=== PATIENT | female | born 1975 | race Caucasian/White ===

== ENCOUNTER 2020-03-30 12:30 | Emergency (ER) | payer OTHER, SELFPAY ==
[2020-03-30 13:47] VITALS: BP 145/109; PULSE 93; RESP 18; TEMP 36.8; O2SAT 96; BMI 34.1
--- NOTE | 2020-03-30 13:47 | ED_ITS ---
HPI - General Adult General Chief complaint: Back Pain/Injury <Katlin Kaminski NP - Last Filed: 03/30/20 14:43> Stated complaint: BACK PAIN <Katlin Kaminski NP - Last Filed: 03/30/20 14:43> Time Seen by Provider: 03/30/20 13:22 <Katlin Kaminski NP - Last Filed: 03/30/20 14:43> Source: patient <Katlin Kaminski NP - Last Filed: 03/30/20 14:43> Mode of arrival: ambulatory <Katlin Kaminski NP - Last Filed: 03/30/20 14:43> Limitations: no limitations <Katlin Kaminski NP - Last Filed: 03/30/20 14:43> History of Present Illness HPI narrative: 44 yo female with past medical history of acute on chronic low back pain worsened since last night after lifting a heavy box last night. No radiation of pain. No bowel or bladder incontinence. No numbness/tingling. No urinary symptoms. Patient is ambulatory. Takes flexeril, gabapentin and ibuprofen for chronic pain. <Katlin Kaminski NP - Last Filed: 03/30/20 14:43> Related Data Home medications: Previous Rx's Medication Instructions Recorded lidocaine [Lidoderm] 1 patch TOPICAL DAILY #15 ea 03/30/20 oxycodone 5 mg PO Q6H PRN #10 tab 03/30/20 <Katlin Kaminski NP - Last Filed: 03/30/20 14:43> Allergies/adverse reactions: Allergies Allergy/AdvReac Type Severity Reaction Status Date / Time vancomycin [VANCOMYCIN] Allergy Intermediate RASH, Verified 04/01/20 15:06 ITCHING, BREATHING PROBLEMS <Katlin Kaminski NP - Last Filed: 03/30/20 14:43> Review of Systems Review of Systems: Yes all other systems are reviewed and are negative <Katlin Kaminski NP - Last Filed: 03/30/20 14:43> Constitutional: Constitutional: Reports no additional constitutional complaints, Denies body ache(s), Denies chills, Denies fever(s), Denies headache(s) and Denies weakness <Katlin Kaminski NP - Last Filed: 03/30/20 14:43> Eyes: Eyes: Reports no additional eye complaints and Denies change in vision <Katlin Kaminski NP - Last Filed: 03/30/20 14:43> ENT: Reports system reviewed and no additional complaints, except as documented, Denies dizziness, Denies headache(s), Denies nasal congestion, Denies nasal discharge and Denies neck pain <Katlin Kaminski BEH[employer]IOR[employer] SCI[employer]ES DEPARTMENT CHAIR - Last Filed: 03/30/20 14:43> Cardiovascular: Cardiovascular: Reports no additional cardiovascular complaints, Denies chest pain, Denies leg edema and Denies dyspnea <Katlin Kaminski NP - Last Filed: 03/30/20 14:43> Respiratory: Respiratory: Reports no additional respiratory complaints, Denies cough and Denies dyspnea <Katlin Kaminski NP - Last Filed: 03/30/20 14:43> Gastrointestinal: Gastrointestinal: Reports no additional gastrointestinal complaints, Denies abdominal pain, Denies diarrhea, Denies nausea and Denies vomiting <Katlin Kaminski NP - Last Filed: 03/30/20 14:43> Genitourinary: Genitourinary: Reports no additional female genitourinary complaints and Denies urinary incontinence <Katlin Kaminski NP - Last Filed: 03/30/20 14:43> Musculoskeletal: Musculoskeletal: Reports no additional musculoskeletal complaints, Reports back pain, Denies arthralgias, Denies joint swelling, Denies neck pain, Denies numbness and Denies tingling <Katlin Kaminski NP - Last Filed: 03/30/20 14:43> Integumentary/Breasts: Skin/Breast: Reports system reviewed and no additional complaints, except as docu and Denies rash <Katlin Kaminski NP - Last Filed: 03/30/20 14:43> Neurologic: Reports system reviewed and no additional complaints, except as documented, Denies Abnormal speech present, Denies dizziness, Denies headache(s), Denies numbness, Denies tingling and Denies weakness <Katlin Kaminski NP - Last Filed: 03/30/20 14:43> PMFSH Past Medical History Medical History: Medical History (Updated 04/01/20 @ 15:36 by Zuhair Spencer MD) Back pain Carpal tunnel syndrome, bilateral Fibula fracture Kidney laceration Low back pain Lumbar radiculopathy Pars defect of lumbar spine Tibia fracture <Katlin Kaminski NP - Last Filed: 03/30/20 14:43> Physical Exam Vital Signs: Vital Signs: Last Vital Signs Temp 98.2 F 03/30/20 13:50 Pulse 93 03/30/20 13:50 Resp 18 03/30/20 13:50 BP 145/102 H 03/30/20 13:50 Pulse Ox 96 03/30/20 13:50 Body Mass Index 34.1 <Katlin Kaminski NP - Last Filed: 03/30/20 14:43> Vital Signs: Last Vital Signs Temp 98.2 F 03/30/20 13:50 Pulse 93 03/30/20 13:50 Resp 18 03/30/20 13:50 BP 145/102 H 03/30/20 13:50 Pulse Ox 96 03/30/20 13:50 Body Mass Index 34.1 <Linden Todd MD - Last Filed: 04/07/20 07:19> Const: General: cooperative, healthy appearing, comfortable and no acute distress <Katlin Kaminski NP - Last Filed: 03/30/20 14:43> Orientation/consciousness: patient oriented x3 <Katlin Kaminski NP - Last Filed: 03/30/20 14:43> Limitations: no limitations <Katlin Kaminski NP - Last Filed: 03/30/20 14:43> HENMT: Head: Yes normal to inspection <Katlin Kaminski NP - Last Filed: 03/30/20 14:43> Ears: hearing grossly normal bilaterally <Katlin Kaminski NP - Last Filed: 03/30/20 14:43> General nose exam: Normal external nose present <Katlin Kaminski NP - Last Filed: 03/30/20 14:43> Face and sinus: Yes normal facial exam <Katlin Kaminski NP - Last Filed: 03/30/20 14:43> Mouth: Normal oral and palatal mucosa present <Katlin Kaminski NP - Last Filed: 03/30/20 14:43> Throat: Yes posterior oropharynx normal <Katlin Kaminski NP - Last Filed: 0 03/30/20 14:43> Eyes: General: appearance normal, both eyes and all related structures <Katlin Kaminski NP - Last Filed: 03/30/20 14:43> Pupils: Equal, round and reactive pupils present <Katlin Kaminski NP - Last Filed: 03/30/20 14:43> Neck: Neck: Yes normal visual inspection <Katlin Kaminski BEH[employer]IORAL SCI[employer]ES DEPARTMENT CHAIR - Last Filed: 03/30/20 14:43> Chest: Chest palpation & inspection: normal inspection of the chest <Katlin Kaminski NP - Last Filed: 03/30/20 14:43> Resp: Effort & Inspection: normal respiratory effort <Katlin Kaminski NP - Last Filed: 03/30/20 14:43> Auscultation: clear to auscultation bilaterally <Katlin Kaminski NP - Last Filed: 03/30/20 14:43> Cardio: Rate: regular rate <Katlin Kaminski NP - Last Filed: 03/30/20 14:43> Rhythm: regular rhythm <Katlin Kaminski NP - Last Filed: 03/30/20 14:43> Peripheral pulses: Peripheral pulses 2+ throughout <Katlin Kaminski NP - Last Filed: 03/30/20 14:43> GI: Inspection: Yes normal to inspection <Katlin Kaminski NP - Last Filed: 03/30/20 14:43> Palpation (GI): Soft to palpation and nontender <Katlin Kaminski NP - Last Filed: 03/30/20 14:43> Auscultation: normal bowel sounds <Katlin Kaminski NP - Last Filed: 03/30/20 14:43> Back/Spine/Pelvis: Other: Mildine lower lumbar tenderness with no step offs or deformities. FROM. <Katlin Kaminski NP - Last Filed: 03/30/20 14:43> Thoracic/Lumbar Spine: thoracic and lumbar spine normal to inspection and stra ight leg raise positive (bilateral ) <Katlin Kaminski NP - Last Filed: 03/30/20 14:43> Skin: General skin exam: no rashes or lesions noted <Katlin Kaminski NP - Last Filed: 03/30/20 14:43> Neuro: General: patient oriented x3, no focal motor deficits and normal sensation to monofilament <Katlin Kaminski NP - Last Filed: 03/30/20 14:43> Cranial nerves: Yes Equal, round and reactive pupils present <Katlin Kaminski NP - Last Filed: 03/30/20 14:43> Cognition (Neuro): normal cognition <Katlin Kaminski NP - Last Filed: 03/30/20 14:43> Speech: No Abnormal speech present <Katlin Kaminski NP - Last Filed: 03/30 14:43> Gait exam (Neuro): Normal gait present <Katlin Kaminski NP - Last Filed: 03/30/20 14:43> Motor exam (neuro): 5/5 motor strength present throughout <Katlin Kaminski NP - Last Filed: 03/30/20 14:43> Extrem: General: Yes normal to inspection <Katlin Kaminski NP - Last Filed: 03/30/20 14:43> Course Course Course Narrative: 44 yo female here with acute on chronic back pain. No red flag symptoms or neuro deficits. X-rays Mild anterior subluxation of L4 with respect L5, L4-L5 degenerative disc disease and lower lumbar spine facet arthritis. New spinal stimulator in the lead entering at the L1-L2 level extending to at least the T 9-10 disc space level. Unchanged appearance of IVC filter. Patient on flexeril, naproxen, gabapentin. Reviewed masspat with no additional rx noted. Will give small supply of oxycodone. Reviewed worrisome signs.symptoms with the patient and when to return to the ED. Comfortable with discharge home <Katlin Kaminski NP - Last Filed: 03/30/20 14:43> I have reviewed the chart <Linden Todd MD - Last Filed: 04/07/20 07:19> Medical Decision Making Medical Records Medical records reviewed: Yes I reviewed the patient's medical records. <Katlin Kaminski NP - Last Filed: 03/30/20 14:43> Lab Data Lab results reviewed: Yes I reviewed the patient's lab results. <Katlin Kaminski NP - Last Filed: 03/30/20 14:43> Imaging Data lumbar spine xray: Attestation: I personally reviewed and interpreted this imaging study as follows: <Katlin Kaminski NP - Last Filed: 03/30/20 14:43> Radiologist's impression: EXAMINATION: XR LUMBOSACRAL SPINE CLINICAL INFORMATION: Low back pain COMPARISON: Previous lumbar spine x-ray most recent August 2017 TECHNIQUE: Three views of the lumbosacral spine. FINDINGS: There is mild 4 mm anterior subluxation of L4 with respect L5. Bone alignment is otherwise normal. There is degenerative disc disease L4-L5. There is lower lumbar spine facet arthritis. No fracture or dislocation is seen. There is a stimulator lead entering the spinal canal at the L1-L2 level. The lead extends to the T T9-T10 disc space level. The most superior portion of the lead in the spinal canal may not be imaged. There is an IVC filter with the top of the filter at the L2 vertebral body level. There is a broken displaced prong appears unchanged. XR/XR lumbar spine 2-3V IMPRESSION: Mild anterior subluxation of L4 with respect L5, L4-L5 degenerative disc disease and lower lumbar spine facet arthritis. New spinal stimulator in the lead entering at the L1-L2 level extending to at least the T 9-10 disc space level. Unchanged appearance of IVC filter. <Katlin Kaminski NP - Last Filed: 03/30/20 14:43> Discharge Plan Discharge Clinical Impression: Strain of lumbar region <Katlin Kaminski NP - Last Filed: 03/30/20 14:43> Patient Disposition: Home, Self-Care <Katlin Kaminski NP - Last Filed: 03/30/20 14:43> Instructions: Acute Low Back Pain (ED) <Katlin Kaminski NP - Last Filed: 03/30/20 14:43> Prescriptions: New lidocaine [Lidoderm] 5 % adhesive patch,medicated 1 patch topical DAILY Qty: 15 RF: 0 oxycodone 5 mg tablet 5 mg PO Q6H PRN (Reason: pain) Qty: 10 RF: 0 <Katlin Kaminski NP - Last Filed: 03/30/20 14:43> Referrals: Physician,Unknown [Primary Care Provider] - 2 days <Katlin Kaminski NP - Last Filed: 03/30/20 14:43> Interventions: ED Discharge Assessment Last Done: 03/30/20 14:22 <Katlin Kaminski NP - Last Filed: 03/30/20 14:43> Discharge Date/Time: 03/30/20 14:24 <Katlin Kaminski NP - Last Filed: 03/30/20 14:43>
[2020-03-30 13:50] VITALS: BP 145/102; PULSE 93; RESP 18; TEMP 36.8; O2SAT 96; BMI 34.1
== END 2020-03-30 14:24 | disposition home or self-care (01) ==
PROVIDERS: Emergency Provider Emergency Medicine
DX: S39.012A Strain of muscle, fascia and tendon of lower back, initial encounter (principal); X50.0XXA Overexertion from strenuous movement or load, initial encounter; Y93.E9 Activity, other interior property and clothing maintenance; Y92.019 Unspecified place in single-family (private) house as the place of occurrence of the external cause; Y99.9 Unspecified external cause status
CPT/HCPCS: 72100; 99283

== ENCOUNTER → 2020-04-01 14:22 | Outpatient (BNVA) | payer OTHER, SELFPAY | PROVIDERS: Visit Provider Anesthesiology | DX: G56.03 Carpal tunnel syndrome, bilateral upper limbs (principal); M54.5 Low back pain; M43.06 Spondylolysis, lumbar region; M54.16 Radiculopathy, lumbar region | CPT/HCPCS: 99212 ==

== ENCOUNTER → 2020-05-10 14:20 | Outpatient (BNVA) | payer OTHER, SELFPAY | PROVIDERS: Visit Provider Orthopaedic Surgery | DX: R20.0 Anesthesia of skin (principal); R20.2 Paresthesia of skin | CPT/HCPCS: 99202 ==

== ENCOUNTER 2020-09-05 11:51 | Emergency (ER) | payer OTHER, SELFPAY ==
--- NOTE | ~2020-09-05 | XR_ITS ---
EXAMINATION: XR HIP, RIGHT CLINICAL INFORMATION: Atraumatic right hip pain COMPARISON: None TECHNIQUE: AP pelvis and 2 views of the right hip. FINDINGS: There is normal symmetry of both hip joints and SI joints. There is old healed fracture left pubis with hypertrophic bony changes. AP and frog-leg views right hip reveal old healed right mid femoral fracture. There is no acute fracture or dislocation right hip joint. Small ossified bone fragments are seen along the soft tissues of right hip joint and a small enthesophyte along the lesser trochanter. Otherwise the soft tissues unremarkable. XR/XR hip RT w PEL1V IMPRESSION: No acute fracture or dislocation AP pelvis and right hip. There is old healed fracture right mid femur and left pubis with hypertrophic callus formation. Minimal soft tissue ossification adjacent to the right hip joint and a small enthesophyte along lesser trochanter.
[2020-09-05 11:58] VITALS: BP 137/97; PULSE 96; RESP 18; TEMP 36.7; O2SAT 97; BMI 32.8
[2020-09-05] MEDS: Ibuprofen 600 MG TABLET PO (12:44)
[2020-09-05] MEDS: oxyCODONE HCl Immed Release 5 MG TABLET PO (12:45)
--- NOTE | 2020-09-05 13:09 | ED_ITS ---
HPI - Extremity Problem General Chief complaint: Extremity Injury, Lower Stated complaint: R hip/leg pain No injury Time Seen by Provider: 09/05/20 12:11 Source: patient Mode of arrival: ambulatory Limitations: no limitations History of Present Illness HPI Narrative: 44-year-old female with a past medical history of prior mid right femur fracture presenting to the ED with complaints of acute on chronic right hip/ right upper leg pain for the past few days worse today. No trauma. Denies having any fevers any paresthesias or any surrounding erythema. MD Complaint: extremity pain and joint paint Onset (ago): day(s) ( Worse today) Pain Consistency: constant Location: right and lower extremity ( right hip) Severity scale (1-10): >10 Quality: aching, sharp and constant Radiation: distal Relieving factors: immobilization and rest Exacerbating factors: range of motion, weight bearing, walking and palpation Associated symptoms: denies other symptoms Related Data Previous Rx's Medication Instructions Recorded lidocaine [Lidoderm] 1 patch TOPICAL DAILY #15 ea 03/30/20 acetaminophen [Tylenol Extra 1,000 mg PO QID PRN #14 tab 09/05/20 Strength] ibuprofen 800 mg PO Q8H PRN #14 tab 09/05/20 lidocaine HCl [Aspercreme 1 appl TOPICAL BID PRN #120 g 09/05/20 (lidocaine HCl)] oxycodone 5 mg PO BID PRN #10 tab 09/05/20 Allergies Allergy/AdvReac Type Severity Reaction Status Date / Time vancomycin [VANCOMYCIN] Allergy Intermediate RASH, Verified 05/10/20 14:38 ITCHING, BREATHING PROBLEMS Review of Systems Review of Systems: Constitutional : No changes in activity, No lethargy, No recent prior head injury, No agitation, No increased fussiness ENT/Mouth : No Ear Pain, No Nasal discharge/drainage Eyes: No Eye Pain, No Swelling, No Redness, No Foreign Body, No Vision Changes Cardiovascular : No Chest Pain, No SOB Respiratory : No Cough Gastrointestinal : No Nausea, No Vomiting, No abdominal Pain Genitourinary : No Dysuria, No Urinary Frequency, No Urinary Incontinence, No Urgency, No Flank Pain Musculoskeletal : + joint pain, No neck stiffness, No back pain/injury Skin : No lacerations Neuro : No unsteady gait, No Paresthesias, No Loss of Consciousness, No altered mental status, No Headache Yes all other systems are reviewed and are negative [facility] Past Medical History Attestation statement: The following information was validated with the patient. Medical History Back pain Carpal tunnel syndrome, bilateral DVT (deep vein thrombosis) in Fibula fracture Kidney laceration Low back pain Lumbar radiculopathy Pancreatitis Pars defect of lumbar spine Tibia fracture Surgical History History of cholecystectomy Social History Social History Advance Directives: No Advance Directives Information Provided: No Patient : No Current occupational status: unemployed Current occupation: disability Physical Exam Vital Signs: Vital Signs: Last Vital Signs Temp 98.1 F 09/05/20 11:58 Pulse 96 09/05/20 11:58 Resp 18 09/05/20 11:58 BP 137/97 H 09/05/20 11:58 Pulse Ox 97 09/05/20 11:58 Body Mass Index 32.8 vital signs have been reviewed as normal and appeared to be correct. Blood pressure normal. Heart rate normal. Respiration rate normal. Temperature normal. Oxygen saturation normal. Appearance: Alert. Oriented X3. No acute distress. Head: Normal external exam. Normocephalic. Atraumatic. Eyes: PERRLA. EOMI. Conjunctiva and sclera normal. Eyelids normal. ENT: EAC normal. TM's Normal. Pharynx normal. Uvula midline. Moist mucous membranes. Neck: Normal inspection. Neck supple. FROM. No adenopathy. No meningeal signs. CVS: Normal heart rate and rhythm. Heart sound normal. Pulses normal throughout. No murmurs/rales/gallops. Respiratory: No respiratory distress. Painless inspiration. Abdomen: Soft and nontender. Bowel sounds normal in all 4 quadrants. No distention noted. No organomegaly noted. No visible injury noted. Back: No CVA tenderness. Full range of motion noted. No rashes/lesion/induration/fluctuance or signs of infection noted. Skin: Skin warm and dry. Normal skin color. Normal skin turgor. No rashes/lesions/lacerations noted. Extremities: Patient with tenderness to palpation of right hip/right upper leg. Patient has full range of motion of right hip/ right upper leg no laxity or signs of infection or rashes are noted. No lower extremity edema. no calf tenderness noted. Extremities exhibit normal range of motion. Extremities nontender. Neuro: Oriented X 3. No motor deficit. No sensory deficit. Reflexes normal. Normal steady gait. No focal neuro deficits noted. Vascular: + radial pulses/+ 2 distal pedal pulses/+2 dorsalis pedis b/l. Normal cap refill. No cyanosis noted to upper extremity nails and lower extremity toes nails. Course Course Course Narrative: Patient with acute on chronic right hip / right upper leg pain for the past few days worse today. X-ray obtained revealed chronic changes no acute processes were noted. Will DC home with instructions return if any new or worsening symptoms and symptomatic treatment and to follow up with primary care provider. Patient understands agrees with this plan. MDM - Extremity (Nontraumatic) Imaging Data Right hip/pelvis x-ray: Attestation: I personally reviewed and interpreted this imaging study as follows: Radiologist's impression: FINDINGS: There is normal symmetry of both hip joints and SI joints. There is old healed fracture left pubis with hypertrophic bony changes. AP and frog-leg views right hip reveal old healed right mid femoral fracture. There is no acute fracture or dislocation right hip joint. Small ossified bone fragments are seen along the soft tissues of right hip joint and a small enthesophyte along the lesser trochanter. Otherwise the soft tissues unremarkable. XR/XR hip RT w PEL1V IMPRESSION: No acute fracture or dislocation AP pelvis and right hip. There is old healed fracture right mid femur and left pubis with hypertrophic callus formation. Minimal soft tissue ossification adjacent to the right hip joint and a small enthesophyte along lesser trochanter. Discharge Plan Discharge Clinical Impression: Strain of right hip Patient Disposition: Home, Self-Care Instructions: Hip Pain (ED) Additional Instructions: Your x-ray revealed chronic changes no acute processes You do not have any new broken bones are noted. Return if any new or worsening symptoms. Follow up with your primary care provider. Prescriptions: New ibuprofen 800 mg tablet 800 mg PO Q8H PRN (Reason: pain) Qty: 14 RF: 0 acetaminophen [Tylenol Extra Strength] 500 mg tablet 1,000 mg PO QID PRN (Reason: fever or pain) Qty: 14 RF: 0 oxycodone 5 mg tablet 5 mg PO BID PRN (Reason: pain) Qty: 10 RF: 0 lidocaine HCl [Aspercreme (lidocaine HCl)] 4 % cream 1 appl topical BID PRN (Reason: pain) Qty: 120 RF: 0 No Action lidocaine [Lidoderm] 5 % adhesive patch,medicated 1 patch topical DAILY Qty: 15 RF: 0 Referrals: Physician,Unknown [Primary Care Provider] - 2 days (your pcp) Print Language: Swedish
[2020-09-05 13:47] VITALS: RESP 17
== END 2020-09-05 13:58 | disposition home or self-care (01) ==
PROVIDERS: Emergency Provider Emergency Medicine
DX: S76.011A Strain of muscle, fascia and tendon of right hip, initial encounter (principal); X58.XXXA Exposure to other specified factors, initial encounter; Y93.9 Activity, unspecified; Y92.9 Unspecified place or not applicable; Y99.9 Unspecified external cause status; Z86.718 Personal history of other venous thrombosis and embolism
CPT/HCPCS: 73502; 99283

== ENCOUNTER 2020-09-09 17:16 | Emergency (ER) | payer OTHER, SELFPAY ==
[2020-09-09 17:55] VITALS: BP 138/85; PULSE 95; RESP 18; TEMP 37.3; O2SAT 96; BMI 35.5
--- NOTE | 2020-09-09 19:04 | ED.BACK ---
HPI - Back Pain/Injury General Chief Complaint: Back Pain/Injury Stated Complaint: Lower back pain Time Seen by Provider: 09/09/20 18:55 History of Present Illness HPI Narrative: patient complains of right low back pain radiating to the right knee area, there is no loss of sensation there is no weakness no change to bowel or bladder no incontinence There is no trauma, patient was seen here 3 days ago for the same thing is taking 1 Percocet every 6 hours as needed along with lidocaine patch Motrin and Tylenol without good relief Related Data Previous Rx's Medication Instructions Recorded lidocaine [Lidoderm] 1 patch TOPICAL DAILY #15 ea 03/30/20 acetaminophen [Tylenol Extra 1,000 mg PO QID PRN #14 tab 09/05/20 Strength] ibuprofen 800 mg PO Q8H PRN #14 tab 09/05/20 lidocaine HCl [Aspercreme 1 appl TOPICAL BID PRN #120 g 09/05/20 (lidocaine HCl)] oxycodone 5 mg PO BID PRN #10 tab 09/05/20 oxycodone 5 mg PO Q6H PRN #7 tab 09/09/20 prednisone 60 mg PO DAILY 4 Days #12 tab 09/09/20 Allergies Allergy/AdvReac Type Severity Reaction Status Date / Time vancomycin [VANCOMYCIN] Allergy Intermediate RASH, Verified 05/10/20 14:38 ITCHING, BREATHING PROBLEMS Review of Systems Review of Systems: positive for right-sided back pain radiating to right leg Negative no fever no chills no dizziness no weakness no fainting no feeling faint no headache no neck pain no chest pain no abdominal pain no dysuria no frequency no changes to bowel or bladder no incontinence no rash no numbness weakness Yes all other systems are reviewed and are negative PMFSH Past Medical History Source: nursing notes reviewed Medical History Back pain Carpal tunnel syndrome, bilateral DVT (deep vein thrombosis) in Fibula fracture Kidney laceration Low back pain Lumbar radiculopathy Pancreatitis Pars defect of lumbar spine Tibia fracture Surgical History History of cholecystectomy Social History Social History Advance Directives: No Advance Directives Information Provided: Yes Patient : No Current occupational status: unemployed Current occupation: disability Physical Exam Vital Signs: Vital Signs: Last Vital Signs Temp 99.1 F 09/09/20 17:55 Pulse 95 09/09/20 17:55 Resp 18 09/09/20 17:55 BP 138/85 09/09/20 17:55 Pulse Ox 96 09/09/20 17:55 Body Mass Index 35.5 general appearance no acute distress Head is normocephalic atraumatic Neck is supple and nontender Respiratory no distress Abdomen soft nontender The back there is right gluteal and lower lumbar tenderness, the skin is normal no redness no rash no wound no sign of skin infection, there is no CVA tenderness and there is no focal bony tenderness Pain is easily reproduced with movement Extremities is full range of motion x4 neuro no gross motor or sensory deficit Skin no rash Course Course Course Narrative: patient with right-sided sciatica not getting pain relief with 1 oxycodone is advised that I will write a few more tablets double the dose to 10 mg see if that is helpful and we started prednisone and I advised her that in some cases it helps pinched nerve radiating pain but not guarantee She is discharged with no neurologic deficit no bowel or bladder change Discharge Plan Discharge Clinical Impression: Sciatica Qualifiers: Laterality: right Qualified Code(s): M54.31 - Sciatica, right side Patient Disposition: Home, Self-Care Additional Instructions: we are adding prednisone which might help with inflammation around the nerve shooting pain down her right leg I am writing you for additional oxycodone as the 1 5 mg tablet is not helping and it is very safe to double it to 2 tablets 10 mg and usually that will make the pain more tolerable Follow with primary doctor Return any concerns Prescriptions: New prednisone 20 mg tablet 60 mg PO DAILY 4 Days Qty: 12 RF: 0 oxycodone 5 mg tablet 5 mg PO Q6H PRN (Reason: pain) Qty: 7 RF: 0 No Action ibuprofen 800 mg tablet 800 mg PO Q8H PRN (Reason: pain) Qty: 14 RF: 0 acetaminophen [Tylenol Extra Strength] 500 mg tablet 1,000 mg PO QID PRN (Reason: fever or pain) Qty: 14 RF: 0 oxycodone 5 mg tablet 5 mg PO BID PRN (Reason: pain) Qty: 10 RF: 0 lidocaine HCl [Aspercreme (lidocaine HCl)] 4 % cream 1 appl topical BID PRN (Reason: pain) Qty: 120 RF: 0 lidocaine [Lidoderm] 5 % adhesive patch,medicated 1 patch topical DAILY Qty: 15 RF: 0
[2020-09-09] MEDS: predniSONE 20 MG TABLET 60 MG PO (19:15)
== END 2020-09-09 19:18 | disposition home or self-care (01) ==
PROVIDERS: Emergency Provider Internal Medicine
DX: M54.31 Sciatica, right side (principal)
CPT/HCPCS: 99283

== ENCOUNTER → 2020-10-11 10:22 | Outpatient (BNVA) | payer OTHER, SELFPAY | PROVIDERS: Visit Provider Internal Medicine | DX: M43.16 Spondylolisthesis, lumbar region (principal); M54.16 Radiculopathy, lumbar region; M54.41 Lumbago with sciatica, right side; G89.29 Other chronic pain; M43.06 Spondylolysis, lumbar region; Z96.89 Presence of other specified functional implants; Z98.890 Other specified postprocedural states | CPT/HCPCS: 99212 ==

== ENCOUNTER 2020-11-25 08:41 | Outpatient (REF) | payer OTHER, SELFPAY ==
--- NOTE | 2020-11-25 08:44 | EMG_ITS ---
Bilateral median and ulnar motor and sensory studies were performed. Bilateral radial sensory studies were performed and paraspinal muscles were tested with a needle. 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 MD CHALO Mak/LONI / [id number]
== END 2020-11-25 08:42 | disposition home or self-care (01) ==
LOC: HO.NEURO 08:41
PROVIDERS: PCP Internal Medicine; Visit Provider Orthopaedic Surgery
DX: R20.0 Anesthesia of skin (principal); R20.2 Paresthesia of skin
CPT/HCPCS: 95886; 95911

== ENCOUNTER 2020-12-01 11:24 | Outpatient (REF) | payer OTHER, SELFPAY ==
--- NOTE | ~2020-12-01 | XR_ITS ---
EXAMINATION: XR HAND, LEFT CLINICAL INFORMATION: Left hand pain COMPARISON: None TECHNIQUE: PA, lateral, and oblique views of the left hand. FINDINGS: There is mild loss of the DIP joint space second through fifth especially third digit. The MCP joint space is maintained. The intercarpal and radiocarpal joint space is normal. No visible acute fracture or dislocation seen. The soft tissues are normal. XR/XR hand LT min 3V IMPRESSION: Mild early degenerative arthritic changes PIP and DIP joints. No visible acute fracture or dislocation seen.
== END 2020-12-01 11:25 | disposition home or self-care (01) ==
LOC: HO.HOSX 11:24
PROVIDERS: PCP Internal Medicine; Visit Provider Orthopaedic Surgery
DX: Z01.818 Encounter for other preprocedural examination (principal); S62.633A Displaced fracture of distal phalanx of left middle finger, initial encounter for closed fracture; G56.03 Carpal tunnel syndrome, bilateral upper limbs
CPT/HCPCS: 73130; 99212

== ENCOUNTER 2021-09-05 08:30 | Day surgery (SDC) | payer OTHER, SELFPAY ==
--- NOTE | 2021-09-05 07:48 | W.PM.OPN ---
Operative Note Operative Note Date of Service: 09/05/21 Narrative: Preop diagnosis: 1. right Carpal tunnel syndrome Postop diagnosis: same Procedure: 1. right Carpal tunnel release Surgeon: Shira Victoria MD Anesthesia: local block using 1% lidocaine with epinephrine Findings: Thickened transverse carpal ligament. EBL: Less than 5 mL Specimens: None Complications: None Disposition: Brought to recovery room in stable condition Plan: Follow-up for 10-14 days for wound check and suture removal Indications: The patient is 45 years old, with right carpal tunnel syndrome that has been unresponsive to nonoperative management. The risks and benefits of operative treatment including but not limited to risk of damage to blood vessels, nerves, tendons, infection, persistent pain, persistent symptoms, or possible need for additional surgery were discussed with the patient and the patient wishes to proceed with surgery. Procedure: Once consent was obtained a local block was performed using a combination of 1% lidocaine with epinephrine. The patient was then brought back to the operating suite and placed on the operative table in supine position. A tourniquet was applied to the proximal aspect of the right upper extremity and the limb was prepped and draped in a standard surgical fashion. Once assured that we had a good block, a 1.5 cm longitudinal incision was made centered over the carpal tunnel. The incision was made through the skin to the subcutaneous tissues using a #15 blade. Dissection was made down to the level of the transverse carpal ligament with care being taken to protect the palmar cutaneous nerve. Once the transverse carpal ligament was clearly visualized, a longitudinal incision was made in the transverse carpal ligament 1st using a #15 blade, then using tenotomy scissors under direct visualization. Care was taken to look for and protect the motor branch of the median nerve when seen in this area. Once satisfied with our carpal tunnel release the wound was copiously irrigated with normal saline and hemostasis was obtained with a brief period of local pressure. The skin edges were reapproximated with some 5.0 nylon suture material and a sterile dressing was applied. The patient appears to have tolerated the procedure well and with no complications. All digits were well vascularized at the conclusion of the case.
[2021-09-05 08:52] VITALS: BP 140/78; PULSE 80; RESP 16; TEMP 36.8; O2SAT 96; BMI 34.7
--- NOTE | 2021-09-05 10:44 | MHC.SHP ---
Pre-Procedural Eval Section A Date of Service: 09/05/21 The patient is an INPATIENT: No Changes since office visit: No Cold of Flu in the past 2 weeks, No New Medical Problems, No Changes in Medication and No Patient answered all questions The History & Physical has been completed within 30 days and I have reviewed it.: Yes Section B Chief Complaint: Carpal tunnel syndrome, right upper limb Allergies: Allergies Allergy/AdvReac Type Severity Reaction Status Date / Time vancomycin [VANCOMYCIN] Allergy Intermediate RASH, Verified 12/01/20 12:23 ITCHING, BREATHING PROBLEMS Plan I have reviewed the history and physical and performed a pertinent physical examination on my patient. No changes have occurred unless specified.
[2021-09-05 10:52] VITALS: BP 130/63; PULSE 73; RESP 18; O2SAT 94
== END 2021-09-05 10:54 | disposition home or self-care (01) ==
PROVIDERS: Visit Provider Orthopaedic Surgery
PROC: (CPT 64721; principal; 2021-09-05 09:50)
DX: G56.01 Carpal tunnel syndrome, right upper limb (principal); R20.0 Anesthesia of skin; Z88.1 Allergy status to other antibiotic agents
CPT/HCPCS: 64721; J0171

== ENCOUNTER 2021-09-14 11:25 | Emergency (ER) | payer OTHER, SELFPAY ==
--- NOTE | ~2021-09-14 | XR_ITS ---
EXAMINATION: XR CHEST CLINICAL INFORMATION: Difficulty breathing COMPARISON: Prior chest radiograph 01/16/2019 TECHNIQUE: 2 views of the chest were obtained. FINDINGS: Lungs clear. Heart and pulmonary vessels are normal. Slight elevation of the right hemidiaphragm with pleural blunting stable. Spinal stimulator wiring again noted and stable. XR/XR chest 2V IMPRESSION: No active disease.
[2021-09-14 11:44] VITALS: PULSE 77; RESP 18; TEMP 36.8; O2SAT 95; BMI 33.7
--- NOTE | 2021-09-14 12:05 | ED_ITS ---
HPI - URI/Sore Throat General Chief Complaint: Upper Respiratory Symptoms Stated Complaint: Difficulty breathing Time Seen by Provider: 09/14/21 11:57 Source: patient Mode of arrival: ambulatory Limitations: no limitations History of Present Illness HPI Narrative: [id number] female with history of asthma, chronic bronchitis, pneumonia here with reports of 2 weeks of cough, wheezing unrelieved with home albuterol. Patient reports cough is productive with yellow sputum. No associated shortness of breath, chest pain, leg swelling leg pain, fever. No recent sick contacts or travel Related Data Home Medications Medication Instructions Recorded Confirmed albuterol sulfate mg inhalation Q6H PRN wheezing 08/30/21 albuterol sulfate 90 mcg/actuation 2 puff inhalation Q6H PRN wheezing 08/30/21 aerosol inhaler (ProAir HFA) buspirone 7.5 mg tablet 7.5 mg PO BEDTIME 08/30/21 cholecalciferol (vitamin D3) 25 25 mcg PO BEDTIME 08/30/21 mcg (1,000 unit) capsule (Vitamin D3) clonidine HCl 0.1 mg tablet 0.1 mg PO BID PRN 08/30/21 diphenhydramine HCl 25 mg capsule 100 mg PO BEDTIME insomnia 08/30/21 (Banophen) fluoxetine 20 mg capsule 60 mg PO BEDTIME 08/30/21 gabapentin 600 mg tablet 600 mg PO BEDTIME 08/30/21 oxcarbazepine 300 mg tablet 0 mg PO 08/30/21 oxcarbazepine 600 mg tablet 1,800 mg PO BEDTIME 08/30/21 quetiapine 50 mg tablet,extended 50 - 100 mg PO BEDTIME PRN 08/30/21 release 24 hr sumatriptan succinate 50 mg tablet 0 mg PO 08/30/21 trazodone 50 mg tablet 125 - 150 mg PO BEDTIME 08/30/21 Previous Rx's Medication Instructions Recorded acetaminophen 500 mg tablet 1,000 mg PO QID PRN fever or pain 10/12/20 (Tylenol Extra Strength) #60 tabs ibuprofen 800 mg tablet 800 mg PO Q8H PRN pain #20 tabs 10/12/20 hydrocodone 5 mg-acetaminophen 325 1 tab PO Q4-6H PRN pain #5 tabs 09/05/21 mg tablet albuterol sulfate 2.5 mg (3 mL) inhalation Q4H PRN 09/14/21 shortness of breath or wheezing #90 mL azithromycin 250 mg tablet See Rx Instructions PO .COMPLEX #6 09/14/21 tabs benzonatate 200 mg capsule 200 mg PO TID PRN cough #30 caps 09/14/21 nebulizer and compressor #1 ea 09/14/21 prednisone 20 mg tablet 40 mg PO DAILY #10 tabs 09/14/21 Allergies Allergy/AdvReac Type Severity Reaction Status Date / Time vancomycin [VANCOMYCIN] Allergy Intermediate RASH, Verified 09/14/21 11:44 ITCHING, BREATHING PROBLEMS Review of Systems Review of Systems: Yes all other systems are reviewed and are negative Constitutional: Constitutional: Reports no additional constitutional complaints, Denies body ache(s), Denies chills, Denies fever(s), Denies headache(s) and Denies weakness Eyes: Eyes: Reports no additional eye complaints and Denies change in vision ENT: Reports system reviewed and no additional complaints, except as documented, Denies dizziness, Denies headache(s), Denies nasal congestion, Denies nasal discharge and Denies neck pain Cardiovascular: Cardiovascular: Reports no additional cardiovascular complaints, Denies chest pain, Denies leg edema and Denies dyspnea Respiratory: Respiratory: Reports no additional respiratory complaints, Reports cough, Denies dyspnea and Reports wheezing Gastrointestinal: Gastrointestinal: Reports no additional gastrointestinal complaints, Denies abdominal pain, Denies diarrhea, Denies nausea and Denies vomiting Genitourinary: Genitourinary: Reports no additional female genitourinary complaints and Denies urinary incontinence Musculoskeletal: Musculoskeletal: Reports no additional musculoskeletal complaints, Denies back pain, Denies arthralgias, Denies joint swelling, Denies neck pain, Denies numbness and Denies tingling Integumentary/Breasts: Skin/Breast: Reports system reviewed and no additional complaints, except as docu and Denies rash Neurologic: Reports system reviewed and no additional complaints, except as documented, Denies Abnormal speech present, Denies dizziness, Denies headache(s), Denies numbness, Denies tingling and Denies weakness Allergic/Immunologic: Allergic/Immunologic: Reports wheezing PMFSH Past Medical History Attestation statement: The following information was validated with the patient. Source: old records reviewed and nursing notes reviewed Medical History (Updated 09/14/21 @ 12:47 by Katlin Kaminski NP) Asthma exacerbation Back pain Carpal tunnel syndrome, bilateral DVT (deep vein thrombosis) in Fibula fracture Kidney laceration Low back pain Lumbar radiculopathy Pancreatitis Pars defect of lumbar spine Spondylolisthesis at L4-L5 level Tibia fracture Surgical History History of cholecystectomy Status post surgical manipulation of ankle joint Social History Social History Patient Tobacco Use Status: Current everyday Tobacco user Tobacco use type: Cigarette Cigarette Packs Per Day: 1 Cigarettes Per Day: 20.0 Advance Directives: No Advance Directives Information Provided: No Current occupational status: unemployed Current occupation: disability Physical Exam Vital Signs: Vital Signs: Last Vital Signs Temp 98.2 F 09/14/21 11:44 Pulse 77 09/14/21 11:44 Resp 18 09/14/21 11:44 Pulse Ox 95 09/14/21 11:44 O2 Del Method 09/14/21 11:44 BMI result Body Mass Index 33.7 Const: General: cooperative, healthy appearing, comfortable and no acute distress Orientation/consciousness: patient oriented x3 Limitations: no limitations HEENT: Head: Yes normal to inspection Ears: hearing grossly normal bilaterally and TM's normal bilaterally General nose exam: Normal external nose present Face and sinus: Yes normal facial exam Mouth: Normal oral and palatal mucosa present Throat: Yes posterior oropharynx normal, Yes tonsils normal and Yes uvula midline Eyes: General: appearance normal, both eyes and all related structures Pupils: Equal, round and reactive pupils present Neck: Neck: Yes normal visual inspection, Yes full ROM, Yes no lymphadenopathy and Yes no meningeal signs Chest: Chest palpation & inspection: normal inspection of the chest Resp: Effort & Inspection: normal respiratory effort Auscultation: clear to auscultation bilaterally Cardio: Rate: regular rate Rhythm: regular rhythm Peripheral pulses: Peripheral pulses 2+ throughout GI: Inspection: Yes normal to inspection Palpation (GI): Soft to palpation and nontender Auscultation: normal bowel sounds Back/Spine/Pelvis: Thoracic/Lumbar Spine: thoracic and lumbar spine normal to inspection Skin: General skin exam: no rashes or lesions noted Neuro: General: patient oriented x3, no meningeal signs, no focal motor deficits and normal sensation to monofilament Cranial nerves: Yes Equal, round and reactive pupils present Cognition (Neuro): normal cognition Speech: No Abnormal speech present Gait exam (Neuro): Normal gait present Motor exam (neuro): 5/5 motor strength present throughout Extrem: General: Yes normal to inspection, Yes no pedal edema and Yes no calf tenderness Course Course Course Narrative: COVID screen is negative. Chest x-ray shows no acute finding. Patient has history of bronchitis and states this feels similar. Will treat her with course of prednisone, antibiotics, cough suppressant. Patient also requesting refills on her albuterol and nebulizer machine. No tachypnea or hypoxia. Lungs are clear. Patient overall well-appearing. Reviewed worrisome signs symptoms of when to return to the emergency department. Comfortable discharge home. MDM - URI/Sore Throat MDM Narrative Medical decision making narrative: 45-year-old female with history of asthma, bronchitis, pneumonia here with 2 weeks of productive cough unrelieved with home albuterol. Will check chest X x- ray, COVID screen. Medical Records Attestation: I reviewed the patient's medical records. Lab Data Attestation: I reviewed the patient's lab results. Labs: Lab Results 09/14/21 Range/Units 12:12 COVID-19 (MARIA R) Negative (Negative) COVID-19 Clin Com See Note Imaging Data Chest x-ray: Attestation: I personally reviewed and interpreted this imaging study as follows: Radiologist's impression: [address] [address] XRay Report Signed Patient: Simran Posada MR#: [id number] : 1975 Acct:[id number] Age/Sex: 45 / F ADM Date: 09/14/21 Loc: HO.ED Attending Dr: Ordering Physician: Jordan Red MD Date of Service: 09/14/21 Procedure(s): XR chest 2V Accession Number(s): [id number] cc: Jordan Red MD~ EXAMINATION: XR CHEST CLINICAL INFORMATION: Difficulty breathing COMPARISON: Prior chest radiograph 01/16/2019 TECHNIQUE: 2 views of the chest were obtained. FINDINGS: Lungs clear. Heart and pulmonary vessels are normal. Slight elevation of the right hemidiaphragm with pleural blunting stable. Spinal stimulator wiring again noted and stable. XR/XR chest 2V IMPRESSION: No active disease. Discharge Plan Discharge Clinical Impression: Bronchitis, Asthma exacerbation Patient Disposition: Home, Self-Care Instructions: Asthma (ED), Acute Bronchitis (ED) Additional Instructions: COVID screen is negative Chest x-ray shows no pneumonia Start medication today Prescriptions: New prednisone 20 mg tablet 40 mg PO DAILY Qty: 10 0RF azithromycin 250 mg tablet See Rx Instructions .ROUTE .COMPLEX Qty: 6 0RF Rx Instructions: For 250 mg dose pack: take 500 mg today (day 1), then 250 mg for 4 days (days 2-5) albuterol sulfate 2.5 mg /3 mL (0.083 %) solution for nebulization 2.5 mg inhalation Q4H PRN (Reason: shortness of breath or wheezing) Qty: 90 0RF benzonatate 200 mg capsule 200 mg PO TID PRN (Reason: cough) Qty: 30 0RF (DME) nebulizer and compressor Device See Rx Instructions .Route Qty: 1 0RF Rx Instructions: As directed No Action ibuprofen 800 mg tablet 800 mg PO Q8H PRN (Reason: pain) Qty: 20 0RF acetaminophen [Tylenol Extra Strength] 500 mg tablet 1,000 mg PO QID PRN (Reason: fever or pain) Qty: 60 5RF hydrocodone-acetaminophen 5-325 mg tablet 1 tab PO Q4-6H PRN (Reason: pain) Qty: 5 0RF Rx Instructions: Partial Fill upon patient request. cholecalciferol (vitamin D3) [Vitamin D3] 25 mcg (1,000 unit) capsule 25 mcg PO BEDTIME oxcarbazepine 600 mg tablet 1,800 mg PO BEDTIME oxcarbazepine 300 mg tablet 0 mg PO sumatriptan succinate 50 mg tablet 0 mg PO trazodone 50 mg tablet 125 - 150 mg PO BEDTIME gabapentin 600 mg tablet 600 mg PO BEDTIME clonidine HCl 0.1 mg tablet 0.1 mg PO BID PRN albuterol sulfate [ProAir HFA] 90 mcg/actuation HFA aerosol inhaler 2 puff inhalation Q6H PRN (Reason: wheezing) albuterol sulfate 2.5 mg /3 mL (0.083 %) solution for nebulization inhalation Q6H PRN (Reason: wheezing) quetiapine 50 mg tablet extended release 24 hr 50 - 100 mg PO BEDTIME PRN diphenhydramine HCl [Banophen] 25 mg capsule 100 mg PO BEDTIME buspirone 7.5 mg tablet 7.5 mg PO BEDTIME fluoxetine 20 mg capsule 60 mg PO BEDTIME Referrals: Physician,Unknown J [Primary Care Provider] - Interventions: ED Discharge Assessment Last Done: 09/14/21 12:53 Discharge Date/Time: 09/14/21 12:54
[2021-09-14 12:39] LABS: COVID-19 Test Negative (Negative); IDNOW Serial# 16C4AD1C
== END 2021-09-14 12:54 | disposition home or self-care (01) ==
PROVIDERS: Emergency Provider Internal Medicine
DX: J40 Bronchitis, not specified as acute or chronic (principal); J45.901 Unspecified asthma with (acute) exacerbation; Z20.822 Contact with and (suspected) exposure to COVID-19; F17.200 Nicotine dependence, unspecified, uncomplicated
CPT/HCPCS: 71046; 87635; 99282; 99283

== ENCOUNTER 2021-11-09 20:19 | Emergency (ER) | payer OTHER, SELFPAY ==
--- NOTE | ~2021-11-09 | XR_ITS ---
EXAMINATION: XR CHEST CLINICAL INFORMATION: Shortness of breath. Asthma. COMPARISON: Chest x-ray 09/14/2021 TECHNIQUE: Frontal view of the chest was obtained. FINDINGS: Cardiac silhouette is normal in size. The lungs are adequately aerated. Similar mild asymmetric elevation the right hemidiaphragm. There is no lobar consolidation. No pleural effusion or pneumothorax. Partially visualized spinal stimulator wires. Surgical clips in the right upper abdomen. XR/XR chest 1V IMPRESSION: Stable examination demonstrating no acute pulmonary pathology.
--- NOTE | 2021-11-09 20:27 | ED.SOB ---
HPI - SOB/Dyspnea General Chief Complaint: Dyspnea Stated Complaint: sob hx asthma copd Source: patient and EMS Mode of arrival: EMS Limitations: no limitations History of Present Illness HPI Narrative: 46-year-old female presents via EMS with acute asthma exacerbation, shortness breath, on O2 at 4 L. patient is unable to speak in complete sentences at this time. MD elicited complaint: shortness of breath Pertinent past history: asthma Onset (ago): hour(s) (Within the hour of arrival) Context: occurred during exertion Timing: constant and progressively worsening Severity: moderate Exacerbating factors: exertion and coughing Relieving factors: oxygen and bronchodilators Known history of: asthma Associated symptoms: cough and wheezing Treatment prior to arrival: oxygen Related Data Home oxygen amount: none Home Medications Medication Instructions Recorded Confirmed albuterol sulfate 2.5 mg/3 mL mg inhalation Q6H PRN wheezing 08/30/21 (0.083 %) solution for nebulization albuterol sulfate 90 mcg/actuation 2 puff inhalation Q6H PRN wheezing 08/30/21 aerosol inhaler (ProAir HFA) buspirone 7.5 mg tablet 7.5 mg PO BEDTIME 08/30/21 cholecalciferol (vitamin D3) 25 25 mcg PO BEDTIME 08/30/21 mcg (1,000 unit) capsule (Vitamin D3) clonidine HCl 0.1 mg tablet 0.1 mg PO BID PRN 08/30/21 diphenhydramine HCl 25 mg capsule 100 mg PO BEDTIME insomnia 08/30/21 (Banophen) fluoxetine 20 mg capsule 60 mg PO BEDTIME 08/30/21 gabapentin 600 mg tablet 600 mg PO BEDTIME 08/30/21 oxcarbazepine 300 mg tablet 0 mg PO 08/30/21 oxcarbazepine 600 mg tablet 1,800 mg PO BEDTIME 08/30/21 quetiapine 50 mg tablet,extended 50 - 100 mg PO BEDTIME PRN 08/30/21 release 24 hr sumatriptan succinate 50 mg tablet 0 mg PO 08/30/21 trazodone 50 mg tablet 125 - 150 mg PO BEDTIME 08/30/21 Previous Rx's Medication Instructions Recorded acetaminophen 500 mg tablet 1,000 mg PO QID PRN fever or pain 10/12/20 (Tylenol Extra Strength) #60 tabs ibuprofen 800 mg tablet 800 mg PO Q8H PRN pain #20 tabs 10/12/20 hydrocodone 5 mg-acetaminophen 325 1 tab PO Q4-6H PRN pain #5 tabs 09/05/21 mg tablet albuterol sulfate 2.5 mg/3 mL 2.5 mg (3 mL) inhalation Q4H PRN 09/14/21 (0.083 %) solution for nebulization shortness of breath or wheezing #90 mL azithromycin 250 mg tablet See Rx Instructions PO .COMPLEX #6 09/14/21 tabs benzonatate 200 mg capsule 200 mg PO TID PRN cough #30 caps 09/14/21 nebulizer and compressor #1 ea 09/14/21 prednisone 20 mg tablet 40 mg PO DAILY #10 tabs 09/14/21 azithromycin 250 mg tablet 250 mg PO DAILY 4 days #4 tabs 11/10/21 benzonatate 200 mg capsule 200 mg PO TID PRN cough #20 caps 11/10/21 prednisone 20 mg tablet 40 mg PO DAILY 6 days #12 tabs 11/10/21 Allergies Allergy/AdvReac Type Severity Reaction Status Date / Time vancomycin [VANCOMYCIN] Allergy Intermediate RASH, Verified 09/14/21 11:44 ITCHING, BREATHING PROBLEMS Review of Systems Review of Systems: Constitutional: No Fever, No Chills ENT/Mouth: No Hoarseness, No sore throat, No Rhinorrhea Eyes: No Redness, No Discharge, No Vision Changes Cardiovascular: No Chest Pain, positive SOB, positive Dyspnea on Exertion, No Edema Respiratory: positive Cough, No Sputum, positive Wheezing, Gastrointestinal: No Nausea, No Vomiting, No Diarrhea, No abdominal Pain Genitourinary: No Dysuria, No Hematuria Musculoskeletal: No joint pain, No Myalgias Skin: No rash Neuro: No Weakness, No Numbness, No Headache Psych: No anxiety, depression Heme/Lymph: No Bruising, No Bleeding Endocrine: No Polyuria, No Polydipsia Yes all other systems are reviewed and are negative [facility] Past Medical History Attestation statement: The following information was validated with the patient. Source: old records reviewed Medical History Asthma exacerbation Back pain Carpal tunnel syndrome, bilateral DVT (deep vein thrombosis) in Fibula fracture Kidney laceration Low back pain Lumbar radiculopathy Pancreatitis Pars defect of lumbar spine Spondylolisthesis at L4-L5 level Tibia fracture Surgical History History of cholecystectomy Status post surgical manipulation of ankle joint Social History Social History Patient Tobacco Use Status: Current everyday Tobacco user Tobacco use type: Cigarette Cigarette Packs Per Day: 1 Cigarettes Per Day: 20.0 Advance Directives: No Advance Directives Information Provided: No Current occupational status: unemployed Current occupation: disability Physical Exam Vital Signs: Vital Signs: Last Vital Signs Temp 98.4 F 11/09/21 23:56 Pulse 102 H 11/09/21 23:56 Resp 21 H 11/09/21 23:56 BP 143/67 H 11/09/21 23:56 Pulse Ox 100 11/09/21 23:56 O2 Del Method 11/09/21 23:56 O2 Flow Rate 2 11/09/21 23:56 BMI result Body Mass Index 37.4 Appearance: Alert. Oriented X3. Moderate respiratory distress. Eyes: Pupils equal, round and reactive to light. ENT: Pharynx normal. Neck: Normal inspection. Neck supple. CVS: Tachycardic heart rate and rhythm. Apical pulse occult pulses to extremities. Respiratory: Mild respiratory distress. Diminished lung sounds with coarse expiratory wheezing Abdomen: Soft and nontender. Skin: Skin warm and dry. Normal skin color. Normal skin turgor. Extremities: No lower extremity edema. Moves all extremities against resistance. Neuro: No motor deficit. No sensory deficit. Cranial nerves 2-12 intact. Course Course Course Narrative: 46-year-old female presents via EMS for asthma exacerbation. Patient is tachypneic, on 4 L O2 does not require O2 at home to give O2 sat above 92%. Speaking in 1 word answers in short phrases. Will conduct review of systems once patient is able to speak in complete sentences. IV started by this HAND TRIMMER, given Mag 2 g, Solu-Medrol, and order for hour long albuterol. Wells PE score 0. 22:59 lung sounds have improved movement, coarse at the bases. Will order 2nd hour long neb at this time. Patient does report being a smoker, both marijuana and tobacco, was having a difficult time walking up stairs became very short of breath, use her albuterol and nebs with poor effect. She does report prior illness, and feels that this is asthma exacerbation. 00:00 lung sounds are improved. Patient continues to cough. Will give Robitussin AC and Tessalon Perles 00:30 ambulatory pulse ox is pending. 01:00 ambulatory pulse ox 96% on room air, lung sounds have improved but still course. Patient would like to go home. Based on patient's history of asthma exacerbation, is a smoker, I am going to treat for bronchitis with azithromycin. Will give Tessalon, and prednisone. Please note, nursing notes states that patient was on oxygen 2 L nasal cannula, this is inaccurate. I visualized patient ambulating myself, she has even unlabored respirations, appears to be in no distress. Patient verbalized understanding of and agrees to plan of care discharge home. Verbalized understanding of signs and symptoms indicating need for emergent intervention. MDM - SOB/Dyspnea Differential Diagnosis Differential diagnosis: Likely acute exacerbation of chronic obstructive airways disease, pneumonia and asthma with exacerbation Medical Records Attestation: I reviewed the patient's medical records. Lab Data Attestation: I reviewed the patient's lab results. Labs: Lab Results 11/09/21 Range/Units 21:31 COVID-19 (MARIA R) Negative (Negative) COVID-19 Clin Com See Note Imaging Data Chest x-ray: Attestation: I personally reviewed and interpreted this imaging study as follows: Radiologist's impression: EXAMINATION: XR CHEST CLINICAL INFORMATION: Shortness of breath. Asthma. COMPARISON: Chest x-ray 09/14/2021 TECHNIQUE: Frontal view of the chest was obtained. FINDINGS: Cardiac silhouette is normal in size. The lungs are adequately aerated. Similar mild asymmetric elevation the right hemidiaphragm. There is no lobar consolidation. No pleural effusion or pneumothorax. Partially visualized spinal stimulator wires. Surgical clips in the right upper abdomen. XR/XR chest 1V IMPRESSION: Stable examination demonstrating no acute pulmonary pathology. ? ECG Data Attestation: I personally reviewed and interpreted this ECG as follows: ECG interpretation date: 11/09/21 ECG interpretation time: 20:48 Prior ECG tracings: available for review Interpretation: Vent. rate 78 BPM ND interval 158 ms QRS duration 84 ms QT/QTc 388/442 ms P-R-T axes 35 35 53 Normal sinus rhythm Normal ECG When compared with ECG of 15-APR-2018 11:11, Nonspecific T wave abnormality, improved in Anterior leads Discharge Plan Discharge Clinical Impression: Asthma with exacerbation, Bronchitis Patient Disposition: Home, Self-Care Instructions: Asthma (ED), Acute Bronchitis (ED) Additional Instructions: You were evaluated for shortness of breath and cough. We treated you for asthma exacerbation and bronchitis. We gave a year 1st dose of azithromycin in the emergency department. Please take azithromycin tomorrow, 11/11/2021, incomplete this medication as directed. I prescribed prednisone 40 mg for the next 6 days. Take this medication later today, on 11/10/2021. I prescribed Tessalon Perles. Please follow the instructions on this medication. Please consider quitting smoking and using edibles. Continued use albuterol nebulizers and inhalers as directed. If symptoms worsen please return to the emergency department. Prescriptions: New azithromycin 250 mg tablet 250 mg PO DAILY 4 Days Qty: 4 0RF Rx Instructions: Take this medication on 11/11/2021. Her 1st dose of azithromycin 500 mg was given on 11/10/2021 at 02:00 in the emergency department. benzonatate 200 mg capsule 200 mg PO TID PRN (Reason: cough) Qty: 20 0RF prednisone 20 mg tablet 40 mg PO DAILY 6 Days Qty: 12 0RF No Action ibuprofen 800 mg tablet 800 mg PO Q8H PRN (Reason: pain) Qty: 20 0RF acetaminophen [Tylenol Extra Strength] 500 mg tablet 1,000 mg PO QID PRN (Reason: fever or pain) Qty: 60 5RF hydrocodone-acetaminophen 5-325 mg tablet 1 tab PO Q4-6H PRN (Reason: pain) Qty: 5 0RF Rx Instructions: Partial Fill upon patient request. prednisone 20 mg tablet 40 mg PO DAILY Qty: 10 0RF azithromycin 250 mg tablet See Rx Instructions .ROUTE .COMPLEX Qty: 6 0RF Rx Instructions: For 250 mg dose pack: take 500 mg today (day 1), then 250 mg for 4 days (days 2-5) albuterol sulfate 2.5 mg /3 mL (0.083 %) solution for nebulization 2.5 mg inhalation Q4H PRN (Reason: shortness of breath or wheezing) Qty: 90 0RF benzonatate 200 mg capsule 200 mg PO TID PRN (Reason: cough) Qty: 30 0RF (DME) nebulizer and compressor Device See Rx Instructions .Route Qty: 1 0RF Rx Instructions: As directed cholecalciferol (vitamin D3) [Vitamin D3] 25 mcg (1,000 unit) capsule 25 mcg PO BEDTIME oxcarbazepine 600 mg tablet 1,800 mg PO BEDTIME oxcarbazepine 300 mg tablet 0 mg PO sumatriptan succinate 50 mg tablet 0 mg PO trazodone 50 mg tablet 125 - 150 mg PO BEDTIME gabapentin 600 mg tablet 600 mg PO BEDTIME clonidine HCl 0.1 mg tablet 0.1 mg PO BID PRN albuterol sulfate [ProAir HFA] 90 mcg/actuation HFA aerosol inhaler 2 puff inhalation Q6H PRN (Reason: wheezing) albuterol sulfate 2.5 mg /3 mL (0.083 %) solution for nebulization inhalation Q6H PRN (Reason: wheezing) quetiapine 50 mg tablet extended release 24 hr 50 - 100 mg PO BEDTIME PRN diphenhydramine HCl [Banophen] 25 mg capsule 100 mg PO BEDTIME buspirone 7.5 mg tablet 7.5 mg PO BEDTIME fluoxetine 20 mg capsule 60 mg PO BEDTIME Interventions: ED Discharge Assessment Last Done: 11/10/21 02:49 Discharge Date/Time: 11/10/21 02:53
[2021-11-09 20:32] VITALS: BMI 37.4
--- NOTE | 2021-11-09 20:39 | ECG_ITS ---
Test Reason : DYSPNEA Blood Pressure : / mmHG Vent. Rate : 078 BPM Atrial Rate : 078 BPM P-R Int : 158 ms QRS Dur : 084 ms QT Int : 388 ms P-R-T Axes : 035 035 053 degrees QTc Int : 442 ms Normal sinus rhythm Normal ECG When compared with ECG of 15-APR-2018 11:11, Nonspecific T wave abnormality, improved in Anterior leads Referred By: Laurie León Electronically Signed By:BUDDY GOULD
[2021-11-09] MEDS: Magnesium Sulfate/H2O 2 GM/50 ML PIGGYBACK IV (20:48)
[2021-11-09] MEDS: methylPREDNISolone Sod Succ 125 MG/2 ML VIAL IVPUSH (20:49)
[2021-11-09] MEDS: Albuterol Sulfate (0.083%) 2.5 MG/3 ML VIAL.NEB 10 MG INHALE ×2 (21:15→23:12)
[2021-11-09 21:20] VITALS: PULSE 101; RESP 20; O2SAT 96
[2021-11-09 21:53] LABS: COVID-19 Test Negative (Negative)
[2021-11-09 23:13] VITALS: PULSE 98; RESP 20; O2SAT 95
[2021-11-09 23:56] VITALS: BP 143/67; PULSE 102; RESP 21; TEMP 36.9; O2SAT 100
[2021-11-10] MEDS: guaiFEN/Codeine SF 200/20/10ML 10 ML LIQUID PO (00:30)
[2021-11-10] MEDS: Benzonatate 100 MG CAPSULE 200 MG PO (00:30)
[2021-11-10] MEDS: Azithromycin 500 MG TABLET PO (01:46)
== END 2021-11-10 02:53 | disposition home or self-care (01) ==
PROVIDERS: Emergency Provider Emergency Medicine
DX: J45.901 Unspecified asthma with (acute) exacerbation (principal); J44.1 Chronic obstructive pulmonary disease with (acute) exacerbation; R06.00 Dyspnea, unspecified; R06.02 Shortness of breath; F17.210 Nicotine dependence, cigarettes, uncomplicated; Z20.822 Contact with and (suspected) exposure to COVID-19; Z79.899 Other long term (current) drug therapy; Z71.6 Tobacco abuse counseling
CPT/HCPCS: 71045; 87635; 93005; 94640; 96374; 96375; 99284; J2930; J3475

== ENCOUNTER 2022-05-07 12:03 | Observation (INO) | payer MEDICAID, SELFPAY ==
[2022-05-07] VITALS (8 sets, daily range): BP systolic 121–132; BP diastolic 62–77; PULSE 71–105; RESP 16–28; TEMP 36.4–36.9; O2SAT 89–100; BMI 35.5
--- NOTE | ~2022-05-07 | XR_ITS ---
EXAMINATION: XR chest 1V CLINICAL INFORMATION: Reason for Exam sob COMPARISON: 2021 TECHNIQUE: XR chest 1V Tubes and lines: None Lungs and pleura: Blunting of right costophrenic angle probably a small pleural effusion or pleural thickening. Heart and mediastinum: The mediastinum is within normal limits.. Bones/soft tissue: There is a catheter in the central canal the tip of which is projecting over the T9. Skeletal structures included are normal for patient's age. XR/XR chest 1V IMPRESSION: * Blunting of right costophrenic angle probably a small pleural effusion or pleural thickening. * Catheter catheter tip projecting over the T9.
[2022-05-07 12:33] LABS: MANUAL DIFF FLAG NO
[2022-05-07 12:34] LABS: Basophils Percent Auto 0.3 % (0-2); Eosinophils Absolute Auto 0.1 X10*3/uL (0.0-0.4); Eosinophils Percent Auto 2.2 % (0-4); Hematocrit 38.5 % (37.0-47.0); Imm Gran Abs Auto 0.01 X10*3/uL (0.00-0.03); Imm Gran Pct Auto 0.2 % (0.0-0.4); Lymphocytes Absolute Auto 1.7 X10*3/uL (1.2-4.9); Lymphocytes Percent Auto 27.1 % (20-40); Mean Corpuscular HGB Conc 33.8 g/dl (31.0-35.0); Mean Corpuscular Hemoglobin 30.5 pg (27.0-33.0); Mean Corpuscular Volume 90.4 fL (80.0-98.0); Mean Platelet Volume 9.2 fL (9.4-12.3); Monocytes Absolute Auto 0.4 X10*3/uL (0.1-1.2); Monocytes Percent Auto 5.9 % (2-11); Neutrophils Percent Auto 64.3 % (45-73); Platelet Count 219 X10*3/uL (160-400); Red Blood Count 4.26 X10*6/uL (4.20-5.50); Red Cell Distribution Width 12.5 % (11.0-16.0); White Blood Count 6.3 X10*3/uL (4.8-10.8)
[2022-05-07 12:53] LABS: Alanine Aminotransferase 22 U/L (0-31); Albumin Level 4.2 g/dL (3.5-5.0); Alkaline Phosphatase 98 U/L (39-117); Anion Gap 14 (12-20); Aspartate Amino Transferase 12 U/L (5-31); Bilirubin Total 0.3 mg/dL (0.0-1.0); Blood Urea Nitrogen 19 mg/dL (9-16); Calcium 8.6 mg/dL (8.4-10.2); Carbon Dioxide 23 mmol/L (22-29); Chloride 111 mmol/L (96-108); Estimated Glomerular Filt Rate > 60; Glucose Random 119 mg/dL (60-115); Potassium 4.4 mmol/L (3.3-5.1); Sodium 144 mmol/L (135-145); Total Protein 7.2 g/dL (6.5-8.0)
[2022-05-07 13:09] LABS: HCG Quantitative < 2 mIU/mL
[2022-05-07 13:16] LABS: Influenza A PCR NEGATIVE (Negative); Influenza B PCR NEGATIVE (Negative); Resp Syncy Virus RNA Qual PCR NEGATIVE (Negative); SARS COV2 PCR INHOUSE NEGATIVE (Negative)
[2022-05-07] MEDS: methylPREDNISolone Sod Succ 125 MG/2 ML VIAL IVPUSH (15:14)
--- NOTE | 2022-05-07 15:16 | PC.NURSE ---
pt a&ox3, vss, 20G IV placed left AC, labs drawn, pt medicated per provider order, resp contacted for breathing treatment. no new orders at this time.
[2022-05-07 15:32] LABS: B Type Natriuretic Peptide < 10 pg/mL (<100)
[2022-05-07 15:44] LABS: Troponin-I High Sensitivity < 3.5 ng/L (<3.5-17.0)
--- NOTE | 2022-05-07 15:51 | ED_ITS ---
HPI - General Adult General Chief complaint: Dyspnea Stated complaint: Diff breathing/Cough Time Seen by Provider: 05/07/22 14:44 Source: patient Mode of arrival: ambulatory History of Present Illness HPI narrative: 46-year-old female with a past medical history of asthma, DVT, lumbar radiculopathy, pancreatitis, presenting to the ED complaining of productive cough and worsening SOB/wheezing x1 week. Patient reports multiple sick conta cts at work with COVID-19. Also reports chest discomfort with cough. Denies known fever, chills, abdominal pain, nausea/vomiting, pedal edema, recent travel Onset (ago): week(s) Related Data Home Medications Medication Instructions Recorded Confirmed albuterol sulfate 2.5 mg/3 mL mg inhalation Q6H PRN wheezing 08/30/21 (0.083 %) solution for nebulization albuterol sulfate 90 mcg/actuation 2 puff inhalation Q6H PRN wheezing 08/30/21 aerosol inhaler (ProAir HFA) buspirone 7.5 mg tablet 7.5 mg PO BEDTIME 08/30/21 cholecalciferol (vitamin D3) 25 25 mcg PO BEDTIME 08/30/21 mcg (1,000 unit) capsule (Vitamin D3) clonidine HCl 0.1 mg tablet 0.1 mg PO BID PRN 08/30/21 diphenhydramine HCl 25 mg capsule 100 mg PO BEDTIME insomnia 08/30/21 (Banophen) fluoxetine 20 mg capsule 60 mg PO BEDTIME 08/30/21 gabapentin 600 mg tablet 600 mg PO BEDTIME 08/30/21 oxcarbazepine 300 mg tablet 0 mg PO 08/30/21 oxcarbazepine 600 mg tablet 1,800 mg PO BEDTIME 08/30/21 quetiapine 50 mg tablet,extended 50 - 100 mg PO BEDTIME PRN 08/30/21 release 24 hr sumatriptan succinate 50 mg tablet 0 mg PO 08/30/21 trazodone 50 mg tablet 125 - 150 mg PO BEDTIME 08/30/21 Previous Rx's Medication Instructions Recorded acetaminophen 500 mg tablet 1,000 mg PO QID PRN fever or pain 10/12/20 (Tylenol Extra Strength) #60 tabs ibuprofen 800 mg tablet 800 mg PO Q8H PRN pain #20 tabs 10/12/20 hydrocodone 5 mg-acetaminophen 325 1 tab PO Q4-6H PRN pain #5 tabs 09/05/21 mg tablet albuterol sulfate 2.5 mg/3 mL 2.5 mg (3 mL) inhalation Q4H PRN 09/14/21 (0.083 %) solution for nebulization shortness of breath or wheezing #90 mL azithromycin 250 mg tablet See Rx Instructions PO .COMPLEX #6 09/14/21 tabs benzonatate 200 mg capsule 200 mg PO TID PRN cough #30 caps 09/14/21 nebulizer and compressor #1 ea 09/14/21 prednisone 20 mg tablet 40 mg PO DAILY #10 tabs 09/14/21 azithromycin 250 mg tablet 250 mg PO DAILY 4 days #4 tabs 11/10/21 benzonatate 200 mg capsule 200 mg PO TID PRN cough #20 caps 11/10/21 prednisone 20 mg tablet 40 mg PO DAILY 6 days #12 tabs 11/10/21 Allergies Allergy/AdvReac Type Severity Reaction Status Date / Time vancomycin [VANCOMYCIN] Allergy Intermediate RASH, Verified 09/14/21 11:44 ITCHING, BREATHING PROBLEMS Review of Systems Review of Systems: Constitutional: No Fever, No Chills, No Fatigue, No Malaise ENT/Mouth: No Ear Pain, No Nasal Congestion, No sore throat, No Rhinorrhea, No Swallowing Difficulty Eyes: No Eye Pain, No Swelling, No Redness, No Vision Changes Cardiovascular: + Chest Pain, + SOB, No Dyspnea on Exertion, No Orthopnea, No Edema, No Palpitations Respiratory: + Cough, No Sputum, + Wheezing, No Dyspnea Gastrointestinal: No Nausea, No Vomiting, No Diarrhea, No Constipation, No Abdominal pain Genitourinary: No Dysuria, No Urinary Frequency, No Hematuria Musculoskeletal: No joint pain, No Myalgias, No Joint Swelling Skin: No Skin Lesions, No rash Neuro: No Weakness, No Dizziness, No Headache Yes all other systems are reviewed and are negative Constitutional: Constitutional: Reports as per [facility] Past Medical History Attestation statement: The following information was validated with the patient. Medical History Asthma exacerbation Back pain Carpal tunnel syndrome, bilateral DVT (deep vein thrombosis) in Fibula fracture Kidney laceration Low back pain Lumbar radiculopathy Pancreatitis Pars defect of lumbar spine Spondylolisthesis at L4-L5 level Tibia fracture Surgical History History of cholecystectomy Status post surgical manipulation of ankle joint Social History Social History Patient Tobacco Use Status: Current everyday Tobacco user Tobacco use type: Cigarette Cigarette Packs Per Day: 1 Cigarettes Per Day: 20.0 Advance Directives: No Advance Directives Information Provided: Yes Current occupational status: unemployed Current occupation: disability Physical Exam ED Vital Signs: Vital Signs - 24 hr 05/07/22 12:16 05/07/22 15:22 05/07/22 16:17 Temperature 98 F Pulse Rate 86 71 81 Respiratory Rate 20 18 18 Blood Pressure 121/77 Pulse Oximetry 100 Oxygen Delivery Method Room Air BMI result Body Mass Index 35.5 Const General: cooperative, healthy appearing, comfortable, no acute distress, alert and awake Orientation/consciousness: patient oriented x3 Limitations: no limitations HENMT Head: Yes normal to inspection and Yes atraumatic Ears: hearing grossly normal bilaterally General nose exam: Normal external nose present Face and sinus: Yes normal facial exam Eyes General: appearance normal, both eyes and all related structures EOM: EOMs intact bilaterally Neck Neck: Yes normal visual inspection and Yes no meningeal signs Resp Effort & Inspection: normal respiratory effort and no respiratory distress Auscultation: wheezes expiratory wheezes and throughout and diminished lung sounds bilateral in the lower lung pavon Cardio Rate: regular rate Heart sounds: S1 normal heart sound present and S2 normal heart sound present GI Inspection: Yes normal to inspection Palpation (GI): Soft to palpation, nontender, no guarding and not rigid General: Yes no CVA tenderness Back/Spine/Pelvis Back: no CVA tenderness Skin Rashes: no rashes Wounds: no wounds Neuro General: patient oriented x3, tone normal and no meningeal signs Gait exam (Neuro): Normal gait present Extrem General: Yes normal to inspection, Yes no pedal edema and Yes no calf tenderness Course Course Course Narrative: -labs reassuring. COVID-19/influenza/RSV negative. XR chest 1V IMPRESSION: *? Blunting of right costophrenic angle probably a small pleural effusion or pleural thickening. ? *? Catheter catheter tip projecting over the T9. ? > 1649--On re-evaluation patient is still very tight/diminished breath sounds & diffuse expiratory wheeze >> plan to admit for further management Medications Administered Generic Name Dose Route Start Last Admin Trade Name Freq PRN Reason Stop Dose Admin Magnesium Sulfate 2 gm in 50 mls @ 25 mls/hr 05/07/22 16:04 05/07/22 17:27 Magnesium Sulfate/H2o IV 05/07/22 18:03 Infused ONCE ONE Infusion Discontinued Medications Generic Name Dose Route Start Last Admin Trade Name Freq PRN Reason Stop Dose Admin Acetaminophen 650 mg 05/07/22 16:24 05/07/22 16:42 Acetaminophen 325 Mg Tablet PO 05/07/22 16:25 650 mg ONCE ONE Administration Albuterol Sulfate 5 mg/ 0 mg 05/07/22 14:49 05/07/22 15:20 Ipratropium [place] 0.5 mg INHALE 05/07/22 14:50 1 each ONCE ONE Administration Albuterol Sulfate 5 mg/ 0 mg 05/07/22 16:04 05/07/22 16:17 Ipratropium [place] 0.5 mg INHALE 05/07/22 16:05 1 each ONCE ONE Administration Methylprednisolone Sodium Succinate 125 mg 05/07/22 14:49 05/07/22 15:14 Methylprednisolone Sod Succ 125 Mg/2 Ml Vial IVPUSH 05/07/22 14:50 125 mg ONCE ONE Administration Medical Decision Making Medical Decision Making [facility] Narrative: 46-year-old female with a past medical history of asthma, DVT, lumbar radiculopathy, pancreatitis, presenting to the ED complaining of productive cough and worsening SOB/wheezing x1 week. On exam vital signs stable, NAD, diffuse expiratory wheeze noted with diminished lung sounds bibasilar, no pedal edema/calf tenderness. Concern for asthma exacerbation vs viral illness vs pneumonia/bronchitis. Lower suspicion for ACS/PE or CHF Plan: EKG, labs, CXR, COVID-19 testing, DuoNeb, Solu-Medrol, re-evaluate Please refer to course for remaining clinical decision making, interpretation of labs/imaging results, and discussions with consultants and/or family members. Differential Diagnosis Differential Diagnoses: The differential diagnosis associated with the presentation includes as above Admission/Observation Consideration of admission/observation: Escalation of care including admission/observation considered Lab Data [facility] Lab Attestation statement: I reviewed the patient's lab results. 05/07/22 12:29 02/26/23 12:29 Labs: Lab Results 05/07/22 05/07/22 05/07/22 Range/Units 12:29 12:29 12:29 WBC 6.3 (4.8-10.8) X10*3/uL RBC 4.26 (4.20-5.50) X10*6/uL Hgb 13.0 (12.0-16.0) g/dl Hct 38.5 (37.0-47.0) % MCV 90.4 (80.0-98.0) fL MCH 30.5 (27.0-33.0) pg MCHC 33.8 (31.0-35.0) g/dl RDW 12.5 (11.0-16.0) % Plt Count 219 (160-400) X10*3/uL MPV 9.2 L (9.4-12.3) fL Immature Gran % (Auto) 0.2 (0.0-0.4) % Neut % (Auto) 64.3 (45-73) % Lymph % (Auto) 27.1 (20-40) % [place] % (Auto) 5.9 (2-11) % Eos % (Auto) 2.2 (0-4) % Baso % (Auto) 0.3 (0-2) % Lymph # (Auto) 1.7 (1.2-4.9) X10*3/uL [place] # (Auto) 0.4 (0.1-1.2) X10*3/uL Eos # (Auto) 0.1 (0.0-0.4) X10*3/uL Baso # (Auto) 0.0 (0.0-0.2) X10*3/uL Abs Immat Gran (auto) 0.01 (0.00-0.03) X10*3/uL Absolute Neuts (auto) 4.0 (2.0-8.3) x10*3/uL Absolute Nucleated RBC 0.000 (0.0-0.012) X10*3/uL Nucleated RBC % (auto) 0.0 (0.0-0.2) /100WBC Sodium 144 (135-145) mmol/L Potassium 4.4 (3.3-5.1) mmol/L Chloride 111 H (96-108) mmol/L Carbon Dioxide 23 (22-29) mmol/L Anion Gap 14 (12-20) BUN 19 H (9-16) mg/dL Creatinine 0.93 (0.5-1.4) mg/dL Estim Creat Clear Calc 91.0 Estimated GFR > 60 Random Glucose 119 H (60-115) mg/dL Calcium 8.6 (8.4-10.2) mg/dL Total Bilirubin 0.3 (0.0-1.0) mg/dL AST 12 (5-31) U/L ALT 22 (0-31) U/L Alkaline Phosphatase 98 (39-117) U/L Troponin I High Sens (<3.5-17.0) ng/L B-Natriuretic Peptide (<100) pg/mL Total Protein 7.2 (6.5-8.0) g/dL Albumin 4.2 (3.5-5.0) g/dL Beta HCG, Quant < 2 mIU/mL Influenza Type A (PCR) (Negative) Influenza Type B (PCR) (Negative) RSV RNA Qual (PCR) (Negative) SARS-CoV-2 RNA (RT-PCR) (Negative) 05/07/22 05/07/22 05/07/22 Range/Units 12:29 12:29 15:02 WBC (4.8-10.8) X10*3/uL RBC (4.20-5.50) X10*6/uL Hgb (12.0-16.0) g/dl Hct (37.0-47.0) % MCV (80.0-98.0) fL MCH (27.0-33.0) pg MCHC (31.0-35.0) g/dl RDW (11.0-16.0) % Plt Count (160-400) X10*3/uL MPV (9.4-12.3) fL Immature Gran % (Auto) (0.0-0.4) % Neut % (Auto) (45-73) % Lymph % (Auto) (20-40) % [place] % (Auto) (2-11) % Eos % (Auto) (0-4) % Baso % (Auto) (0-2) % Lymph # (Auto) (1.2-4.9) X10*3/uL [place] # (Auto) (0.1-1.2) X10*3/uL Eos # (Auto) (0.0-0.4) X10*3/uL Baso # (Auto) (0.0-0.2) X10*3/uL Abs Immat Gran (auto) (0.00-0.03) X10*3/uL Absolute Neuts (auto) (2.0-8.3) x10*3/uL Absolute Nucleated RBC (0.0-0.012) X10*3/uL Nucleated RBC % (auto) (0.0-0.2) /100WBC Sodium (135-145) mmol/L Potassium (3.3-5.1) mmol/L Chloride (96-108) mmol/L Carbon Dioxide (22-29) mmol/L Anion Gap (12-20) BUN (9-16) mg/dL Creatinine (0.5-1.4) mg/dL Estim Creat Clear Calc Estimated GFR Random Glucose (60-115) mg/dL Calcium (8.4-10.2) mg/dL Total Bilirubin (0.0-1.0) mg/dL AST (5-31) U/L ALT (0-31) U/L Alkaline Phosphatase (39-117) U/L Troponin I High Sens < 3.5 (<3.5-17.0) ng/L B-Natriuretic Peptide < 10 (<100) pg/mL Total Protein (6.5-8.0) g/dL Albumin (3.5-5.0) g/dL Beta HCG, Quant mIU/mL Influenza Type A (PCR) NEGATIVE (Negative) Influenza Type B (PCR) NEGATIVE (Negative) RSV RNA Qual (PCR) NEGATIVE (Negative) SARS-CoV-2 RNA (RT-PCR) NEGATIVE (Negative) Independent Interpretation I performed an independent interpretation of an: EKG Radiology Impression Discussion of test interpretation with radiology: I have reviewed the r adiologist's reading. External Record Review External record reviewed: Outpatient record, Prior outpatient labs and Prior outpatient radiology Critical Care Time Critical Care Time Critical Care Time: Yes Total Critical Care Time: 40 Attestation: I have personally provided critical care time exclusive of time spent on separately billable procedures. Time includes review of lab data, radiology results, discussion with consultants, and monitoring for potential decompensation. Intervention performed as documented. Discharge Plan Discharge Clinical Impression: Asthma with exacerbation Patient Disposition: Admitted As Inpatient
--- NOTE | 2022-05-07 16:12 | ECG_ITS ---
Test Reason : SOB Blood Pressure : / mmHG Vent. Rate : 078 BPM Atrial Rate : 078 BPM P-R Int : 154 ms QRS Dur : 088 ms QT Int : 422 ms P-R-T Axes : 041 024 050 degrees QTc Int : 481 ms Normal sinus rhythm Prolonged QT Abnormal ECG When compared with ECG of 09-NOV-2021 20:48, No significant change was found Referred By: Em Beltran Electronically Signed By:FARHANA PERALTA MD
[2022-05-07] MEDS: Acetaminophen 325 MG TABLET 650 MG PO ×2 (16:42→23:07)
[2022-05-07] MEDS: Magnesium Sulfate/H2O 2 GM/50 ML PIGGYBACK IV (16:42)
--- NOTE | 2022-05-07 16:44 | PC.NURSE ---
medicated per provider order, pt reporting 7/10 headache.
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
--- NOTE | 2022-05-07 18:16 | PHA.MEDREC ---
Pharmacy Consult ? Medication Reconciliation Pharmacy has completed the medication reconciliation. Patient reports taking all her meds at night except the ones that are more than once a day. Reports varenicline use when not smoking. Reports taking 4 tabs of benadryl 25mg at night, as well as 2-3 tabs of trazodone 50mg at night for insomnia. Reportss taking her Focalin at night as well.
[2022-05-07] MEDS: Nicotine 21 MG PATCH.TD24 TRANSDERMA (19:20)
[2022-05-07] MEDS: Enoxaparin Sodium 40 MG/0.4 ML SYRINGE SUBCUT (19:21)
--- NOTE | 2022-05-07 19:29 | PC.NURSE ---
pt a&ox3, vss, medicated per provider order, pt resting quietly, family at bedside, pt reporting some urinary incontinence while coughing, provided wipes and clean linens.
--- NOTE | 2022-05-07 19:50 | PC.NURSE ---
RN-RN report called into Med Surg.
--- NOTE | 2022-05-07 20:55 | PC.NURSE ---
pt reporting increased coughing, provider notified.
[2022-05-07] MEDS: 0.9 % Sodium Chloride Flush 3 ML SYRINGE IVFLUSH (22:49)
[2022-05-07] MEDS: methylPREDNISolone Sod Succ 40 MG/ML VIAL IVPUSH (22:49)
[2022-05-07] MEDS: Cholecalciferol (Vitamin D3) 25 MCG TABLET PO (22:50)
[2022-05-07] MEDS: Atorvastatin Calcium 20 MG TABLET PO (22:50)
[2022-05-07] MEDS: FLUoxetine HCl 20 MG CAPSULE 60 MG PO (22:50)
[2022-05-07] MEDS: Gabapentin 600 MG TABLET PO (22:50)
[2022-05-07] MEDS: diphenhydrAMINE HCL 25 MG CAPSULE 100 MG PO (22:50)
[2022-05-07] MEDS: OXcarbazepine 300 MG TABLET 1800 MG PO (22:51)
[2022-05-07] MEDS: Prazosin HCL 1 MG CAPSULE 2 MG PO (22:52)
[2022-05-07] MEDS: busPIRone HCl 5 MG TABLET 7.5 MG PO (22:53)
[2022-05-07] MEDS: traZODone HCL 50 MG TABLET 100 MG PO (23:06)
[2022-05-07] MEDS: guaiFENesin DM 100/10/5 ML 5 ML SYRUP PO (23:07)
[2022-05-08 03:08] VITALS: BP 132/69; PULSE 103; RESP 17; TEMP 36.7; O2SAT 94
[2022-05-08] MEDS: cloNIDine HCL 0.1 MG TABLET PO (03:12)
[2022-05-08] MEDS: guaiFENesin DM 100/10/5 ML 5 ML SYRUP PO (03:12)
[2022-05-08] MEDS: Ibuprofen 800 MG TABLET PO (03:13)
[2022-05-08 07:41] VITALS: BP 129/73; PULSE 92; RESP 17; TEMP 36.6; O2SAT 94
[2022-05-08] MEDS: Nicotine 21 MG PATCH.TD24 TRANSDERMA (08:25)
[2022-05-08] MEDS: OXcarbazepine 300 MG TABLET PO (08:26)
[2022-05-08] MEDS: 0.9 % Sodium Chloride Flush 3 ML SYRINGE IVFLUSH (08:26)
[2022-05-08 08:39] VITALS: PULSE 87; RESP 19; O2SAT 91
--- NOTE | 2022-05-08 09:29 | MHC.CM.PN ---
PATIENT LIVES WITH FAMILY SHE USES INHALERS AND NEBULIZERS. NO DME FOR AMBULATION COVID VACCINATED NO HCP ON FILE AND SHE WILL CONSIDER ASSIGNING ONE WHILE HERE. DOMINGUEZ 05/08 IN CHART
--- NOTE | 2022-05-08 09:49 | P.DS_ITS ---
DS: Providers Provider Date of Service: 05/08/22 Date of admission: 05/07/22 17:28 Primary care physician: [facility] DS: Diagnosis Discharge Diagnosis (1) Asthma with exacerbation: Status: Acute DS: Summary Hospital Course Hospital Course: Chief Complaint: SOB, wheezing Pt is a 46-year-old female with a PMH significant for?asthma, DVT in 2007, lumbar radiculopathy with SCS managed by pain clinic, and migraines? who presents to the ED with?increasing SOB and wheezing x1 week. Pt states she has been using her albuterol, Symbicort, and albuterol/sulfate, along with 3 doses from a left over prednisone taper she had. However, she has been unable to adequately control her symptoms with home treatments. Pt has also had persistent cough occasionally productive of yellowish sputum with associated chest tightness and abdominal discomfort. Of note, pt currently smokes half a pack a a day.? Patient denies chest pressure, palpitations.? No fever, chills nausea, vomiting.? No change in bowel or bladder habits. In the ED patient was afebrile, hemodynamically stable, satting 100% on RA. Labs were unremarkable. CXR showed right costophrenic angle blunting, likely small pleural effusion or pleural thickening. EKG demonstrated normal sinus rhythm with slightly prolonged QT of 481 but no evidence of ST elevations or depressions.? Patient tested negative for influenza types A and B, RSV, COVID.? Pt was treated with DuoNebs, Solu-Medrol, Mag sulfate. Pt will be admitted to the hospital under observation for treatment of asthma exacerbation with DuoNebs and IV steroids. Hospital course:Patient presented with shortness of breath, wheezing and found to have exacerbation of moderate persistent asthma with an episode of hypoxia documented at 89%. She has been treated with IV steroid, bronchodilators by Neb and oxygen is feeling much better, hypoxia resolved, O2 sat 94 on room, lungs are clear. Will discharge with Oral Prednisone for 4 more days and to continue to use inhalers. Smoking cessation discussed and discouraged, we discussed Chantix which she has had success with in the past and will talk to PCP about it. weight loss for obesity advised Continue all other home meds Final diagnosis Acute hypoxic respiratory failure Moderate persistent asthma with acute exacerbation Chronic tobacco use Obesity Time Spent with Patient Time attestation: Total time managing care of this patient today ____ minutes. Discharge coordination time: Greater than 30 minutes Quality: Safe Use of Opioids Does Pt have an Active Cancer Diagnosis on the Problem List?: No Quality: Stroke Does the patient have a stroke diagnosis?: No Physical Exam Vital Signs: Vital Signs: Last Vital Signs Temp 97.8 F 05/08/22 07:41 Pulse 87 05/08/22 08:39 Resp 19 05/08/22 08:39 BP 129/73 05/08/22 07:41 Pulse Ox 94 05/08/22 07:41 O2 Del Method 05/08/22 07:41 O2 Flow Rate 2.0 05/08/22 07:41 BMI result Body Mass Index 35.5 General: AO X 3, no acute distress Resp: CTA bilateral CVS: S1,S2,RRR GI: +BS, NT, no distention Skin: No rash Neuro: motor grossly intact Psych: appropriate affect DS: Data Data Completed and Pending Labs on day of discharge: Laboratory Results - last 24 hr 05/07/22 05/07/22 05/07/22 12:29 12:29 12:29 WBC 6.3 RBC 4.26 Hgb 13.0 Hct 38.5 MCV 90.4 MCH 30.5 MCHC 33.8 RDW 12.5 Plt Count 219 MPV 9.2 L Immature Gran % (Auto) 0.2 Neut % (Auto) 64.3 Lymph % (Auto) 27.1 [place] % (Auto) 5.9 Eos % (Auto) 2.2 Baso % (Auto) 0.3 Lymph # (Auto) 1.7 [place] # (Auto) 0.4 Eos # (Auto) 0.1 Baso # (Auto) 0.0 Abs Immat Gran (auto) 0.01 Absolute Neuts (auto) 4.0 Absolute Nucleated RBC 0.000 Nucleated RBC % (auto) 0.0 Sodium 144 Potassium 4.4 Chloride 111 H Carbon Dioxide 23 Anion Gap 14 BUN 19 H Creatinine 0.93 Estim Creat Clear Calc 91.0 Estimated GFR > 60 Random Glucose 119 H Calcium 8.6 Total Bilirubin 0.3 AST 12 ALT 22 Alkaline Phosphatase 98 Troponin I High Sens B-Natriuretic Peptide Total Protein 7.2 Albumin 4.2 Beta HCG, Quant < 2 Influenza Type A (PCR) Influenza Type B (PCR) RSV RNA Qual (PCR) SARS-CoV-2 RNA (RT-PCR) 05/07/22 05/07/22 05/07/22 12:29 12:29 15:02 WBC RBC Hgb Hct MCV MCH MCHC RDW Plt Count MPV Immature Gran % (Auto) Neut % (Auto) Lymph % (Auto) [place] % (Auto) Eos % (Auto) Baso % (Auto) Lymph # (Auto) [place] # (Auto) Eos # (Auto) Baso # (Auto) Abs Immat Gran (auto) Absolute Neuts (auto) Absolute Nucleated RBC Nucleated RBC % (auto) Sodium Potassium Chloride Carbon Dioxide Anion Gap BUN Creatinine Estim Creat Clear Calc Estimated GFR Random Glucose Calcium Total Bilirubin AST ALT Alkaline Phosphatase Troponin I High Sens < 3.5 B-Natriuretic Peptide < 10 Total Protein Albumin Beta HCG, Quant Influenza Type A (PCR) NEGATIVE Influenza Type B (PCR) NEGATIVE RSV RNA Qual (PCR) NEGATIVE SARS-CoV-2 RNA (RT-PCR) NEGATIVE Discharge Plan Discharge Anticipated Discharge Date/Time: 05/08/22 09:50 Patient Disposition: Home, Self-Care Referrals: [place] [Primary Care Provider] - 1 Week Discharge Medications: New prednisone 20 mg tablet 20 mg PO DAILY Qty: 8 0RF Continued ibuprofen 800 mg tablet 800 mg PO Q8H PRN (Reason: pain) Qty: 20 0RF acetaminophen [Tylenol Extra Strength] 500 mg tablet 1,000 mg PO QID PRN (Reason: fever or pain) Qty: 60 5RF albuterol sulfate 2.5 mg /3 mL (0.083 %) solution for nebulization 2.5 mg inhalation Q4H PRN (Reason: shortness of breath or wheezing) Qty: 90 0RF (DME) nebulizer and compressor Device See Rx Instructions .Route Qty: 1 0RF Rx Instructions: As directed atorvastatin 20 mg tablet 1 tab PO BEDTIME prazosin 2 mg capsule 1 cap PO BEDTIME fluticasone propionate [Flovent HFA] 110 mcg/actuation HFA aerosol inhaler 1 puff inhalation BID dexmethylphenidate [Focalin XR] 20 mg capsule,ER biphasic 50-50 1 cap PO BEDTIME varenicline 1 mg tablet 1 tab PO BID Rx Instructions: take with full glass of water budesonide-formoterol [Symbicort] 160-4.5 mcg/actuation HFA aerosol inhaler 2 puff inhalation QID cholecalciferol (vitamin D3) [Vitamin D3] 25 mcg (1,000 unit) capsule 25 mcg PO BEDTIME oxcarbazepine 600 mg tablet 1,800 mg PO BEDTIME oxcarbazepine 300 mg tablet 300 mg PO DAILY trazodone 50 mg tablet 100 - 150 mg PO BEDTIME PRN (Reason: Insomnia) gabapentin 600 mg tablet 600 mg PO BEDTIME clonidine HCl 0.1 mg tablet 0.1 mg PO BEDTIME PRN (Reason: Anxiety) albuterol sulfate [ProAir HFA] 90 mcg/actuation HFA aerosol inhaler 2 puff inhalation Q6H PRN (Reason: wheezing) diphenhydramine HCl [Banophen] 25 mg capsule 100 mg PO BEDTIME buspirone 7.5 mg tablet 7.5 mg PO BEDTIME fluoxetine 20 mg capsule 60 mg PO BEDTIME Diet: Advance to usual diet Activity on Discharge: As tolerated Stand Alone Forms: Patient Portal Discharge page Care Plan Goals: Full recovery from asthma exacerbation Health Concerns: ASthma chronic tobacco use Plan of Treatment: Take Prednisone and use inhalers as directed and follow up with your Doctor in a week Smoking cessation is greatly encouraged, talke to your Doctor about Chantix Assessment: as above
[2022-05-08] MEDS: Milk of Magnesia 30 ML ORAL.SUSP PO (09:56)
--- NOTE | 2022-05-08 10:28 | MHC.CM.PN ---
PATIENT IS DC HOME - SELF CARE RN AWARE OF PLAN
[2022-05-08] MEDS: methylPREDNISolone Sod Succ 40 MG/ML VIAL IVPUSH (11:00)
== END 2022-05-08 11:21 | disposition home or self-care (01) ==
LOC: HO.ED 16:50 → HO.EDOVER 17:38 → HO.S3 19:40
PROVIDERS: Physician Assistant; Admitting Provider Student in an Organized Health Care Education/Training Program; Emergency Provider Emergency Medicine; Visit Provider Internal Medicine
DX: J96.01 Acute respiratory failure with hypoxia (principal); J45.21 Mild intermittent asthma with (acute) exacerbation; Z20.822 Contact with and (suspected) exposure to COVID-19
CPT/HCPCS: 0241U; 36415; 71045; 80053; 83880; 84484; 84702; 85025; 93005; 94640; 96365; 96372; 96375; 96376; 99221; 99285; J1650; J2920; J2930; J3475

== ENCOUNTER → 2022-05-08 09:43 | Outpatient (BNVA) | payer MEDICAID, SELFPAY | PROVIDERS: Visit Provider Internal Medicine | DX: Z13.89 Encounter for screening for other disorder (principal) ==

== ENCOUNTER → 2022-05-19 11:11 | Outpatient (BNVA) | payer MEDICAID, SELFPAY | PROVIDERS: Visit Provider Internal Medicine ==

== ENCOUNTER 2022-08-27 18:30 | Emergency (ER) | payer MEDICAID, SELFPAY ==
[2022-08-27 18:46] VITALS: BP 148/92; PULSE 90; RESP 16; TEMP 36.7; O2SAT 95; BMI 37.1
--- NOTE | 2022-08-27 18:51 | ED.GENADULT ---
HPI - General Adult General Chief complaint: General Medical Stated complaint: fake nail is stuck to real nail & its hanging Time Seen by Provider: 08/27/22 18:51 Source: patient Mode of arrival: ambulatory Limitations: no limitations History of Present Illness HPI narrative: Patient is a 46 year old assigned female at with a history of depression and asthma presenting to the emergency department today with a left ring finger nail injury. Patient states that she tripped and fell, catching her left ring finger nail, and now it is barely hanging on. Patient denies any head strike or loss of consciousness with the incident. Patient denies any dizziness, lightheadedness, abdominal pain, nausea, vomiting, fever, chills, blurry vision, double vision, loss of vision, chest pain, difficulty breathing, shortness of breath, back pain, night sweats, pain with urination, increased urinary frequency, increased urinary urgency, blood in her urine or stool, syncope or a near syncopal episode, bowel incontinence, bladder incontinence, bowel retention, bladder retention, or any other complaints at this time. Onset (ago): minute(s) Location: left (ring finger) Radiation: non-radiation Severity: mild Severity scale (1-10): 3 Relieving factors: none Exacerbating factors: none Associated symptoms: denies other symptoms Treatments prior to arrival: none Related Data Home Medications Medication Instructions Recorded Confirmed albuterol sulfate 90 mcg/actuation 2 puff inhalation Q6H PRN wheezing 08/30/21 05/19/22 aerosol inhaler (ProAir HFA) buspirone 7.5 mg tablet 7.5 mg PO BEDTIME 08/30/21 05/19/22 cholecalciferol (vitamin D3) 25 25 mcg PO BEDTIME 08/30/21 05/19/22 mcg (1,000 unit) capsule (Vitamin D3) clonidine HCl 0.1 mg tablet 0.1 mg PO BEDTIME PRN Anxiety 08/30/21 05/19/22 diphenhydramine HCl 25 mg capsule 100 mg PO BEDTIME insomnia 08/30/21 05/19/22 (Banophen) fluoxetine 20 mg capsule 60 mg PO BEDTIME 08/30/21 05/19/22 gabapentin 600 mg tablet 600 mg PO BEDTIME 08/30/21 05/19/22 oxcarbazepine 300 mg tablet 300 mg PO DAILY 08/30/21 05/19/22 oxcarbazepine 600 mg tablet 1,800 mg PO BEDTIME 08/30/21 05/19/22 trazodone 50 mg tablet 100 - 150 mg PO BEDTIME PRN 08/30/21 05/19/22 Insomnia atorvastatin 20 mg tablet 1 tab PO BEDTIME 05/07/22 05/19/22 budesonide-formoterol HFA 160 2 puff inhalation QID 05/07/22 05/19/22 mcg-4.5 mcg/actuation aerosol inhaler (Symbicort) dexmethylphenidate 20 mg 1 cap PO BEDTIME 05/07/22 05/19/22 capsule,extended release [id number] (Focalin XR) fluticasone propionate 110 1 puff inhalation BID 05/07/22 05/19/22 mcg/actuation HFA aerosol inhaler (Flovent HFA) prazosin 2 mg capsule 1 cap PO BEDTIME 05/07/22 05/19/22 varenicline 1 mg tablet 1 tab PO BID 05/07/22 05/19/22 Previous Rx's Medication Instructions Recorded acetaminophen 500 mg tablet 1,000 mg PO QID PRN fever or pain 10/12/20 (Tylenol Extra Strength) #60 tabs ibuprofen 800 mg tablet 800 mg PO Q8H PRN pain #20 tabs 10/12/20 albuterol sulfate 2.5 mg/3 mL 2.5 mg (3 mL) inhalation Q4H PRN 09/14/21 (0.083 %) solution for nebulization shortness of breath or wheezing #90 mL nebulizer and compressor #1 ea 09/14/21 cephalexin 500 mg capsule 500 mg PO Q6H 7 days #28 caps 08/27/22 Allergies Allergy/AdvReac Type Severity Reaction Status Date / Time vancomycin [VANCOMYCIN] Allergy Intermediate RASH, Verified 08/27/22 18:46 ITCHING, BREATHING PROBLEMS Review of Systems Constitutional: Constitutional: Reports no additional constitutional complaints, Denies chills, Denies fever(s) and Denies night sweats Eyes: Eyes: Reports no additional eye complaints, Denies blurry vision, Denies change in vision, Denies diplopia, Denies eye discharge, Denies loss of vision and Denies eye pain ENT: Denies dizziness Cardiovascular: Cardiovascular: Reports no additional cardiovascular complaints, Denies chest pain, Denies lightheadedness, Denies Loss of Consciousness and Denies dyspnea Respiratory: Respiratory: Reports no additional respiratory complaints and Denies dyspnea Gastrointestinal: Gastrointestinal: Reports no additional gastrointestinal complaints, Denies abdominal pain, Denies melena, Denies hematochezia, Denies change in bowel habits and Denies change in stool character Genitourinary: Genitourinary: Denies hematuria, Denies urinary frequency, Denies dysuria, Denies urinary incontinence, Denies urinary hesitancy and Denies urinary urgency Musculoskeletal: Musculoskeletal: Reports no additional musculoskeletal complaints, Denies numbness and Denies tingling Comments: left ring finger nail injury Neurologic: Denies dizziness, Denies loss of vision, Denies numbness and Denies tingling Psychiatric: Psychiatric: Reports no additional psychiatric complaints Endocrine: Endocrine: Reports no additional endocrine complaints Hematologic/Lymphatic: Hematologic/Lymphatic: Reports no additional hematologic/lymphatic complaints Allergic/Immunologic: Allergic/Immunologic: Reports no additional allergic/immunologic complaints PMFSH Past Medical History Attestation statement: The following information was validated with the patient. Source: old records reviewed and nursing notes reviewed Medical History Asthma exacerbation Back pain Carpal tunnel syndrome, bilateral DVT (deep vein thrombosis) in Fibula fracture Kidney laceration Low back pain Lumbar radiculopathy Pancreatitis Pars defect of lumbar spine Spondylolisthesis at L4-L5 level Tibia fracture Surgical History History of cholecystectomy Status post surgical manipulation of ankle joint Social History Social History Alcohol intake: never Patient Tobacco Use Status: Current everyday Tobacco user Tobacco use type: Cigarette Cigarette Packs Per Day: 1 Cigarettes Per Day: 15 Years Smoked: 33 Substance Use Type: Marijuana Advance Directives: No Advance Directives Information Provided: No service: No Current occupational status: employed Current occupation: disability Physical Exam ED Vital Signs: Vital Signs - 24 hr 08/27/22 18:46 Temperature 98.1 F Pulse Rate 90 Respiratory Rate 16 Blood Pressure 148/92 H Pulse Oximetry 95 Oxygen Delivery Method Room Air BMI result Body Mass Index 37.1 Const General: cooperative, no acute distress, alert and awake Nutritional Appearance: well nourished Orientation/consciousness: patient oriented x3 Limitations: no limitations HENMT Head: Yes normal to inspection and Yes atraumatic Ears: hearing grossly normal bilaterally and external ears normal General nose exam: Normal external nose present, no nasal discharge noted and no epistaxis Face and sinus: Yes normal facial exam, No abrasion and No laceration Mouth: Normal oral and palatal mucosa present, no drooling and no muffled voice Eyes General: appearance normal, both eyes and all related structures Periorbital: periorbital findings normal Eyelids: Yes eyelids normal Conjunctivae: conjunctivae normal Pupils: Equal, round and reactive pupils present EOM: EOMs intact bilaterally Neck Neck: Yes normal visual inspection, Yes full ROM and Yes no lymphadenopathy Chest Chest palpation & inspection: normal inspection of the chest Resp Effort & Inspection: normal respiratory effort and able to speak in complete sentences GI Inspection: Yes normal to inspection Neuro General: patient oriented x3 and moves all extremities Cranial nerves: Yes Equal, round and reactive pupils present Cognition (Neuro): normal cognition Motor exam (neuro): 5/5 motor strength present throughout Sensory Exam: Normal double simultaneous stimulation for sensation Coordination: [id number] test normal Extrem General: Yes full ROM and Yes capillary refill normal Hand/finger images: 1. artificial nail with real nail attached mostly avulsed from the nail bed Psych Appearance: grossly normal Mental Status: mental status grossly normal Affect: normal affect Attitude: cooperative Thought process: Normal thought process present Thought content: Normal thought content present Insight: Good insight present (Psych) Medications Administered Discontinued Medications Generic Name Dose Route Start Last Admin Trade Name Freq PRN Reason Stop Dose Admin Hydrocodone Bitart/Acetaminophen 1 tab 08/27/22 19:07 08/27/22 19:19 Hydrocodone Bit/Acetam 5/325 Tablet PO 08/27/22 19:08 1 tab ONCE ONE Administration Diphtheria/Tetanus/Acell Pertussis 0.5 ml 08/27/22 19:07 08/27/22 19:19 Diphth,Pertus(Acell),Tet Adult 0.5 Ml Syringe IM 08/27/22 19:08 0.5 ml .ONCE ONE Administration Procedures Procedure Narrative Procedure Narrative: patient's left ring finger nail was removed after a digital block of the left ring finger was performed, without incident. Patient's nailbed was intact and without injury. Medical Decision Making Medical Decision Making MDM Narrative: Patient is a 46 year old assigned female at with a history of depression and asthma presenting to the emergency department today with an avulsed left ring finger nail. Patient's physical exam was as noted in the physical exam portion of this chart. I explained my physical exam findings to the patient. I answered all questions asked by the patient. Patient's left ring finger was digitally blocked and the nail was removed, without incident. Patient's nail bed was intact and not injured. Patient's ROM and PMS was intact prior to and after nail removal. I stressed the importance of the patient taking her medication as prescribed. I stressed the importance of the patient following up with her primary care provider. I stressed the importance of the patient returning to the emergency department immediately if her symptoms were to worsen or if she were to develop any dizziness, shortness of breath, difficulty breathing, chest pain, blurry vision, loss of vision, nausea, vomiting, abdominal pain, fever, chills, back pain, or any other complaints. Patient verbalized agreement and understanding with this treatment plan and discharge. Differential Diagnosis Differential Diagnoses: The differential diagnosis associated with the presentation includes nail avulsion Discharge Plan Discharge Clinical Impression: Avulsed fingernail Patient Disposition: Home, Self-Care Instructions: Nail Removal (ED) Additional Instructions: Follow up with your primary care provider. Return to the emergency department immediately if your symptoms worsen or if you develop any dizziness, shortness of breath, difficulty breathing, chest pain, blurry vision, loss of vision, nausea, vomiting, abdominal pain, fever, chills, back pain, or any other complaints. Prescriptions: New cephalexin 500 mg capsule 500 mg PO Q6H 7 Days Qty: 28 0RF No Action ibuprofen 800 mg tablet 800 mg PO Q8H PRN (Reason: pain) Qty: 20 0RF acetaminophen [Tylenol Extra Strength] 500 mg tablet 1,000 mg PO QID PRN (Reason: fever or pain) Qty: 60 5RF albuterol sulfate 2.5 mg /3 mL (0.083 %) solution for nebulization 2.5 mg inhalation Q4H PRN (Reason: shortness of breath or wheezing) Qty: 90 0RF (DME) nebulizer and compressor Device See Rx Instructions .Route Qty: 1 0RF Rx Instructions: As directed atorvastatin 20 mg tablet 1 tab PO BEDTIME prazosin 2 mg capsule 1 cap PO BEDTIME fluticasone propionate [Flovent HFA] 110 mcg/actuation HFA aerosol inhaler 1 puff inhalation BID dexmethylphenidate [Focalin XR] 20 mg capsule,ER biphasic 50-50 1 cap PO BEDTIME varenicline 1 mg tablet 1 tab PO BID Rx Instructions: take with full glass of water budesonide-formoterol [Symbicort] 160-4.5 mcg/actuation HFA aerosol inhaler 2 puff inhalation QID cholecalciferol (vitamin D3) [Vitamin D3] 25 mcg (1,000 unit) capsule 25 mcg PO BEDTIME oxcarbazepine 600 mg tablet 1,800 mg PO BEDTIME oxcarbazepine 300 mg tablet 300 mg PO DAILY trazodone 50 mg tablet 100 - 150 mg PO BEDTIME PRN (Reason: Insomnia) gabapentin 600 mg tablet 600 mg PO BEDTIME clonidine HCl 0.1 mg tablet 0.1 mg PO BEDTIME PRN (Reason: Anxiety) albuterol sulfate [ProAir HFA] 90 mcg/actuation HFA aerosol inhaler 2 puff inhalation Q6H PRN (Reason: wheezing) diphenhydramine HCl [Banophen] 25 mg capsule 100 mg PO BEDTIME buspirone 7.5 mg tablet 7.5 mg PO BEDTIME fluoxetine 20 mg capsule 60 mg PO BEDTIME Referrals: [facility] [Primary Care Provider] - Interventions: ED Discharge Assessment Last Done: 08/27/22 19:27 Discharge Date/Time: 08/27/22 19:27 Print Language: Chinese
[2022-08-27] MEDS: HYDROcodone Bit/Acetam 5/325 TABLET 1 TAB PO (19:19)
[2022-08-27] MEDS: Diphth,Pertus(ACell),Tet Adult 0.5 ML SYRINGE IM (19:19)
== END 2022-08-27 19:27 | disposition home or self-care (01) ==
LOC: HO.ED 19:13
PROVIDERS: Emergency Provider Emergency Medicine; PCP Registered Nurse
DX: S61.305A Unspecified open wound of left ring finger with damage to nail, initial encounter (principal); W01.198A Fall on same level from slipping, tripping and stumbling with subsequent striking against other object, initial encounter; Y93.01 Activity, walking, marching and hiking; Y92.9 Unspecified place or not applicable; Y99.9 Unspecified external cause status
CPT/HCPCS: 11730; 90471; 90715; 99283; 99284

== ENCOUNTER 2022-09-04 16:03 | Emergency (ER) | payer MEDICAID, SELFPAY ==
--- NOTE | ~2022-09-04 | XR_ITS ---
EXAMINATION: XR CHEST CLINICAL INFORMATION: Cough and SOB COMPARISON: None available. TECHNIQUE: 2 views of the chest were obtained. FINDINGS: The lungs are well-expanded and clear. The heart size and pulmonary vascularity is normal. There are posterior spinal electrodes posterior to lower dorsal spine. No gross bony abnormality seen. XR/XR chest 2V IMPRESSION: Unremarkable chest exam.
--- NOTE | 2022-09-04 16:04 | ED.SOB ---
HPI - SOB/Dyspnea General Chief Complaint: Dyspnea Stated Complaint: asthma/difficulty breathing Time Seen by Provider: 09/04/22 16:31 Source: patient and RN notes reviewed Mode of arrival: ambulatory Limitations: no limitations History of Present Illness HPI Narrative: 46-year-old female with past medical history significant for asthma and COPD presents for evaluation of shortness of breath Patient reports that she started with a sore throat 4 days ago She started to develop shortness of breath on Sunday, 3 days ago. The patient ran out or for albuterol nebulizers She called her doctor who is able to refill the prescriptions for her The patient has been using the nebulizers but still feels short of breath and feels as if she is wheezing. Denies any fevers but endorses significant cough Related Data Home Medications Medication Instructions Recorded Confirmed albuterol sulfate 90 mcg/actuation 2 puff inhalation Q6H PRN wheezing 08/30/21 05/19/22 aerosol inhaler (ProAir HFA) buspirone 7.5 mg tablet 7.5 mg PO BEDTIME 08/30/21 05/19/22 cholecalciferol (vitamin D3) 25 25 mcg PO BEDTIME 08/30/21 05/19/22 mcg (1,000 unit) capsule (Vitamin D3) clonidine HCl 0.1 mg tablet 0.1 mg PO BEDTIME PRN Anxiety 08/30/21 05/19/22 diphenhydramine HCl 25 mg capsule 100 mg PO BEDTIME insomnia 08/30/21 05/19/22 (Banophen) fluoxetine 20 mg capsule 60 mg PO BEDTIME 08/30/21 05/19/22 gabapentin 600 mg tablet 600 mg PO BEDTIME 08/30/21 05/19/22 oxcarbazepine 300 mg tablet 300 mg PO DAILY 08/30/21 05/19/22 oxcarbazepine 600 mg tablet 1,800 mg PO BEDTIME 08/30/21 05/19/22 trazodone 50 mg tablet 100 - 150 mg PO BEDTIME PRN 08/30/21 05/19/22 Insomnia atorvastatin 20 mg tablet 1 tab PO BEDTIME 05/07/22 05/19/22 budesonide-formoterol HFA 160 2 puff inhalation QID 05/07/22 05/19/22 mcg-4.5 mcg/actuation aerosol inhaler (Symbicort) dexmethylphenidate 20 mg 1 cap PO BEDTIME 05/07/22 05/19/22 capsule,extended release [id number] (Focalin XR) fluticasone propionate 110 1 puff inhalation BID 05/07/22 05/19/22 mcg/actuation HFA aerosol inhaler (Flovent HFA) prazosin 2 mg capsule 1 cap PO BEDTIME 05/07/22 05/19/22 varenicline 1 mg tablet 1 tab PO BID 05/07/22 05/19/22 Previous Rx's Medication Instructions Recorded acetaminophen 500 mg tablet 1,000 mg PO QID PRN fever or pain 10/12/20 (Tylenol Extra Strength) #60 tabs ibuprofen 800 mg tablet 800 mg PO Q8H PRN pain #20 tabs 10/12/20 albuterol sulfate 2.5 mg/3 mL 2.5 mg (3 mL) inhalation Q4H PRN 09/14/21 (0.083 %) solution for nebulization shortness of breath or wheezing #90 mL nebulizer and compressor #1 ea 09/14/21 cephalexin 500 mg capsule 500 mg PO Q6H 7 days #28 caps 08/27/22 benzonatate 200 mg capsule 200 mg PO TID PRN cough #20 caps 09/04/22 prednisone 20 mg tablet 40 mg PO DAILY #8 tabs 09/04/22 Allergies Allergy/AdvReac Type Severity Reaction Status Date / Time vancomycin [VANCOMYCIN] Allergy Intermediate RASH, Verified 09/04/22 16:11 ITCHING, BREATHING PROBLEMS Review of Systems Constitutional: Constitutional: Reports as per HPI, Denies chills, Denies fatigue and Denies fever(s) ENT: Reports sore throat Cardiovascular: Cardiovascular: Denies chest pain and Reports dyspnea Respiratory: Respiratory: Reports cough, Reports dyspnea and Reports wheezing Gastrointestinal: Gastrointestinal: Denies abdominal pain, Denies constipation and Denies vomiting Genitourinary: Genitourinary: Denies dysuria Neurologic: Denies focal weakness Endocrine: Endocrine: Denies fatigue Allergic/Immunologic: Allergic/Immunologic: Reports wheezing PMFSH Past Medical History Medical History Asthma exacerbation Back pain Carpal tunnel syndrome, bilateral DVT (deep vein thrombosis) in Fibula fracture Kidney laceration Low back pain Lumbar radiculopathy Pancreatitis Pars defect of lumbar spine Spondylolisthesis at L4-L5 level Tibia fracture Surgical History History of cholecystectomy Status post surgical manipulation of ankle joint Social History Social History Alcohol intake: never Patient Tobacco Use Status: Current everyday Tobacco user Tobacco use type: Cigarette Cigarette Packs Per Day: 1 Cigarettes Per Day: 15 Years Smoked: 33 Smoked in Last 30 Days: Yes Use of substances other than those prescribed or required for medical reasons: Yes Substance Use Type: Marijuana Advance Directives: No Advance Directives Information Provided: No service: No Current occupational status: employed Current occupation: disability Physical Exam Vital Signs: Vital Signs: Last Vital Signs Temp 97.4 F 09/04/22 16:05 Pulse 74 09/04/22 17:53 Resp 18 09/04/22 17:53 BP 141/82 H 09/04/22 17:33 Pulse Ox 96 09/04/22 17:33 O2 Del Method Room Air 09/04/22 17:33 BMI result Body Mass Index 36.0 Const: General: healthy appearing, comfortable, no acute distress, alert and awake Nutritional Appearance: well nourished Orientation/consciousness: patient oriented x3 HEENT: Other: Mildly erythematous oropharynx, no exudates, no tonsillar abscess or tonsillar hypertrophy Head: Yes normocephalic and Yes atraumatic Eyes: Eyelids: Yes eyelids normal Conjunctivae: conjunctivae normal Sclerae: sclerae normal Corneas: corneas normal Pupils: Equal, round and reactive pupils present EOM: EOMs intact bilaterally Neck: Neck: Yes full ROM Resp: Effort & Inspection: normal respiratory effort, able to speak in complete sentences and not labored Auscultation: not clear to auscultation bilaterally and wheezes (Diffuse wheezing) Cardio: Rate: regular rate Rhythm: regular rhythm Skin: General skin exam: no rashes or lesions noted and elasticity normal Neuro: General: patient oriented x3 Cranial nerves: Yes Equal, round and reactive pupils present and Yes Bilaterally intact EOM present Cognition (Neuro): normal cognition Course Course Course Narrative: RME - 46 yo female with history of asthma/COPD, active smoker, depression, anxiety, LE DVT in the who presents to the ER for evaluation of worsening difficulty breathing for the last 2 days despite using her nebulizer treatments. New productive cough of yellow phlegm w/ chest tightness along with laryngitis. No fevers, N/V/D or abdominal pain. Poor air entry w/ wheezing and scattered rhonchi. SpO2 96%, mild increased WOB. Plan: CXR, labs, EKG, nebs Reevaluation(s) Reevaluation #1: Patient requesting discharge at this time after her treatment. On re-evaluation, her lungs are clear to auscultation. She does appear to working to breathe but her oxygen saturation is 98%, her heart rate is 80 8% in a sinus rhythm. I discussed warning signs with the patient, I discussed her elevated BNP and will have her follow-up with her PCP. Again, she does not appear to be in acute heart failure Time: 19:13 Medications Administered Discontinued Medications Generic Name Dose Route Start Last Admin Trade Name Freq PRN Reason Stop Dose Admin Benzonatate 200 mg 09/04/22 17:48 09/04/22 17:59 Benzonatate 100 Mg Capsule PO 09/04/22 17:49 200 mg ONCE ONE Administration Albuterol Sulfate 5 mg/ 0 mg 09/04/22 17:38 09/04/22 17:53 Albuterol/Ipratropium 3 ml INHALE 09/04/22 17:39 1 each ONCE ONE Administration Prednisone 40 mg 09/04/22 17:38 09/04/22 17:46 Prednisone 20 Mg Tablet PO 09/04/22 17:39 40 mg ONCE ONE Administration Medical Decision Making Medical Decision Making [facility] Narrative: 46-year-old female presents for evaluation of shortness of breath for last few days. She reports history of asthma. She reports losing her voice and sore throat is requesting a strep test. This will be ordered. The patient likely has a viral illness leading to an asthma/COPD exacerbation. Will treat with albuterol/ipratropium bromide and prednisone 40 mg p.o.. Labs are reviewed without significant abnormality chest x-ray is clear. Will re-evaluate Differential Diagnosis Asthma exacerbation Viral syndrome Upper respiratory infection Strep throat COPD Lab Data [facility] Lab Attestation statement: I reviewed the patient's lab results. Mild anemia with a hemoglobin of 11.9. Slightly decreased from her last hemoglobin of 13.0. Not clinically significant to cause significant shortness of breath. BNP is elevated to 182 which is new for the patient. No significant pleural effusions on x-ray 09/04/22 16:29 09/04/22 16:29 Labs: Lab Results 09/04/22 09/04/22 09/04/22 Range/Units 16:29 16:29 16:29 WBC 6.1 (4.8-10.8) X10*3/uL RBC 3.82 L (4.20-5.50) X10*6/uL Hgb 11.9 L (12.0-16.0) g/dl Hct 35.3 L (37.0-47.0) % MCV 92.4 (80.0-98.0) fL MCH 31.2 (27.0-33.0) pg MCHC 33.7 (31.0-35.0) g/dl RDW 12.7 (11.0-16.0) % Plt Count 228 (160-400) X10*3/uL MPV 9.9 (9.4-12.3) fL Immature Gran % (Auto) 0.3 (0.0-0.4) % Neut % (Auto) 61.8 (45-73) % Lymph % (Auto) 28.3 (20-40) % Aurora % (Auto) 7.8 (2-11) % Eos % (Auto) 1.3 (0-4) % Baso % (Auto) 0.5 (0-2) % Lymph # (Auto) 1.7 (1.2-4.9) X10*3/uL Aurora # (Auto) 0.5 (0.1-1.2) X10*3/uL Eos # (Auto) 0.1 (0.0-0.4) X10*3/uL Baso # (Auto) 0.0 (0.0-0.2) X10*3/uL Abs Immat Gran (auto) 0.02 (0.00-0.03) X10*3/uL Absolute Neuts (auto) 3.8 (2.0-8.3) x10*3/uL Absolute Nucleated RBC 0.000 (0.0-0.012) X10*3/uL Nucleated RBC % (auto) 0.0 (0.0-0.2) /100WBC VBG pH (7.32-7.43) VBG pCO2 mmHg VBG pO2 mmHg VBG HCO3 (22-26) mmol/L VBG O2 Saturation % VBG Base Excess mmol/L Sodium 144 (135-145) mmol/L Potassium 3.8 (3.3-5.1) mmol/L Chloride 111 H (96-108) mmol/L Carbon Dioxide 25 (22-29) mmol/L Anion Gap 12 (12-20) BUN 15 (9-16) mg/dL Creatinine 0.72 (0.5-1.4) mg/dL Estim Creat Clear Calc 122.6 Estimated GFR > 60 Random Glucose 89 (60-115) mg/dL Calcium 9.2 D (8.4-10.2) mg/dL Magnesium 1.9 (1.6-2.6) mg/dL Total Bilirubin 0.3 (0.0-1.0) mg/dL Direct Bilirubin 0.1 (0.0-0.5) mg/dL AST 12 (5-31) U/L ALT 14 (0-31) U/L Alkaline Phosphatase 95 (39-117) U/L Troponin I High Sens < 2.7 (<3.5-17.0) ng/L B-Natriuretic Peptide (<100) pg/mL Total Protein 7.1 (6.5-8.0) g/dL Albumin 4.0 (3.5-5.0) g/dL 09/04/22 09/04/22 Range/Units 16:29 16:32 WBC (4.8-10.8) X10*3/uL RBC (4.20-5.50) X10*6/uL Hgb (12.0-16.0) g/dl Hct (37.0-47.0) % MCV (80.0-98.0) fL MCH (27.0-33.0) pg MCHC (31.0-35.0) g/dl RDW (11.0-16.0) % Plt Count (160-400) X10*3/uL MPV (9.4-12.3) fL Immature Gran % (Auto) (0.0-0.4) % Neut % (Auto) (45-73) % Lymph % (Auto) (20-40) % Aurora % (Auto) (2-11) % Eos % (Auto) (0-4) % Baso % (Auto) (0-2) % Lymph # (Auto) (1.2-4.9) X10*3/uL Aurora # (Auto) (0.1-1.2) X10*3/uL Eos # (Auto) (0.0-0.4) X10*3/uL Baso # (Auto) (0.0-0.2) X10*3/uL Abs Immat Gran (auto) (0.00-0.03) X10*3/uL Absolute Neuts (auto) (2.0-8.3) x10*3/uL Absolute Nucleated RBC (0.0-0.012) X10*3/uL Nucleated RBC % (auto) (0.0-0.2) /100WBC VBG pH 7.47 H (7.32-7.43) VBG pCO2 38 mmHg VBG pO2 63 mmHg VBG HCO3 28 H (22-26) mmol/L VBG O2 Saturation 94.0 % VBG Base Excess 4.4 mmol/L Sodium (135-145) mmol/L Potassium (3.3-5.1) mmol/L Chloride (96-108) mmol/L Carbon Dioxide (22-29) mmol/L Anion Gap (12-20) BUN (9-16) mg/dL Creatinine (0.5-1.4) mg/dL Estim Creat Clear Calc Estimated GFR Random Glucose (60-115) mg/dL Calcium (8.4-10.2) mg/dL Magnesium (1.6-2.6) mg/dL Total Bilirubin (0.0-1.0) mg/dL Direct Bilirubin (0.0-0.5) mg/dL AST (5-31) U/L ALT (0-31) U/L Alkaline Phosphatase (39-117) U/L Troponin I High Sens (<3.5-17.0) ng/L B-Natriuretic Peptide 182 H (<100) pg/mL Total Protein (6.5-8.0) g/dL Albumin (3.5-5.0) g/dL Discharge Plan Discharge Clinical Impression: Acute asthma exacerbation Patient Disposition: Home, Self-Care Instructions: Asthma (ED) Additional Instructions: Your chest x-ray was clear Your symptoms were most likely related to an asthma exacerbation which may have been triggered by a virus Continue your albuterol inhalers and nebulizers as prescribed Use prednisone 40 mg daily for the next 4 days starting tomorrow Use Tessalon Perles as needed for coughing Your BNP was elevated today to 182 You need to call your doctor to schedule follow-up regarding this Return to the ER for any new or worsening symptoms Prescriptions: New benzonatate 200 mg capsule 200 mg PO TID PRN (Reason: cough) Qty: 20 0RF prednisone 20 mg tablet 40 mg PO DAILY Qty: 8 0RF No Action ibuprofen 800 mg tablet 800 mg PO Q8H PRN (Reason: pain) Qty: 20 0RF acetaminophen [Tylenol Extra Strength] 500 mg tablet 1,000 mg PO QID PRN (Reason: fever or pain) Qty: 60 5RF albuterol sulfate 2.5 mg /3 mL (0.083 %) solution for nebulization 2.5 mg inhalation Q4H PRN (Reason: shortness of breath or wheezing) Qty: 90 0RF (DME) nebulizer and compressor Device See Rx Instructions .Route Qty: 1 0RF Rx Instructions: As directed atorvastatin 20 mg tablet 1 tab PO BEDTIME prazosin 2 mg capsule 1 cap PO BEDTIME fluticasone propionate [Flovent HFA] 110 mcg/actuation HFA aerosol inhaler 1 puff inhalation BID dexmethylphenidate [Focalin XR] 20 mg capsule,ER biphasic 50-50 1 cap PO BEDTIME varenicline 1 mg tablet 1 tab PO BID Rx Instructions: take with full glass of water budesonide-formoterol [Symbicort] 160-4.5 mcg/actuation HFA aerosol inhaler 2 puff inhalation QID cephalexin 500 mg capsule 500 mg PO Q6H 7 Days Qty: 28 0RF cholecalciferol (vitamin D3) [Vitamin D3] 25 mcg (1,000 unit) capsule 25 mcg PO BEDTIME oxcarbazepine 600 mg tablet 1,800 mg PO BEDTIME oxcarbazepine 300 mg tablet 300 mg PO DAILY trazodone 50 mg tablet 100 - 150 mg PO BEDTIME PRN (Reason: Insomnia) gabapentin 600 mg tablet 600 mg PO BEDTIME clonidine HCl 0.1 mg tablet 0.1 mg PO BEDTIME PRN (Reason: Anxiety) albuterol sulfate [ProAir HFA] 90 mcg/actuation HFA aerosol inhaler 2 puff inhalation Q6H PRN (Reason: wheezing) diphenhydramine HCl [Banophen] 25 mg capsule 100 mg PO BEDTIME buspirone 7.5 mg tablet 7.5 mg PO BEDTIME fluoxetine 20 mg capsule 60 mg PO BEDTIME
[2022-09-04 16:05] VITALS: BP 151/92; PULSE 71; RESP 22; TEMP 36.3; O2SAT 96; BMI 36.0
--- NOTE | 2022-09-04 16:07 | ECG_ITS ---
Test Reason : SOB Blood Pressure : / mmHG Vent. Rate : 062 BPM Atrial Rate : 062 BPM P-R Int : 150 ms QRS Dur : 086 ms QT Int : 422 ms P-R-T Axes : 037 035 054 degrees QTc Int : 428 ms Normal sinus rhythm Normal ECG When compared with ECG of 07-MAY-2022 16:24, No significant change was found Referred By: Nilam Murray Electronically Signed By:Ashutosh Smalls
[2022-09-04 16:33] LABS: MANUAL DIFF FLAG NO
[2022-09-04 16:35] LABS: Basophils Percent Auto 0.5 % (0-2); Eosinophils Absolute Auto 0.1 X10*3/uL (0.0-0.4); Eosinophils Percent Auto 1.3 % (0-4); Hematocrit 35.3 % (37.0-47.0); Hemoglobin 11.9 g/dl (12.0-16.0); Imm Gran Abs Auto 0.02 X10*3/uL (0.00-0.03); Imm Gran Pct Auto 0.3 % (0.0-0.4); Lymphocytes Absolute Auto 1.7 X10*3/uL (1.2-4.9); Lymphocytes Percent Auto 28.3 % (20-40); Mean Corpuscular HGB Conc 33.7 g/dl (31.0-35.0); Mean Corpuscular Hemoglobin 31.2 pg (27.0-33.0); Mean Corpuscular Volume 92.4 fL (80.0-98.0); Mean Platelet Volume 9.9 fL (9.4-12.3); Monocytes Absolute Auto 0.5 X10*3/uL (0.1-1.2); Monocytes Percent Auto 7.8 % (2-11); Neutrophils Absolute Auto 3.8 x10*3/uL (2.0-8.3); Neutrophils Percent Auto 61.8 % (45-73); Platelet Count 228 X10*3/uL (160-400); Red Blood Count 3.82 X10*6/uL (4.20-5.50); Red Cell Distribution Width 12.7 % (11.0-16.0); White Blood Count 6.1 X10*3/uL (4.8-10.8)
[2022-09-04 16:40] LABS: VBG Base Excess 4.4 mmol/L; VBG HCO3 28 mmol/L (22-26); VBG pCO2 38 mmHg; VBG pH 7.47 (7.32-7.43); VBG pO2 63 mmHg
[2022-09-04 16:52] LABS: Venous Blood Gas Refer to POC result
[2022-09-04 17:15] LABS: Alanine Aminotransferase 14 U/L (0-31); Alkaline Phosphatase 95 U/L (39-117); Anion Gap 12 (12-20); Aspartate Amino Transferase 12 U/L (5-31); Bilirubin Direct 0.1 mg/dL (0.0-0.5); Bilirubin Total 0.3 mg/dL (0.0-1.0); Blood Urea Nitrogen 15 mg/dL (9-16); Calcium 9.2 mg/dL (8.4-10.2); Carbon Dioxide 25 mmol/L (22-29); Chloride 111 mmol/L (96-108); Creatinine Clr Calc Pharmacy 122.6; Estimated Glomerular Filt Rate > 60; Glucose Random 89 mg/dL (60-115); Magnesium 1.9 mg/dL (1.6-2.6); Potassium 3.8 mmol/L (3.3-5.1); Sodium 144 mmol/L (135-145); Total Protein 7.1 g/dL (6.5-8.0)
[2022-09-04 17:19] LABS: B Type Natriuretic Peptide 182 pg/mL (<100)
[2022-09-04 17:33] VITALS: BP 141/82; PULSE 70; RESP 20; O2SAT 96
[2022-09-04 17:37] LABS: Troponin-I High Sensitivity < 2.7 ng/L (<3.5-17.0)
[2022-09-04] MEDS: predniSONE 20 MG TABLET 40 MG PO (17:46)
[2022-09-04 17:53] VITALS: PULSE 74; RESP 18; O2SAT 95
[2022-09-04] MEDS: Albuterol Sulfate 5 MG, Albuterol/Iprat 2.5/0.5MG 3 ML 3 ML INHALE (17:53)
--- NOTE | 2022-09-04 17:55 | PC.NURSE ---
pt aox4, reporting increased sob after running out of asthma medications. wheezes heard throughout lungs, medicated per mar
[2022-09-04] MEDS: Benzonatate 100 MG CAPSULE 200 MG PO (17:59)
== END 2022-09-04 19:23 | disposition home or self-care (01) ==
PROVIDERS: Physician Assistant; Emergency Provider Emergency Medicine Emergency Medical Services; PCP Nurse Practitioner Family
DX: J45.901 Unspecified asthma with (acute) exacerbation (principal); R06.02 Shortness of breath; F17.210 Nicotine dependence, cigarettes, uncomplicated; F12.90 Cannabis use, unspecified, uncomplicated; Z86.718 Personal history of other venous thrombosis and embolism; Z79.899 Other long term (current) drug therapy
CPT/HCPCS: 36415; 71046; 80048; 80076; 82803; 83735; 83880; 84484; 85025; 93005; 94640; 99284; 99285

== ENCOUNTER 2022-10-28 23:14 | Emergency (ER) | payer MEDICAID, SELFPAY ==
--- NOTE | ~2022-10-28 | XR_ITS ---
EXAMINATION: XR ANKLE, RIGHT CLINICAL INFORMATION: Injury COMPARISON: None available. TECHNIQUE: AP, lateral, and mortise views of the right ankle. FINDINGS: 2 [address] are in place at the medial malleolus. There are also 2 screws at the talus. Intact hardware. No surrounding lucency. No acute fracture. Arthritic changes along the ankle mortise likely associated with the previous trauma. Circumferential soft tissue swelling at the ankle. No definite joint effusion. XR/XR ankle RT min 3V IMPRESSION: Soft tissue swelling. No acute fracture or malalignment. Intact hardware. Arthritic changes.
[2022-10-28 23:42] VITALS: BP 135/76; PULSE 74; RESP 16; TEMP 36.4; O2SAT 94; BMI 37.6
--- NOTE | 2022-10-29 01:03 | ED.LOWEXIN ---
HPI - Extremity Injury (Lower) General Chief Complaint: Extremity Injury, Lower Stated Complaint: Swollen right ankle Time Seen by Provider: 10/29/22 01:00 Source: patient Mode of arrival: ambulatory Limitations: no limitations History of Present Illness HPI Narrative: Patient with history of remote surgery of right ankle got twisted her right ankle and 15:00 while walking no fall now she has pain when she ambulates Related Data Home Medications Medication Instructions Recorded Confirmed albuterol sulfate 90 mcg/actuation 2 puff inhalation Q6H PRN wheezing 08/30/21 05/19/22 aerosol inhaler (ProAir HFA) buspirone 7.5 mg tablet 7.5 mg PO BEDTIME 08/30/21 05/19/22 cholecalciferol (vitamin D3) 25 25 mcg PO BEDTIME 08/30/21 05/19/22 mcg (1,000 unit) capsule (Vitamin D3) clonidine HCl 0.1 mg tablet 0.1 mg PO BEDTIME PRN Anxiety 08/30/21 05/19/22 diphenhydramine HCl 25 mg capsule 100 mg PO BEDTIME insomnia 08/30/21 05/19/22 (Banophen) fluoxetine 20 mg capsule 60 mg PO BEDTIME 08/30/21 05/19/22 gabapentin 600 mg tablet 600 mg PO BEDTIME 08/30/21 05/19/22 oxcarbazepine 300 mg tablet 300 mg PO DAILY 08/30/21 05/19/22 oxcarbazepine 600 mg tablet 1,800 mg PO BEDTIME 08/30/21 05/19/22 trazodone 50 mg tablet 100 - 150 mg PO BEDTIME PRN 08/30/21 05/19/22 Insomnia atorvastatin 20 mg tablet 1 tab PO BEDTIME 05/07/22 05/19/22 budesonide-formoterol HFA 160 2 puff inhalation QID 05/07/22 05/19/22 mcg-4.5 mcg/actuation aerosol inhaler (Symbicort) dexmethylphenidate 20 mg 1 cap PO BEDTIME 05/07/22 05/19/22 capsule,extended release [id number] (Focalin XR) fluticasone propionate 110 1 puff inhalation BID 05/07/22 05/19/22 mcg/actuation HFA aerosol inhaler (Flovent HFA) prazosin 2 mg capsule 1 cap PO BEDTIME 05/07/22 05/19/22 varenicline 1 mg tablet 1 tab PO BID 05/07/22 05/19/22 Previous Rx's Medication Instructions Recorded acetaminophen 500 mg tablet 1,000 mg PO QID PRN fever or pain 10/12/20 (Tylenol Extra Strength) #60 tabs ibuprofen 800 mg tablet 800 mg PO Q8H PRN pain #20 tabs 10/12/20 albuterol sulfate 2.5 mg/3 mL 2.5 mg (3 mL) inhalation Q4H PRN 09/14/21 (0.083 %) solution for nebulization shortness of breath or wheezing #90 mL nebulizer and compressor #1 ea 09/14/21 cephalexin 500 mg capsule 500 mg PO Q6H 7 days #28 caps 08/27/22 benzonatate 200 mg capsule 200 mg PO TID PRN cough #20 caps 09/04/22 prednisone 20 mg tablet 40 mg PO DAILY #8 tabs 09/04/22 ibuprofen 600 mg tablet 600 mg PO Q6H PRN fever or pain 10/29/22 #30 tabs tramadol 50 mg tablet 50 mg PO Q6H PRN pain #20 tabs 10/29/22 Allergies Allergy/AdvReac Type Severity Reaction Status Date / Time vancomycin [VANCOMYCIN] Allergy Intermediate RASH, Verified 09/04/22 16:11 ITCHING, BREATHING PROBLEMS Review of Systems Review of Systems: Yes all other systems are reviewed and are negative [facility] Past Medical History Medical History Asthma exacerbation Back pain Carpal tunnel syndrome, bilateral DVT (deep vein thrombosis) in Fibula fracture Kidney laceration Low back pain Lumbar radiculopathy Pancreatitis Pars defect of lumbar spine Spondylolisthesis at L4-L5 level Tibia fracture Surgical History History of cholecystectomy Status post surgical manipulation of ankle joint Social History Social History Alcohol intake: never Patient Tobacco Use Status: Current everyday Tobacco user Tobacco use type: Cigarette Cigarette Packs Per Day: 1 Cigarettes Per Day: 15 Years Smoked: 33 Substance Use Type: Marijuana Advance Directives: No service: No Current occupational status: employed Current occupation: disability Physical Exam Vital Signs: Vital Signs: Last Vital Signs Temp 97.5 F 10/28/22 23:42 Pulse 74 10/28/22 23:42 Resp 16 10/28/22 23:42 BP 135/76 10/28/22 23:42 Pulse Ox 94 10/28/22 23:42 O2 Del Method Room Air 10/28/22 23:42 BMI result Body Mass Index 37.6 Extrem: Ankle/foot/toe images: 1. Soft tissue swelling of right lateral malleolus no deformity neurovascular intact Medications Administered Discontinued Medications Generic Name Dose Route Start Last Admin Trade Name Freq PRN Reason Stop Dose Admin Tramadol HCl 50 mg 10/29/22 01:29 10/29/22 02:04 Tramadol Hcl 50 Mg Tablet PO 10/29/22 01:30 50 mg ONCE ONE Administration Medical Decision Making Medical Decision Making [facility] Narrative: Patient's right ankle sprain , air cast applied crutches given x-ray negative Discharge Plan Discharge Clinical Impression: Right ankle sprain Patient Disposition: Home, Self-Care Instructions: Ankle Sprain (ED) Additional Instructions: Wear air splint for support and use crutches for ambulation Your x-ray is negative for fracture Tramadol/ibuprofen for pain Prescriptions: New tramadol 50 mg tablet 50 mg PO Q6H PRN (Reason: pain) Qty: 20 0RF ibuprofen 600 mg tablet 600 mg PO Q6H PRN (Reason: fever or pain) Qty: 30 0RF No Action ibuprofen 800 mg tablet 800 mg PO Q8H PRN (Reason: pain) Qty: 20 0RF acetaminophen [Tylenol Extra Strength] 500 mg tablet 1,000 mg PO QID PRN (Reason: fever or pain) Qty: 60 5RF albuterol sulfate 2.5 mg /3 mL (0.083 %) solution for nebulization 2.5 mg inhalation Q4H PRN (Reason: shortness of breath or wheezing) Qty: 90 0RF (DME) nebulizer and compressor Device See Rx Instructions .Route Qty: 1 0RF Rx Instructions: As directed atorvastatin 20 mg tablet 1 tab PO BEDTIME prazosin 2 mg capsule 1 cap PO BEDTIME fluticasone propionate [Flovent HFA] 110 mcg/actuation HFA aerosol inhaler 1 puff inhalation BID dexmethylphenidate [Focalin XR] 20 mg capsule,ER biphasic 50-50 1 cap PO BEDTIME varenicline 1 mg tablet 1 tab PO BID Rx Instructions: take with full glass of water budesonide-formoterol [Symbicort] 160-4.5 mcg/actuation HFA aerosol inhaler 2 puff inhalation QID cephalexin 500 mg capsule 500 mg PO Q6H 7 Days Qty: 28 0RF benzonatate 200 mg capsule 200 mg PO TID PRN (Reason: cough) Qty: 20 0RF prednisone 20 mg tablet 40 mg PO DAILY Qty: 8 0RF cholecalciferol (vitamin D3) [Vitamin D3] 25 mcg (1,000 unit) capsule 25 mcg PO BEDTIME oxcarbazepine 600 mg tablet 1,800 mg PO BEDTIME oxcarbazepine 300 mg tablet 300 mg PO DAILY trazodone 50 mg tablet 100 - 150 mg PO BEDTIME PRN (Reason: Insomnia) gabapentin 600 mg tablet 600 mg PO BEDTIME clonidine HCl 0.1 mg tablet 0.1 mg PO BEDTIME PRN (Reason: Anxiety) albuterol sulfate [ProAir HFA] 90 mcg/actuation HFA aerosol inhaler 2 puff inhalation Q6H PRN (Reason: wheezing) diphenhydramine HCl [Banophen] 25 mg capsule 100 mg PO BEDTIME buspirone 7.5 mg tablet 7.5 mg PO BEDTIME fluoxetine 20 mg capsule 60 mg PO BEDTIME Interventions: ED Discharge Assessment Last Done: 10/29/22 02:12 Discharge Date/Time: 10/29/22 02:13
[2022-10-29] MEDS: traMADoL HCL 50 MG TABLET PO (02:04)
== END 2022-10-29 02:13 | disposition home or self-care (01) ==
PROVIDERS: Emergency Provider Internal Medicine; PCP Registered Nurse
DX: S93.401A Sprain of unspecified ligament of right ankle, initial encounter (principal); X50.1XXA Overexertion from prolonged static or awkward postures, initial encounter; Y93.9 Activity, unspecified; Y92.9 Unspecified place or not applicable; Y99.9 Unspecified external cause status; F17.210 Nicotine dependence, cigarettes, uncomplicated; Z79.899 Other long term (current) drug therapy; Z71.6 Tobacco abuse counseling
CPT/HCPCS: 73610; 99284

== ENCOUNTER 2022-11-22 08:23 | Outpatient (AMB) | payer MEDICAID, SELFPAY ==
[2022-11-22 08:27] VITALS: BP 120/82; PULSE 84; BMI 35.7
--- NOTE | 2022-11-22 08:27 | MHC.OFFVIS ---
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 Allergies vancomycin [VANCOMYCIN] Allergy (Intermediate, Verified 09/04/22 16:11) RASH, ITCHING, BREATHING PROBLEMS Medication List - Last Reconciled 11/22/22 by Hossein Christianson MD acetaminophen (Tylenol Extra Strength) 1,000 mg (2 x 500 mg) PO QID PRN albuterol sulfate 2.5 mg (3 mL) inhalation Q4H PRN albuterol sulfate 90 mcg/actuation (ProAir HFA) 2 puffs inhalation Q6H PRN atorvastatin 20 mg PO BEDTIME benzonatate 200 mg PO TID PRN budesonide-formoterol 160-4.5 mcg/actuation (Symbicort) 2 puffs inhalation QID buspirone 7.5 mg PO BEDTIME cephalexin 500 mg PO Q6H 7 days cholecalciferol (vitamin D3) (Vitamin D3) 25 mcg PO BEDTIME clonidine HCl 0.1 mg PO BEDTIME PRN dexmethylphenidate ER (Focalin XR) 20 mg PO BEDTIME diphenhydramine HCl (Banophen) 100 mg PO BEDTIME fluoxetine 60 mg PO BEDTIME fluticasone propionate 110 mcg/actuation (Flovent HFA) 1 puff inhalation BID gabapentin 600 mg PO BEDTIME ibuprofen 600 mg PO Q6H PRN ibuprofen 800 mg PO Q8H PRN nebulizer and compressor As directed oxcarbazepine 1,800 mg PO BEDTIME oxcarbazepine 300 mg PO DAILY prazosin 2 mg PO BEDTIME varenicline 1 mg PO BID HPI HPI Comments History of Present Illness Details I was consulted to see Simran in cardiology consultation today for precordial chest discomfort. She is a 47-year-old female prior history of hyperlipidemia, smoking, musculoskeletal issues with limited exercise capacity related to her ankle issues and the back issues. For last many months she has been having precordial chest discomfort which is not clearly exertion related. Could be stress related and or at rest. Symptoms last for about 2-5 minutes and dissipate by themselves. There is no clear pattern to it. Patient is quite bothered by the symptoms. She also complains of exertional shortness of breath. Denies any orthopnea, PND, leg edema. She says a cholesterol is generally well controlled. She denies any palpitations, lightheadedness, syncope. She does usually have low blood pressure occasionally and does not take prazosin and/or chronically in sometimes. [facility] Medical History Asthma exacerbation Spondylolisthesis at L4-L5 level Pancreatitis DVT (deep vein thrombosis) in Lumbar radiculopathy Pars defect of lumbar spine Low back pain Carpal tunnel syndrome, bilateral Kidney laceration Tibia fracture Fibula fracture Back pain Surgical History Status post surgical manipulation of ankle joint History of cholecystectomy Social History Alcohol intake: never Patient Tobacco Use Status: Current everyday Tobacco user Tobacco use type: Cigarette Cigarette Packs Per Day: 1 Cigarettes Per Day: 15 Years Smoked: 33 Substance Use Type: Marijuana service: No Current occupational status: employed Current occupation: disability Review of Systems Const Denies chills, Denies daytime sleepiness, Denies fatigue, Denies fever(s), Denies frequent falls, Denies poor appetite, Denies snoring, Denies stops breathing during sleep, Denies weakness, Denies weight gain and Denies weight loss Eyes Denies loss of vision ENT Denies dizziness and Denies hearing loss Card Denies chest pain, Denies claudication, Denies leg edema, Denies lightheadedness, Denies palpitations, Denies dyspnea, Denies dyspnea on exertion and Denies orthopnea Resp Denies cough, Denies excessive phlegm production, Denies dyspnea, Denies dyspnea on exertion, Denies snoring and Denies wheezing GI Denies abdominal pain, Denies hematochezia, Denies change in bowel habits, Denies nausea and Denies vomiting Denies urinary frequency and Denies dysuria Musc Denies arthralgias, Denies muscle weakness, Denies numbness and Denies other (frequent falls) Skin/Breast Denies nail changes and Denies rash Neuro Denies Abnormal speech present, Denies dizziness, Denies frequent falls, Denies loss of vision, Denies memory loss, Denies numbness and Denies weakness Psych Denies depression and Denies memory loss Endo Denies fatigue and Denies palpitations Joaquin/Lymph Reports easy bruising and Reports other (anemia) Aller/Immun Denies wheezing Physical Exam Vital Signs: Last Vital Signs Pulse 84 11/22/22 08:27 BP 120/82 11/22/22 08:27 BMI result Body Mass Index 35.7 Const General: cooperative, comfortable, no acute distress, alert and awake Nutritional Appearance: overweight Orientation/consciousness: patient oriented x3 Limitations: no limitations HEENT Head: Yes normocephalic and Yes atraumatic Neck Neck: Yes trachea midline, Yes supple and Yes no JVD Resp Effort & Inspection: normal respiratory effort Auscultation: rhonchi left lower Cardio Jugular venous distension: no JVD Palpation: normal PMI Rate: regular rate Rhythm: regular rhythm Heart sounds: S1 normal heart sound present, S2 normal heart sound present, no click, no gallops, no murmurs and no rubs GI Auscultation: normal bowel sounds Skin General skin exam: no rashes or lesions noted Neuro General: patient oriented x3 and no focal motor deficits Speech: No Abnormal speech present Extrem General: Yes no clubbing, cyanosis or edema Assessment & Plan Assessment & Plan (1) Atypical chest pain: Code(s): R07.89 - Other chest pain Plan: Atypical chest pain in this middle-aged woman with history of smoking and hyperlipidemia with limited exercise capacity and cannot exercise on a treadmill due to her back and ankle issues. Would pursue with vasodilating myocardial perfusion imaging to further assess for myocardial ischemia. Likelihood with her symptom is on the lower side. This was discussed with her. We also discussed about obtain echocardiogram given her prior history of DVT as well as her exertional shortness of breath to evaluate LV systolic and diastolic function to evaluate for pulmonary hypertension. These tests will be scheduled in near future. Further treatment based on the finding of test results. She is encouraged to continue to participate in smoking cessation program and abstain from smoking. She says she is trying. Participate in weight loss program. Continue statin therapy with target goal LDL less than 100 mg/dL. Can consider coronary calcium score for further risk stratification if patient is willing to do so. Will follow up in the clinic in 4 weeks time, sooner p.r.n.. Thank you for allowing me to partake in her care Coding Level of Care Code New Pt Level 4 (72532) Diagnoses Atypical chest pain R07.89
== END 2022-11-22 08:57 | disposition home or self-care (01) ==
LOC: HO.HCSM 08:23
PROVIDERS: PCP Registered Nurse; Visit Provider Internal Medicine Cardiovascular Disease
DX: R07.89 Other chest pain (principal)
CPT/HCPCS: 99204

== ENCOUNTER → 2022-11-22 08:23 | Outpatient (BNVA) | payer MEDICAID, SELFPAY | PROVIDERS: PCP Registered Nurse; Visit Provider Internal Medicine Cardiovascular Disease ==

== ENCOUNTER 2022-12-13 11:13 | Emergency (ER) | payer MEDICAID, SELFPAY ==
--- NOTE | ~2022-12-13 | XR_ITS ---
EXAMINATION: XR FOOT, LEFT CLINICAL INFORMATION: Direct trauma to the toe COMPARISON: None available. TECHNIQUE: AP, lateral, and oblique views of the left foot. FINDINGS: There is a very subtle impacted fracture noted, through the base of the middle phalanx of the third toe. No other fractures are seen. Alignment is preserved. XR/XR foot LT min 3V IMPRESSION: Fracture as described.
--- NOTE | ~2022-12-13 | XR_ITS ---
EXAMINATION: XR CHEST CLINICAL INFORMATION: Covid positive. Shortness of breath. COMPARISON: None available. TECHNIQUE: 2 views of the chest were obtained. FINDINGS: Lungs clear. No pleural effusions. Heart and pulmonary vessels normal. IVC filter noted. Pain modulation device overlies the thoracic spine. XR/XR chest 2V IMPRESSION: No active disease.
[2022-12-13 11:44] VITALS: BP 130/90; PULSE 90; RESP 18; TEMP 36.8; O2SAT 96; BMI 37.1
--- NOTE | 2022-12-13 11:45 | ED.URI ---
HPI - URI/Sore Throat General Chief Complaint: General Medical Stated Complaint: covid+ / banged toe Time Seen by Provider: 12/13/22 13:38 Source: patient and RN notes reviewed Mode of arrival: ambulatory Limitations: no limitations History of Present Illness HPI Narrative: This is a 47-year-old female presenting to the emergency department for evaluation of continued headache, subjective fevers, chills, difficulty breathing and fatigue. Patient reports that on December 10 she was diagnosed with COVID. She was prescribed Paxlovid through her primary care physician. She has been taking this medication but does not feel any better. She states continued difficulty breathing, headaches and fatigue. She has been using at home albuterol inhaler and nebulizers as directed which has provided her with some relief. She denies any chest pain, abdominal pain, nausea, vomiting or diarrhea. She also reports that she hit her 3rd toe on a dog crate several days ago. She has reported worsening bruising and pain to her toe. No other complaints or concerns at this time. MD elicited complaint: cough Onset (ago): day(s) Consistency: constant Severity: moderate Able to tolerate fluids by mouth: Yes Exacerbating factors: nothing Relieving factors: OTC cold medicine Associated symptoms: fever (Subjective), chills, headache, sore throat and cough Related Data Home Medications Medication Instructions Recorded Confirmed albuterol sulfate 90 mcg/actuation 2 puff inhalation Q6H PRN wheezing 08/30/21 11/22/22 aerosol inhaler (ProAir HFA) buspirone 7.5 mg tablet 7.5 mg PO BEDTIME 08/30/21 11/22/22 cholecalciferol (vitamin D3) 25 25 mcg PO BEDTIME 08/30/21 11/22/22 mcg (1,000 unit) capsule (Vitamin D3) clonidine HCl 0.1 mg tablet 0.1 mg PO BEDTIME PRN Anxiety 08/30/21 11/22/22 diphenhydramine HCl 25 mg capsule 100 mg PO BEDTIME insomnia 08/30/21 11/22/22 (Banophen) fluoxetine 20 mg capsule 60 mg PO BEDTIME 08/30/21 11/22/22 gabapentin 600 mg tablet 600 mg PO BEDTIME 08/30/21 11/22/22 oxcarbazepine 300 mg tablet 300 mg PO DAILY 08/30/21 11/22/22 oxcarbazepine 600 mg tablet 1,800 mg PO BEDTIME 08/30/21 11/22/22 budesonide-formoterol HFA 160 2 puff inhalation QID 05/07/22 11/22/22 mcg-4.5 mcg/actuation aerosol inhaler (Symbicort) fluticasone propionate 110 1 puff inhalation BID 05/07/22 11/22/22 mcg/actuation HFA aerosol inhaler (Flovent HFA) atorvastatin 20 mg tablet 20 mg PO BEDTIME 11/22/22 11/22/22 dexmethylphenidate 20 mg 20 mg PO BEDTIME 11/22/22 11/22/22 capsule,extended release [id number] (Focalin XR) prazosin 2 mg capsule 2 mg PO BEDTIME 11/22/22 11/22/22 varenicline 1 mg tablet 1 mg PO BID 11/22/22 11/22/22 Previous Rx's Medication Instructions Recorded acetaminophen 500 mg tablet 1,000 mg (2 x 500 mg) PO QID PRN 10/12/20 (Tylenol Extra Strength) fever or pain #60 tabs ibuprofen 800 mg tablet 800 mg PO Q8H PRN pain #20 tabs 10/12/20 albuterol sulfate 2.5 mg/3 mL 2.5 mg (3 mL) inhalation Q4H PRN 09/14/21 (0.083 %) solution for nebulization shortness of breath or wheezing #90 mL nebulizer and compressor #1 ea 09/14/21 cephalexin 500 mg capsule 500 mg PO Q6H 7 days #28 caps 08/27/22 benzonatate 200 mg capsule 200 mg PO TID PRN cough #20 caps 09/04/22 ibuprofen 600 mg tablet 600 mg PO Q6H PRN fever or pain 10/29/22 #30 tabs prednisone 20 mg tablet 40 mg (2 x 20 mg) PO DAILY 5 days 12/13/22 #10 tabs Allergies Allergy/AdvReac Type Severity Reaction Status Date / Time vancomycin [VANCOMYCIN] Allergy Intermediate RASH, Verified 12/13/22 11:48 ITCHING, BREATHING PROBLEMS Review of Systems Review of Systems: Yes all other systems are reviewed and are negative Constitutional: Constitutional: Reports as per [facility] Past Medical History Medical History Asthma exacerbation Spondylolisthesis at L4-L5 level Pancreatitis DVT (deep vein thrombosis) in Lumbar radiculopathy Pars defect of lumbar spine Low back pain Carpal tunnel syndrome, bilateral Kidney laceration Tibia fracture Fibula fracture Back pain Surgical History Status post surgical manipulation of ankle joint History of cholecystectomy Social History Social History Alcohol intake: never Patient Tobacco Use Status: Current everyday Tobacco user Tobacco use type: Cigarette Cigarette Packs Per Day: 1 Cigarettes Per Day: 15 Years Smoked: 33 Smoked in Last 30 Days: Yes Use of substances other than those prescribed or required for medical reasons: Yes Substance Use Type: Marijuana Advance Directives: No Advance Directives Information Provided: No service: No Current occupational status: employed Current occupation: disability Physical Exam Vital Signs: Vital Signs: Last Vital Signs Temp 98.3 F 12/13/22 11:44 Pulse 74 12/13/22 14:01 Resp 16 12/13/22 14:01 BP 136/76 12/13/22 14:01 Pulse Ox 98 12/13/22 14:01 O2 Del Method Room Air 12/13/22 14:01 BMI result Body Mass Index 37.1 Const: General: cooperative, comfortable and no acute distress Orientation/consciousness: patient oriented x3 Limitations: no limitations HEENT: Head: Yes normal to inspection, Yes normocephalic and Yes atraumatic Ears: hearing grossly normal bilaterally General nose exam: Normal external nose present Face and sinus: Yes normal facial exam Mouth: Normal oral and palatal mucosa present, oropharynx normal and moist mucous membranes Throat: Yes posterior oropharynx normal Eyes: General: appearance normal, both eyes and all related structures Eyelids: Yes eyelids normal Conjunctivae: conjunctivae normal Sclerae: sclerae normal Pupils: Equal, round and reactive pupils present EOM: EOMs intact bilaterally Neck: Neck: Yes normal visual inspection, Yes full ROM and Yes no lymphadenopathy Lymphatic: no lymphadenopathy noted Chest: Chest palpation & inspection: normal inspection of the chest Resp: Other: Faint expiratory wheeze heard at the left upper lung field Effort & Inspection: normal respiratory effort and able to speak in complete sentences Cardio: Rate: regular rate Rhythm: regular rhythm Heart sounds: S1 normal heart sound present and S2 normal heart sound present GI: Inspection: Yes normal to inspection Skin: General skin exam: no rashes or lesions noted Trauma: no lacerations or abrasions Wounds: no wounds Neuro: General: patient oriented x3 and moves all extremities Cranial nerves: Yes Equal, round and reactive pupils present Extrem: Other: Left 3rd digit is ecchymotic with tenderness palpation at the middle phalanx. No erythema or profound edema noted. Range of motion is full and intact however with pain elicited. Good DP pulses, capillary refill less than 2 seconds. General: Yes normal to inspection Right upper extremity: normal to inspection Left upper extremity: normal to inspection Right lower extremity: normal to inspection Left lower extremity: normal to inspection Course Course Course Narrative: RME: 47yo F w/PMHx asthma, tested +COVID on 12/10 had been on Paxlovid since Sunday, c/o continued/worsening SOB, lethargy, fatigue, MCKOY. Also admits to stubbing L toes. Denies CP EKG, labs CXR ordered Full HPI, ROS and PE to be performed by primary ED provider. Medical Decision Making Medical Decision Making [facility] Narrative: 47-year-old female presenting to the emergency department for evaluation of continued difficulty breathing, headaches and fatigue. She also is reporting left 3rd toe pain after hitting it on a dog crate several days ago. On arrival, patient is well-appearing, vital signs within normal limits. Lungs with faint expiratory wheeze noted at the left upper base. Differential diagnoses include COVID, asthma exacerbation, pneumonia, toe fracture, contusion. ACS-unlikely as patient has no chest pain and no other risk factors. Patient is PERC negative. Labs were obtained, no leukocytosis, stable H&H, otherwise nondiagnostic. EKG with no acute findings. Chest x-ray without any signs of pneumonia. Given patient is saturating well on room air, with faint expiratory wheeze heard at left upper base, I believe patient can be treated symptomatically outpatient. She is already on Paxilovid Will give course of prednisone and given strict return precautions. Encouraged to follow-up with primary care physician regarding her visit today. If any new or worsening symptoms occur encouraged to return. Patient also keanu-taped 2nd and 3rd toe and placed in postoperative shoe given fracture seen on x-ray. Given orthopedic follow-up for further evaluation and treatment. Differential Diagnosis Differential Diagnoses: The differential diagnosis associated with the presentation includes See above Admission/Observation Consideration of admission/observation: Escalation of care including admission/observation considered Patient would have been admitted to the hospital had her work up had any findings where hospital admission was appropriate and her clinical presentation warranted hospital admission. Lab Data MDM Lab Attestation statement: I reviewed the patient's lab results. See above 12/13/22 12:56 12/13/22 12:56 Labs: Lab Results 12/13/22 Range/Units 12:56 WBC 4.1 L (4.8-10.8) X10*3/uL RBC 4.39 (4.20-5.50) X10*6/uL Hgb 13.5 (12.0-16.0) g/dl Hct 40.2 (37.0-47.0) % MCV 91.6 (80.0-98.0) fL MCH 30.8 (27.0-33.0) pg MCHC 33.6 (31.0-35.0) g/dl RDW 12.7 (11.0-16.0) % Plt Count 187 (160-400) X10*3/uL MPV 9.7 (9.4-12.3) fL Immature Gran % (Auto) 0.0 (0.0-0.4) % Neut % (Auto) 45.4 (45-73) % Lymph % (Auto) 40.1 H (20-40) % [place] % (Auto) 11.6 H (2-11) % Eos % (Auto) 2.4 (0-4) % Baso % (Auto) 0.5 (0-2) % Lymph # (Auto) 1.7 (1.2-4.9) X10*3/uL [place] # (Auto) 0.5 (0.1-1.2) X10*3/uL Eos # (Auto) 0.1 (0.0-0.4) X10*3/uL Baso # (Auto) 0.0 (0.0-0.2) X10*3/uL Abs Immat Gran (auto) 0.00 (0.00-0.03) X10*3/uL Absolute Neuts (auto) 1.9 L (2.0-8.3) x10*3/uL Absolute Nucleated RBC 0.000 (0.0-0.012) X10*3/uL Nucleated RBC % (auto) 0.0 (0.0-0.2) /100WBC PT 11.9 (11.1-13.3) SEC INR 1.0 (0.9-1.1) Sodium 140 (135-145) mmol/L Potassium 3.7 (3.3-5.1) mmol/L Chloride 108 (96-108) mmol/L Carbon Dioxide 22 (22-29) mmol/L Anion Gap 14 (12-20) BUN 18 H (9-16) mg/dL Creatinine 0.83 (0.5-1.4) mg/dL Estim Creat Clear Calc 103.4 Estimated GFR > 60 Random Glucose 123 H (60-115) mg/dL Calcium 9.5 (8.4-10.2) mg/dL Total Bilirubin 0.2 (0.0-1.0) mg/dL Direct Bilirubin < 0.2 (0.0-0.5) mg/dL AST 14 (5-31) U/L ALT 14 (0-31) U/L Alkaline Phosphatase 89 (39-117) U/L Troponin I High Sens < 2.7 (<3.5-17.0) ng/L Total Protein 7.9 (6.5-8.0) g/dL Albumin 4.3 (3.5-5.0) g/dL Radiology Impression Discussion of test interpretation with radiology: I have reviewed the radiologist's reading. Radiologist Impression: EXAMINATION: XR FOOT, LEFT CLINICAL INFORMATION: Direct trauma to the toe COMPARISON: None available. TECHNIQUE: AP, lateral, and oblique views of the left foot. FINDINGS: There is a very subtle impacted fracture noted, through the base of the middle phalanx of the third toe. No other fractures are seen. Alignment is preserved. XR/XR foot LT min 3V IMPRESSION: Fracture as described. Dictated By: Richard Stringer MD EXAMINATION: XR CHEST CLINICAL INFORMATION: Covid positive. Shortness of breath. COMPARISON: None available. TECHNIQUE: 2 views of the chest were obtained. FINDINGS: Lungs clear. No pleural effusions. Heart and pulmonary vessels normal. IVC filter noted. Pain modulation device overlies the thoracic spine. XR/XR chest 2V IMPRESSION: No active disease. Dictated By: Richard Stringer MD Discharge Plan Discharge Clinical Impression: Fracture of toe of left foot, COVID-19 Patient Disposition: Home, Self-Care Instructions: Toe Fracture (ED) Additional Instructions: Your x-ray of your foot shows a very small 3rd toe fracture noted. Please use postoperative shoe and keanu taping for relief. Icing, resting, and elevating her foot can also provide you with relief. Toe fractures usually heal up fine on their own, you may follow-up with orthopedics as needed. Call to make an appointment. Continue taking previously prescribed Paxilovid for your covid-19 symptoms. Alternate between Tylenol and Motrin at home for pain, fevers and headaches. Also prescribing you prednisone, take as prescribed. Follow-up with your primary care physician to ensure your symptoms are improving. Drink plenty of fluids and get plenty of rest. If any new or worsening symptoms occur including but not limited to chest pain, shortness of breath, please return for re-evaluation. Prescriptions: New prednisone 20 mg tablet 40 mg PO DAILY 5 Days Qty: 10 0RF No Action ibuprofen 800 mg tablet 800 mg PO Q8H PRN (Reason: pain) Qty: 20 0RF acetaminophen [Tylenol Extra Strength] 500 mg tablet 1,000 mg PO QID PRN (Reason: fever or pain) Qty: 60 5RF albuterol sulfate 2.5 mg /3 mL (0.083 %) solution for nebulization 2.5 mg inhalation Q4H PRN (Reason: shortness of breath or wheezing) Qty: 90 0RF (DME) nebulizer and compressor Device See Rx Instructions .Route Qty: 1 0RF Rx Instructions: As directed fluticasone propionate [Flovent HFA] 110 mcg/actuation HFA aerosol inhaler 1 puff inhalation BID budesonide-formoterol [Symbicort] 160-4.5 mcg/actuation HFA aerosol inhaler 2 puff inhalation QID atorvastatin 20 mg tablet 20 mg PO BEDTIME dexmethylphenidate [Focalin XR] 20 mg capsule,ER biphasic 50-50 20 mg PO BEDTIME prazosin 2 mg capsule 2 mg PO BEDTIME varenicline 1 mg tablet 1 mg PO BID Rx Instructions: take with full glass of water cephalexin 500 mg capsule 500 mg PO Q6H 7 Days Qty: 28 0RF ibuprofen 600 mg tablet 600 mg PO Q6H PRN (Reason: fever or pain) Qty: 30 0RF benzonatate 200 mg capsule 200 mg PO TID PRN (Reason: cough) Qty: 20 0RF cholecalciferol (vitamin D3) [Vitamin D3] 25 mcg (1,000 unit) capsule 25 mcg PO BEDTIME oxcarbazepine 600 mg tablet 1,800 mg PO BEDTIME oxcarbazepine 300 mg tablet 300 mg PO DAILY gabapentin 600 mg tablet 600 mg PO BEDTIME clonidine HCl 0.1 mg tablet 0.1 mg PO BEDTIME PRN (Reason: Anxiety) albuterol sulfate [ProAir HFA] 90 mcg/actuation HFA aerosol inhaler 2 puff inhalation Q6H PRN (Reason: wheezing) diphenhydramine HCl [Banophen] 25 mg capsule 100 mg PO BEDTIME buspirone 7.5 mg tablet 7.5 mg PO BEDTIME fluoxetine 20 mg capsule 60 mg PO BEDTIME Referrals: [facility] Orthopedic Surgeons [Provider Group] Stand Alone Forms: Work/School Release Interventions: ED Discharge Assessment Last Done: 12/13/22 15:16 Discharge Date/Time: 12/13/22 15:15
--- NOTE | 2022-12-13 11:47 | ECG_ITS ---
Test Reason : SOB Blood Pressure : / mmHG Vent. Rate : 080 BPM Atrial Rate : 080 BPM P-R Int : 152 ms QRS Dur : 084 ms QT Int : 368 ms P-R-T Axes : 047 034 060 degrees QTc Int : 424 ms Normal sinus rhythm Normal ECG When compared with ECG of 04-SEP-2022 16:16, No significant change was found Referred By: Em Beltran Electronically Signed By:BUDDY GOULD
[2022-12-13 13:01] LABS: MANUAL DIFF FLAG NO
[2022-12-13 13:02] LABS: Basophils Percent Auto 0.5 % (0-2); Eosinophils Absolute Auto 0.1 X10*3/uL (0.0-0.4); Eosinophils Percent Auto 2.4 % (0-4); Hematocrit 40.2 % (37.0-47.0); Hemoglobin 13.5 g/dl (12.0-16.0); Lymphocytes Absolute Auto 1.7 X10*3/uL (1.2-4.9); Lymphocytes Percent Auto 40.1 % (20-40); Mean Corpuscular HGB Conc 33.6 g/dl (31.0-35.0); Mean Corpuscular Hemoglobin 30.8 pg (27.0-33.0); Mean Corpuscular Volume 91.6 fL (80.0-98.0); Mean Platelet Volume 9.7 fL (9.4-12.3); Monocytes Absolute Auto 0.5 X10*3/uL (0.1-1.2); Monocytes Percent Auto 11.6 % (2-11); Neutrophils Absolute Auto 1.9 x10*3/uL (2.0-8.3); Neutrophils Percent Auto 45.4 % (45-73); Platelet Count 187 X10*3/uL (160-400); Red Blood Count 4.39 X10*6/uL (4.20-5.50); Red Cell Distribution Width 12.7 % (11.0-16.0); White Blood Count 4.1 X10*3/uL (4.8-10.8)
[2022-12-13 13:09] LABS: Prothrombin Time 11.9 SEC (11.1-13.3)
[2022-12-13 13:24] LABS: Alanine Aminotransferase 14 U/L (0-31); Albumin Level 4.3 g/dL (3.5-5.0); Alkaline Phosphatase 89 U/L (39-117); Anion Gap 14 (12-20); Aspartate Amino Transferase 14 U/L (5-31); Bilirubin Direct < 0.2 mg/dL (0.0-0.5); Bilirubin Total 0.2 mg/dL (0.0-1.0); Blood Urea Nitrogen 18 mg/dL (9-16); Calcium 9.5 mg/dL (8.4-10.2); Carbon Dioxide 22 mmol/L (22-29); Chloride 108 mmol/L (96-108); Creatinine Clr Calc Pharmacy 103.4; Estimated Glomerular Filt Rate > 60; Glucose Random 123 mg/dL (60-115); Potassium 3.7 mmol/L (3.3-5.1); Sodium 140 mmol/L (135-145); Total Protein 7.9 g/dL (6.5-8.0)
[2022-12-13 13:32] LABS: Troponin-I High Sensitivity < 2.7 ng/L (<3.5-17.0)
[2022-12-13 14:01] VITALS: BP 136/76; PULSE 74; RESP 16; O2SAT 98
--- NOTE | 2022-12-13 15:06 | PC.NURSE ---
aox4. covid precaut. maintained. sitting upright w/o diff breathing
== END 2022-12-13 15:15 | disposition home or self-care (01) ==
PROVIDERS: Physician Assistant; Emergency Provider Emergency Medicine
DX: S92.912A Unspecified fracture of left toe(s), initial encounter for closed fracture (principal); U07.1 COVID-19; R06.02 Shortness of breath; R51.9 Headache, unspecified; R50.9 Fever, unspecified; R05.9 Cough, unspecified; F17.210 Nicotine dependence, cigarettes, uncomplicated; X58.XXXA Exposure to other specified factors, initial encounter; Y93.9 Activity, unspecified; Y92.9 Unspecified place or not applicable; Y99.9 Unspecified external cause status; Z71.6 Tobacco abuse counseling; Z79.899 Other long term (current) drug therapy
CPT/HCPCS: 36415; 71046; 73630; 80048; 80076; 84484; 85025; 85610; 93005; 99283; 99285

== ENCOUNTER → 2023-01-01 08:58 | Outpatient (REF) | payer MEDICAID, SELFPAY ==
--- NOTE | ~2023-01-01 | NM_ITS ---
Myocardial perfusion study Indication: Chest pain to evaluate for myocardial ischemia Technique: The patient was brought in for a Lexiscan perfusion study on 01/01/2023. Patient performed low-level exercise and was injected 0.4 mg of Lexiscan intravenously. Within a minute of injection, 35 mCi of sestamibi was given intravenously. Images were obtained using the SPECT gamma camera interlaced with the gating device. Images were obtained in supine position. Resting perfusion study was performed on 01/02/2023. Patient was administered 35 mCi of sestamibi intravenously at rest. Images were then obtained in supine position. Images obtained with and without CT attenuation. Total DLP 104 mGy-cm. Images were processed with the software and compared side to side in short axis, horizontal long axis and vertical long axis views. Findings: The stress perfusion study showed non attenuated images show minimally reduced uptake in the anterior wall of the LV myocardium. Remainder of the LV myocardium is normally perfused. Attenuation corrected images show normal uptake of radiotracer in all segments of LV myocardium. The gated study shows normal LV systolic function with calculated LVEF of 64%. LV cavity is normal in size. The gated study shows normal systolic wall thickening and contraction of segments. Resting study shows both attenuated as well as non attenuated corrected normal uptake of radiotracer in all segments of LV myocardium.. Gating at rest reveals normal systolic wall motion with ejection fraction at 69%. The findings are consistent with likely normal myocardial perfusion with changes noted on non attenuated images most likely related to shifting breast attenuation. NM/NM binta perf SPECT rest & str Impression: 1. Myocardial perfusion imaging study shows likely normal myocardial perfusion 2. Gated LVEF is 64% 3. Transient ischemic dilatation not present EKG is nondiagnostic for ischemia
--- NOTE | 2023-01-01 09:03 | CA_ITS ---
Acquisition Time: 2023-01-01 09:20:06 Total Exercise Time: 00:02:00 Test Indications: CP Medications: SEE H Protocol: LEXISCAN Max HR: 104 BPM 59% of Pred: 174 BPM Max BP: 112/078 mmHG Max Work Load: 1.0 METS Pharmacological stress test with Lexiscan injeciton, while sitting and marching in place, without anginal symptoms. with isolated PVC, with normotensive response to injection, with nondiagnoisitic EKGs. Aminophylline 75mg IVP given to reverse Lexiscan. Nuclear images pending. Test reviewed with Dr. Christianson. Referred By: Hossein Christianson Overread By: Aiyana Hnikle
== END ==
LOC: HO.CARD 08:58
PROVIDERS: Visit Provider Internal Medicine Cardiovascular Disease
DX: R07.89 Other chest pain (principal)
CPT/HCPCS: 78452; 93017; A9500; J0280; J2785

== ENCOUNTER → 2023-01-01 09:03 | Outpatient (BNV) | payer MEDICAID, SELFPAY | PROVIDERS: Visit Provider Nurse Practitioner | DX: R07.89 Other chest pain (principal) | CPT/HCPCS: 78452; 93016; 93018 ==

== ENCOUNTER 2023-02-12 14:42 | Emergency (ER) | payer MEDICAID, SELFPAY ==
--- NOTE | ~2023-02-12 | XR_ITS ---
EXAMINATION: Right ankle and lumbar spine. CLINICAL INDICATION: Right lateral ankle pain and lower back pain. COMPARISON: Right ankle 10/29/2022. Lumbar spine 03/30/2020. TECHNIQUE: Lumbar spine 3 views. Right ankle 3 views. FINDINGS: LUMBAR SPINE: There is normal lumbar lordosis. Grade 1 anterolisthesis L4-L5 is noted with loss of L4-L5 disc height. Rest of the vertebral alignment and disc heights are normal. No visible acute fracture or lytic process seen. There is a posterior epidural spinal electrodes entering L1-L2 disc level. The hardware is located in the left posterior buttock. Visualized SI joints are normal. No visible acute fracture, lytic or sclerotic process seen there is mild right L3-L4 facet joint hypertrophy. A pars defect is suspected on the right. RIGHT ANKLE: There are 2 medial malleolar cannulated screws and 2 screws in the talus. Appendix each other. No visible acute fracture or dislocation seen. There is hypertrophic bony changes along the medial distal tibia. Hypertrophic bony changes are seen along the lateral ankle joint and likely healed distal fibular fracture. No recurrent acute fracture seen. Mild loss of ankle mortise joint space is seen. XR/XR ankle RT min 3V IMPRESSION: Grade 1 anterolisthesis L4 over L5 with degenerative disc changes L4-L5 disc level. Moderate right L3-L4 facet joint arthropathy seen. There are posterior spinal electrodes as described above. Healed medial malleolar fracture with [address] There are 2 cancellous screws in the tibia 90 degrees to each other. 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 There is an old healed distal fibular fracture with distal small avulsion fracture fragments. No acute fractures seen.
--- NOTE | ~2023-02-12 | XR_ITS ---
EXAMINATION: Right ankle and lumbar spine. CLINICAL INDICATION: Right lateral ankle pain and lower back pain. COMPARISON: Right ankle 10/29/2022. Lumbar spine 03/30/2020. TECHNIQUE: Lumbar spine 3 views. Right ankle 3 views. FINDINGS: LUMBAR SPINE: There is normal lumbar lordosis. Grade 1 anterolisthesis L4-L5 is noted with loss of L4-L5 disc height. Rest of the vertebral alignment and disc heights are normal. No visible acute fracture or lytic process seen. There is a posterior epidural spinal electrodes entering L1-L2 disc level. The hardware is located in the left posterior buttock. Visualized SI joints are normal. No visible acute fracture, lytic or sclerotic process seen there is mild right L3-L4 facet joint hypertrophy. A pars defect is suspected on the right. RIGHT ANKLE: There are 2 medial malleolar cannulated screws and 2 screws in the talus. Appendix each other. No visible acute fracture or dislocation seen. There is hypertrophic bony changes along the medial distal tibia. Hypertrophic bony changes are seen along the lateral ankle joint and likely healed distal fibular fracture. No recurrent acute fracture seen. Mild loss of ankle mortise joint space is seen. XR/XR lumbar spine 2-3V IMPRESSION: Grade 1 anterolisthesis L4 over L5 with degenerative disc changes L4-L5 disc level. Moderate right L3-L4 facet joint arthropathy seen. There are posterior spinal electrodes as described above. Healed medial malleolar fracture with [address] There are 2 cancellous screws in the tibia 90 degrees to each other. 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 There is an old healed distal fibular fracture with distal small avulsion fracture fragments. No acute fractures seen.
[2023-02-12 15:08] VITALS: BP 128/59; PULSE 77; RESP 16; TEMP 37; O2SAT 96; BMI 36.3
--- NOTE | 2023-02-12 15:08 | ED_ITS ---
HPI - General Adult General Chief complaint: Fall Stated complaint: fall back and ankle inj Time Seen by Provider: 02/12/23 17:32 Source: patient Mode of arrival: wheelchair Limitations: no limitations History of Present Illness HPI narrative: Patient is a 47 year old assigned female at with a history of surgical repair of the right ankle post injury, migraines, asthma, and depression presenting to the emergency department today with right ankle pain and low back pain. Patient states that she was standing on a windowsill to hang up a light when she fell onto her TV, hurting her back and right ankle pain. Patient denies any head strike or loss of consciousness. Patient denies any dizziness, lightheadedness, abdominal pain, nausea, vomiting, fever, chills, blurry vision, double vision, loss of vision, chest pain, difficulty breathing, shortness of breath, back pain, night sweats, pain with urination, increased urinary frequency, increased urinary urgency, blood in her urine or stool, syncope or a near syncopal episode, bowel incontinence, bladder incontinence, bowel retention, bladder retention, or any other complaints at this time. Onset (ago): hour(s) Location: back, right and lower extremity Severity: mild Severity scale (1-10): 3 Quality: aching and dull Pain Consistency: constant Relieving factors: none Exacerbating factors: none Associated symptoms: denies other symptoms Treatments prior to arrival: none Related Data Home Medications Medication Instructions Recorded Confirmed albuterol sulfate 90 mcg/actuation 2 puff inhalation Q6H PRN wheezing 08/30/21 11/22/22 aerosol inhaler (ProAir HFA) buspirone 7.5 mg tablet 7.5 mg PO BEDTIME 08/30/21 11/22/22 cholecalciferol (vitamin D3) 25 25 mcg PO BEDTIME 08/30/21 11/22/22 mcg (1,000 unit) capsule (Vitamin D3) clonidine HCl 0.1 mg tablet 0.1 mg PO BEDTIME PRN Anxiety 08/30/21 11/22/22 diphenhydramine HCl 25 mg capsule 100 mg PO BEDTIME insomnia 08/30/21 11/22/22 (Banophen) fluoxetine 20 mg capsule 60 mg PO BEDTIME 08/30/21 11/22/22 gabapentin 600 mg tablet 600 mg PO BEDTIME 08/30/21 11/22/22 oxcarbazepine 300 mg tablet 300 mg PO DAILY 08/30/21 11/22/22 oxcarbazepine 600 mg tablet 1,800 mg PO BEDTIME 08/30/21 11/22/22 budesonide-formoterol HFA 160 2 puff inhalation QID 05/07/22 11/22/22 mcg-4.5 mcg/actuation aerosol inhaler (Symbicort) fluticasone propionate 110 1 puff inhalation BID 05/07/22 11/22/22 mcg/actuation HFA aerosol inhaler (Flovent HFA) atorvastatin 20 mg tablet 20 mg PO BEDTIME 11/22/22 11/22/22 dexmethylphenidate 20 mg 20 mg PO BEDTIME 11/22/22 11/22/22 capsule,extended release [id number] (Focalin XR) prazosin 2 mg capsule 2 mg PO BEDTIME 11/22/22 11/22/22 varenicline 1 mg tablet 1 mg PO BID 11/22/22 11/22/22 Previous Rx's Medication Instructions Recorded acetaminophen 500 mg tablet 1,000 mg (2 x 500 mg) PO QID PRN 10/12/20 (Tylenol Extra Strength) fever or pain #60 tabs ibuprofen 800 mg tablet 800 mg PO Q8H PRN pain #20 tabs 10/12/20 albuterol sulfate 2.5 mg/3 mL 2.5 mg (3 mL) inhalation Q4H PRN 09/14/21 (0.083 %) solution for nebulization shortness of breath or wheezing #90 mL nebulizer and compressor #1 ea 09/14/21 cephalexin 500 mg capsule 500 mg PO Q6H 7 days #28 caps 08/27/22 benzonatate 200 mg capsule 200 mg PO TID PRN cough #20 caps 09/04/22 ibuprofen 600 mg tablet 600 mg PO Q6H PRN fever or pain 10/29/22 #30 tabs prednisone 20 mg tablet 40 mg (2 x 20 mg) PO DAILY 5 days 12/13/22 #10 tabs Allergies Allergy/AdvReac Type Severity Reaction Status Date / Time vancomycin [VANCOMYCIN] Allergy Intermediate RASH, Verified 02/12/23 15:08 ITCHING, BREATHING PROBLEMS Review of Systems Constitutional: Constitutional: Reports no additional constitutional complaints, Denies chills, Denies fever(s) and Denies night sweats Eyes: Eyes: Reports no additional eye complaints, Denies blurry vision, Denies change in vision, Denies diplopia, Denies eye discharge, Denies loss of vision and Denies eye pain ENT: Denies dizziness Cardiovascular: Cardiovascular: Reports no additional cardiovascular complaints, Denies chest pain, Denies lightheadedness, Denies Loss of Consciousness and Denies dyspnea Respiratory: Respiratory: Reports no additional respiratory complaints and Denies dyspnea Gastrointestinal: Gastrointestinal: Reports no additional gastrointestinal complaints, Denies abdominal pain, Denies melena, Denies hematochezia, Denies change in bowel habits and Denies change in stool character Genitourinary: Genitourinary: Denies hematuria, Denies urinary frequency, Denies dysuria, Denies urinary incontinence, Denies urinary hesitancy and Denies urinary urgency Musculoskeletal: Musculoskeletal: Reports no additional musculoskeletal com plaints, Reports back pain, Denies numbness and Denies tingling Comments: right ankle pain Neurologic: Denies dizziness, Denies loss of vision, Denies numbness and Denies tingling Psychiatric: Psychiatric: Reports no additional psychiatric complaints Endocrine: Endocrine: Reports no additional endocrine complaints Hematologic/Lymphatic: Hematologic/Lymphatic: Reports no additional hematologic/lymphatic complaints Allergic/Immunologic: Allergic/Immunologic: Reports no additional allergic/immunologic complaints PMF Past Medical History Attestation statement: The following information was validated with the patient. Source: old records reviewed and nursing notes reviewed Medical History COVID-19 Atypical chest pain Fracture of distal phalanx of left middle finger Numbness and tingling in both hands Low back pain Carpal tunnel syndrome, bilateral Kidney laceration Tibia fracture Fibula fracture Back pain Asthma exacerbation Spondylolisthesis at L4-L5 level Pancreatitis DVT (deep vein thrombosis) in Lumbar radiculopathy Pars defect of lumbar spine Surgical History Status post surgical manipulation of ankle joint History of cholecystectomy Social History Social History Alcohol intake: never Patient Tobacco Use Status: Current everyday Tobacco user Tobacco use type: Cigarette Cigarette Packs Per Day: 1 Cigarettes Per Day: 15 Years Smoked: 33 Substance Use Type: Marijuana Advance Directives: No Advance Directives Information Provided: No service: No Current occupational status: employed Current occupation: disability Physical Exam ED Vital Signs: Vital Signs - 24 hr 02/12/23 15:08 Temperature 98.6 F Pulse Rate 77 Respiratory Rate 16 Blood Pressure 128/59 L Pulse Oximetry 96 Oxygen Delivery Method Room Air BMI result Body Mass Index 36.3 Const General: cooperative, no acute distress, alert and awake Nutritional Appearance: well nourished Orientation/consciousness: patient oriented x3 Limitations: no limitations HENMT Head: Yes normal to inspection and Yes atraumatic Ears: hearing grossly normal bilaterally and external ears normal General nose exam: Normal external nose present, no nasal discharge noted and no epistaxis Face and sinus: Yes normal facial exam, No abrasion and No laceration Mouth: Normal oral and palatal mucosa present, no drooling and no muffled voice Eyes General: appearance normal, both eyes and all related structures Periorbital: periorbital findings normal Eyelids: Yes eyelids normal Conjunctivae: conjunctivae normal Pupils: Equal, round and reactive pupils present EOM: EOMs intact bilaterally Neck Neck: Yes normal visual inspection, Yes full ROM and Yes no lymphadenopathy Chest Chest palpation & inspection: normal inspection of the chest Resp Effort & Inspection: normal respiratory effort and able to speak in complete sentences GI Inspection: Yes normal to inspection General: Yes no CVA tenderness Back/Spine/Pelvis Back: no CVA tenderness Cervical Spine: normal cervical lordosis and cervical ROM normal Thoracic/Lumbar Spine: thoracic and lumbar spine normal to inspection and thoraco-lumbar ROM normal Pelvis: no pain with anterior-posterior compression Neuro General: patient oriented x3 and moves all extremities Cranial nerves: Yes Equal, round and reactive pupils present Cognition (Neuro): normal cognition Motor exam (neuro): 5/5 motor strength present throughout Sensory Exam: Normal double simultaneous stimulation for sensation Coordination: [id number] test normal Extrem Other: surgical scar and mild swelling present to the right ankle General: Yes full ROM and Yes capillary refill normal Psych Appearance: grossly normal Mental Status: mental status grossly normal Affect: normal affect Attitude: cooperative Thought process: Normal thought process present Thought content: Normal thought content present Insight: Good insight present (Psych) Course Course Course Narrative: RME performed by Deb Hobbs PA-C. Patient is a 47 year old assigned female at presenting to the emergency department with right ankle pain. Right ankle imaging ordered. Patient placed back in the waiting room pending room availability and results. Procedures Orthopedic Splinting/Casting Injury #1: Side: right Lower Extremity Injury Location: ankle Lower Extremity Immobilizer: AirCast Medical Decision Making Medical Decision Making MDM Narrative: Patient is a 47 year old assigned female at with a history of of surgical repair of the right ankle post injury, migraines, asthma, and depression presenting to the emergency department today with right ankle pain and low back pain. Patient's physical exam was as noted in the physical exam portion of the note. Patient's right ankle and lumbar spine x-rays showed no acute process. I explained my physical exam findings as well as all test results to the patient. I answered all questions asked by the patient. Patient requested an air cast for her right ankle sprain. An air cast was placed on the right ankle, without incident. Patient's PMS was intact prior to and after air cast placement. Patient refused crutches as she already had her own. I stressed the importance of the patient taking her medication as prescribed. I stressed the importance of the patient following up with her primary care provider and with her orthopedic surgeon (RASHEED). I stressed the importance of the patient returning to the emergency department immediately if her symptoms were to worsen or if she were to develop any dizziness, shortness of breath, difficulty breathing, chest pain, blurry vision, loss of vision, nausea, vomiting, abdominal pain, fever, chills, back pain, or any other complaints. Patient verbalized agreement and understanding with this treatment plan and discharge. Differential Diagnosis Differential Diagnoses: The differential diagnosis associated with the presentation includes Right ankle pain Right ankle sprain Right ankle strain Right ankle fracture Lumbar pain Lumbar sprain Fall Independent Interpretation I performed an independent interpretation of an: Plain X-Ray Interpretation: My interpretation is in agreement with the radiologist's impression of these imaging studies. EXAMINATION: Right ankle and lumbar spine. CLINICAL INDICATION: Right lateral ankle pain and lower back pain. COMPARISON: Right ankle 10/29/2022. Lumbar spine 03/30/2020. TECHNIQUE: Lumbar spine 3 views. Right ankle 3 views. FINDINGS: LUMBAR SPINE: There is normal lumbar lordosis. Grade 1 anterolisthesis L4-L5 is noted with loss of L4-L5 disc height. Rest of the vertebral alignment and disc heights are normal. No visible acute fracture or lytic process seen. There is a posterior epidural spinal electrodes entering L1-L2 disc level. The hardware is located in the left posterior buttock. Visualized SI joints are normal. No visible acute fracture, lytic or sclerotic process seen there is mild right L3-L4 facet joint hypertrophy. A pars defect is suspected on the right. RIGHT ANKLE: There are 2 medial malleolar cannulated screws and 2 screws in the talus. Appendix each other. No visible acute fracture or dislocation seen. There is hypertrophic bony changes along the medial distal tibia. Hypertrophic bony changes are seen along the lateral ankle joint and likely healed distal fibular fracture. No recurrent acute fracture seen. Mild loss of ankle mortise joint space is seen. XR/XR lumbar spine 2-3V IMPRESSION: Grade 1 anterolisthesis L4 over L5 with degenerative disc changes L4-L5 disc level. Moderate right L3-L4 facet joint arthropathy seen. There are posterior spinal electrodes as described above. Healed medial malleolar fracture with [address] There are 2 cancellous screws in the tibia 90 degrees to each other. 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 There is an old healed distal fibular fracture with distal small avulsion fracture fragments. No acute fractures seen. Dictated By: Gigi Rodriguez MD Signed By: Electronically signed by Gigi Rodriguez MD 02/12/23 0607 Radiology Impression Discussion of test interpretation with radiology: I have reviewed the radiologist's reading. Discharge Plan Discharge Clinical Impression: Fall, Ankle sprain Patient Disposition: Home, Self-Care Instructions: Ankle Sprain (DC), Fall Prevention (ED) Additional Instructions: Follow up with your primary care provider. Return to the emergency department immediately if your symptoms worsen or if you develop any dizziness, shortness of breath, difficulty breathing, chest pain, blurry vision, loss of vision, nausea, vomiting, abdominal pain, fever, chills, back pain, or any other complaints. Prescriptions: No Action ibuprofen 800 mg tablet 800 mg PO Q8H PRN (Reason: pain) Qty: 20 0RF acetaminophen [Tylenol Extra Strength] 500 mg tablet 1,000 mg PO QID PRN (Reason: fever or pain) Qty: 60 5RF albuterol sulfate 2.5 mg /3 mL (0.083 %) solution for nebulization 2.5 mg inhalation Q4H PRN (Reason: shortness of breath or wheezing) Qty: 90 0RF (DME) nebulizer and compressor Device See Rx Instructions .Route Qty: 1 0RF Rx Instructions: As directed fluticasone propionate [Flovent HFA] 110 mcg/actuation HFA aerosol inhaler 1 puff inhalation BID budesonide-formoterol [Symbicort] 160-4.5 mcg/actuation HFA aerosol inhaler 2 puff inhalation QID atorvastatin 20 mg tablet 20 mg PO BEDTIME dexmethylphenidate [Focalin XR] 20 mg capsule,ER biphasic 50-50 20 mg PO BEDTIME prazosin 2 mg capsule 2 mg PO BEDTIME varenicline 1 mg tablet 1 mg PO BID Rx Instructions: take with full glass of water cephalexin 500 mg capsule 500 mg PO Q6H 7 Days Qty: 28 0RF ibuprofen 600 mg tablet 600 mg PO Q6H PRN (Reason: fever or pain) Qty: 30 0RF prednisone 20 mg tablet 40 mg PO DAILY 5 Days Qty: 10 0RF benzonatate 200 mg capsule 200 mg PO TID PRN (Reason: cough) Qty: 20 0RF cholecalciferol (vitamin D3) [Vitamin D3] 25 mcg (1,000 unit) capsule 25 mcg PO BEDTIME oxcarbazepine 600 mg tablet 1,800 mg PO BEDTIME oxcarbazepine 300 mg tablet 300 mg PO DAILY gabapentin 600 mg tablet 600 mg PO BEDTIME clonidine HCl 0.1 mg tablet 0.1 mg PO BEDTIME PRN (Reason: Anxiety) albuterol sulfate [ProAir HFA] 90 mcg/actuation HFA aerosol inhaler 2 puff inhalation Q6H PRN (Reason: wheezing) diphenhydramine HCl [Banophen] 25 mg capsule 100 mg PO BEDTIME buspirone 7.5 mg tablet 7.5 mg PO BEDTIME fluoxetine 20 mg capsule 60 mg PO BEDTIME Referrals: [facility] [Provider Group] (Call to establish and follow up with a primary care provider. If you already have a primary care provider, please follow up with them.) [facility] [place] [Provider Group] (Call to establish and follow up with a primary care provider. If you already have a primary care provider, please follow up with them.) [facility] [Provider Group] (Call to establish and follow up with a primary care provider. If you already have a primary care provider, please follow up with them.) Print Language: Malay
== END 2023-02-12 19:57 | disposition home or self-care (01) ==
PROVIDERS: Emergency Provider Student in an Organized Health Care Education/Training Program
DX: S93.401A Sprain of unspecified ligament of right ankle, initial encounter (principal); S29.9XXA Unspecified injury of thorax, initial encounter; M54.50 Low back pain, unspecified; W01.10XA Fall on same level from slipping, tripping and stumbling with subsequent striking against unspecified object, initial encounter; Y93.9 Activity, unspecified; Y92.9 Unspecified place or not applicable; Y99.9 Unspecified external cause status; Z79.899 Other long term (current) drug therapy
CPT/HCPCS: 29515; 72100; 73610; 99282; 99283

== ENCOUNTER 2023-04-07 19:21 | Emergency (ER) | payer MEDICAID, SELFPAY ==
--- NOTE | ~2023-04-07 | CT_ITS ---
EXAMINATION: CT LUMBAR SPINE WITHOUT CONTRAST CLINICAL INFORMATION: Lumbar spinal pain. History of disc herniation. Fall. Pain. COMPARISON: Lumbar spine radiographs from 02/12/2023. Lumbar spine MRI from 08/16/2017. TECHNIQUE: Multidetector helical imaging of the lumbar spine was obtained without intravenous contrast. Multiple axial reformats and coronal/sagittal reconstructions were created the technologist workstation for review. This CT examination was performed using dose optimization techniques as appropriate, variously including the following: *Automated exposure control. *Adjustment of mA and/or kV according to patient size (this includes techniques or standardized protocols for targeted exams where dose is matched to indication/reason for exam; i.e. extremities or head). *Use of iterative reconstruction technique. DLP: 983 mGy-cm FINDINGS: Mild left convex curvature of the lumbar spine. Grade 1 anterolisthesis of L4 on L5 associated with chronic bilateral L4 pars interarticularis defects. No evidence of acute fracture or traumatic subluxation. The vertebral body heights are maintained. The intervertebral disc spaces are maintained. No suspicious lytic or sclerotic osseous lesions. Spinal stimulator leads associated with a left subcutaneous generator pack into the spinal canal at the level of L1-L2 and coarse superiorly in the dorsal aspect of the spinal canal. No significant abnormalities of the paraspinal musculature. 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 Excessive rotation of the right kidney with partial cortical atrophy of the superior pole. Otherwise, limited evaluation of the intra-abdominal structures without significant abnormalities. The abdominal aorta is of normal contour and caliber. AXIAL SPINAL LEVELS: L1-L2: Normal annular contour. There is mild to moderate bilateral facet joint arthropathy. There is no neural foraminal stenosis. There is no demonstrated spinal canal stenosis. L2-L3: Normal annular contour. There is moderate right and mild left facet joint arthropathy. There is no neural foraminal stenosis. There is no demonstrated spinal canal stenosis. L3-L4: Mild diffuse disc bulge with superimposed left foraminal disc protrusion. There is moderate to severe right and moderate left facet joint arthropathy. There is mild bilateral neural foraminal stenosis. There is no demonstrated spinal canal stenosis. L4-L5: Moderate diffuse disc bulge exacerbated by uncovering from anterolisthesis. There is severe right and moderate left facet joint arthropathy. There is severe right and moderate left neural foraminal stenosis. There is no demonstrated spinal canal stenosis. L5-S1: Normal annular contour. There is severe right and moderate left facet joint arthropathy. There is moderate bilateral neural foraminal stenosis. There is no demonstrated spinal canal stenosis. CT/CT lumbar spine wo IV con IMPRESSION: 1. No evidence of acute fracture or traumatic subluxation of the lumbar spine. 2. Grade 1 anterolisthesis of L4 on L5 associated with chronic bilateral L4 pars interarticularis defects. 3. Moderate multilevel degenerative spondyloarthropathy of the lumbar spine as described in detail above. Most notably on this limited exam without intrathecal contrast, there are severe neural foraminal stenoses at L4-L5 and L5-S1. No demonstrated overt spinal canal stenosis.
[2023-04-07 19:29] VITALS: BP 121/85; PULSE 80; RESP 20; TEMP 37.1; O2SAT 96; BMI 37.1
--- NOTE | 2023-04-07 19:57 | ED.BACK ---
HPI - Back Pain/Injury General Chief Complaint: Back Pain/Injury Stated Complaint: Mid/lower back pain Time Seen by Provider: 04/07/23 19:47 Source: patient Mode of arrival: ambulatory Limitations: no limitations History of Present Illness HPI Narrative: 47 year old female with pmhx significant for chronic back pain, lumbar disc herniation, lumbar radiculopathy, carpal tunnel syndrome, DVT, pancreatitis, asthma, COPD presents to the ED today for evaluation of low back pain occurring acutely yesterday while moving furniture around. Pain is located to both sides of her lumbar spine and has been constant since onset. Exacerbated with movement. Pain does not radiate. She currently works as a recovery counselor, changing from seated to standing positions often and admits she had to leave work early today due to her low back pain. She has been taking Tylenol, ibuprofen and gabapentin at home without relief. Has not taken any medication today. Reports previous lumbar disc herniation. States she followed with ortho/spine and pain management years ago for this however life became too busy and she has not been able to follow up with them. Denies fever, chills, chest pain, SOB, N/V, numbness/tingling/weakness of the lower extremities, saddle anesthesia, bowel or bladder incontinence or retention. Denies IV drug use. Denies previous spinal surgeries. Denies new injury or trauma to the back. Related Data Home Medications Medication Instructions Recorded Confirmed albuterol sulfate 90 mcg/actuation 2 puff inhalation Q6H PRN wheezing 08/30/21 11/22/22 aerosol inhaler (ProAir HFA) buspirone 7.5 mg tablet 7.5 mg PO BEDTIME 08/30/21 11/22/22 cholecalciferol (vitamin D3) 25 25 mcg PO BEDTIME 08/30/21 11/22/22 mcg (1,000 unit) capsule (Vitamin D3) clonidine HCl 0.1 mg tablet 0.1 mg PO BEDTIME PRN Anxiety 08/30/21 11/22/22 diphenhydramine HCl 25 mg capsule 100 mg PO BEDTIME insomnia 08/30/21 11/22/22 (Banophen) fluoxetine 20 mg capsule 60 mg PO BEDTIME 08/30/21 11/22/22 gabapentin 600 mg tablet 600 mg PO BEDTIME 08/30/21 11/22/22 oxcarbazepine 300 mg tablet 300 mg PO DAILY 08/30/21 11/22/22 oxcarbazepine 600 mg tablet 1,800 mg PO BEDTIME 08/30/21 11/22/22 budesonide-formoterol HFA 160 2 puff inhalation QID 05/07/22 11/22/22 mcg-4.5 mcg/actuation aerosol inhaler (Symbicort) fluticasone propionate 110 1 puff inhalation BID 05/07/22 11/22/22 mcg/actuation HFA aerosol inhaler (Flovent HFA) atorvastatin 20 mg tablet 20 mg PO BEDTIME 11/22/22 11/22/22 dexmethylphenidate 20 mg 20 mg PO BEDTIME 11/22/22 11/22/22 capsule,extended release [id number] (Focalin XR) prazosin 2 mg capsule 2 mg PO BEDTIME 11/22/22 11/22/22 varenicline 1 mg tablet 1 mg PO BID 11/22/22 11/22/22 Previous Rx's Medication Instructions Recorded acetaminophen 500 mg tablet 1,000 mg (2 x 500 mg) PO QID PRN 10/12/20 (Tylenol Extra Strength) fever or pain #60 tabs ibuprofen 800 mg tablet 800 mg PO Q8H PRN pain #20 tabs 10/12/20 albuterol sulfate 2.5 mg/3 mL 2.5 mg (3 mL) inhalation Q4H PRN 09/14/21 (0.083 %) solution for nebulization shortness of breath or wheezing #90 mL nebulizer and compressor #1 ea 09/14/21 cephalexin 500 mg capsule 500 mg PO Q6H 7 days #28 caps 08/27/22 benzonatate 200 mg capsule 200 mg PO TID PRN cough #20 caps 09/04/22 ibuprofen 600 mg tablet 600 mg PO Q6H PRN fever or pain 10/29/22 #30 tabs prednisone 20 mg tablet 40 mg (2 x 20 mg) PO DAILY 5 days 12/13/22 #10 tabs Allergies Allergy/AdvReac Type Severity Reaction Status Date / Time vancomycin [VANCOMYCIN] Allergy Intermediate RASH, Verified 04/07/23 19:28 ITCHING, BREATHING PROBLEMS Review of Systems Review of Systems: Constitutional: No fever, chills, fatigue, night sweats, weight changes ENT/Mouth: No ear pain, hearing loss, nasal congestion, sinus pain, rhinorrhea, sore throat Eyes: No eye pain, swelling, redness, vision changes, discharge Cardio: No chest pain, palpitations, DAVID, orthopnea, peripheral edema Pulm: No SOB, cough, sputum, wheezing, dyspnea, hemoptysis GI: No nausea, vomiting, hematemesis, abdominal pain, diarrhea, constipation, hematochezia, melena : No irregular bleeding, dysuria, frequency, urgency, hesitancy, hematuria, flank pain, urinary flow changes, urinary incontinence or retention MSK: +back pain, No neck pain, joint pain, myalgias Skin: No lesions, rashes Neuro: No weakness, numbness, paresthesias, LOC, dizziness, headache All other systems reviewed and are negative. [facility] Past Medical History Attestation statement: The following information was validated with the patient. Source: old records reviewed and nursing notes reviewed Medical History COVID-19 Atypical chest pain Fracture of distal phalanx of left middle finger Numbness and tingling in both hands Low back pain Carpal tunnel syndrome, bilateral Kidney laceration Tibia fracture Fibula fracture Back pain Asthma exacerbation Spondylolisthesis at L4-L5 level Pancreatitis DVT (deep vein thrombosis) in Lumbar radiculopathy Pars defect of lumbar spine Surgical History Status post surgical manipulation of ankle joint History of cholecystectomy Social History Social History Alcohol intake: never Patient Tobacco Use Status: Current everyday Tobacco user Tobacco use type: Cigarette Cigarette Packs Per Day: 1 Cigarettes Per Day: 15 Years Smoked: 33 Substance Use Type: Marijuana service: No Current occupational status: employed Current occupation: disability Physical Exam Vital Signs: Vital Signs: Last Vital Signs Temp 98.1 F 04/07/23 23:35 Pulse 60 04/07/23 23:35 Resp 16 04/07/23 23:35 BP 114/73 04/07/23 23:35 Pulse Ox 98 04/07/23 23:35 O2 Del Method Room Air 04/07/23 23:35 BMI result Body Mass Index 37.1 Vital signs stable, afebrile Const: General: cooperative, healthy appearing, comfortable and no acute distress Nutritional Appearance: average body habitus Orientation/consciousness: patient oriented x3 Limitations: no limitations HEENT: Head: Yes normal to inspection Eyes: General: appearance normal, both eyes and all related structures Conjunctivae: conjunctivae normal Sclerae: sclerae normal Pupils: Equal, round and reactive pupils present EOM: EOMs intact bilaterally Neck: Neck: Yes normal visual inspection and Yes full ROM : General: Yes no CVA tenderness Back/Spine/Pelvis: Other: + lumbar paraspinal muscle tenderness. No midline spinous tenderness or step off deformity. Back: no CVA tenderness Skin: General skin exam: no rashes or lesions noted Neuro: Other: Strength 5/5 intact throughout.? No saddle anesthesia.? Sensation intact to light touch.? Neurovascular intact distally.? General: patient oriented x3 and gait normal Cranial nerves: Yes Equal, round and reactive pupils present Deep tendon reflexes (DTR's): Right patellar reflex intensity grade: 2+ and Left patellar reflex intensity grade: 2+ Pupils: Normal pupillary reactivity/response: bilateral Course Course Course Narrative: 2099-- Patient stable at the end of my shift. Signed out to my colleague SARAI Boyd pending CT scan [id number] -- Patient's CT lumbar showed no new finding. Patient given dose of pain medication and cleared for discharge. Medications Administered Discontinued Medications Generic Name Dose Route Start Last Admin Trade Name Freq PRN Reason Stop Dose Admin Cyclobenzaprine HCl 10 mg 04/07/23 19:56 04/07/23 20:02 Cyclobenzaprine Hcl 10 Mg Tablet PO 04/07/23 19:57 10 mg ONCE ONE Administration Ketorolac Tromethamine 15 mg 04/07/23 19:56 04/07/23 20:02 Ketorolac Tromethamine 15 Mg/Ml Vial IM 04/07/23 19:57 15 mg ONCE ONE Administration Lidocaine 1 patch 04/07/23 19:56 04/07/23 20:02 Lidocaine 4 % Patch Adh..Patch TRANSDERMA 04/07/23 19:57 1 patch ONCE ONE Administration Protocol Oxycodone HCl 10 mg 04/07/23 21:15 04/07/23 21:21 Oxycodone Hcl Immed Release 5 Mg Tablet PO 04/07/23 21:16 10 mg ONCE ONE Administration Oxycodone HCl 10 mg 04/07/23 23:54 04/08/23 00:04 Oxycodone Hcl Immed Release 5 Mg Tablet PO 04/07/23 23:55 10 mg ONCE ONE Administration Medical Decision Making Medical Decision Making [facility] Narrative: 47 year old female with pmhx significant for chronic back pain, lumbar disc herniation, lumbar radiculopathy, carpal tunnel syndrome, DVT, pancreatitis, asthma, COPD presents to the ED today for evaluation of low back pain occurring acutely yesterday while moving furniture. Vital signs stable, afebrile. Patient is nontoxic-appearing and in no acute distress. No midline spinous tenderness or step off deformity. There is bilateral lumbar paraspinal muscle tenderness. Full ROM to bilateral hips. 2+ patellar DTRs bilaterally. Sensation intact throughout. Strength 5/5 throughout. 2+ dp/pt pulses. No CVAT. Exam nonfocal. Ambulating with steady gait. Clinical concern for disc herniation, lumbar sprain/strain, fracture, subluxation. Lower suspicion for sciatica, nephrolithiasis, UTI. Unlikely cauda equina, epidural abscess, cord compression. Plan for UA, pain control, CT, and re-evaluation. Differential Diagnosis Differential Diagnoses: The differential diagnosis associated with the presentation includes As above. Admission/Observation Not indicated. Lab Data [facility] Lab Attestation statement: I reviewed the patient's lab results. as above. Labs: Lab Results 04/07/23 Range/Units 19:47 Urine Color Yellow Urine Appearance Clear Urine pH 5.5 (5.0-9.0) Ur Specific [place] 1.025 (1.005-1.025) Urine Protein Negative (Neg-Trace) mg/dL Urine Glucose (UA) Negative (Negative) mg/dL Urine Ketones Negative (Negative) mg/dL Urine Blood Negative (Negative) Urine Nitrite Negative (Negative) Ur Leukocyte Esterase Trace H (Negative) Urine RBC 0-2 (0-2) /HPF Urine WBC 0-5 (0-5) /HPF Ur Squamous Epith Cells 3-5 (0-2) /HPF Urine Bacteria Trace (None Seen) Hyaline Casts 0-2 (0-2) /LPF Urine Test NEGATIVE (NEGATIVE) Independent Interpretation I performed an independent interpretation of an: CT Scan Interpretation: I have personally reviewed CT lumbar spine and agree with radiologist's interpretation. Radiology Impression Discussion of test interpretation with radiology: I have reviewed the radiologist's reading. Radiologist Impression: CT lumbar spine wo IV con IMPRESSION: 1. No evidence of acute fracture or traumatic subluxation of the lumbar spine. 2. Grade 1 anterolisthesis of L4 on L5 associated with chronic bilateral L4 pars interarticularis defects. 3. Moderate multilevel degenerative spondyloarthropathy of the lumbar spine as described in detail above. Most notably on this limited exam without intrathecal contrast, there are severe neural foraminal stenoses at L4-L5 and L5-S1. No demonstrated overt spinal canal stenosis. External Record Review External record reviewed: Inpatient record, Office record, Outpatient record, Prior outpatient labs, Prior outpatient radiology, Primary care record and Outside ED record Prescription Management I considered prescription management with: Pain Medication and Other (muscle relaxer) Chronic Conditions Patient?s care impacted by: Other (Lumbar disc herniation, radiculopathy) Social Determinants Patient?s care significantly limited by Social Determinants of Health including: Other Social Determinant of Health Critical Care Time Critical Care Time Critical Care Time: No Discharge Plan Discharge Clinical Impression: Lumbar back pain Patient Disposition: Home, Self-Care Prescriptions: No Action ibuprofen 800 mg tablet 800 mg PO Q8H PRN (Reason: pain) Qty: 20 0RF acetaminophen [Tylenol Extra Strength] 500 mg tablet 1,000 mg PO QID PRN (Reason: fever or pain) Qty: 60 5RF albuterol sulfate 2.5 mg /3 mL (0.083 %) solution for nebulization 2.5 mg inhalation Q4H PRN (Reason: shortness of breath or wheezing) Qty: 90 0RF (DME) nebulizer and compressor Device See Rx Instructions .Route Qty: 1 0RF Rx Instructions: As directed fluticasone propionate [Flovent HFA] 110 mcg/actuation HFA aerosol inhaler 1 puff inhalation BID budesonide-formoterol [Symbicort] 160-4.5 mcg/actuation HFA aerosol inhaler 2 puff inhalation QID atorvastatin 20 mg tablet 20 mg PO BEDTIME dexmethylphenidate [Focalin XR] 20 mg capsule,ER biphasic 50-50 20 mg PO BEDTIME prazosin 2 mg capsule 2 mg PO BEDTIME varenicline 1 mg tablet 1 mg PO BID Rx Instructions: take with full glass of water cephalexin 500 mg capsule 500 mg PO Q6H 7 Days Qty: 28 0RF ibuprofen 600 mg tablet 600 mg PO Q6H PRN (Reason: fever or pain) Qty: 30 0RF prednisone 20 mg tablet 40 mg PO DAILY 5 Days Qty: 10 0RF benzonatate 200 mg capsule 200 mg PO TID PRN (Reason: cough) Qty: 20 0RF cholecalciferol (vitamin D3) [Vitamin D3] 25 mcg (1,000 unit) capsule 25 mcg PO BEDTIME oxcarbazepine 600 mg tablet 1,800 mg PO BEDTIME oxcarbazepine 300 mg tablet 300 mg PO DAILY gabapentin 600 mg tablet 600 mg PO BEDTIME clonidine HCl 0.1 mg tablet 0.1 mg PO BEDTIME PRN (Reason: Anxiety) albuterol sulfate [ProAir HFA] 90 mcg/actuation HFA aerosol inhaler 2 puff inhalation Q6H PRN (Reason: wheezing) diphenhydramine HCl [Banophen] 25 mg capsule 100 mg PO BEDTIME buspirone 7.5 mg tablet 7.5 mg PO BEDTIME fluoxetine 20 mg capsule 60 mg PO BEDTIME Stand Alone Forms: Work/School Release
[2023-04-07 19:59] LABS: Appearance Urine Clear; Color Urine Yellow; Glucose Urine UA Negative (Negative); Leukocyte Esterase Urine Trace (Negative); Nitrite Urine Negative (Negative); PH 5.5 (5.0-9.0); Specific Gravity - Urine 1.025 (1.005-1.025); UMIC TRIGGER UACC YES; Urine Blood Negative (Negative); Urine Ketones Negative (Negative); Urine Protein Negative (Neg-Trace)
[2023-04-07 20:01] LABS: UPreg QC Valid YES; Urine Pregnancy NEGATIVE (NEGATIVE)
[2023-04-07] MEDS: Cyclobenzaprine HCl 10 MG TABLET PO (20:02)
[2023-04-07] MEDS: Lidocaine 4 % Patch ADH..PATCH 1 PATCH TRANSDERMA (20:02)
[2023-04-07] MEDS: Ketorolac Tromethamine 15 MG/ML VIAL IM (20:02)
[2023-04-07 20:04] LABS: Bacteria Urine Trace (None Seen); Hyaline Casts Urine 0-2 /LPF (0-2); RBC Urine 0-2 /HPF (0-2); WBC Urine 0-5 /HPF (0-5)
[2023-04-07 21:13] VITALS: BP 121/74; PULSE 59; RESP 15; TEMP 36.9; O2SAT 100
[2023-04-07] MEDS: oxyCODONE HCl Immed Release 5 MG TABLET 10 MG PO (21:21)
[2023-04-07 23:35] VITALS: BP 114/73; PULSE 60; RESP 16; TEMP 36.7; O2SAT 98
[2023-04-08] MEDS: oxyCODONE HCl Immed Release 5 MG TABLET 10 MG PO (00:04)
== END 2023-04-08 00:52 | disposition home or self-care (01) ==
PROVIDERS: Emergency Provider Emergency Medicine
DX: M54.50 Low back pain, unspecified (principal); F17.210 Nicotine dependence, cigarettes, uncomplicated; Z96.82 Presence of neurostimulator; Z86.718 Personal history of other venous thrombosis and embolism; Z79.02 Long term (current) use of antithrombotics/antiplatelets; Z79.899 Other long term (current) drug therapy
CPT/HCPCS: 72131; 81001; 81025; 96372; 99284; J1885

== ENCOUNTER 2023-04-13 08:24 | Outpatient (AMB) | payer MEDICAID, SELFPAY ==
[2023-04-13 08:47] VITALS: BP 157/74; PULSE 78; RESP 12; O2SAT 97; BMI 36.6
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
== END 2023-04-13 09:26 | disposition home or self-care (01) ==
PROVIDERS: Visit Provider Internal Medicine
DX: M43.16 Spondylolisthesis, lumbar region (principal); M54.16 Radiculopathy, lumbar region; Z96.89 Presence of other specified functional implants
CPT/HCPCS: 99214

== ENCOUNTER → 2023-04-13 08:24 | Outpatient (BNVA) | payer MEDICAID, SELFPAY | PROVIDERS: Visit Provider Internal Medicine | DX: M43.16 Spondylolisthesis, lumbar region (principal); M54.16 Radiculopathy, lumbar region; Z96.89 Presence of other specified functional implants | CPT/HCPCS: 99212 ==

== ENCOUNTER 2023-05-23 09:51 | Outpatient (REF) | payer MEDICAID, SELFPAY ==
[2023-05-23 11:21] LABS: MANUAL DIFF FLAG NO
[2023-05-23 11:25] LABS: Basophils Percent Auto 0.4 % (0-2); Eosinophils Absolute Auto 0.1 X10*3/uL (0.0-0.4); Eosinophils Percent Auto 1.4 % (0-4); Hematocrit 38.7 % (37.0-47.0); Imm Gran Abs Auto 0.01 X10*3/uL (0.00-0.03); Imm Gran Pct Auto 0.1 % (0.0-0.4); Lymphocytes Absolute Auto 2.1 X10*3/uL (1.2-4.9); Lymphocytes Percent Auto 29.9 % (20-40); Mean Corpuscular HGB Conc 33.6 g/dl (31.0-35.0); Mean Corpuscular Hemoglobin 30.4 pg (27.0-33.0); Mean Corpuscular Volume 90.4 fL (80.0-98.0); Monocytes Absolute Auto 0.5 X10*3/uL (0.1-1.2); Monocytes Percent Auto 7.1 % (2-11); Neutrophils Absolute Auto 4.3 x10*3/uL (2.0-8.3); Neutrophils Percent Auto 61.1 % (45-73); Platelet Count 221 X10*3/uL (160-400); Red Blood Count 4.28 X10*6/uL (4.20-5.50); Red Cell Distribution Width 12.5 % (11.0-16.0); White Blood Count 7.1 X10*3/uL (4.8-10.8)
[2023-05-23 11:44] LABS: Alanine Aminotransferase 13 U/L (0-31); Albumin Level 4.4 g/dL (3.5-5.0); Alkaline Phosphatase 94 U/L (39-117); Anion Gap 12 (12-20); Aspartate Amino Transferase 10 U/L (5-31); Bilirubin Total 0.2 mg/dL (0.0-1.0); Blood Urea Nitrogen 18 mg/dL (9-16); Calcium 9.9 mg/dL (8.4-10.2); Carbon Dioxide 27 mmol/L (22-29); Chloride 105 mmol/L (96-108); Estimated Glomerular Filt Rate > 60; Glucose Random 116 mg/dL (60-115); Sodium 140 mmol/L (135-145); Total Protein 7.9 g/dL (6.5-8.0)
[2023-05-23 11:58] LABS: HBS Num1 121.99 mIU/mL (0-7.99); HBc Num1 0.11 S/CO (0.00-0.79); HBsAGNum1 0.26 S/CO (0.00-0.99); HIV AB/AG Nonreactive (Nonreactive); HIV Num 1 0.07 S/CO (0.00-0.99); Hepatitis B Core Antibody Nonreactive (Nonreactive); Hepatitis B Surface Antigen Negative (Negative); ~HepC Num1 0.12 S/CO (0.00-0.79); ~Hepatitis B Surface Antibody REACTIVE (Nonreactive); ~Hepatitis C Antibody Nonreactive (Nonreactive)
[2023-05-23 12:07] LABS: TSH reflex Free T4 2.87 uIU/mL (0.32-4.0)
[2023-05-23 15:11] LABS: Estimated Average Glucose 108 mg/dL; Hemoglobin A1c % 5.4 % (<6.0)
[2023-05-24 04:19] LABS: Rheumatoid Factor < 13.0 IU/mL (<15.0)
[2023-05-24 22:34] LABS: Lyme Abs Screen <0.90 index
[2023-05-25 11:52] LABS: Anti Nuclear Antibody Screen NEGATIVE (NEGATIVE)
== END 2023-05-23 09:52 | disposition home or self-care (01) ==
LOC: HO.HHCL 09:51
PROVIDERS: Visit Provider Emergency Medicine
DX: Z11.4 Encounter for screening for human immunodeficiency virus [HIV] (principal); R53.83 Other fatigue; M79.10 Myalgia, unspecified site
CPT/HCPCS: 36415; 80053; 82550; 83036; 84443; 85025; 86038; 86431; 86617; 86618; 86704; 86706; 86803; 87340; 87389

== ENCOUNTER 2023-09-28 14:08 | Emergency (ER) | payer MEDICAID, SELFPAY ==
[2023-09-28 14:34] VITALS: BP 132/83; PULSE 95; RESP 19; TEMP 36.6; O2SAT 98; BMI 33.9
--- NOTE | 2023-09-28 14:34 | ED.GENADULT ---
HPI - General Adult General Chief complaint: Back Pain/Injury Stated complaint: L Side Pain Has Spinal Cord Stimulator Time Seen by Provider: 09/28/23 15:00 Source: patient Mode of arrival: ambulatory Limitations: no limitations History of Present Illness ED Provider: Deb Hobbs PA-C HPI narrative: Patient is a 47 year old assigned female at with a history of chronic low back pain with stimulator in place presenting to the emergency department today with left sided low back pain. Patient states that she has been trying to get her stimulator removed because she thinks something is wrong with it and she is having pain around it. Patient denies any dizziness, lightheadedness, abdominal pain, nausea, vomiting, fever, chills, blurry vision, double vision, loss of vision, chest pain, difficulty breathing, shortness of breath, night sweats, pain with urination, increased urinary frequency, increased urinary urgency, blood in her urine or stool, syncope or a near syncopal episode, recent trauma or falls, bowel incontinence, bladder incontinence, or any other complaints at this time. Relieving factors: none Exacerbating factors: none Associated symptoms: denies other symptoms Treatments prior to arrival: none Related Data Home Medications ?Medication ?Instructions ?Recorded ?Confirmed albuterol sulfate 90 mcg/actuation 2 puff inhalation Q6H PRN wheezing 08/30/21 04/13/23 aerosol inhaler (ProAir HFA) buspirone 7.5 mg tablet 7.5 mg PO BEDTIME 08/30/21 04/13/23 cholecalciferol (vitamin D3) 25 25 mcg PO BEDTIME 08/30/21 04/13/23 mcg (1,000 unit) capsule (Vitamin D3) clonidine HCl 0.1 mg tablet 0.1 mg PO BEDTIME PRN Anxiety 08/30/21 04/13/23 diphenhydramine HCl 25 mg capsule 100 mg PO BEDTIME insomnia 08/30/21 04/13/23 (Banophen) fluoxetine 20 mg capsule 60 mg PO BEDTIME 08/30/21 04/13/23 gabapentin 600 mg tablet 600 mg PO BEDTIME 08/30/21 04/13/23 oxcarbazepine 300 mg tablet 300 mg PO DAILY 08/30/21 04/13/23 oxcarbazepine 600 mg tablet 1,800 mg PO BEDTIME 08/30/21 04/13/23 budesonide-formoterol HFA 160 2 puff inhalation QID 05/07/22 04/13/23 mcg-4.5 mcg/actuation aerosol inhaler (Symbicort) fluticasone propionate 110 1 puff inhalation BID 05/07/22 04/13/23 mcg/actuation HFA aerosol inhaler (Flovent HFA) atorvastatin 20 mg tablet 20 mg PO BEDTIME 11/22/22 04/13/23 dexmethylphenidate 20 mg 20 mg PO BEDTIME 11/22/22 04/13/23 capsule,extended release [id number] (Focalin XR) prazosin 2 mg capsule 2 mg PO BEDTIME 11/22/22 04/13/23 varenicline 1 mg tablet 1 mg PO BID 11/22/22 04/13/23 Previous Rx's ?Medication ?Instructions ?Recorded acetaminophen 500 mg tablet 1,000 mg (2 x 500 mg) PO QID PRN 10/12/20 (Tylenol Extra Strength) fever or pain #60 tabs ibuprofen 800 mg tablet 800 mg PO Q8H PRN pain #20 tabs 10/12/20 albuterol sulfate 2.5 mg/3 mL 2.5 mg (3 mL) inhalation Q4H PRN 09/14/21 (0.083 %) solution for nebulization shortness of breath or wheezing #90 mL nebulizer and compressor #1 ea 09/14/21 benzonatate 200 mg capsule 200 mg PO TID PRN cough #20 caps 09/04/22 cyclobenzaprine 5 mg tablet 5 mg PO TID PRN pain 7 days #21 09/28/23 tabs naproxen 500 mg tablet 500 mg PO BID 7 days #14 tabs 09/28/23 Allergies Allergy/AdvReac Type Severity Reaction Status Date / Time vancomycin [VANCOMYCIN] Allergy Intermediate RASH, Verified 09/28/23 14:36 ITCHING, BREATHING PROBLEMS Review of Systems Constitutional: Constitutional: Reports no additional constitutional complaints, Denies chills, Denies fever(s) and Denies night sweats Eyes: Eyes: Reports no additional eye complaints, Denies blurry vision, Denies change in vision, Denies diplopia, Denies eye discharge, Denies loss of vision and Denies eye pain ENT: Denies dizziness Cardiovascular: Cardiovascular: Reports no additional cardiovascular complaints, Denies chest pain, Denies lightheadedness, Denies Loss of Consciousness and Denies dyspnea Respiratory: Respiratory: Reports no additional respiratory complaints and Denies dyspnea Gastrointestinal: Gastrointestinal: Reports no additional gastrointestinal complaints, Denies abdominal pain, Denies melena, Denies hematochezia, Denies change in bowel habits and Denies change in stool character Genitourinary: Genitourinary: Denies hematuria, Denies urinary frequency, Denies dysuria, Denies urinary incontinence, Denies urinary hesitancy and Denies urinary urgency Musculoskeletal: Musculoskeletal: Reports no additional musculoskeletal complaints, Reports back pain, Denies numbness and Denies tingling Neurologic: Denies dizziness, Denies loss of vision, Denies numbness and Denies tingling Psychiatric: Psychiatric: Reports no additional psychiatric complaints Endocrine: Endocrine: Reports no additional endocrine complaints Hematologic/Lymphatic: Hematologic/Lymphatic: Reports no additional hematologic/lymphatic complaints Allergic/Immunologic: Allergic/Immunologic: Reports no additional allergic/immunologic complaints PMFSH Past Medical History Attestation statement: The following information was validated with the patient. Source: old records reviewed and nursing notes reviewed Medical History COVID-19 Atypical chest pain Fracture of distal phalanx of left middle finger Numbness and tingling in both hands Low back pain Carpal tunnel syndrome, bilateral Kidney laceration Tibia fracture Fibula fracture Back pain Asthma exacerbation Spondylolisthesis at L4-L5 level Pancreatitis DVT (deep vein thrombosis) in Lumbar radiculopathy Pars defect of lumbar spine Surgical History Status post surgical manipulation of ankle joint History of cholecystectomy Social History Social History Alcohol intake: never Patient Tobacco Use Status: Current everyday Tobacco user Tobacco use type: Cigarette Cigarette Packs Per Day: 1 Cigarettes Per Day: 15 Years Smoked: 33 Substance Use Type: Marijuana service: No Current occupational status: employed Current occupation: disability Physical Exam ED Vital Signs: Vital Signs - 24 hr 09/28/23 14:34 09/28/23 15:56 Temperature 98 F 98 F Pulse Rate 95 95 Respiratory Rate 19 19 Blood Pressure 132/83 132/83 Pulse Oximetry 98 98 Oxygen Delivery Method Room Air Room Air BMI result Body Mass Index 33.9 Const General: cooperative, no acute distress, alert and awake Nutritional Appearance: well nourished Orientation/consciousness: patient oriented x3 Limitations: no limitations HENMT Head: Yes normal to inspection and Yes atraumatic Ears: hearing grossly normal bilaterally and external ears normal General nose exam: Normal external nose present, no nasal discharge noted and no epistaxis Face and sinus: Yes normal facial exam, No abrasion and No laceration Mouth: Normal oral and palatal mucosa present, no drooling and no muffled voice Eyes General: appearance normal, both eyes and all related structures Periorbital: periorbital findings normal Eyelids: Yes eyelids normal Conjunctivae: conjunctivae normal Pupils: Equal, round and reactive pupils present EOM: EOMs intact bilaterally Neck Neck: Yes normal visual inspection, Yes full ROM and Yes no lymphadenopathy Chest Chest palpation & inspection: normal inspection of the chest Resp Effort & Inspection: normal respiratory effort and able to speak in complete sentences GI Inspection: Yes normal to inspection Neuro General: patient oriented x3 and moves all extremities Cranial nerves: Yes Equal, round and reactive pupils present Cognition (Neuro): normal cognition Extrem General: Yes normal to inspection, Yes full ROM and Yes capillary refill normal Psych Appearance: grossly normal Mental Status: mental status grossly normal Affect: normal affect Attitude: cooperative Thought process: Normal thought process present Thought content: Normal thought content present Insight: Good insight present (Psych) Course Course Course Narrative: This is an RME performed by Liza Buenrostro CNP: Additional HPI, ROS, PE not included below will be deferred to primary provider. Patient is a 47-year-old female chronic back pain, lumbar disc herniation, lumbar radiculopathy, carpal tunnel syndrome, DVT, pancreatitis, asthma, COPD - Reports pain to the left lower back radiating to the left lower extremity, present for approximately 1 month but has become progressively worse over the past few days. Reports history of a spinal cord stimulator placed approximately 7 years ago, reporting the pain is right where the battery is, she is awaiting pain management to receive authorization from insurance for removal. Reports that she has trialed gabapentin, acetaminophen and ibuprofen without improvement. Denies or GI symptoms. Denies fall or injury Medications Administered Discontinued Medications Generic Name Dose Route Start Last Admin Trade Name Freq PRN Reason Stop Dose Admin Cyclobenzaprine HCl 5 mg 09/28/23 15:09 09/28/23 15:32 Cyclobenzaprine Hcl 5 Mg Tablet PO 09/28/23 15:10 5 mg ONCE ONE Administration Ketorolac Tromethamine 15 mg 09/28/23 15:09 09/28/23 15:32 Ketorolac Tromethamine 15 Mg/Ml Vial IM 09/28/23 15:10 15 mg ONCE ONE Administration Medical Decision Making Medical Decision Making MDM Narrative: Patient is a 47 year old assigned female at with a history of chronic low back pain presenting to the emergency department today with acute on chronic low back pain. Patient's physical exam was unremarkable. I explained my physical exam findings to the patient. I answered all questions asked by the patient. Patient received a call while in the department that she is scheduled for stimulator removal next Sunday. I stressed the importance of the patient taking her medication as directed (either prescribed or as the over the counter packaging recommends). I stressed the importance of the patient following up with her primary care provider and her pain specialist. I stressed the importance of the patient returning to the emergency department immediately if her symptoms were to worsen or if she were to develop any dizziness, shortness of breath, difficulty breathing, chest pain, blurry vision, loss of vision, nausea, vomiting, abdominal pain, fever, chills, back pain, or any other complaints. Patient verbalized agreement and understanding with this treatment plan and discharge. Differential Diagnosis Differential Diagnoses: The differential diagnosis associated with the presentation includes Low back pain Acute on chronic low back pain Admission/Observation Consideration of admission/observation: Escalation of care including admission/observation considered Patient would have been admitted to the hospital had her clinical presentation warranted hospital admission. Tests considered The following testing was considered but not selected: I considered obtaining a lumbar x-ray or lumbar CT scan however, the patient's current clinical presentation did not warrant this. I discussed this with the patient who verbalized agreement and understanding. Prescription Management I considered prescription management with: Pain Medication (patient prescribed pain medication) Discharge Plan Discharge Clinical Impression: Low back pain Patient Disposition: Home, Self-Care Instructions: Back Pain (ED) Additional Instructions: Follow up with your primary care provider and your agricultural systems specialist. If you agricultural systems specialist is unable to get you in, consider following up with a different agricultural systems specialist. Return to the emergency department immediately if your symptoms worsen or if you develop any dizziness, shortness of breath, difficulty breathing, chest pain, blurry vision, loss of vision, nausea, vomiting, abdominal pain, fever, chills, back pain, or any other complaints. Prescriptions: New naproxen 500 mg tablet 500 mg PO BID 7 Days Qty: 14 0RF cyclobenzaprine 5 mg tablet 5 mg PO TID PRN (Reason: pain) 7 Days Qty: 21 0RF No Action ibuprofen 800 mg tablet 800 mg PO Q8H PRN (Reason: pain) Qty: 20 0RF acetaminophen [Tylenol Extra Strength] 500 mg tablet 1,000 mg PO QID PRN (Reason: fever or pain) Qty: 60 5RF albuterol sulfate 2.5 mg /3 mL (0.083 %) solution for nebulization 2.5 mg inhalation Q4H PRN (Reason: shortness of breath or wheezing) Qty: 90 0RF (DME) nebulizer and compressor Device See Rx Instructions .Route Qty: 1 0RF Rx Instructions: As directed fluticasone propionate [Flovent HFA] 110 mcg/actuation HFA aerosol inhaler 1 puff inhalation BID budesonide-formoterol [Symbicort] 160-4.5 mcg/actuation HFA aerosol inhaler 2 puff inhalation QID atorvastatin 20 mg tablet 20 mg PO BEDTIME dexmethylphenidate [Focalin XR] 20 mg capsule,ER biphasic 50-50 20 mg PO BEDTIME prazosin 2 mg capsule 2 mg PO BEDTIME varenicline 1 mg tablet 1 mg PO BID Rx Instructions: take with full glass of water benzonatate 200 mg capsule 200 mg PO TID PRN (Reason: cough) Qty: 20 0RF cholecalciferol (vitamin D3) [Vitamin D3] 25 mcg (1,000 unit) capsule 25 mcg PO BEDTIME oxcarbazepine 600 mg tablet 1,800 mg PO BEDTIME oxcarbazepine 300 mg tablet 300 mg PO DAILY gabapentin 600 mg tablet 600 mg PO BEDTIME clonidine HCl 0.1 mg tablet 0.1 mg PO BEDTIME PRN (Reason: Anxiety) albuterol sulfate [ProAir HFA] 90 mcg/actuation HFA aerosol inhaler 2 puff inhalation Q6H PRN (Reason: wheezing) diphenhydramine HCl [Banophen] 25 mg capsule 100 mg PO BEDTIME buspirone 7.5 mg tablet 7.5 mg PO BEDTIME fluoxetine 20 mg capsule 60 mg PO BEDTIME Referrals: [facility] [Provider Group] (Call to establish and follow up with a agricultural systems specialist. ) Sunshine Vela FNP [Primary Care Provider] - Interventions: ED Discharge Assessment Last Done: 09/28/23 15:56 Discharge Date/Time: 09/28/23 15:56 Print Language: Yakut
[2023-09-28] MEDS: Cyclobenzaprine HCl 5 MG TABLET PO (15:32)
[2023-09-28] MEDS: Ketorolac Tromethamine 15 MG/ML VIAL IM (15:32)
[2023-09-28 15:56] VITALS: BP 132/83; PULSE 95; RESP 19; TEMP 36.6; O2SAT 98
== END 2023-09-28 15:56 | disposition home or self-care (01) ==
PROVIDERS: Emergency Provider Student in an Organized Health Care Education/Training Program; PCP Registered Nurse
DX: M54.50 Low back pain, unspecified (principal); Z96.82 Presence of neurostimulator
CPT/HCPCS: 96372; 99283; 99284; J1885

== ENCOUNTER 2023-10-03 11:16 | Day surgery (SDC) | payer MEDICAID, SELFPAY ==
--- NOTE | 2023-10-02 10:13 | P.CONAN_ITS ---
Documented by User: Brigitte Thomas NP 10/02/23 10:14 HPI - Anesthesia Eval Consult details Narrative: 47yo F for Removal of Spinal Cord Stimulator 2022 w/u for atypical CP pain with C cardiology negative PMFSH Active Problems Active Problems: All Active Problems Carpal tunnel syndrome of left wrist (Acute) Carpal tunnel syndrome of right wrist (Acute) Spondylolisthesis at L4-L5 level (Acute) Lumbar radiculopathy (Acute) S/P insertion of spinal cord stimulator (Acute) Pars defect of lumbar spine (Acute) Status post surgical manipulation of ankle joint (Acute) Migraine (Acute) Kidney stones (Acute) DVT (deep venous thrombosis) (Acute) Anxiety disorder (Acute) Depression (Acute) Asthma (Acute) Past Medical History Medical History Depression Elevated cholesterol COVID-19 Atypical chest pain Asthma exacerbation Fracture of distal phalanx of left middle finger Spondylolisthesis at L4-L5 level Pancreatitis DVT (deep vein thrombosis) in Numbness and tingling in both hands Lumbar radiculopathy Pars defect of lumbar spine Low back pain Carpal tunnel syndrome, bilateral Kidney laceration Tibia fracture Fibula fracture Back pain Surgical History Surgical History History of surgery on lower extremity S/P IVC filter History of back surgery Status post surgical manipulation of ankle joint History of cholecystectomy Social History Social History Alcohol intake: never Patient Tobacco Use Status: Current everyday Tobacco user Tobacco use type: Cigarette Cigarette Packs Per Day: 1 Cigarettes Per Day: 5 Years Smoked: 33 Use of substances other than those prescribed or required for medical reasons: Yes Substance Use Type: Marijuana Substance Use Type Other:: smoked Substance Use Frequency: Daily Are you DNR?: No Advance Directives: No Advance Directives Information Provided: Yes service: No Current occupational status: employed Current occupation: disability Meds Allergies Allergy/AdvReac Type Severity Reaction Status Date / Time vancomycin [VANCOMYCIN] Allergy Intermediate RASH, Verified 09/28/23 14:36 ITCHING, BREATHING PROBLEMS Home Medications ?Medication ?Instructions ?Recorded ?Confirmed ?Last Taken ?Type albuterol sulfate 90 mcg/actuation 2 puff inhalation Q6H PRN wheezing 08/30/21 10/03/23 05/07/22 History aerosol inhaler (ProAir HFA) buspirone 7.5 mg tablet 7.5 mg PO BEDTIME 08/30/21 10/03/23 05/06/22 History cholecalciferol (vitamin D3) 25 25 mcg PO BEDTIME 08/30/21 10/03/23 05/06/22 History mcg (1,000 unit) capsule (Vitamin D3) clonidine HCl 0.1 mg tablet 0.1 mg PO BEDTIME PRN Anxiety 08/30/21 10/03/23 Unknown History diphenhydramine HCl 25 mg capsule 100 mg PO BEDTIME insomnia 08/30/21 10/03/23 05/06/22 History (Banophen) gabapentin 600 mg tablet 600 mg PO BEDTIME 08/30/21 10/03/23 05/06/22 History oxcarbazepine 300 mg tablet 300 mg PO DAILY 08/30/21 10/03/23 05/06/22 History oxcarbazepine 600 mg tablet 1,800 mg PO BEDTIME 08/30/21 10/03/23 05/06/22 History budesonide-formoterol HFA 160 2 puff inhalation QID 05/07/22 10/03/23 05/07/22 History mcg-4.5 mcg/actuation aerosol inhaler (Symbicort) fluticasone propionate 110 1 puff inhalation BID 05/07/22 10/03/23 05/06/22 History mcg/actuation HFA aerosol inhaler (Flovent HFA) atorvastatin 20 mg tablet 20 mg PO BEDTIME 11/22/22 10/03/23 Unknown History dexmethylphenidate 20 mg 20 mg PO BEDTIME 11/22/22 10/03/23 Unknown History capsule,extended release [id number] (Focalin XR) prazosin 2 mg capsule 2 mg PO BEDTIME 11/22/22 10/03/23 Unknown History varenicline 1 mg tablet 1 mg PO BID 11/22/22 10/03/23 Unknown History duloxetine 30 mg capsule,delayed 60 mg PO BEDTIME 10/03/23 10/03/23 Unknown History release Exam Pertinent Lab Results Pertinent Lab Results: Laboratory Tests 05/23/23 09:53 WBC 7.1 Hgb 13.0 Hct 38.7 Plt Count 221 Sodium 140 Potassium 4.0 Chloride 105 Carbon Dioxide 27 BUN 18 H Creatinine 0.81 Narrative Narrative: NM binta perf SPECT rest & str 2022 Impression: 1. Myocardial perfusion imaging study shows likely normal myocardial perfusion 2. Gated LVEF is 64% 3. Transient ischemic dilatation not present EKG is nondiagnostic for ischemia Assessment and Plan Assessment Anesthesia Assessment: Chart Reviewed Documented by User: Lilly Schafer MD 10/03/23 13:49 [facility] Past Medical History Medical History Depression Elevated cholesterol COVID-19 Atypical chest pain Asthma exacerbation Fracture of distal phalanx of left middle finger Spondylolisthesis at L4-L5 level Pancreatitis DVT (deep vein thrombosis) in Numbness and tingling in both hands Lumbar radiculopathy Pars defect of lumbar spine Low back pain Carpal tunnel syndrome, bilateral Kidney laceration Tibia fracture Fibula fracture Back pain Family History Family history of problems with anesthesia: No Surgical History Surgical History History of surgery on lower extremity S/P IVC filter History of back surgery Status post surgical manipulation of ankle joint History of cholecystectomy History of Problems with Anesthesia: No Social History Social History Alcohol intake: never Patient Tobacco Use Status: Current everyday Tobacco user Tobacco use type: Cigarette Cigarette Packs Per Day: 1 Cigarettes Per Day: 5 Years Smoked: 33 Use of substances other than those prescribed or required for medical reasons: Yes Substance Use Type: Marijuana Substance Use Type Other:: smoked Substance Use Frequency: Daily Are you DNR?: No Advance Directives: No Advance Directives Information Provided: Yes service: No Current occupational status: employed Current occupation: disability Meds Allergies Allergy/AdvReac Type Severity Reaction Status Date / Time vancomycin [VANCOMYCIN] Allergy Intermediate RASH, Verified 09/28/23 14:36 ITCHING, BREATHING PROBLEMS Home Medications ?Medication ?Instructions ?Recorded ?Confirmed ?Last Taken ?Type albuterol sulfate 90 mcg/actuation 2 puff inhalation Q6H PRN wheezing 08/30/21 10/03/23 05/07/22 History aerosol inhaler (ProAir HFA) buspirone 7.5 mg tablet 7.5 mg PO BEDTIME 08/30/21 10/03/23 05/06/22 History cholecalciferol (vitamin D3) 25 25 mcg PO BEDTIME 08/30/21 10/03/23 05/06/22 History mcg (1,000 unit) capsule (Vitamin D3) clonidine HCl 0.1 mg tablet 0.1 mg PO BEDTIME PRN Anxiety 08/30/21 10/03/23 Unknown History diphenhydramine HCl 25 mg capsule 100 mg PO BEDTIME insomnia 08/30/21 10/03/23 05/06/22 History (Banophen) gabapentin 600 mg tablet 600 mg PO BEDTIME 08/30/21 10/03/23 05/06/22 History oxcarbazepine 300 mg tablet 300 mg PO DAILY 08/30/21 10/03/23 05/06/22 History oxcarbazepine 600 mg tablet 1,800 mg PO BEDTIME 08/30/21 10/03/23 05/06/22 History budesonide-formoterol HFA 160 2 puff inhalation QID 05/07/22 10/03/23 05/07/22 History mcg-4.5 mcg/actuation aerosol inhaler (Symbicort) fluticasone propionate 110 1 puff inhalation BID 05/07/22 10/03/23 05/06/22 History mcg/actuation HFA aerosol inhaler (Flovent HFA) atorvastatin 20 mg tablet 20 mg PO BEDTIME 11/22/22 10/03/23 Unknown History dexmethylphenidate 20 mg 20 mg PO BEDTIME 11/22/22 10/03/23 Unknown History capsule,extended release [id number] (Focalin XR) prazosin 2 mg capsule 2 mg PO BEDTIME 11/22/22 10/03/23 Unknown History varenicline 1 mg tablet 1 mg PO BID 11/22/22 10/03/23 Unknown History duloxetine 30 mg capsule,delayed 60 mg PO BEDTIME 10/03/23 10/03/23 Unknown History release Exam Airway Mallampati Class: II TM Dist: >3cm Neck ROM: Full Denture: Upper and Lower Heart: rrr Lungs: cta Assessment and Plan Assessment Anesthesia Assessment: Anesthesia Plan Discussed Final Anesthetic Review Family History of Problems with Anesthesia: No History of Problems with Anesthesia: No NPO: Yes ASA Class: III Final Preanesthetic Review: No Changes in Pt Med Stat, Meds/Allgs Chart Reviewed, Consent Obtained/Reviewed and Anes Risks/Benef Reviewed Patient Risk: Intermediate Procedure Risk: Low Anesthetic Plan Anesthetic Plan: GA Disposition: Standard PACU
[2023-10-03] VITALS (8 sets, daily range): BP systolic 115–144; BP diastolic 57–92; PULSE 60–79; RESP 16–18; TEMP 36.1–37.1; O2SAT 95–97; BMI 34.7
--- NOTE | ~2023-10-03 | FL_ITS ---
EXAMINATION: XR FLUOROSCOPY WITH IMAGES CLINICAL INFORMATION: Spinal stimulator removal COMPARISON: CT lumbar 04/07/2023. TECHNIQUE: Fluoroscopy provided to: Dr. Portillo Fluoroscopy time: 0.0 minutes DAP: 0.0319 mGycm2 Images: 4 FINDINGS: 4 sequential images lumbar spine and left buttock region show sequential removal of a spinal stimulator generator pack and leads. Incidental note is of an IVC filter. FL/FL guidance in OR IMPRESSION: Fluoroscopic guidance. Please refer to the full operative report for details. Electronically signed by: Ilya Hinkle MD 12/04/2023 01:39 PM EDT
[2023-10-03 12:03] LABS: UPreg QC Valid YES; Urine Pregnancy NEGATIVE (NEGATIVE)
[2023-10-03] MEDS: Lactated Ringers 1,000 ML 100 ML IVCONT (12:18)
--- NOTE | 2023-10-03 13:52 | MHC.SHP ---
Pre-Procedural Eval Section A - 24 Hr Update-Section A only Date of Service: 10/03/23 The patient is an INPATIENT: No Changes since office visit: Yes Patient answered all questions The patient has been examined within 24 hours of the surgical procedure. The History & Physical has been completed within 30 days and I have reviewed it.: No Section B - Complete if H&P > 30 days Chief Complaint: Postlaminectomy syndrome, not elsewhere classified Relevant Family History (Specify if Yes): No Relevant Social History: None Present Medications: see Short Stay Collaborative assessment Medical History: No relevant PMH History of Previous Operations: No relevant previous surgery Allergies: Allergies Allergy/AdvReac Type Severity Reaction Status Date / Time vancomycin [VANCOMYCIN] Allergy Intermediate RASH, Verified 09/28/23 14:36 ITCHING, BREATHING PROBLEMS Review of Systems Sugical H&P ROS: Negative: Constitution, Cardiovascular and Respiratory Exam Surgical H&P Exam: Normal: HEENT, Normal: Heart and Normal: Lungs Plan Diagnosis/Plan: Unchanged I have reviewed the history and physical and performed a pertinent physical examination on my patient. No changes have occurred unless specified. Time Spent With Patient Time: Total time managing care of this patient today ____ minutes.
[2023-10-03 13:56] LABS: MRSA Nasal PCR NEGATIVE (Negative); SA Nasal PCR POSITIVE (Negative)
--- NOTE | 2023-10-03 15:27 | PM.OP ---
Brief Operative Note Date of Service: 10/03/23 Pre-op diagnosis: Post-laminectomy syndrome; SCS dysfunction Post-op diagnosis: same Procedure: SCS explant Surgeon: Hector Portillo MD Anesthesia: GLMA and MAC Was an High Density Press Laborer used for this Procedure?: No Estimated blood loss (mL): 10 Pathology: none sent Condition: stable Disposition: PACU
--- NOTE | 2023-10-03 15:36 | P.OP_ITS ---
Operative Note Operative Note Date of Service: 10/03/23 Narrative: Preoperative diagnosis: Post-laminectomy syndrome, SCS dysfunction Postoperative diagnosis: Same Procedure: Explantation of spinal cord stimulation leads and implanted pulse generator After proper identification, the patient was brought to the operating room. For prone positioning, care was taken to protect and pad all pressure points. Cefazo sandip 2gm IV was given as preoperative antibiotic prophylaxis. The back was prepped and draped in the usual sterile fashion using Chloroprep. The fluoroscope unit was sterilely draped and brought into field. The existing SCS lead anchors were identified. The skin overlying this interspace was infiltrated with 0.25% bupivacaine with 1:200,000 epinephrine and 1% lidocaine using a 25-gauge needle. A 6 cm incision was then made with a 15 blade and a combination of electrocautery and blunt dissection was used to dissect down to the prevertebral fascia until the anchors were exposed. Blunt dissection was then used to free the anchors from the soft tissue. A blade was used to release the sutures. The sutures were removed. Once the anchors were free, the epidural leads were gently pulled back one after the other until they were completely removed from the epidural space. There was no resistance to the removal of the epidural leads. The epidural leads were removed completely with tips intact. A ttention was then diverted to the IPG site. The site was confirmed using fluoroscopy. The scar overlying the IPG was then infiltrated with the local anesthetic mixture as noted above. A 15 blade was then used to incise the skin. Combination of electrocautery and blunt dissection was then used to expose and deliver the existing IPG. The leads were cut and released from the anchors. With the leads free, they were pulled out through the IPG incision and completely removed from the operative field. Fluoroscopy was used to confirm complete removal of all implanted components; this image was saved to the patient's permanent record. Both incisions were irrigated with normal saline solution. The fibrous capsule inside the IPG pocket site was resected to the extent possible without enlarging the incision further. All preexisting suture remnants were identified and removed. After irrigation, the wounds were closed with a running 2-0 fascial layer and interrupted deep dermal sutures using 3-0 Vicryl. The skin was closed with Exofin and Steri-Strips and dressed with OpSites. The patient was then woken up, flipped supine and brought to the PACU in stable condition.
[2023-10-03] MEDS: fentaNYL citrate/PF 100 MCG/2 ML VIAL 25 MCG IVPUSH ×4 (16:02→16:17)
== END 2023-10-03 16:48 | disposition home or self-care (01) ==
PROVIDERS: Nurse Practitioner; Registered Nurse Emergency; PCP Registered Nurse; Visit Provider Internal Medicine
PROC: (CPT 63661; principal; 2023-10-03 13:30)
DX: T85.112A Breakdown (mechanical) of implanted electronic neurostimulator of spinal cord electrode (lead), initial encounter (principal); M96.1 Postlaminectomy syndrome, not elsewhere classified; M54.50 Low back pain, unspecified; Y75.8 Miscellaneous neurological devices associated with adverse incidents, not elsewhere classified; Z88.1 Allergy status to other antibiotic agents
CPT/HCPCS: 63661; 63688; 81025; 87640; 87641; A4364; J0690; J2250; J2704; J3010

== ENCOUNTER → 2023-10-03 11:16 | Outpatient (BNV) | payer MEDICAID, SELFPAY | PROVIDERS: PCP Registered Nurse; Visit Provider Internal Medicine | DX: M96.1 Postlaminectomy syndrome, not elsewhere classified (principal); T85.112A Breakdown (mechanical) of implanted electronic neurostimulator of spinal cord electrode (lead), initial encounter | CPT/HCPCS: 63661; 63688 ==

== ENCOUNTER 2024-01-26 23:20 | Emergency (ER) | payer MEDICAID, SELFPAY ==
--- NOTE | ~2024-01-26 | XR_ITS ---
EXAMINATION: XR CHEST CLINICAL INFORMATION: Dyspnea COMPARISON: None available. TECHNIQUE: 2 views of the chest were obtained. FINDINGS: No significant abnormality is noted involving the heart, lungs, mediastinum, bony thorax or soft tissues. Tiny amount of chronic blunting of the lateral right costophrenic angle. Neurostimulator generator and leads have been removed since the prior study. An IVC filter remains in place XR/XR chest 2V IMPRESSION: No acute intrathoracic disease. Electronically signed by: Linden العراقي MD 01/27/2024 12:27 AM [facility]
[2024-01-26 23:27] VITALS: BP 147/77; PULSE 91; RESP 48; TEMP 37.3; O2SAT 94; BMI 37.3
[2024-01-27 00:15] VITALS: BP 157/80; PULSE 88; RESP 18; TEMP 37.6; O2SAT 96
[2024-01-27 00:18] LABS: Influenza A PCR NEGATIVE (Negative); Influenza B PCR NEGATIVE (Negative); Resp Syncy Virus RNA Qual PCR NEGATIVE (Negative); SARS COV2 PCR INHOUSE NEGATIVE (Negative)
--- NOTE | 2024-01-27 00:40 | ED.URI ---
HPI - URI/Sore Throat General Chief Complaint: Upper Respiratory Symptoms Stated Complaint: asthmatic, trouble breathing Time Seen by Provider: 01/27/24 00:23 Source: patient Mode of arrival: ambulatory Limitations: no limitations History of Present Illness ED Provider: brandon CARBAJAL Narrative: Patient's history of asthma been coughing for last 3 4 days getting worse now getting some phlegm, no fever no chills feel chest sore when she coughs was with somebody who was RSV positive Related Data Home Medications ?Medication ?Instructions ?Recorded ?Confirmed albuterol sulfate 90 mcg/actuation 2 puff inhalation Q6H PRN wheezing 08/30/21 10/03/23 aerosol inhaler (ProAir HFA) buspirone 7.5 mg tablet 7.5 mg PO BEDTIME 08/30/21 10/03/23 cholecalciferol (vitamin D3) 25 25 mcg PO BEDTIME 08/30/21 10/03/23 mcg (1,000 unit) capsule (Vitamin D3) clonidine HCl 0.1 mg tablet 0.1 mg PO BEDTIME PRN Anxiety 08/30/21 10/03/23 diphenhydramine HCl 25 mg capsule 100 mg PO BEDTIME insomnia 08/30/21 10/03/23 (Banophen) gabapentin 600 mg tablet 600 mg PO BEDTIME 08/30/21 10/03/23 oxcarbazepine 300 mg tablet 300 mg PO DAILY 08/30/21 10/03/23 oxcarbazepine 600 mg tablet 1,800 mg PO BEDTIME 08/30/21 10/03/23 budesonide-formoterol HFA 160 2 puff inhalation QID 05/07/22 10/03/23 mcg-4.5 mcg/actuation aerosol inhaler (Symbicort) fluticasone propionate 110 1 puff inhalation BID 05/07/22 10/03/23 mcg/actuation HFA aerosol inhaler (Flovent HFA) atorvastatin 20 mg tablet 20 mg PO BEDTIME 11/22/22 10/03/23 dexmethylphenidate 20 mg 20 mg PO BEDTIME 11/22/22 10/03/23 capsule,extended release [id number] (Focalin XR) prazosin 2 mg capsule 2 mg PO BEDTIME 11/22/22 10/03/23 varenicline 1 mg tablet 1 mg PO BID 11/22/22 10/03/23 duloxetine 30 mg capsule,delayed 60 mg PO BEDTIME 10/03/23 10/03/23 release Previous Rx's ?Medication ?Instructions ?Recorded acetaminophen 500 mg tablet 1,000 mg (2 x 500 mg) PO QID PRN 10/12/20 (Tylenol Extra Strength) fever or pain #60 tabs ibuprofen 800 mg tablet 800 mg PO Q8H PRN pain #20 tabs 10/12/20 albuterol sulfate 2.5 mg/3 mL 2.5 mg (3 mL) inhalation Q4H PRN 09/14/21 (0.083 %) solution for nebulization shortness of breath or wheezing #90 mL nebulizer and compressor #1 ea 09/14/21 naproxen 500 mg tablet 500 mg PO BID 7 days #14 tabs 09/28/23 oxycodone-acetaminophen 5 mg-325 1 tab PO BID pain #14 tabs 10/03/23 mg tablet oxycodone-acetaminophen 5 mg-325 1 tab PO Q8H PRN pain #14 tabs 10/03/23 mg tablet benzonatate 200 mg capsule 200 mg PO TID PRN cough #20 caps 01/27/24 cefuroxime axetil 500 mg tablet 500 mg PO BID 7 days #14 tabs 01/27/24 prednisone 20 mg tablet 40 mg (2 x 20 mg) PO DAILY #10 tabs 01/27/24 Allergies Allergy/AdvReac Type Severity Reaction Status Date / Time vancomycin [VANCOMYCIN] Allergy Intermediate RASH, Verified 01/26/24 23:28 ITCHING, BREATHING PROBLEMS Review of Systems Review of Systems: Yes all other systems are reviewed and are negative [facility] Past Medical History Medical History Depression Elevated cholesterol COVID-19 Atypical chest pain Asthma exacerbation Fracture of distal phalanx of left middle finger Spondylolisthesis at L4-L5 level Pancreatitis DVT (deep vein thrombosis) in Numbness and tingling in both hands Lumbar radiculopathy Pars defect of lumbar spine Low back pain Carpal tunnel syndrome, bilateral Kidney laceration Tibia fracture Fibula fracture Back pain Surgical History History of surgery on lower extremity S/P IVC filter History of back surgery Status post surgical manipulation of ankle joint History of cholecystectomy Social History Social History Alcohol intake: never Patient Tobacco Use Status: Current everyday Tobacco user Tobacco use type: Cigarette Cigarette Packs Per Day: 1 Cigarettes Per Day: 5 Years Smoked: 33 Substance Use Type: Marijuana Advance Directives: No Advance Directives Information Provided: No Do you have a plan to hurt others: No Plan service: No Current occupational status: employed Current occupation: disability Physical Exam Vital Signs: Vital Signs: Last Vital Signs Temp 99.6 F 01/27/24 00:15 Pulse 82 01/27/24 00:47 Resp 22 H 01/27/24 00:47 BP 157/80 H 01/27/24 00:15 Pulse Ox 96 01/27/24 00:15 O2 Del Method Room Air 01/27/24 00:15 BMI result Body Mass Index 37.3 Appearance: Alert. Oriented X3. No acute distress. ENT: Pharynx normal. Oral Mucosa moist Neck: Normal inspection. Neck supple. CVS: Normal heart rate and rhythm. Pulses normal. Respiratory: No respiratory distress. Equal air entry bilateral, no wheezing/rales/rhonchi prolonged expiration Skin: Skin warm and dry. Normal skin color. Normal skin turgor. Extremities: No lower extremity edema. Neuro: Oriented X 3. Medications Administered Discontinued Medications Generic Name Dose Route Start Last Admin Trade Name Freq PRN Reason Stop Dose Admin Benzonatate 200 mg 01/27/24 00:38 01/27/24 01:11 Benzonatate 100 Mg Capsule PO 01/27/24 00:39 200 mg ONCE ONE Administration Cefuroxime Axetil 500 mg 01/27/24 00:38 01/27/24 01:11 Cefuroxime Axetil 500 Mg Tablet PO 01/27/24 00:39 500 mg ONCE ONE Administration Albuterol Sulfate 2.5 mg/ 0 mg 01/27/24 00:38 01/27/24 00:46 Albuterol/Ipratropium 3 ml INHALE 01/27/24 00:39 5 dose ONCE ONE Administration Dexamethasone 10 mg 01/27/24 00:38 01/27/24 01:11 Dexamethasone 2 Mg Tablet PO 01/27/24 00:39 10 mg ONCE ONE Administration Medical Decision Making Lab Data MDM Lab Attestation statement: I reviewed the patient's lab results. Labs: Lab Results 01/26/24 Range/Units 23:36 Influenza Type A (PCR) NEGATIVE (Negative) Influenza Type B (PCR) NEGATIVE (Negative) RSV RNA Qual (PCR) NEGATIVE (Negative) SARS-CoV-2 RNA (RT-PCR) NEGATIVE (Negative) Independent Interpretation I performed an independent interpretation of an: Plain X-Ray Radiology Impression Discussion of test interpretation with radiology: I have reviewed the radiologist's reading. Radiologist Impression: nad Discharge Plan Discharge Clinical Impression: Bronchitis Patient Disposition: Home, Self-Care Instructions: Acute Bronchitis (ED) Additional Instructions: Stop smoking Take antibiotics and cough drops as prescribed Use inhaler/nebulizer Prescriptions: New benzonatate 200 mg capsule 200 mg PO TID PRN (Reason: cough) Qty: 20 0RF prednisone 20 mg tablet 40 mg PO DAILY Qty: 10 0RF cefuroxime axetil 500 mg tablet 500 mg PO BID 7 Days Qty: 14 0RF No Action ibuprofen 800 mg tablet 800 mg PO Q8H PRN (Reason: pain) Qty: 20 0RF acetaminophen [Tylenol Extra Strength] 500 mg tablet 1,000 mg PO QID PRN (Reason: fever or pain) Qty: 60 5RF albuterol sulfate 2.5 mg /3 mL (0.083 %) solution for nebulization 2.5 mg inhalation Q4H PRN (Reason: shortness of breath or wheezing) Qty: 90 0RF (DME) nebulizer and compressor Device See Rx Instructions .Route Qty: 1 0RF Rx Instructions: As directed fluticasone propionate [Flovent HFA] 110 mcg/actuation HFA aerosol inhaler 1 puff inhalation BID budesonide-formoterol [Symbicort] 160-4.5 mcg/actuation HFA aerosol inhaler 2 puff inhalation QID atorvastatin 20 mg tablet 20 mg PO BEDTIME dexmethylphenidate [Focalin XR] 20 mg capsule,ER biphasic 50-50 20 mg PO BEDTIME prazosin 2 mg capsule 2 mg PO BEDTIME varenicline 1 mg tablet 1 mg PO BID Rx Instructions: take with full glass of water naproxen 500 mg tablet 500 mg PO BID 7 Days Qty: 14 0RF duloxetine 30 mg capsule,delayed release(DR/EC) 60 mg PO BEDTIME oxycodone-acetaminophen 5-325 mg tablet 1 tab PO BID Qty: 14 0RF Rx Instructions: Partial Fill upon patient request. oxycodone-acetaminophen 5-325 mg tablet 1 tab PO Q8H PRN (Reason: pain) Qty: 14 0RF Rx Instructions: Partial Fill upon patient request. cholecalciferol (vitamin D3) [Vitamin D3] 25 mcg (1,000 unit) capsule 25 mcg PO BEDTIME oxcarbazepine 600 mg tablet 1,800 mg PO BEDTIME oxcarbazepine 300 mg tablet 300 mg PO DAILY gabapentin 600 mg tablet 600 mg PO BEDTIME clonidine HCl 0.1 mg tablet 0.1 mg PO BEDTIME PRN (Reason: Anxiety) albuterol sulfate [ProAir HFA] 90 mcg/actuation HFA aerosol inhaler 2 puff inhalation Q6H PRN (Reason: wheezing) diphenhydramine HCl [Banophen] 25 mg capsule 100 mg PO BEDTIME buspirone 7.5 mg tablet 7.5 mg PO BEDTIME Print Language: Kazakh
[2024-01-27] MEDS: Albuterol Sulfate 2.5 MG, Albuterol/Iprat 2.5/0.5MG 3 ML 3 ML INHALE (00:46)
[2024-01-27 00:47] VITALS: PULSE 82; RESP 22; O2SAT 94
[2024-01-27] MEDS: cefuroxime axetiL 500 MG TABLET PO (01:11)
[2024-01-27] MEDS: dexAMETHasone 2 MG TABLET 10 MG PO (01:11)
[2024-01-27] MEDS: Benzonatate 100 MG CAPSULE 200 MG PO (01:11)
[2024-01-27 01:15] VITALS: PULSE 92; O2SAT 96
[2024-01-27 01:46] VITALS: BP 152/100; PULSE 86; RESP 18; TEMP 37.2; O2SAT 97
== END 2024-01-27 01:47 | disposition home or self-care (01) ==
PROVIDERS: Emergency Provider Internal Medicine; PCP Registered Nurse
DX: J40 Bronchitis, not specified as acute or chronic (principal); R06.02 Shortness of breath; R05.9 Cough, unspecified; Z79.899 Other long term (current) drug therapy; Z03.818 Encounter for observation for suspected exposure to other biological agents ruled out
CPT/HCPCS: 0241U; 71046; 94640; 99284; 99285; J8540

== ENCOUNTER 2024-03-25 13:13 | Outpatient (REF) | payer MEDICAID, SELFPAY ==
[2024-03-25 15:32] LABS: Adenovirus PCR Not Detected (Not Detect.); Bordetella parapertussis PCR Not Detected (Not Detect.); Bordetella pertussis PCR Not Detected (Not Detect.); Chlamydia pneumoniae PCR Not Detected (Not Detect.); Coronavirus 229E PCR Not Detected (Not Detect.); Coronavirus HKU1 PCR Not Detected (Not Detect.); Coronavirus NL63 PCR Not Detected (Not Detect.); Coronavirus OC43 PCR Not Detected (Not Detect.); Human metapneumovirus PCR Not Detected (Not Detect.); Influenza A PCR Not Detected (Not Detect.); Influenza B PCR Not Detected (Not Detect.); Mycoplasma pneumoniae PCR Not Detected (Not Detect.); Parainfluenza 1 PCR Not Detected (Not Detect.); Parainfluenza 2 PCR Not Detected (Not Detect.); Parainfluenza 3 PCR Not Detected (Not Detect.); Parainfluenza 4 PCR Not Detected (Not Detect.); RSV PCR Not Detected (Not Detect.); Rhino/Enterovirus PCR Not Detected (Not Detect.)
[2024-03-25 16:02] LABS: SARS-CoV-2 PCR Not Detected (Not Detect.)
== END 2024-03-25 13:14 | disposition home or self-care (01) ==
LOC: HO.HHCLNP 13:13
PROVIDERS: Visit Provider Emergency Medicine
DX: J44.1 Chronic obstructive pulmonary disease with (acute) exacerbation (principal); Z11.52 Encounter for screening for COVID-19
CPT/HCPCS: 87633

== ENCOUNTER 2024-05-14 10:02 | Emergency (ER) | payer MEDICAID, SELFPAY ==
[2024-05-14] VITALS (7 sets, daily range): BP systolic 113–133; BP diastolic 64–87; PULSE 100–125; RESP 20–28; TEMP 37.1–37.6; O2SAT 95–98; BMI 35.2
--- NOTE | ~2024-05-14 | XR_ITS ---
EXAMINATION: XR CHEST CLINICAL INFORMATION: sob COMPARISON: Chest 01/26/2024 TECHNIQUE: 2 views of the chest were obtained. FINDINGS: The lungs are hypoexpanded and clear acute process. The heart size is borderline normal. Pulmonary vascularity is normal. No gross bony abnormality seen. XR/XR chest 2V IMPRESSION: No acute cardiopulmonary process seen. No change from 01/26/2024 Electronically signed by: Gigi Rodriguez MD 05/14/2024 11:56 AM EST
--- NOTE | 2024-05-14 10:25 | ED.SOB ---
HPI - SOB/Dyspnea General Chief Complaint: Dyspnea Stated Complaint: PROD COUGH,SOB 92% RA X1W PER EMS Time Seen by Provider: 05/14/24 10:15 Source: patient, EMS, RN notes reviewed and old records reviewed Mode of arrival: EMS Limitations: no limitations History of Present Illness ED Provider: LAKEISHA MONTES PA-C HPI Narrative: 48 year old female with pmhx significant for chronic back pain, lumbar disc herniation, lumbar radiculopathy, CTS, DVT, pancreatitis, asthma, COPD presents to the ED today via EMS for evaluation of shortness of breath x1 week. Reports associated cough productive of yellow sputum, fever (TMAX 101), wheezing, and diffuse body rash. She reports concern for measles. She states her childhood vaccinations are UTD. She has been taking tylenol at home for fever. Her last dose was at 0700 this morning. She presented to the walk-in clinic today. She was apparently tested for measles while there. She was noted to be saturating 92% on room air. EMS was contacted and patient was transported to the ED. She received a DuoNeb in route. She reports history of asthma/COPD. She is not dependent on oxygen at home. Hx of DVT w/ IVC filter, no longer on AC. Related Data Home Medications ?Medication ?Instructions ?Recorded ?Confirmed albuterol sulfate 90 mcg/actuation 2 puff inhalation Q6H PRN wheezing 08/30/21 10/03/23 aerosol inhaler (ProAir HFA) buspirone 7.5 mg tablet 7.5 mg PO BEDTIME 08/30/21 10/03/23 cholecalciferol (vitamin D3) 25 25 mcg PO BEDTIME 08/30/21 10/03/23 mcg (1,000 unit) capsule (Vitamin D3) clonidine HCl 0.1 mg tablet 0.1 mg PO BEDTIME PRN Anxiety 08/30/21 10/03/23 diphenhydramine HCl 25 mg capsule 100 mg PO BEDTIME insomnia 08/30/21 10/03/23 (Banophen) gabapentin 600 mg tablet 600 mg PO BEDTIME 08/30/21 10/03/23 oxcarbazepine 300 mg tablet 300 mg PO DAILY 08/30/21 10/03/23 oxcarbazepine 600 mg tablet 1,800 mg PO BEDTIME 08/30/21 10/03/23 budesonide-formoterol HFA 160 2 puff inhalation QID 05/07/22 10/03/23 mcg-4.5 mcg/actuation aerosol inhaler (Symbicort) fluticasone propionate 110 1 puff inhalation BID 05/07/22 10/03/23 mcg/actuation HFA aerosol inhaler (Flovent HFA) atorvastatin 20 mg tablet 20 mg PO BEDTIME 11/22/22 10/03/23 dexmethylphenidate 20 mg 20 mg PO BEDTIME 11/22/22 10/03/23 capsule,extended release [id number] (Focalin XR) prazosin 2 mg capsule 2 mg PO BEDTIME 11/22/22 10/03/23 varenicline tartrate 1 mg tablet 1 mg PO BID 11/22/22 10/03/23 duloxetine 30 mg capsule,delayed 60 mg PO BEDTIME 10/03/23 10/03/23 release Previous Rx's ?Medication ?Instructions ?Recorded acetaminophen 500 mg tablet 1,000 mg (2 x 500 mg) PO QID PRN 10/12/20 (Tylenol Extra Strength) fever or pain #60 tabs ibuprofen 800 mg tablet 800 mg PO Q8H PRN pain #20 tabs 10/12/20 albuterol sulfate 2.5 mg/3 mL 2.5 mg (3 mL) inhalation Q4H PRN 09/14/21 (0.083 %) solution for nebulization shortness of breath or wheezing #90 mL nebulizer and compressor #1 ea 09/14/21 naproxen 500 mg tablet 500 mg PO BID 7 days #14 tabs 09/28/23 oxycodone-acetaminophen 5 mg-325 1 tab PO BID pain #14 tabs 10/03/23 mg tablet oxycodone-acetaminophen 5 mg-325 1 tab PO Q8H PRN pain #14 tabs 10/03/23 mg tablet albuterol sulfate 2.5 mg/3 mL 2.5 mg (3 mL) inhalation Q4-6H PRN 01/27/24 (0.083 %) solution for nebulization shortness of breath or wheezing #90 mL benzonatate 200 mg capsule 200 mg PO TID PRN cough #20 caps 01/27/24 cefuroxime axetil 500 mg tablet 500 mg PO BID 7 days #14 tabs 01/27/24 prednisone 20 mg tablet 40 mg (2 x 20 mg) PO DAILY #10 tabs 01/27/24 potassium chloride 10 mEq 10 meq PO DAILY #30 tabs 05/14/24 tablet,extended release prednisone 20 mg tablet 40 mg (2 x 20 mg) PO DAILY 5 days 05/14/24 #10 tabs Allergies Allergy/AdvReac Type Severity Reaction Status Date / Time vancomycin [VANCOMYCIN] Allergy Intermediate RASH, Verified 05/14/24 10:17 ITCHING, BREATHING PROBLEMS Review of Systems Review of Systems: Yes all other systems are reviewed and are negative COUNTS INCLUDE 234 BEDS AT THE [facility] Past Medical History Attestation statement: The following information was validated with the patient. Source: old records reviewed and nursing notes reviewed Medical History Depression Elevated cholesterol COVID-19 Atypical chest pain Asthma exacerbation Fracture of distal phalanx of left middle finger Spondylolisthesis at L4-L5 level Pancreatitis DVT (deep vein thrombosis) in Numbness and tingling in both hands Lumbar radiculopathy Pars defect of lumbar spine Low back pain Carpal tunnel syndrome, bilateral Kidney laceration Tibia fracture Fibula fracture Back pain Surgical History History of surgery on lower extremity S/P IVC filter History of back surgery Status post surgical manipulation of ankle joint History of cholecystectomy Social History Social History Alcohol intake: never Patient Tobacco Use Status: Current everyday Tobacco user Tobacco use type: Cigarette Cigarette Packs Per Day: 1 Cigarettes Per Day: 5 Years Smoked: 33 Substance Use Type: Marijuana service: No Current occupational status: employed Current occupation: disability Physical Exam Vital Signs: Vital Signs: Last Vital Signs Temp 98.8 F 05/14/24 14:55 Pulse 100 05/14/24 14:55 Resp 28 H 05/14/24 14:55 BP 122/66 05/14/24 14:55 Pulse Ox 97 05/14/24 14:55 O2 Del Method Room Air 05/14/24 14:55 BMI result Body Mass Index 35.2 Tachycardic, tachypneic, low-grade temp 99.6?. Satting 97% on room air. General: Well appearing, in no acute distress. Skin: Warm, dry, intact. No rashes or lesions. Head: Normocephalic, atraumatic. EENT: Hearing is intact b/l. Conjunctiva clear. PERRLA. EOM intact. Moist mucous membranes. Hoarse voice. Posterior oropharynx without erythema or edema. No tonsillar exudates or peritonsillar masses. Uvula midline. Controlling secretions and speaking in complete sentences. Neck: Supple without LAD Cardiac: Chest wall symmetric. RRR. no JVD. Lungs: Normal respiratory effort without accessory muscle use. No tripoding. Lungs with diminished breath sounds, scattered wheezes throughout. Ext: Upper and lower extremities atraumatic, without tenderness, deformity, swelling or erythema. No calf tenderness bilaterally. No pitting edema. Neuro: AOx3. Normal speech. Ambulating with steady gait. Course Course Course Narrative: 1230 -- CBC without leukocytosis or left shift. No anemia. H&H stable. Chemistry showing hypokalemia to 2.8. Hypomagnesemia to 1.5. No other acute electrolyte abnormality requiring intervention. Random glucose 131. No SANDRA. Liver function at baseline. Troponin undetectable. EKG showing sinus tachycardia with a rate of 113 beats per minute, no acute ischemic changes or ST elevations. ACS unlikely. Beta quant undetectable. Not . Negative COVID, flu, RSV. Chest x-ray does not demonstrate pneumonia. ddimer wnl at 172 - low suspicion for PE. CTA chest not warranted at this time. > SOB -- patient treated with Xopenex, Solu-Medrol with good effect > hypokalemia -- 10 IV and 60 p.o. repletion ordered > hypomagnesemia -- IV repletion ordered which should help with breathing as well 1449 -- Patient no longer tachycardic. Tachycardia was likely secondary to multiple albuterol treatments, both at home and by EMS. She was treated with a Xopenex in the ED due to tachycardia. Her temp has normalized. She is tachypneic however she was frantically walking around the ED, asking to leave. She received her IV magnesium. She consumed most of her p.o. potassium however we have not yet started IV potassium. she is satting 97% on RA and in no acute respiratory distress. she states she would like to leave as she needs to purchase a new cell phone. I advised that she stay for further potassium repletion. she is declining at this time and would like to leave against medical advise. discussed all risks associated w/ this. she verbalizes understanding. > i have concern for asthma exacerbation. prednisone sent to pharmacy. advised potassium supplementation at home with PCP follow up. to recheck levels. she verbalizes understanding. Medications Administered Discontinued Medications Generic Name Dose Route Start Last Admin Trade Name Freq PRN Reason Stop Dose Admin Levalbuterol HCl 3.75 mg/ 0 mg 05/14/24 10:51 05/14/24 11:02 Ipratropium [place] 0.5 mg INHALE 05/14/24 10:52 1 dose ONCE ONE Administration Magnesium Sulfate 2 gm in 50 mls @ 150 mls/hr 05/14/24 12:11 05/14/24 14:28 Magnesium Sulfate/H2o IV 05/14/24 12:30 Infused ONCE ONE Infusion Potassium Chloride 10 meq in 100 mls @ 100 mls/hr 05/14/24 12:11 05/14/24 14:28 Potassium Chloride/H20 IV 05/14/24 13:10 Infused ONCE ONE Infusion Methylprednisolone Sodium Succinate 125 mg 05/14/24 10:39 05/14/24 12:10 Methylprednisolone Sod Succ 125 Mg/2 Ml Vial IVPUSH 05/14/24 10:40 125 mg ONCE ONE Administration Potassium Chloride 60 meq 05/14/24 12:11 05/14/24 13:00 Potassium Chloride Packet 20 Meq Packet PO 05/14/24 12:12 60 meq ONCE ONE Administration Medical Decision Making Medical Decision Making MDM Narrative: 48 year old female with pmhx significant for chronic back pain, lumbar disc herniation, lumbar radiculopathy, CTS, DVT, pancreatitis, asthma, COPD presents to the ED today via EMS for evaluation of shortness of breath x1 week. patient tachycardic on arrival likely secondary to duoneb, afebrile. not hypoxic. satting 97% on RA. she is nontoxic appearing and in NAD. No respiratory distress no tripoding. Lungs with diminished breath sounds bilaterally with scattered wheezes throughout. No JVD or pitting edema. No calf tenderness bilaterally. She has a hoarse voice, posterior oropharynx without erythema or edema. No tonsillar exudates or peritonsillar masses. Controlling secretions and speaking in complete sentences. I do not appreciate any rash to her body. Differential diagnosis includes asthma, asthma exacerbation, bronchitis, pneumonia, anemia, electrolyte abnormality, ACS, arrhythmia PERC 1- kenny obtained dimer to r/o PE. Unlikely CHF Plan for labs, ekg, viral testing, CXR, ed bronch protocol, re-evaluation. Differential Diagnosis Differential Diagnoses: The differential diagnosis associated with the presentation includes as above. Admission/Observation Consideration of admission/observation: Escalation of care including admission/observation considered admission considered Lab Data MDM Lab Attestation statement: I reviewed the patient's lab results. as above. 05/14/24 11:14 05/14/24 11:14 Labs: Lab Results 05/14/24 Range/Units 11:14 WBC 9.8 (4.8-10.8) X10*3/uL RBC 4.56 (4.20-5.50) X10*6/uL Hgb 14.0 (12.0-16.0) g/dl Hct 39.8 (37.0-47.0) % MCV 87.3 (80.0-98.0) fL MCH 30.7 (27.0-33.0) pg MCHC 35.2 H (31.0-35.0) g/dl RDW 12.6 (11.0-16.0) % Plt Count 288 D (160-400) X10*3/uL MPV 9.9 (9.4-12.3) fL Immature Gran % (Auto) 0.2 (0.0-0.4) % Neut % (Auto) 56.0 (45-73) % Lymph % (Auto) 31.5 (20-40) % [place] % (Auto) 9.2 (2-11) % Eos % (Auto) 2.7 (0-4) % Baso % (Auto) 0.4 (0-2) % Lymph # (Auto) 3.1 (1.2-4.9) X10*3/uL [place] # (Auto) 0.9 (0.1-1.2) X10*3/uL Eos # (Auto) 0.3 (0.0-0.4) X10*3/uL Baso # (Auto) 0.0 (0.0-0.2) X10*3/uL Abs Immat Gran (auto) 0.02 (0.00-0.03) X10*3/uL Absolute Neuts (auto) 5.5 (2.0-8.3) x10*3/uL Absolute Nucleated RBC 0.000 (0.0-0.012) X10*3/uL Nucleated RBC % (auto) 0.0 (0.0-0.2) /100WBC Smear Tech's Comments VERIFIED PT 12.2 (10.9-12.4) SEC INR 1.0 (0.9-1.1) D-Dimer High Sensitivty 172 NG/ML Sodium 141 (135-145) mmol/L Potassium 2.8 L* D (3.3-5.1) mmol/L Chloride 104 (96-108) mmol/L Carbon Dioxide 25 (22-29) mmol/L Anion Gap 15 (12-20) BUN 13 (9-16) mg/dL Creatinine 0.95 (0.5-1.4) mg/dL Estim Creat Clear Calc 86.8 Estimated GFR > 60 Random Glucose 131 H (60-115) mg/dL Calcium 9.4 (8.4-10.2) mg/dL Magnesium 1.5 L (1.6-2.6) mg/dL Total Bilirubin 0.3 (0.0-1.0) mg/dL AST 21 (5-31) U/L ALT 32 H (0-31) U/L Alkaline Phosphatase 78 (39-117) U/L Troponin I High Sens < 2.7 (<3.5-17.0) ng/L Total Protein 8.1 H (6.5-8.0) g/dL Albumin 4.3 (3.5-5.0) g/dL Beta HCG, Quant < 2 mIU/mL Influenza Type A (PCR) NEGATIVE (Negative) Influenza Type B (PCR) NEGATIVE (Negative) RSV RNA Qual (PCR) NEGATIVE (Negative) SARS-CoV-2 RNA (RT-PCR) NEGATIVE (Negative) Independent Interpretation I performed an independent interpretation of an: EKG and Plain X-Ray Interpretation: EKG showing sinus tachycardia with a rate of 113, QT 376, QTC 515, no acute ischemic changes or ST elevations Chest x-ray without infiltrate or consolidation Radiology Impression Discussion of test interpretation with radiology: I have reviewed the radiologist's reading. Radiologist Impression: Procedure(s): XR chest 2V Accession Number(s): [id number] cc: Lakeisha Montes; [facility]~ EXAMINATION: XR CHEST CLINICAL INFORMATION: sob COMPARISON: Chest 01/26/2024 TECHNIQUE: 2 views of the chest were obtained. FINDINGS: The lungs are hypoexpanded and clear acute process. The heart size is borderline normal. Pulmonary vascularity is normal. No gross bony abnormality seen. XR/XR chest 2V IMPRESSION: No acute cardiopulmonary process seen. No change from 01/26/2024 Electronically signed by: Gigi Rodriguez MD 05/14/2024 11:56 AM EST Independent Historian Clinical information obtained from an independent historian. History obtained from or confirmed by: EMS External Record Review External record reviewed: Inpatient record, Office record, Outpatient record, Prior outpatient labs, Prior outpatient radiology and Primary care record Prescription Management I considered prescription management with: Other (prednisone) Chronic Conditions Patient?s care impacted by: Other (asthma/ COPD, VTE) Social Determinants Patient?s care significantly limited by Social Determinants of Health including: Other Social Determinant of Health Critical Care Time Critical Care Time Critical Care Time: No Discharge Plan Discharge Clinical Impression: Asthma with exacerbation, Acute hypokalemia, Hypomagnesemia Patient Disposition: Left Against Medical Advice Instructions: Asthma (ED), Potassium Content of Foods List (ED), Hypokalemia (ED), Hypomagnesemia (ED) Additional Instructions: Your blood work today revealed low potassium and magnesium levels. Your magnesium was repleted however you are choosing to leave before completing potassium repletion. I have sent potassium supplementation to your pharmacy. Please follow up with your primary care provider in 1-2 weeks to recheck your potassium. Low levels of potassium can cause cardiac arrhythmias. Your blood work is otherwise reassuring. You tested negative for COVID, flu, RSV. Your chest x-ray does not demonstrate pneumonia. I am sending prednisone to your pharmacy. Take this over the next 5 days to help with your breathing. Continue home inhaler/ nebs as needed. If you find yourself using these more often without improvement, please return to the ED as you may require further treatment. Follow up with PCP as needed. Return with new or worsening symptoms. In the case of an emergency call 911. Prescriptions: New prednisone 20 mg tablet 40 mg PO DAILY 5 Days Qty: 10 0RF potassium chloride 10 mEq tablet extended release 10 meq PO DAILY Qty: 30 0RF No Action ibuprofen 800 mg tablet 800 mg PO Q8H PRN (Reason: pain) Qty: 20 0RF acetaminophen [Tylenol Extra Strength] 500 mg tablet 1,000 mg PO QID PRN (Reason: fever or pain) Qty: 60 5RF albuterol sulfate 2.5 mg /3 mL (0.083 %) solution for nebulization 2.5 mg inhalation Q4H PRN (Reason: shortness of breath or wheezing) Qty: 90 0RF (DME) nebulizer and compressor Device See Rx Instructions .Route Qty: 1 0RF Rx Instructions: As directed fluticasone propionate [Flovent HFA] 110 mcg/actuation HFA aerosol inhaler 1 puff inhalation BID budesonide-formoterol [Symbicort] 160-4.5 mcg/actuation HFA aerosol inhaler 2 puff inhalation QID atorvastatin 20 mg tablet 20 mg PO BEDTIME dexmethylphenidate [Focalin XR] 20 mg capsule,ER biphasic 50-50 20 mg PO BEDTIME prazosin 2 mg capsule 2 mg PO BEDTIME varenicline tartrate 1 mg tablet 1 mg PO BID Rx Instructions: take with full glass of water benzonatate 200 mg capsule 200 mg PO TID PRN (Reason: cough) Qty: 20 0RF prednisone 20 mg tablet 40 mg PO DAILY Qty: 10 0RF cefuroxime axetil 500 mg tablet 500 mg PO BID 7 Days Qty: 14 0RF albuterol sulfate 2.5 mg /3 mL (0.083 %) solution for nebulization 2.5 mg inhalation Q4-6H PRN (Reason: shortness of breath or wheezing) Qty: 90 0RF naproxen 500 mg tablet 500 mg PO BID 7 Days Qty: 14 0RF duloxetine 30 mg capsule,delayed release(DR/EC) 60 mg PO BEDTIME oxycodone-acetaminophen 5-325 mg tablet 1 tab PO BID Qty: 14 0RF Rx Instructions: Partial Fill upon patient request. oxycodone-acetaminophen 5-325 mg tablet 1 tab PO Q8H PRN (Reason: pain) Qty: 14 0RF Rx Instructions: Partial Fill upon patient request. cholecalciferol (vitamin D3) [Vitamin D3] 25 mcg (1,000 unit) capsule 25 mcg PO BEDTIME oxcarbazepine 600 mg tablet 1,800 mg PO BEDTIME oxcarbazepine 300 mg tablet 300 mg PO DAILY gabapentin 600 mg tablet 600 mg PO BEDTIME clonidine HCl 0.1 mg tablet 0.1 mg PO BEDTIME PRN (Reason: Anxiety) albuterol sulfate [ProAir HFA] 90 mcg/actuation HFA aerosol inhaler 2 puff inhalation Q6H PRN (Reason: wheezing) diphenhydramine HCl [Banophen] 25 mg capsule 100 mg PO BEDTIME buspirone 7.5 mg tablet 7.5 mg PO BEDTIME Referrals: Sunshine Vela, LADLE PULLER [Primary Care Provider] - Stand Alone Forms: Against Medical Advice Interventions: ED Discharge Assessment Last Done: 05/14/24 14:55 Discharge Date/Time: 05/14/24 14:56 Print Language: Mohawk
--- NOTE | 2024-05-14 10:26 | ECG_ITS ---
Test Reason : SOB Blood Pressure : */* mmHG Vent. Rate : 113 BPM Atrial Rate : 113 BPM P-R Int : 132 ms QRS Dur : 90 ms QT Int : 376 ms P-R-T Axes : 48 21 38 degrees QTcB Int : 515 ms Sinus tachycardia Minimal voltage criteria for LVH, may be normal variant ( R in aVL ) Borderline ECG When compared with ECG of 13-Dec-2022 12:46, No significant change was found Referred By: Lakeisha Montes Electronically Signed By: FARHANA PERALTA MD
[2024-05-14] MEDS: levalbuterol HCL 3.75 MG, Ipratropium Bromide 0.5 MG INHALE (11:02)
[2024-05-14 11:25] LABS: Basophils Percent Auto 0.4 % (0-2); Eosinophils Absolute Auto 0.3 X10*3/uL (0.0-0.4); Eosinophils Percent Auto 2.7 % (0-4); Hematocrit 39.8 % (37.0-47.0); Imm Gran Abs Auto 0.02 X10*3/uL (0.00-0.03); Imm Gran Pct Auto 0.2 % (0.0-0.4); Lymphocytes Absolute Auto 3.1 X10*3/uL (1.2-4.9); Lymphocytes Percent Auto 31.5 % (20-40); MANUAL DIFF FLAG SCAN; Mean Corpuscular HGB Conc 35.2 g/dl (31.0-35.0); Mean Corpuscular Hemoglobin 30.7 pg (27.0-33.0); Mean Corpuscular Volume 87.3 fL (80.0-98.0); Monocytes Absolute Auto 0.9 X10*3/uL (0.1-1.2); Monocytes Percent Auto 9.2 % (2-11); Neutrophils Absolute Auto 5.5 x10*3/uL (2.0-8.3); PLT CLUMP 1; Red Blood Count 4.56 X10*6/uL (4.20-5.50); Red Cell Distribution Width 12.6 % (11.0-16.0); SCAN SMEAR FLAG 1
[2024-05-14 11:33] LABS: Prothrombin Time 12.2 SEC (10.9-12.4)
[2024-05-14 11:52] LABS: Troponin-I High Sensitivity < 2.7 ng/L (<3.5-17.0)
[2024-05-14 12:01] LABS: Influenza A PCR NEGATIVE (Negative); Influenza B PCR NEGATIVE (Negative); Resp Syncy Virus RNA Qual PCR NEGATIVE (Negative); SARS COV2 PCR INHOUSE NEGATIVE (Negative)
[2024-05-14 12:02] LABS: Alanine Aminotransferase 32 U/L (0-31); Albumin Level 4.3 g/dL (3.5-5.0); Alkaline Phosphatase 78 U/L (39-117); Anion Gap 15 (12-20); Aspartate Amino Transferase 21 U/L (5-31); Bilirubin Total 0.3 mg/dL (0.0-1.0); Blood Urea Nitrogen 13 mg/dL (9-16); Calcium 9.4 mg/dL (8.4-10.2); Carbon Dioxide 25 mmol/L (22-29); Chloride 104 mmol/L (96-108); Creatinine Clr Calc Pharmacy 86.8; Estimated Glomerular Filt Rate > 60; Glucose Random 131 mg/dL (60-115); HCG Quantitative < 2 mIU/mL; Magnesium 1.5 mg/dL (1.6-2.6); Sodium 141 mmol/L (135-145); Total Protein 8.1 g/dL (6.5-8.0)
[2024-05-14 12:07] LABS: Potassium 2.8 mmol/L (3.3-5.1)
--- OUTSIDE RECORDS SUMMARY | 2024-05-14 12:07 | XMS_ITS | Clinical Summary ---
Author Organization [facility] Address [address] [place] [address] Care Team Providers Care Psychometrician Name Role Phone Shelly Hein PA-C Primary Care Provider Source Comments PLEASE NOTE, if this patient is a minor, it may be UNLAWFUL to discuss sensitive information that is contained in these records (such as FAMILY PLANNING, MENTAL HEALTH or SUBSTANCE ABUSE) with the minor patient's parent or other person without the patient's specific authorization.[facility] Allergies Active Allergy Reactions Criticality Noted Date Comments Quetiapine 06/09/2014 Trazodone 06/09/2014 Vancomycin Rash 06/09/2014 Medications cloNIDine HCl (CATAPRES) 0.1 mg tablet Take 0.1 mg by mouth 2 (two) times daily as needed. 1 5 Active gabapentin (NEURONTIN) 300 mg capsule Take 300 mg by mouth 2 (two) times daily. 1 5 Active busPIRone (BUSPAR) 7.5 mg tabletIndication s:Anxiety Take 1 Tab by mouth nightly at bedtime 30 Tab 7 Active hydrOXYzine pamoate (VISTARIL) 25 mg capsuleIndicatio ns:Anxiety TAKE 1 TO 2 CAPSULES 3 TIMES A DAY NEEDED FOR ANXIETY 2 7 Active oxCARBAZEPINE (TRILEPTAL) 600 mg tabletIndication s:Anxiety TAKE 1 TAB IN THE MORNING AND 2 TABS AT BEDTIME 2 7 Active traZODone (DESYREL) 50 mg tabletIndication s:Anxiety TAKE 1 + 1/2 TABLETS BY MOUTH EVERY DAY AT BEDTIME 1 09/12/201 7 Active cyclobenzaprine (FLEXERIL) 10 mg tabletIndication s:Chronic right-sided low back pain with right-sided sciatica TAKE 1 TABLET BY MOUTH TWICE A DAY 60 Tab 3 9 Active polyethylene glycol 3350 17 gram packetIndication s:Difficulty passing stool Take 17 g by mouth 2 (two) times daily 28 Each 0 Active meclizine (ANTIVERT) 25 mg tabletIndication s:Dizziness Take 1 Tab by mouth 2 (two) times daily as needed for dizziness 30 Tab 3 0 Active montelukast (SINGULAIR) 10 mg tabletIndication s:Intermittent asthma, uncontrolled TAKE 1 TABLET BY MOUTH DAILY AT BEDTIME 30 Tab 5 0 Active topiramate (TOPAMAX) 100 mg tabletIndication s:Persistent headaches TAKE 1 TABLET BY MOUTH DAILY 28 Tab 3 0 Active ibuprofen 600 mg tabletIndication s:Chronic right-sided low back pain with right-sided sciatica Take 1 Tab by mouth 4 (four) times daily as needed for headaches or pain 120 Tab 1 0 Active budesonide-formo teroL (SYMBICORT) 160-4.5 mcg/actuation inhalerIndicatio ns:Mild intermittent asthma, unspecified whether complicated Inhale 2 Puffs into the lungs 2 (two) times daily 10.2 Inhaler 3 0 Active albuterol sulfate (PROVENTIL) 2.5 mg /3 mL (0.083 %) nebulizer solutionIndicati ons:Mild intermittent asthma, unspecified whether complicated Take 3 mL by nebulization every 6 (six) hours as needed for wheezing 125 mL 1 Active cholecalciferol, vitamin D3, 25 mcg (1,000 unit) capsuleIndicatio ns:Low serum vitamin D Take 1 Capsule by mouth once daily 30 Capsule 2 1 Active acetaminophen (TYLENOL) 500 mg tabletIndication s:Migraine without aura and without status migrainosus, not intractable,Cable Coverer amn right-sided low back pain with right-sided sciatica TAKE 1 TABLET BY MOUTH EVERY 6 HOURS NEEDED FOR PAIN 90 Tablet 2 Active FOCALIN XR 20 mg BP50 TAKE 1 CAPSULE BY MOUTH EVERY DAY IN THE MORNING 2 Active FLUoxetine (PROZAC) 20 mg capsule Take 60 mg by mouth nightly at bedtime 2 Active prazosin (MINIPRESS) 1 mg capsule TAKE 1 CAPSULE BY MOUTH EVERYDAY AT BEDTIME 2 Active BIOTENE DRY MOUTH ORAL RINSE mwsh USE DIRECTED ON BOTTLE FOR DRY MOUTH FROM PSYCHOTROPIC MEDICATIONS. *NC OTC* 2 Active EAR DROPS, CARBAMIDE PEROXIDE, 6.5 % otic solutionIndicati ons:Bilateral impacted cerumen PLACE 5 DROPS INTO BOTH EARS 2 TIMES DAILY. 15 mL 3 Active VENTOLIN HFA 90 mcg/actuation inhalerIndicatio ns:Moderate persistent asthma without complication INHALE 2 PUFFS INTO THE LUNGS EVERY 6 HOURS NEEDED FOR SHORTNESS OF BREATH OR WHEEZING. 18 Each 2 4 Active fluticasone furoate (ARNUITY ELLIPTA) 100 mcg/actuation dsdvIndications: Moderate persistent asthma without complication Inhale 1 Puff into the lungs once daily 30 Each 5 4 Active atorvastatin (LIPITOR) 20 mg tabletIndication s:Dyslipidemia TAKE 1 TABLET BY MOUTH EVERY DAY 90 Tablet 1 4 Active Active Problems Problem Noted Date Diagnosed Date Dyslipidemia 02/20/2017 H/O major orthopedic surgery 06/09/2014 Arthritis 06/09/2014 Intermittent asthma, uncontrolled 06/09/2014 Overview (02/20/2017): PFTS done 01/29/17 showed moderate ventilatory defect without obstruction, Vital capacity is reduced probably due to restrictive process and had significant response to bronchodilator. There was significant airway disease with PCO2 <.025 mg/ml methacholine consistent with asthma . Hx of pancreatitis 06/09/2014 History of kidney stones 06/09/2014 Immunizations Name Administration Dates Next Due Flu, Cell Culture based, Pre servative Free, 6m+, Flucelvax 12/23/2019 Flu, Preservative Free 12/04/2018 INFLUENZA, UNSPECIFIED 12/16/2009 Moderna COVID-19 Vaccine, re d cap blue label, 12+ Primary Series 06/26/2020,05/28/2020 PNEUMOCOCCAL POLYSACCHARIDE PPV23 11/13/2016 PPD 08/09/2016 TDAP 01/28/2020 Td (adult), 5 Lf tetanus toxoid, preservative fr ee 05/20/2015 Family History Medical History Relation Name Comments Cancer Maternal Grandmother Diabetes Sister Relation Name Status Comments Maternal Grandmother Sister Social History Tobacco Use Types Packs/Day Years Used Date Smoking Tobacco: Every Day Cigarettes Smokeless Tobacco: Never Tobacco Cessation:Ready to Q uit: Not Asked; Counseling Given: Not Answered Comments:3 a day on chantix Alcohol Use Standard Drinks/Week Comments No 0 (1 standard drink = 0.6 oz pure alcohol) former abuse, now sober since [id number] Social Connections Answer Date Recorded Connectedness 0 12/26/2021 Financial Resource Strain Answer Date R ecorded Financial Resource Strain 0 2021 Stress Answer Date Recorded Stress 0 12/26/2021 Physical Activity Answer Date Recorded Physical Activity 0 06/14/2020 Food Insecurity Answer Date Recorded Food 0 12/26/2021 Transportation Needs Answer Date Record ed Transportation 0 12/26/2021 Housing Stability Answer Date Recorded Housing 0 12/26/2021 Safety and Environment Answer Date Garrett rded Safety 0 12/26/2021 Utilities Answer Date Recorded Utilities 0 12/26/2021 Employment Answer Date Recorded Stress 0 06/14/2020 Comments No Sex and Gender Information Value Date Recorded Sex Assigned at Female 01/07/2017 8:24 PM PDT Legal Sex Female 1:11 PM PDT Gender Identity Female 01/07/2017 8:24 PM PDT Sexual Orientation Straight 01/07/2017 8: 24 PM PDT Last Filed Vital Signs Vital Sign Reading Time Taken Comments Blood Pressure 110/60 10/25/2021 8:59 AM EDT Pulse 80 10/25/2021 8:59 AM EDT Temperature 37.2 ??C (98.9 ??F) 10/25/2021 8:59 AM ED T Respiratory Rate 20 10/25/2021 8:59 AM EDT Oxygen Saturation 99% 08/24/2017 10:59 AM EDT Inhaled Oxygen Concentration - - Weight 97.5 kg (215 lb) 10/25/2021 8:59 AM EDT Height 167.6 cm (5' 6 ) 01/28/2020 9:31 AM EST Body Mass Index 34.7 01/28/2020 9:31 AM EST Plan of Treatment Health Maintenance Due Date Last Done Comments HPV Screening 1975 Imm-Hepatitis B (1 of 3 - 19 + 3-dose series) 10/23/1995 Imm-Pneumococcal (2 of 2 - PCV) 11/13/2017 7 Breast Cancer Screening (Mammogram) 04/05/2019 04/05/2018 Cervical Cancer Screening 08/16/2019 Pap + HPV 08/16/2019 08/15/2016 Pap Smear 08/16/2019 08/15/2016 CT Colonography 2021 FIT/gFOBT 2021 Fecal DNA 2021 Flexible Sigmoidoscopy 2021 Annual Preventive Care Visit 10/25/2022, 08/15/2016, 07/06/2015 Hypertension Screening (#1) 10/25/2022 Tobacco Cessation Counseling (#1) 10/25/2022 022 Tobacco Screening 10/25/2022 10/25/2021 Relationship Safety Screening/Counseling 12/26/2022 12/26/2021, 10/25/2021, 06/14/2020 Lipid Screening 05/19/2023 05/18/2022, 10/10, 01/28/2020, Additional history exists [id number] ( season) 2023 03/31/2022, 06/26/2020, 05/28/2020 Imm-Influenza (#1) 2023 12/01/2020, 1 , 12/04/2018, Additional history exists Alcohol and Drug Screen 03/12/2024 12/27/19 22, 10/25/2021, 06/14/2020, Additional history exists Depression Annual Screen 03/12/2024 022, 06/18/2018 (Managed by Outside Provider), 08/07/2017 (Managed by Outside Provider) Diabetes Screening 10/25/2024 10/25/2021, 1 03/29/2019, 01/28/2020, Additional history exists Colonoscopy 05/15/2032 05/15/2022 Colorectal Cancer Screening 05/15/2032 Imm-DTaP/Tdap/Td (3 - Td or Tdap) 08/27/2032 08/27/2022, 01/28/2020, 05/20/2015 Hepatitis C Screening Completed 01/27/2015 HIV Screening Completed 05/18/2022, 01/27/2015 Cervical Ablation/Cold-Knife Conization Discontinued Cervical Cryotherapy Discontinued Colposcopy Discontinued Endometrial Biopsy Discontinued Excision/Leep Discontinued HPV Genotyping Discontinued Vaginal Pap Discontinued Vulvoscopy Discontinued Procedures Procedure Name Priority Date/Time Associated Diagnosis Comments REFERRAL FOR COLONOSCOPY Routine 05/15/2022 3:00 AM EST Colon cancer screening COMPREHENSIVE METABOLIC PANEL Routine 10/25/2021 9:26 AM EDT Annual physical exam Dyslipidemia LIPID PANEL Routine 10/25/2021 9:26 AM EDT Annual physical exam Dyslipidemia MAMMOGRAM BI-RADS, ABSTRACTED Routine 04/05/2018 2:17 PM EST PAP LIQ BASED, HPV W/ RFX HPV 16/18 Routine 08/15/2016 1:32 PM EDT Well woman exam with routine gynecological exam ANTIBODY HIV-1&HIV-2 SINGLE RESULT Routine 01/27/2015 9:45 AM EST Unprotected sex HEPATITIS A,B,C PANEL Routine 01/27/2015 9:45 AM EST Unprotected sex from Last 3 Months or Most Recently Relevant to Health Maintenance Results * REFERRAL FOR COLONOSCOPY (05/15/2022 3:00 AM EST) 05/15/2022 3:00 AM EST Shelly Hein PA-C REFERRAL Edited Resul t - Final * (ABNORMAL) LIPID PANEL (10/25/2021 9:26 AM EDT) CHOLESTEROL, TOTAL 241(H) <200 mg/dL [facility] HDL CHOLESTEROL 51 > OR = 50 mg/dL [facility] TRIGLYCERIDES 165(H) <150 mg/dL [facility] LDL-CHOLESTEROL 159(H) 99 mg/dL (calc) [facility] Comment: Reference range: <100 Desirable range <100 mg/dL for primary prevention; ?? <70 mg/dL for patients with CHD or diabetic patients with > or = 2 CHD risk factors. LDL-C is now calculated using the Yumiko calculation, which is a validated novel method providing better accuracy than the Friedewald equation in the estimation of LDL-C. Percy ESPINOZA et al. GERTRUDE. 2013;310(19): 9474-2073 (http://education.[employer]/faq/KEP442) CHOL/HDLC RATIO 4.7 <5.0 (calc) [employer] NON-HDL CHOLESTEROL 190(H) <130 mg/dL (calc) [employer] Comment: For patients with diabetes plus 1 major ASCVD risk factor, treating to a non-HDL-C goal of <100 mg/dL (LDL-C of <70 mg/dL) is considered a therapeutic option. Blood Blood / Unknown 10/25/2021 9 :26 AM EDT 10/25/2021 9:27 AM EDT Narrative [facility] - 10/28/2021 12:56 AM EDT FASTING:YES us Shelly Hein PA-C LAB - BLOOD DRAW Final Resul t [facility] [address] [address], [employer] [address] [address] * (ABNORMAL) COMPREHENSIVE METABOLIC PANEL (10/25/2021 9:26 AM EDT) GLUCOSE 102(H) 65 - 99 mg/dL [employer] Comment: ?Fasting reference interval For someone without known diabetes, a glucose value between 100 and 125 mg/dL is consistent with prediabetes and should be confirmed with a follow-up test. UREA NITROGEN (BUN) 21 7 - 25 mg/dL [employer] CREATININE (blood) 0.91 0.50 - 0.99 mg/dL [employer] EGFR 79 > OR = 60 mL/min/1 .73m2 [employer] Comment: The eGFR is based on the CKD-EPI 2020 equation. To calculate the new eGFR from a previous Creatinine or Cystatin C result, go to https://www.kidney.org/professionals/ kdoqi/gfr%5Fcalculator BUN/CREATININE RATIO NOT APPLICABLE 6 - 22 [facility] SODIUM 139 135 - 146 mmol/L [facility] POTASSIUM 4.0 3.5 - 5.3 mmol/L [facility] CHLORIDE 106 98 - 110 mmol/L [facility] CARBON DIOXIDE 23 20 - 32 mmol/L [facility] CALCIUM 9.0 8.6 - 10.2 mg/dL [facility] PROTEIN, TOTAL 7.6 6.1 - 8.1 g/dL [facility] ALBUMIN 4.2 3.6 - 5.1 g/dL [facility] GLOBULIN 3.4 1.9 - 3.7 g/dL (calc) [facility] ALBUMIN/GLOBUL IN RATIO 1.2 1.0 - 2.5 (calc) [facility] BILIRUBIN, TOTAL 0.2 0.2 - 1.2 mg/dL [facility] ALKALINE PHOSPHATASE 91 31 - 125 U/L [facility] AST 13 10 - 35 U/L [facility] ALT 15 6 - 29 U/L [facility] Blood Blood / Unknown 10/25/2021 9 :26 AM EDT 10/25/2021 9:27 AM EDT Narrative [facility] - 10/28/2021 12:56 AM EDT FASTING:YES Shelly Hein PA-C LAB - BLOOD DRAW Edited Resu lt - Final [facility] [address] [address], [employer] [facility] [address] [address] * MAMMOGRAM BI-RADS, ABSTRACTED (04/05/2018 2:17 PM EST) BI-RADS ASSESSMENT 1 - Negative: means that there is no significant or noticeable abnormality to report. BI-RADS FOLLOW-UP 1 - Continue annual screening mammography (for women over age 40). Anatomical Region Laterality Modality Other Impressions 04/05/2018 2:17 PM EST As per [facility]. No mammographic evidence of malignancy. Provider Maryjo [facility] MAMMO Final Result * PAP LIQ BASED, HPV W/ RFX HPV 16/18 (08/15/2016 1:32 PM EDT) Cytologic material (specimen) Cervix uteri structure / Unknown 08/15/2016 1:32 PM EDT Impressions [facility] - 08/15/2016 1:32 PM EDT ThinPrep Pap, Imaged: ATYPICAL SQUAMOUS CELLS OF UNDETERMINED SIGNIFICANCE (ASCUS) SOURCE: ThinPrep Pap HPV Any DX: Reflex 16 and 18, Cervical, Imaged: CLINICAL INFORMATION: HPV Any Diagnosis. LMP 08/10/16 Perri [facility] LAB - NO BLOOD DRAW Final Resu lt [facility] [address] [place] [address], * (ABNORMAL) HEPATITIS A,B,C PANEL (01/27/2015 9:45 AM EST) HEPATITIS B SURFACE ANTIGEN NEGATIVE NEGATIVE [facility] HEPATITIS C VIRUS DIAGNOSTIC NEGATIVE NEGATIVE [facility] HEPATITIS A ANTIBODY TOTAL POSITIVE(A) NEGATIVE [facility] HEPATITIS B CORE ANTIBODY NEGATIVE NEGATIVE [facility] HEPATITIS B SURFACE ANTIBODY POSITIVE(A) NEGATIVE [facility] Comment: Hepatitis B surface antibody testing performed at reference lab due to reagent backorder. Reference range: Negative: Inconsistent with immunity, less than 10 mIU/mL Positive: ? Consistent with immunity, greater than 9.9 mIU/mL Testing performed at: [facility] [address] [place] [id number] PHONE: Blood specimen (specimen) Blood / Unknown 01/27/2015 9:45 AM EST 01/27/2015 12:04 PM EST Narrative [facility] [employer] [facility] - 01/27/2015 1:41 PM EST [employer] [address] [place] [address] PT ID [id number] ORD# [id number] Shilpa Meyers NP LAB - BLOOD DRAW Edited Result - Final Performing Organization Address [facility]/ZIP Co de Phone Number [facility] [address] [place] [address], * HIV-1 & HIV-2 ANTIBODIES (01/27/2015 9:45 AM EST) [facility] HIV 1 AND 2 ANTIBODY SCREEN NEGATIVE NEGATIVE [facility] Comment: Effective 11/17/14, [employer] has replaced the HIV screening test with a 4th generation HIV Ag/Ab Combo assay. This assay allows for the simultaneous qualitative detection of HIV p24 antigen and antibodies to HIV type 1 (including group O) and type 2. The assay is intended to be used as an aid in the diagnosis of HIV infection in pediatric and adult populations, including women. ??The 4th generation assay allows for earlier detection of HIV infection by detecting the presence of the HIV-1 p24 antigen as well as the traditional antibodies. ??Use of a 4th generation assay is the current CDC recommendation for HIV screening. Blood specimen (specimen) Blood / Unknown 01/27/2015 9:45 AM EST 01/27/2015 12:04 PM EST Narrative [facility] - 01/27/2015 2:10 PM EST [facility] [employer] [address] [place] [address] PT ID [id number] ORD# [id number] Shilpa Meyers NP LAB - BLOOD DRAW Edited Result - Final Performing Organization Address City/[facility]/ZIP Co de Phone Number [address] [address], from Last 3 Months or Most Recently Relevant to Health Maintenance Insurance [id number] Care Teams Psychometrician Relationship Specialty Start Date End Date Shelly Hein PA-C [facility] [place] [address] PCP - General FAMILY MEDICINE PA 12/17/19
--- OUTSIDE RECORDS SUMMARY | 2024-05-14 12:07 | XMS_ITS | Clinical Summary ---
Author Organization [facility] Address [address] [place] [address] Care Team Providers Care Credit Card Analyst Name Role Phone Shelly Hein Primary Care Provider [phone] Social History Tobacco Use Types Packs/Day Years Used Date Smoking Tobacco: Never Assessed Comments Unknown Sex and Gender Information Value Date Recorded Sex Assigned at Not on file Legal Sex Female 12:24 AM EST Gender Identity Not on file Sexual Orientation Not on file Plan of Treatment Health Maintenance Due Date Last Done Comments Breast Cancer Screening 1975 DTaP,Tdap,and Td Vaccines (1 - Tdap) 10/23/1995 Hepatitis B Vaccines (1 of 3 - 19+ 3-dose series) 10/23/1995 Pneumococcal Vaccine: Pediat rics (0 to 5 Years) and At-Risk Patients (6 to 64 Years) (1 of 2 - PCV) 10/23/1995 Cervical Cancer Screening: P ap Smear 09/26/2018 09/26/2017 Cholesterol Screening (Lipid Panel) 06/05/2022 Colorectal Cancer Screening: Colonoscopy 06/05/2022 Depression Screening 06/05/2022 HIV Screening 06/05/2022 Hepatitis C Screening 06/05/2022 Social Influencers of Health Screening 06/05/2022 COVID-19 Vaccine ( - 2023-2 5 season) 2023 Influenza Vaccine (#1) 2023 HIB Vaccines Aged Out No longer eligi ble based on patient's age to complete this topic HPV Vaccines Aged Out No longer eligi ble based on patient's age to complete this topic Hepatitis A Vaccines Aged Out No long er eligible based on patient's age to complete this topic IPV Vaccines Aged Out No longer eligi ble based on patient's age to complete this topic MMR Vaccines Aged Out No longer eligi ble based on patient's age to complete this topic Meningococcal ACWY Vaccine Aged Out N o longer eligible based on patient's age to complete this topic Meningococcal B Vacine Aged Out No lo nger eligible based on patient's age to complete this topic RSV Immunization Patients Un ladan 20 months Aged Out No longer eligible b ased on patient's age to complete this topic Varicella Vaccines Aged Out No longer eligible based on patient's age to complete this topic Procedures Procedure Name Priority Date/Time Associated Diagnosis Comments PAP SMEAR Routine 09/26/2017 from Last 3 Months or Most Recently Relevant to Health Maintenance Results * Pap smear (09/26/2017) 09/26/2017 Narrative HISTORICAL TESTING LAB RESULTING AGENCY - 10/08/2017 1:27 PM EDT [id number] THINPREP PAP, IMAGED: NEGATIVE FOR SQUAMOUS INTRAEPITHELIAL LESION AND MALIGNANCY ??. REACTIVE CELLULAR CHANGES. HYPERKERATOSIS IS PRESENT. RESULT OF APTIMA HIGH RISK HPV ASSAY: ?? NEGATIVE ? (SEROTYPES 16,18,31,33,35,39,45,51,52,56,58,59,66,68) GISELL LOPEZ(ASCP) (CASE SCREENED 09 28 2017) BUDDY HERNANDEZ M.D., PATHOLOGIST (CASE ELECTRONICALLY SIGNED 10 05 2017) ADEQUACY: SATISFACTORY. ENDOCERVICAL/TRANSFORMATION ZONE COMPONENT PRESENT. SOURCE: THINPREP PAP HPV ANY DX: ??REFLEX 16 AND 18, CERVICAL, IMAGED: CLINICAL INFORMATION: HPV ANY DIAGNOSIS. LMP //18, POS //17 ASCUS, HORMONES, Z12.4 Cuca Baer [facility] LAB CYTOLOGY ORDERABLES Final Result HISTORICAL TESTING LAB RESULTING AGENCY from Last 3 Months or Most Recently Relevant to Health Maintenance Care Teams Credit Card Analyst Relationship Specialty Start Date End Date Shelly Hein PA [address] [place] [address] PCP - General 10/27/21
--- OUTSIDE RECORDS SUMMARY | 2024-05-14 12:07 | XMS_ITS | Encounter Summary ---
Author Organization [employer] Address [address] [place] [address] [address] [place] [address] Care Team Providers Care Tier Over Name Role Phone [facility] Primary Care Provider [phone] Reason for Visit * Reason Comments Med Refill Encounter Details Date Type Department Care Team ([facility] Contact Info) Description 09/30/[address] [facility] [address] [place] [phone] [phone] Pain Social History Tobacco Use Types Packs/Day Years Used Date Smoking Tobacco: Every Day Cigarettes Smokeless Tobacco: Never Alcohol Use Standard Drinks/Week Comments Never 0 (1 standard drink = 0.6 oz pur e alcohol) Depression Answer Date Recorded Patient Health Questionnaire-9 Score 0 05/18/2022 Depression Answer Date Recorded Patient Health Questionnaire-2 Score 0 05/18/2022 Comments Unknown Sex and Gender Information Value Date Recorded Sex Assigned at Female 01/09/2022 10:17 AM EDT Legal Sex Female 10:17 AM EDT Gender Identity Female 01/09/2022 10:17 AM EDT Sexual Orientation Straight 01/09/2022 10 :17 AM EDT COVID-19 Exposure Response Date Recorded In the last 10 days, have yo u been in contact with someone who was confirmed or suspected to have Coronavirus/COVID-19? No / Unsure 09/08/2022 1:39 PM EDT documented as of this encounter Plan of Treatment Upcoming Encounters Date Type Department Care Team ([facility] Contact Info) Description 05/23/2024 9:15 AM EDT Office Visit [facility] [address] [place] [phone] Sunshine Vela FNP [address] [place] [address] documented as of this encounter Visit Diagnoses Diagnosis Pain Generalized pain documented in this encounter Additional Health Concerns Assessment Noted Time PHQ-9 Depression Total Score: 0 05/19/19 9:44 AM EST documented as of this encounter Care Teams Tier Over Relationship Specialty Start Date End Date Sunshine Vela FNP [address] [place] [address] PCP - General Family Medicine 05/18/22 documented as of this encounter
--- OUTSIDE RECORDS SUMMARY | 2024-05-14 12:07 | XMS_ITS | Encounter Summary ---
Author Organization [facility] Address [address] [place] [address] Care Team Providers Care Sueding Machine Operator Name Role Phone Shelly Hein PA-C Primary Care Provider [phone] Encounter Details Date Type Department Care Team (Late st Contact Info) Description 01/13/2015 Interim Notes Caring [facility] Main [address] [place] [address] Use, Do Not, [facility] [address] [place] [address] Social History Tobacco Use Types Packs/Day Years Used Date Smoking Tobacco: Every Day Cigarettes 0.5 12 Alcohol Use Standard Drinks/Week Comments No 0 (1 standard drink = 0.6 oz pure alcohol) former abuse, now sober since [id number] Comments Unknown Sex and Gender Information Value Date Recorded Sex Assigned at Female 01/07/2017 8:24 PM PDT Legal Sex Female 1:11 PM PDT Gender Identity Female 01/07/2017 8:24 PM PDT Sexual Orientation Straight 01/07/2017 8: 24 PM PDT documented as of this encounter Plan of Treatment Not on file documented as of this encounter Visit Diagnoses Not on filedocumented in this encounter Care Teams Sueding Machine Operator Relationship Specialty Start Date End Date Shelly Hein PA-C [facility] [place] [address] PCP - General FAMILY MEDICINE, [place] 12/17/19 documented as of this encounter
--- OUTSIDE RECORDS SUMMARY | 2024-05-14 12:07 | XMS_ITS | Encounter Summary ---
Author Organization [facility] Address [address] [place] [address] Care Team Providers Care [employer] Name Role Phone Shelly Hein PA-C Primary Care Provider + [phone] Encounter Details Date Type Department Care Team ([facility] st Contact Info) Description 01/27/2015 Interim Notes [facility] [address] [place] [address] Shilpa Meyers, CANDICE [address] [facility] [place] [address] Unprotected sex Social History Tobacco Use Types Packs/Day Years Used Date Smoking Tobacco: Every Day Cigarettes 0.5 12 Alcohol Use Standard Drinks/Week Comments No 0 (1 standard drink = 0.6 oz pure alcohol) former abuse, now sober since [id number] Comments Unknown Sex and Gender Information Value Date Recorded Sex Assigned at Female 01/07/2017 8:24 PM PDT Legal Sex Female 1:11 PM PDT Gender Identity Female 01/07/2017 8:24 PM PDT Sexual Orientation Straight 01/07/2017 8: 24 PM PDT documented as of this encounter Plan of Treatment Not on file documented as of this encounter Procedures Procedure Name Priority Date/Time Associated Diagnosis Comments GC DNA PROBE, URINE Routine 01/27/2015 9 :45 AM EST Unprotected sex CHLAMYDIA DNA PROBE, URINE Routine 01/27/2015 9:45 AM EST Unprotected sex HEPATITIS A,B,C PANEL Routine 01/27/2015 9:45 AM EST Unprotected sex HEPATITIS ANTIBODY HAAB IGM ANTIBODY Routine 01/27/2015 9:45 AM EST Unprotected sex ANTIBODY HIV-1&HIV-2 SINGLE RESULT Routine 01/27/2015 9:45 AM EST Unprotected sex documented in this encounter Results * HEPATITIS A ANTIBODY (HAAB); IGM ANTIBODY (01/27/2015 9:45 AM EST) HEPATITIS A ANTIBODY IGM NEGATIVE NEGATIVE [facility] 01/27/2015 9:45 AM EST 01/27/2015 12:04 PM EST Narrative [facility] - 01/27/2015 9:38 PM EST [employer] [address] [place] [address] PT ID [id number] ORD# [id number] Shilpa Meyers NP LAB - BLOOD DRAW Edited Result - Final Performing Organization Address City/State/[facility] [place] [address], * (ABNORMAL) HEPATITIS A,B,C PANEL (01/27/2015 9:45 AM EST) HEPATITIS B SURFACE ANTIGEN NEGATIVE NEGATIVE [facility] HEPATITIS C VIRUS DIAGNOSTIC NEGATIVE NEGATIVE [facility] HEPATITIS A ANTIBODY TOTAL POSITIVE(A) NEGATIVE [facility] HEPATITIS B CORE ANTIBODY NEGATIVE NEGATIVE [facility] HEPATITIS B SURFACE ANTIBODY POSITIVE(A) NEGATIVE [facility] Comment: Hepatitis B surface antibody testing performed at reference lab due to reagent backorder. Reference range: Negative: Inconsistent with immunity, less than 10 mIU/mL Positive: ? Consistent with immunity, greater than 9.9 mIU/mL Testing performed at: [facility] [address] [place] [id number] PHONE: Blood specimen (specimen) Blood / Unknown 01/27/2015 9:45 AM EST 01/27/2015 12:04 PM EST Narrative [facility] - 01/27/2015 1:41 PM EST [employer] [address] [place] [address] PT ID [id number] ORD# [id number] us Shilpa Meyers NP LAB - BLOOD DRAW Edited Result - Final Performing Organization Address [facility]/ZIP Co de Phone Number [facility] [address] [place] [address], [place] [phone] * HIV-1 & HIV-2 ANTIBODIES (01/27/2015 9:45 AM EST) HIV 1 AND 2 ANTIBODY SCREEN NEGATIVE NEGATIVE [facility] Comment: Effective 11/17/14, [employer] has replaced the HIV screening test with [...] AM EST 01/27/2015 12:04 PM EST Narrative [facility] - 01/27/2015 2:10 PM EST [employer] [address] [place] [address] PT ID [id number] ORD# [id number] us Shilpa Meyers NP LAB - BLOOD DRAW Edited Result - Final [facility] [address] [place] [address], [place] [phone] * GC DNA PROBE, URINE (01/27/2015 9:45 AM EST) GC DNA URINE NEGATIVE NEGATIVE [facility] Urine specimen (specimen) Urine specimen / Unknown 01/27/2015 9:45 AM EST 01/27/2015 11:54 AM EST [facility] 01/28/[facility] 11:19 AM EST [employer] [address] [place] [address] PT ID [id number] ORD# [id number] Shilpa Meyers NP LAB - NO BLOOD DRAW Final Result Performing Organization Address [facility] Co de Phone Number [address] [address], [place] [phone] * CHLAMYDIA DNA PROBE, URINE (01/27/2015 9:45 AM EST) CHLAMYDIA DNA URINE NEGATIVE NEGATIVE [facility] Urine specimen (specimen) Urine specimen / Unknown 01/27/2015 9:45 AM EST 01/27/2015 11:54 AM EST [employer] [place] [facility] 01/28/2015 11:19 AM EST [employer] [address] [place] [address] PT ID [id number] ORD# [id number] us Shilpa Meyers NP LAB - NO BLOOD DRAW Final Result Performing Organization Address [facility] de Phone Number [address] [address], [place] [phone] documented in this encounter Visit Diagnoses Diagnosis Unprotected sex Problems related to high-risk sexual behavior documented in this encounter Care Teams [employer] Relationship Specialty Start Date End Date Shelly Hein PA-C [address] [place] [address] PCP - General [facility] [place] 12/17/19 documented as of this encounter
--- OUTSIDE RECORDS SUMMARY | 2024-05-14 12:07 | XMS_ITS | Clinical Summary ---
Author Organization [employer] Address [address] [place] [address] 7[address] [place] [address] Care Team Providers Care Steward/Stewardess Banquet Name Role Phone [facility] [phone] Allergies Active Allergy Reactions Criticality Noted Date Comments Quetiapine 06/09/2014 Trazodone 06/09/2014 Vancomycin Rash High 06/09/2014 Other reaction(s): RASH, ITCHING, BREATHING PROBLEMS Medications atorvastatin (Lipitor) 20 MG tablet Take 20 mg by mouth in the morning. 023 Active cloNIDine (Catapres) 0.1 MG tablet Take 0.1 mg by mouth if needed each day. 023 Active Focalin XR 20 MG 24 hr capsule TAKE 1 CAPSULE BY MOUTH EVERY DAY IN THE MORNING 022 Active gabapentin (Neurontin) 600 MG tablet Take 600 mg by mouth at bedtime. 023 Active OXcarbazepine (Trileptal) 600 MG tablet TAKE 3 TABLETS BY MOUTH AT BEDTIME DIRECTED 023 Active prazosin (Minipress) 2 MG capsule TAKE 1 CAPSULE BY MOUTH EVERYDAY AT BEDTIME 022 Active SUMAtriptan (Imitrex) 50 MG tablet TAKE 1 TABLET AT ONSET OF MIGRAINE, MAY REPEAT DOSE AT LEAST 2 HOURS AFTER NEEDED 022 Active traZODone (Desyrel) 50 MG tablet TAKE 4-5 TABLET BY MOUTH AT BEDTIME 023 Active D3-1000 25 MCG (1000 UT) capsule TAKE 1 CAPSULE BY MOUTH EVERYDAY AT BEDTIME 023 Active Symbicort 160-4.5 MCG/ACT inhalerIndicati ons:Moderate persistent asthma without complication INHALE 2 PUFF BY INHALATION ROUTE 4 TIMES EVERY DAY FOR ONE WEEK, THEN 2 TIMES EVERY DAY 10.2 each 1 023 Active busPIRone (Buspar) 7.5 MG tablet Take 7.5 mg by mouth at bedtime. 023 Active Banophen 25 MG capsule TAKE 4 CAPSULES BY MOUTH EVERY DAY AT BEDTIME FOR INSOMNIA 023 Active OXcarbazepine (Trileptal) 300 MG tablet TAKE 1 TABLET BY MOUTH EVERY MORNING IN ADDITION TO 1800MG AT BEDTIME 023 Active albuterol (2.5 MG/3ML) 0.083% nebulizer solutionIndicat ions:Mild persistent asthma without complication Take 3 mL (2.5 mg) by nebulization every 6 (six) hours if needed for wheezing or shortness of breath. 75 mL 1 023 Active triamcinolone (Nasacort) 55 MCG/ACT nasal inhaler SPRAY 2 SPRAYS INTO EACH NOSTRIL IN THE MORNING 50.7 mL 023 Active celecoxib (CeleBREX) 200 MG capsuleIndicati ons:Acute right ankle pain,Sprain of right ankle, unspecified ligament, initial encounter Take 1 tablet by mouth once or twice daily as needed for pain 60 capsule 023 Active Diclofenac Sodium 1 % gelIndications: Sprain of right ankle, unspecified ligament, initial encounter Apply to affected area once or twice daily as needed for pain and swelling 150 g 1 023 Active lidocaine-prilo maricel (Emla) 2.5-2.5 % cream APPLY TO THE AFFECTED AREA(S) ONE OR TWO TIMES DAILY NEEDED FOR PAIN 30 g 1 023 Active DULoxetine (Cymbalta) [address] capsuleIndicati ons:Fibromyalgi a Take 1 capsule once daily for 1 week then increase to 1 capsule twice daily 60 capsule 11 024 Active Fluticasone-Ume clidin-Vilant (Trelegy Ellipta) 100-62.5-25 MCG/ACT aerosol powderIndicatio ns:Severe persistent asthma with acute exacerbation Inhale 1 Inhalation in the morning. 1 each 1 024 Active tiotropium (Spiriva HandiHaler) 18 MCG inhalation capsuleIndicati ons:Chronic obstructive pulmonary disease, unspecified COPD type (CMS/HCC) Place 1 capsule (18 mcg) into inhaler and inhale in the morning. 30 capsule 11 024 2024 Active loratadine (Claritin) 10 MG tablet TAKE 1 TABLET BY MOUTH EVERY DAY IN THE MORNING 90 tablet 024 Active acetaminophen (Tylenol) 500 MG tablet Take 2 tablets (1,000 mg) by mouth every 6 (six) hours if needed for moderate pain or fever. 40 tablet Active ibuprofen 400 MG tablet Take 1 tablet (400 mg) by mouth every 6 (six) hours if needed for moderate pain or fever for up to 30 doses. 30 tablet 025 Active albuterol (2.5 MG/3ML) 0.083% nebulizer solution Take 3 mL (2.5 mg) by nebulization every 6 (six) hours if needed for wheezing or shortness of breath. 75 mL 2 025 2025 Active azithromycin (Zithromax Z-Yaya) 250 MG tablet Take 2 tablets once on day 1, then 1 tablet 1x/day for 4 days. 6 tablet 025 Active varenicline (Chantix) 1 MG tabletIndicatio ns:Severe persistent asthma with acute exacerbation,En counter for tobacco use cessation counseling TAKE 1 TABLET BY MOUTH TWICE DAILY WITH A FULL GLASS OF WATER 180 tablet 025 Active albuterol 108 (90 Base) MCG/ACT inhalerIndicati ons:Severe persistent asthma with acute exacerbation INHALE 2 PUFFS BY MOUTH EVERY 4 HOURS NEEDED FOR WHEEZING OR SHORTNESS OF BREATH 18 g 1 025 Active albuterol 108 (90 Base) MCG/ACT inhalerIndicati ons:Severe persistent asthma with acute exacerbation Inhale 2 puffs every 4 (four) hours if needed for wheezing or shortness of breath. 18 g 1 024 2024 Discontinued(R eorder (will not trigger notification to Pharmacy)) Active Problems Problem Noted Date Diagnosed Date Healthcare maintenance 07/04/2023 Overview (07/04/2023): Mammo: Overdue. Will order today Pap: Reports hx of ASCUS s/p colpo (negative). Records not in c C-scope: BMD: HCV Screen: HIV Screen: Immunizations: Screening Labs: Other chest pain 07/03/2023 Overview (07/03/2023): [place] [facility] [place] chest pain/SOB 10/2022--plan for echocardiogram and stress test. ASCVD-3% 05/22/22; Oral lesion 02/21/2023 Tobacco use disorder 10/10/2022 Overview (10/17/2022): ?? Chantix helping Depression 10/09/2022 DVT (deep venous thrombosis) 10/09/2022 Overview (10/17/2022): pt reports remote hx of DVT with IVC filer in place after prolonged immobility with surgery in ?1997 at [facility] [place]. States initially on coumadin which she self discontinued approx 20 years ago when substance use was active and has not had follow up since. No other episodes of DVT. Pt is confident that filter was never removed. No documentation in prior records. Assessment & Plan (10/19/2022 12:51 PM EDT): ?? Hx unclear ?? Will order d-dimer to r/o active thromboembolism ?? Will order KUB to evaluate for presence of IVC filter as recommended by [facility]. Pending KUB results will consider CT scan if indicated and likely referral to vascular. Numbness and tingling in both hands 10/09/2022 Lumbar radiculopathy 10/09/2022 Overview (10/17/2022): ?? Previously followed [place] [facility] [place] ?? Spinal nerve stimulator in place Assessment & Plan (10/19/2022 12:52 PM EDT): ?? Referral placed back to [facility] [place] for followup Spondylolisthesis at L4-L5 level 10/09/2022 Carpal tunnel syndrome, bilateral 10/09/2022 Severe persistent asthma with acute exacerbation 09/08/2022 Overview (10/17/2022): ?? Symbicort b.i.d, soraya prestonuterol ?? PFTS done 01/29/17 showed moderate ventilatory defect without obstruction, Vital capacity is reduced probably due to restrictive process and had significant response to bronchodilator. There was significant airway disease with PCO2 <.025 mg/ml methacholine consistent with asthma . ?? Referred to pulmonology 08/2022 Assessment & Plan (10/17/2022 6:03 PM EDT): ?? Continue current regimen ?? Follow up with pulmonology as scheduled ?? Patient may be good candidate for trelegy ellipta Assessment & Plan (09/08/2022 5:09 PM EDT): ACT = 7, asthma not well controlled. Referral to pulmonology sent, extended patients prednisone and added taper. Added azithromycin for possible infection. Guaifenesin patient request. Bipolar I disorder 01/27/2022 Overview (10/10/2022): trileptal 600mg, hydroxyzine PRN, fluoxetine 30mg, trazodone 50mg, prazosin 2mg, clonidine 0.1mg. Focalin XR 20mg. Followed by psychiatry and therapy Hyperlipidemia 01/27/2022 Overview (10/10/2022): ?? Atorvastatin 20mg ?? ASCVD 3.3% 08/2022 Migraine 01/27/2022 Overview (10/10/2022): ?? Topiramate ?? Sumatriptan PRN Posttraumatic stress disorder 01/27/2022 Arthritis 06/09/2014 Resolved Problems Problem Noted Date Diagnosed Date Resolved Date Asthma 10/09/2022 10/10/2022 Tibia fracture 10/09/2022 10/10/2022 Kidney laceration 10/09/2022 10/10/2022 Kidney stones 10/09/2022 10/10/2022 Low back pain 10/09/2022 10/10/2022 Pars defect of lumbar spine 10/09/2022 10/10/2022 Status post surgical manipul ation of ankle joint 10/09/2022 10/10/2022 Fracture of distal phalanx o f left middle finger 10/09/2022 10/10/2022 Avulsed fingernail 10/09/2022 Encounter for tobacco use ce ssation counseling 09/08/2022 10/10/2022 Assessment & Plan (09/08/2022 5:12 PM EDT): Patient smoking 15 cigarettes a day. Strongly advised patient to quit smoking. She requested chantix. Rx ordered. Mild persistent asthma 01/27/202210/10 Dyslipidemia 02/20/2017 10/10/2022 Intermittent asthma, uncontrolled 06/09/2014 07/13/2022 Overview (05/18/2022): PFTS done 01/29/17 showed moderate ventilatory defect without obstruction, Vital capacity is reduced probably due to restrictive process and had significant response to bronchodilator. There was significant airway disease with PCO2 <.025 mg/ml methacholine consistent with asthma . Encounters Date Type Department Care Team Description 05/14/2024 8:40 AM EST Office Visit [facility] [address] [place] [phone] Influenza-like symptoms (Primary Dx); Severe persistent asthma with acute exacerbation; Acute URI 05/14/2024 Orders Only GENERIC EXTERNAL DATA DEPARTMENT Provider, Generic External Data 04/22/2024 Refill [facility] [address] [place] [phone] [facility] Severe persistent asthma with acute exacerbation 03/25/2024 9:00 AM EST Office Visit [facility] [address] [place] [phone] Conrado Fong MD Asthma with COPD with exacerbation ([facility]) (Primary Dx); Chronic foot pain, right; Tobacco dependence; Viral URI; Severe persistent asthma with acute exacerbation; Encounter for tobacco use cessation counseling 03/25/2024 Refill [facility] [address] [place] [phone] oCnrado Fong MD Severe persistent asthma with acute exacerbation; Encounter for tobacco use cessation counseling 03/24/2024 Telephone [facility] [address] [place] [address], [place] [address] [facility] Nurse Triage 03/06/2024 Telephone [facility] [address] [facility] [place] [address] [facility] Apr recalls from Last 3 Months Immunizations Name Administration Dates Next Due Influenza Injectable Quadriv alant Preservative Free IIV4 MDCK 12/23/2019 Influenza injectable quadrivalent preservative f ree 12/01/2020,12/04/2018 Influenza, Unspecified 12/16/2009 Moderna Covid-19 Vaccine 6+ Bivalent 03/31/2022 PPD Test 08/09/2016 Pneumococcal Conjugate PCV 20 06/15/2023 Pneumococcal Polysaccharide PPSV23 11/13/2016 Td (adult), 5 Lf tetanus tox oid, preservative free, adsorbed 05/20/2015 Tdap 08/27/2022,01/28/2020 Social History Tobacco Use Types Packs/Day Years Used Date Smoking Tobacco: Every Day Cigarettes Passive Smoke Exposure: Current Smokeless Tobacco: Never Tobacco Cessation:Ready to Q uit: Not Asked; Counseling Given: Not Answered Alcohol Use Standard Drinks/Week Comments Never 0 (1 standard drink = 0.6 oz pur e alcohol) Alcohol Answer Date Recorded Frequency of Alcohol Consumption Not on file 06/15/2023 Average Number of Drinks Not on file 024 Frequency of Binge Drinking Not on file 07/2023 Score 0 06/15/2023 Depression Answer Date Recorded Patient Health Questionnaire-9 Score 9 06/15/2023 Patient Health Questionnaire-9 Score 9 06/15/2023 Last PHQ-9: Questionnaire Data Not on file 0 06/15/2023 Housing Stability Answer Date Recorded What is your housing situation today? I have sue nair 06/15/[address] you li ve. Do you have problems with any of the following? None of the above 06/15/2023 Food Insecurity Answer Date Recorded Within the past 12 months, y ou worried that your food would run out before you got money to buy more: Never True 06/15/2023 Within the past 12 months,th e food you bought just didn't last and you didn't have enough money to get more: Never True 07/2023 Transportation Answer Date Recorded In the past 12 months, has l ack of transportation kept you from medical appts, meetings, work or from getting things needed for daily living? No 06/15/2023 Utilities Answer Date Recorded In the past 12 months, has t he electric, gas, oil or water company threatened to shut off services in your home? No 06/15/2023 Depression Answer Date Recorded Patient Health Questionnaire-2 Score 2 06/15/2023 Comments Unknown Sex and Gender Information Value Date Recorded Sex Assigned at Female 01/09/2022 10:17 AM EDT Legal Sex Female 10:17 AM EDT Gender Identity Female 01/09/2022 10:17 AM EDT Sexual Orientation Straight 01/09/2022 10 :17 AM EDT Last Filed Vital Signs Vital Sign Reading Time Taken Comments Blood Pressure 128/103 05/14/2024 9:00 AM EST Pulse 134 05/14/2024 9:00 AM EST Temperature 38.1 ??C (100.6 ??F) 05/14/2024 9:[address] Respiratory Rate 22 05/14/2024 9:00 AM EST Oxygen Saturation 92% 05/14/2024 9:00 AM EST Inhaled Oxygen Concentration - - Weight 104 kg (230 lb) 03/25/2024 9:16 AM EST Height 170.2 cm (5' 7 ) 06/15/2023 1:16 PM EDT Body Mass Index 36.02 06/15/2023 1:16 PM EDT Plan of Treatment Upcoming Encounters Date Type Department Care Team (Late st Contact Info) Description 05/23/2024 9:15 AM EDT Office Visit [facility] [address] [place] [address] [facility] [address] [place] [address] Health Maintenance Due Date Last Done Comments CT Colonography 1975 Colonoscopy 1975 Colorectal Cancer Screening 1975 FIT DNA/Cologuard 1975 FIT 1975 FOBT 1975 Sigmoidoscopy 1975 Family Planning (PISQ) 10/23/1991 Hepatitis A Vaccines (1 of 2 - Risk 2-dose series) 10/23/1995 Hepatitis B Vaccines (1 of 3 - 19+ 3-dose series) 10/23/1995 Pap Smear 1997 Cervical Cancer Screening 2006 HPV/Cotest 2006 Dental X-Ray: Bitewings 07/08/2016 07/08/2015 Mammogram 2016 Dental Prophylaxis 10/20/2020 04/21/2020, 11/05/2015 Dental Oral Exam 07/11/2023 01/08/2023, 12/2020, 07/08/2015 COVID-19 Vaccine ( season) 2023 03/31/2022, 06/26/2020, 05/28/2020 Influenza Vaccine (#1) 2023 , 12/23/2019, 12/04/2018, Additional history exists Depression Monitoring (PHQ-9) 12/15/2023 06/15/2023, 06/15/2023 Alcohol/Substance Use Screening 06/14/2024 06/15/2023 Depression Screening 06/14/2024 06/15/2023, 06/15/19 24 SDOH Screening 06/14/2024 06/15/2023 Tobacco Screening 05/14/2025 05/14/2024 Dental X-Ray: Full Mouth 01/09/2026 023, 03/26/2020, 10/07/2015, Additional history exists Zoster Vaccines (1 of 2) 2026 Lipid Panel 05/19/2027 05/18/2022 DTaP/Tdap/Td Vaccines (3 - Td or Tdap) 08/27/2032 08/27/2022, 01/28/2020, 05/20/2015 RSV Patients and Patients Aged 60 years or older (1 - 1-dose 75+ series) 10/23/2051 HIV Screening Completed 05/23/2023, 05/18/2022 Hepatitis C Screening Completed 05/23/2023, 023 Pneumococcal Vaccine: Pediatrics (0 to 5 Years) and At-Risk Patients (6 to 49) Years) Completed 06/15/2023, 11/13/2016 HIB Vaccines Aged Out No longer eligi ble based on patient's age to complete this topic HPV Vaccines Aged Out No longer eligi ble based on patient's age to complete this topic IPV Vaccines Aged Out No longer eligi ble based on patient's age to complete this topic Meningococcal Vaccine Aged Out No alisa juanjo eligible based on patient's age to complete this topic RSV under 20 months Aged Out No longe r eligible based on patient's age to complete this topic Rotavirus Vaccines Aged Out No longer eligible based on patient's age to complete this topic Procedures Procedure Name Priority Date/Time Associated Diagnosis Comments XR CHEST 2 VIEWS Routine 05/14/2024 11:3 4 AM EST HCG, TOTAL, QN Routine 05/14/2024 11:14 AM EST MAGNESIUM Routine 05/14/2024 11:14 AM EST COMPREHENSIVE METABOLIC PANEL Routine 05/14/2024 11:14 AM EST HIGH SENSITIVITY TROPONIN I Routine 05/14/2024 11:14 AM EST PROTHROMBIN TIME-INR Routine 05/14/2024 11:14 AM EST CBC WITH AUTO DIFFERENTIAL Routine 05/14/2024 11:14 AM EST SARS COV2/INFLUENZA A/B AND RSV RNA QL NAAT Routine 05/14/2024 11:14 AM EST POCT INFLUENZA B (ID NOW RAPID MOLECULAR) Routine 05/14/2024 9:11 AM EST Acute URI POCT INFLUENZA A (ID NOW RAPID MOLECULAR) Routine 05/14/2024 9:11 AM EST Acute URI POCT RAPID STREP A Routine 05/14/2024 9: 11 AM EST Acute URI POCT RAPID COVID ANTIGEN Routine 05/14/2024 9:11 AM EST Acute URI RESPIRATORY VIRAL PANEL PCR Routine 03/25/2024 9:49 AM EST Asthma with COPD with exacerbation ([facility]) POCT INFLUENZA A (ID NOW RAPID MOLECULAR) Routine 03/25/2024 9:29 AM EST Viral URI POCT INFLUENZA B (ID NOW RAPID MOLECULAR) Routine 03/25/2024 9:29 AM EST Viral URI POCT RAPID COVID ANTIGEN Routine 03/25/2024 9:29 AM EST Viral URI HEPATITIS C AB W/REFL TO HCV RNA, QN, PCR Routine 05/23/2023 9:53 AM EDT Fatigue, unspecified type Myalgia HIV 1/2 ANTIGEN/ANTIBODY, FOURTH GENERATION W/RFL Routine 05/23/2023 9:53 AM EDT Fatigue, unspecified type Myalgia PANORAMIC RADIOGRAPHIC IMAGE Routine 01/08/2023 1:30 PM EDT Dental caries Encounter for dental examination Teeth missing PERIODIC ORAL EVALUATION - ESTABLISHED PATIENT Routine 01/08/2023 1:30 PM EDT Dental caries Encounter for dental examination Teeth missing LIPID PANEL, STANDARD Routine 05/18/2022 10:40 AM EST Hyperlipidemia, unspecified hyperlipidemia type PROPHYLAXIS - ADULT Routine 04/21/2020 1 2:00 AM EST INTRAORAL - COMPLETE SERIES OF RADIOGRAPHIC IMAGES Routine 07/08/2015 12:00 AM EDT from Last 3 Months or Most Recently Relevant to Health Maintenance Results * XR Chest 2 Views (05/14/2024 11:34 AM EST) Anatomical Region Laterality Modality Chest Radiographic Rolanda ging 05/14/2024 11:3 4 AM EST Narrative 05/14/2024 11:59 AM EST ? [facility] ?[address] ?[place] [address] ?XRay Report ? Signed ? Patient: Merchant,Simran L ?MR#: [id number] ?? 98 ? : 1975 ?Acct:[id number] ? Age/Sex: 48 / F ?ADM Date: 03/05/25 ? Loc: HO.ED ? Attending Dr: ? Ordering Physician: Lakeisha Montes ?? Date of Service: 05/14/24 ?? Procedure(s): XR chest 2V ?? Accession Number(s): [id number] ? cc: Lakeisha Montes; [facility] ? EXAMINATION: ?? XR CHEST ? CLINICAL INFORMATION: ?? sob ? COMPARISON: ?? Chest 01/26/2024 ? TECHNIQUE: ?? 2 views of the chest were obtained. ? FINDINGS: ?? The lungs are hypoexpanded and clear acute process. The heart size is ?? borderline normal. Pulmonary vascularity is normal. No gross bony ?? abnormality seen. ? XR/XR chest 2V ?? IMPRESSION: ?? No acute cardiopulmonary process seen. No change from 01/26/2024 ? Electronically signed by: ??Gigi Rodriguez MD ??05/14/2024 11:56 AM EST RP ? Dictated By: ?Gigi Rodriguez MD ? Signed By: ?<Electronically signed by Gigi Rodriguez MD in OV> ?05/14/24 1156 ? DD/ 1134 ? TD/TT: 05/14/241133 ? Enterprise Software Engineer: MSM ? Procedure Note Elliott Traore - 05/14/[address] [address] XRay Report Signed Patient: Simran Posada LMR#: [id number] 98 : 1975Acct:[id number] Age/Sex: 48 / FADM Date: 05/14/24 Loc: .ED Attending Dr: Ordering Physician: Lakeisha Montes Date of Service: 05/14/24 Procedure(s): XR chest 2V Accession Number(s): [id number] cc: Lakeisha Montes; [facility] EXAMINATION: XR CHEST CLINICAL INFORMATION: sob COMPARISON: Chest 01/26/2024 TECHNIQUE: 2 views of the chest were obtained. FINDINGS: The lungs are hypoexpanded and clear acute process. The heart size is borderline normal. Pulmonary vascularity is normal. No gross bony abnormality seen. XR/XR chest 2V IMPRESSION: No acute cardiopulmonary process seen. No change from 01/26/2024 Electronically signed by: Gigi Rodriguez MD 05/14/2024 11:56 AM EST RP Dictated By: Gigi Rodriguez MD Signed By: <Electronically signed by Gigi Rodriguez MD in OV> 05/14/24 1156 DD/ 1134 TD/TT: 05/14/24 1134 Enterprise Software Engineer: VIC [facility] External Provider IMG XR PROCEDURES Edited Result - Final * High Sensitivity Troponin I (05/14/2024 11:14 AM EST) TROPONIN I HIGH SENSITIVITY <2.7 <3.5 - 17.0 ng/L [facility] Comment:The [place] high sens itivity Troponin-I results should beused in conjunction with other diagnostic information suchas ECG, clinical observations and information, and patientsymptoms to aid in the diagnosis of AR. 05/14/2024 11:1 4 AM EST 05/14/2024 11:20 AM EST Generic External Data Provider LAB BLOOD ORDERAB LES Final Result [facility] [address] [place] [phone] * SARS-CoV-2 RNA, Influenza A/B, and RSV RNA, Ql NAAT (05/14/2024 11:14 AM EST) Pathologist [facility] Influenza A PCR NEGATIVE Negative [facility] Influenza B PCR NEGATIVE Negative [facility] Resp Syncy Virus RNA Qual PCR NEGATIVE Negative [facility] SARS COV2 PCR NEGATIVE Negative [facility] Comment:All test results mus t be correlated with clinical findings.Negative results do not preclude SARS-CoV2, influenza Avirus, influenza B virus and/or RSV infectionand should not be used as the sole basis for treatment orother patient management decisions. Negative results must becombined with clinical observations, patient history, andepidemiological information.This test has not been evaluated for monitoring treatment ofinfection.This test has been authorized by the FDA under an EmergencyUse Authorization (EUA) for use by authorized laboratories.Testing performed on the Cepheid GeneXpert utilizingreal-time RT-PCR.All SARS CoV2 and positive influenza A/B results arereported to [facility]. 05/14/2024 11:1 4 AM EST 05/14/2024 11:20 AM EST Generic External Data Provider LAB MICROBIOLOGY - GENERAL ORDERABLES Final Result Performing Organization Address [facility] Co de Phone Number [facility] [address] [place] [phone] * Prothrombin Time-INR (05/14/2024 11:14 AM EST) Prothrombin Time 12.2 10.9 - 12.4 SEC [facility] INTERNATIONAL NORM RATIO 1.0 0.9 - 1.1 [facility] Comment:INTERNATIONAL NORMAL IZED RATIO (INR) REFERENCE RANGES Reference RangeFor patients not on anticoagulant therapy: 0.9 - 1.1INR ranges for oral anticoagulanttherapy:For prevention and treatment of venous thrombosis and pulmonary embolism: 2.0 - 3.0For acute myocardial infarction with aspirin therapy: 2.0 - 3.0For acute myocardial infarction without aspirin therapy: 3.0 - 4.0For patients with mechanical prosthetic heart valves: 2.5 - 3.5 05/14/2024 11:1 4 AM EST 05/14/2024 11:20 AM EST Generic External Data Provider LAB BLOOD ORDERAB LES Final Result Performing Organization Address [facility] de Phone Number [facility] [address] [place] [phone] * Influenza B (ID NOW Rapid Molecular) (05/14/2024 9:11 AM EST) Only the most recent of2 resultswithin the time period is included. Influenza B Negative Negative, Indeterminate [facility] Swab 05/14/2024 9:11 AM EST Conrado Fong MD POINT OF CARE TEST ENTER/EDIT OR DERABLES Final Result Performing Organization Address [facility] Co de Phone Number [facility] [address] [place] [address] [phone] * Influenza A (ID NOW Rapid Molecular) (05/14/2024 9:11 AM EST) Only the most recent of2 resultswithin the time period is included. Influenza A Negative Negative, Indeterminate [facility] Swab 05/14/2024 9:11 AM EST us Conrado Fong MD POINT OF CARE TEST ENTER/EDIT OR DERABLES Final Result Performing Organization Address [facility] de Phone Number [facility] [address] [place] [phone] * POCT Rapid COVID Ag (05/14/2024 9:11 AM EST) Only the most recent of2 resultswithin the time period is included. Pathologist [facility] Rapid COVID Ag Negative [facility] Swab 05/14/2024 9:11 AM EST us Conrado Fong MD POINT OF CARE TEST ENTER/EDIT OR DERABLES Final Result Performing Organization Address [facility] Co de Phone Number [facility] [address] [place] [address] [phone] * POCT rapid strep A manually resulted (05/14/2024 9:11 AM EST) [facility] Rapid Strep A Screen Negative Negative, None Detected [facility] Swab 05/14/2024 9:11 AM EST us Conrado Fong MD POINT OF CARE TEST ENTER/EDIT OR DERABLES Final Result Performing Organization Address [facility] Co de Phone Number [facility] [address] [place] [address] [phone] * Respiratory Viral Panel PCR (03/25/2024 9:49 AM EST) Adenovirus PCR Not Detected Not Detect. [facility] Bordetella pertussis PCR Not Detected Not Detect. [facility] Comment:Interpret results wi th caution. If B. pertussis isspecifically suspected, additional testing using analternate method is recommended. Bordetella parapertussis PCR Not Detected Not Detect. [facility] Chlamydia pneumoniae PCR Not Detected Not Detect. [facility] Coronavirus 229E PCR Not Detected Not Detect. [facility] Coronavirus HKU1 PCR Not Detected Not Detect. [facility] Coronavirus NL63 PCR Not Detected Not Detect. [facility] Coronavirus OC43 PCR Not Detected Not Detect. [facility] SARS-CoV-2 PCR Not Detected Not Detect. [facility] Comment:SARS-CoV-2 not detec jory by real-time RT-PCR.Note: If clinical suspicion for Sars-CoV-2 is high, continueto maintain precautions and consider repeat testing.Test results should be interpreted in the context ofclinical findings and other laboratory data.Rare polymorphisms exist that could lead to false-negativeor false-positive results. If results do not match theclinical findings, additional testing should be considered.Results reported to YARI THOMAS.This test has been authorized by the FDA under the EmergencyUse Authorization (EUA) for use by authorized laboratories. Influenza A PCR Not Detected Not Detect. [facility] Influenza B PCR Not Detected Not Detect. [facility] Human metapneumovirus PCR Not Detected Not Detect. [facility] Rhino/Enterovirus PCR Not Detected Not Detect. [facility] Mycoplasma pneumoniae PCR Not Detected Not Detect. [facility] Parainfluenza 1 PCR Not Detected Not Detect. [facility] Parainfluenza 2 PCR Not Detected Not Detect. [facility] Parainfluenza 3 PCR Not Detected Not Detect. [facility] Parainfluenza 4 PCR Not Detected Not Detect. [facility] RSV PCR Not Detected Not Detect. [facility] Resp Panel NA Note See Note [facility] Comment:All results must be correlated with clinical findings.Negative results should not be used as the sole basis fordiagnosis, treatment, or other management decisions.A negative result does not exclude the possibility of viralor bacterial infection. Negative results may occur from thepresence of sequence variants in the region targeted by theassay, the presence of inhibitors, an infection caused by anorganism not detected by the panel, or lower respiratorytract infections that are not detected by a nasopharyngealswab specimen. Test results may also be affected byconcurrent antiviral/antibacterial therapy or levels oforganism in the specimen that are below the limit ofdetection for this test.This assay is performed by Multiplexed PCR, utilizing copygram Array. 03/25/2024 9:49 AM EST 03/25/2024 1:13 PM EST us Conrado Fong MD LAB BLOOD ORDERABLES Final Resul t Performing Organization Address [facility] Co de Phone Number [facility] [address] [place] [phone] * Hepatitis C Antibody with Reflex to HCV, RNA, Quantitative, Real-Time PCR (05/23/2023 9:53 AM EDT) Hepatitis C Antibody Nonreactive Nonreactive [facility] Comment:Antibodies to HCV no t detected; does not exclude early acuteHCV infection. Blood Venous blood specimen / Unknown 05/23/2023 9:53 AM EDT 05/23/2023 11:14 AM EDT us Conrado Fong MD LAB BLOOD ORDERABLES Final Resul t Performing Organization Address [facility] Co de Phone Number [facility] [address] [place] [address] [phone] * HIV-1/2 Antigen and Antibodies, Fourth Generation, with Reflexes (05/23/2023 9:53 AM EDT) HIV AB/AG Nonreactive Nonreactive [facility] Comment:HIV-1 p24 Ag and/or HIV-1/HIV-2 Ab not detected.A test result that is nonreactive does not exclude thepossibility of exposure to or infection with HIV-1 and/orHIV-2. Nonreactive results in this assay for individualswith prior exposure to HIV-1 and/or HIV-2 may be due toantigen and antibody levels that are below the limit ofdetection of this assay.The [employer] HIV Ag/Ab Combo assay result andsupplemental assay results should be interpreted inconjunction with the patient's clinical presentation,history and other laboratory results. If the results areinconsistent with clinical evidence, additional testing issuggested to confirm the result. Blood Venous blood specimen / Unknown 05/23/2023 9:53 AM EDT 05/23/2023 11:14 AM EDT us Conrado Fong MD LAB BLOOD ORDERABLES Final Resul t [facility] [address] [place] [address] [phone] * (ABNORMAL) Lipid Panel, Standard (05/18/2022 10:40 AM EST) Cholesterol, Total 180 <200 mg/dL [facility] [place] [email or web address] HDL Cholesterol 55 > OR = 50 mg/dL [facility] [place] [email or web address] Triglycerides 155(H) <150 mg/dL [facility] [place] [email or web address] LDL Cholesterol 100(H) mg/dL (calc) [facility] [place] [email or web address] Comment: Reference range: <100 Desirable range <100 mg/dL for primary prevention; ?? <70 mg/dL for patients with CHD or diabetic patients with > or = 2 CHD risk factors. LDL-C is now calculated using the Percy-Malinda calculation, which is a validated novel method providing better accuracy than the Friedewald equation in the estimation of LDL-C. Percy SS et al. GERTRUDE. 2013;310(19): 4857-7276 (http://education.[employer].com/faq/TSQ013) Chol/HDLC Ratio 3.3 <5.0 (calc) [facility] [place] [email or web address] Non-HDL Cholesterol 125 <130 mg/dL (calc) [facility] Comment: For patients with diabetes plus 1 major ASCVD risk factor, treating to a non-HDL-C goal of <100 mg/dL (LDL-C of <70 mg/dL) is considered a therapeutic option. Blood Venous blood specimen / Unknown 05/18/2022 10:40 AM EST 05/18/2022 10:40 AM EST Narrative [facility] - 05/19/2022 1:04 PM EST FASTING:YES FASTING: YES [facility] LAB BLOOD ORDERABLES Final Re sult [facility] [address] [facility], [facility], [place] [address] scroll kit [place] [email or web address] [address] [facility], (N[address]) [place] [address] from Last 3 Months or Most Recently Relevant to Health Maintenance Insurance [employer] C3 Care Teams Steward/Stewardess Banquet Relationship Specialty Start Date End Date Sunshine Vela FNP [address] [place] [address] PCP - General Family Medicine 05/18/22
--- OUTSIDE RECORDS SUMMARY | 2024-05-14 12:08 | XMS_ITS | Encounter Summary ---
Author Organization [employer] Address [address] [place] [address] Care Team Providers Care [employer] Name Role Phone [facility] Primary Care Provider [phone] Encounter Details Date Type Department Care Team (Late st Contact Info) Description 05/14/2024 8:40 AM EST Office Visit [facility] [address] [place] [address] Influenza-like symptoms (Primary Dx); Severe persistent asthma with acute exacerbation; Acute URI Social History Tobacco Use Types Packs/Day Years Used Date Smoking Tobacco: Every Day Cigarettes Passive Smoke Exposure: Current Smokeless Tobacco: Never Alcohol Use Standard Drinks/Week [...] Orientation Straight 01/09/2022 10 :17 AM EDT documented as of this encounter Last Filed Vital Signs Vital Sign Reading Time Taken Comments Blood Pressure 128/103 05/14/2024 9:00 AM EST Pulse 134 05/14/2024 9:00 AM EST Temperature 38.1 ??C (100.6 ??F) 05/14/2024 9:[address] Respiratory Rate 22 05/14/2024 9:00 AM EST Oxygen Saturation 92% 05/14/2024 9:00 AM EST Inhaled Oxygen Concentration - - Weight - - Height - - Body Mass Index - - documented in this encounter Plan of Treatment Upcoming Encounters Date Type Department Care Team (Late st Contact Info) Description 05/23/2024 9:15 AM EDT Office Visit [facility] [address] [place] [address] [facility] [address] [place] [address] documented as of this encounter Procedures Procedure Name Priority Date/Time Associated Diagnosis Comments POCT INFLUENZA B (ID NOW RAPID MOLECULAR) Routine 05/14/2024 9:11 AM EST Acute URI POCT INFLUENZA A (ID NOW RAPID MOLECULAR) Routine 05/14/2024 9:11 AM EST Acute URI POCT RAPID COVID ANTIGEN Routine 05/14/2024 9:11 AM EST Acute URI POCT RAPID STREP A Routine 05/14/2024 9: 11 AM EST Acute URI documented in this encounter Results * Influenza B (ID NOW Rapid Molecular) (05/14/2024 9:11 AM EST) [facility] Influenza B Negative Negative, Indeterminate [facility] Swab 05/14/2024 9:11 AM EST us Conrado Fong MD POINT OF CARE TEST ENTER/EDIT OR DERABLES Final Result Performing Organization Address [facility] Co de Phone Number [facility] [address] [place] [phone] * Influenza A (ID NOW Rapid Molecular) (05/14/2024 9:11 AM EST) [facility] Influenza A Negative Negative, Indeterminate [facility] Swab 05/14/2024 9:11 AM EST us Conrado Fong MD POINT OF CARE TEST ENTER/EDIT OR DERABLES Final Result Performing Organization Address [facility] Co de Phone Number [facility] [address] [place] [address] [phone] * POCT rapid strep A manually resulted (05/14/2024 9:11 AM EST) [facility] Rapid Strep A Screen Negative Negative, None Detected [facility] Swab 05/14/2024 9:11 AM EST us Conrado Fong MD POINT OF CARE TEST ENTER/EDIT OR DERABLES Final Result Performing Organization Address [facility] Co de Phone Number [facility] [address] [place] [address] [phone] * POCT Rapid COVID Ag (05/14/2024 9:11 AM EST) [facility] Rapid COVID Ag Negative [facility] Swab 05/14/2024 9:11 AM EST us Conrado Fong MD POINT OF CARE TEST ENTER/EDIT OR DERABLES Final Result [facility] [address] [place] [phone] documented in this encounter Visit Diagnoses Diagnosis Influenza-like symptoms- Primary Other general symptoms Severe persistent asthma with acute exacerbation Acute URI Acute upper respiratory infections of unspecified site documented in this encounter Additional Health Concerns Assessment Noted Time PHQ-9 Depression Total Score: 9 06/15/19 24 1:18 PM EDT documented as of this encounter Care Teams [employer] Relationship Specialty Start Date End Date Sunshine Vela FNP [address] [place] [phone] PCP - General Family Medicine 05/18/22 documented as of this encounter
--- OUTSIDE RECORDS SUMMARY | 2024-05-14 12:08 | XMS_ITS | Encounter Summary ---
Author Organization [employer] Address [address] [facility] 7t [place] [address] Care Team Providers Care Lining Folder Name Role Phone [facility] Primary Care Provider [phone] Reason for Visit * Reason Onset Date Comments Med Refill 04/22/2024 Encounter Details Date Type Department Care Team ([facility] st Contact Info) Description 04/22/2024 Refill [facility] [address] [place] [address] [facility] [address] [place] [address] Severe persistent asthma with acute exacerbation Social History Tobacco Use Types Packs/Day Years [...] AM EDT documented as of this encounter Miscellaneous Notes * Telephone Encounter - Leola Leo LPN - 04/23/2024 9:10 AM EST Next appointment 05/23/24. * Telephone Encounter - Sony Fair - 04/22/2024 4:03 PM EST TC from pt requesting medication refill. Medications needing refill : albuterol 108 (90 Base) MCG/ACT inhaler albuterol (2.5 MG/3ML) 0.083% nebulizer solution To be sent to: [facility]/pharmacy #[id number] [place], [place] - [address] [place] [address] documented in this encounter Plan of Treatment Upcoming Encounters Date Type Department Care Team (Late st Contact Info) Description 05/23/2024 9:15 AM EDT Office Visit [facility] [address] [place] [address] [facility] [address] [place], [place] [phone] documented as of this encounter Visit Diagnoses Diagnosis Severe persistent asthma with acute exacerbation documented in this encounter Additional Health Concerns Assessment Noted Time PHQ-9 Depression Total Score: 9 06/15/19 24 1:18 PM EDT documented as of this encounter Care Teams Lining Folder Relationship Specialty Start Date End Date Sunshine Vela FNP [address] [place] [phone] PCP - General Family Medicine 05/18/22 documented as of this encounter
--- OUTSIDE RECORDS SUMMARY | 2024-05-14 12:08 | XMS_ITS | Encounter Summary ---
Author Organization [employer] Address [address] [place] [address] 7t [place] [address] Care Team Providers Care Branch Credit Counselor Name Role Phone Sunshine Vela Primary Care Provider [phone] Reason for Visit * Reason Comments Med Refill Encounter Details Date Type Department Care Team ([facility] Contact Info) Description 04/05/2022 Refill [facility] [address] [place] [phone] Millicent Mendoza FNP Social History Tobacco Use Types Packs/Day Years Used Date Smoking Tobacco: Every Day Cigarettes Smokeless Tobacco: Never Comments Unknown Sex and Gender Information Value [...] suspected to have Coronavirus/COVID-19? No / Unsure 03/31/2022 2:13 PM EST documented as of this encounter Plan of Treatment Upcoming Encounters Date Type Department Care Team (Late Contact Info) Description 05/23/2024 9:15 AM EDT Office Visit [facility] [address] [place] [address] [phone] Sunshine Vela FNP [address] [place], [place] [phone] documented as of this encounter Visit Diagnoses Not on filedocumented in this encounter Care Teams Branch Credit Counselor Relationship Specialty Start Date End Date Sunshine Vela FNP [address] [place] [phone] PCP - General Family Medicine 05/18/22 documented as of this encounter
--- OUTSIDE RECORDS SUMMARY | 2024-05-14 12:08 | XMS_ITS | Encounter Summary ---
Author Organization [employer] Address [address] [place] [address] 7[address] [place] [address] Care Team Providers Care Supervisor [employer] Name Role Phone Sunshine Vela Primary Care Provider [phone] Reason for Visit * Reason Comments Med Refill Encounter Details Date Type Department Care Team (Late Contact Info) Description 04/09/2022 Refill [facility] [address] [place], [place] [phone] Millicent Mendoza FNP Moderate persistent asthma without complication (Primary Dx) Social History Tobacco Use Types Packs/Day Years [...] PM EST documented as of this encounter Miscellaneous Notes * Telephone Encounter - TIEN Jean - 04/10/2022 2:40 PM EST Approving, but needs appt for additional refills. documented in this encounter Plan of Treatment Upcoming Encounters Date Type Department Care Team (Late Contact Info) Description 05/23/2024 9:15 AM EDT Office Visit [facility] [address] [place], [place] [phone] Sunshine Vela FNP [address] [place] [address] documented as of this encounter Visit Diagnoses Diagnosis Moderate persistent asthma without complication- Primary documented in this encounter Care Teams Supervisor [employer] Relationship Specialty Start Date End Date Sunshine Vela FNP [address] [place] [address] PCP - General Family Medicine 05/18/22 documented as of this encounter
--- OUTSIDE RECORDS SUMMARY | 2024-05-14 12:08 | XMS_ITS | Encounter Summary ---
Author Organization [employer] Address [address] [place] [address] 7[address] [place] [address] Care Team Providers Care Director Post Name Role Phone Sunshine Vela [facility] Primary Care Provider [phone] Encounter Details Date Type Department Care Team (Late Contact Info) Description 04/10/2022 Orders Only [facility] [address] [place] [address] [phone] Zo Yee LPN Social History Tobacco Use Types Packs/Day Years [...] Description 05/23/2024 9:15 AM EDT Office Visit [facility] [address] [place] [address] Sunshine Vela [facility] [address] [place] [address] documented as of this encounter Visit Diagnoses Not on filedocumented in this encounter Care Teams Director Post Relationship Specialty Start Date End Date Sunshine Vela FNP [address] [place] [address] PCP - General Family Medicine 05/18/22 documented as of this encounter
--- OUTSIDE RECORDS SUMMARY | 2024-05-14 12:08 | XMS_ITS | Encounter Summary ---
Author Organization [employer] Address [address] [facility] 7t [place] [address] Care Team Providers Care Brazing Machine Operator Name Role Phone Dane [facility] Primary Care Provider [phone] Encounter Details Date Type Department Care Team (Late st Contact Info) Description 05/14/2024 Orders Only GENERIC EXTERNAL DATA DEPARTMENT Provider, Generic External Data Social History Tobacco Use Types Packs/Day Years [...] AM EDT documented as of this encounter Plan of Treatment Upcoming Encounters Date Type Department Care Team (Late st Contact Info) Description 05/23/2024 9:15 AM EDT Office Visit [facility] [address] [place], [place] [phone] [facility], SAMPLE PATTERNMAKER [address] [place], [place] [phone] Pending Results Name Type Priority Associated Diagnoses Date /Time CBC auto differential Lab Routine 07/2024 11:14 AM EST documented as of this encounter Procedures Procedure Name Priority Date/Time Associated Diagnosis Comments XR CHEST 2 VIEWS Routine 05/14/2024 11:3 4 AM EST HIGH SENSITIVITY TROPONIN I Routine 05/14/2024 11:14 AM EST SARS COV2/INFLUENZA A/B AND RSV RNA QL NAAT Routine 05/14/2024 11:14 AM EST CBC WITH AUTO DIFFERENTIAL Routine 05/14/2024 11:14 AM EST PROTHROMBIN TIME-INR Routine 05/14/2024 11:14 AM EST HCG, TOTAL, QN Routine 05/14/2024 11:14 AM EST MAGNESIUM Routine 05/14/2024 11:14 AM EST COMPREHENSIVE METABOLIC PANEL Routine 05/14/2024 11:14 AM EST documented in this encounter Results * XR Chest 2 Views (05/14/2024 11:34 AM EST) Anatomical Region Laterality Modality Chest Radiographic Rolanda ging 05/14/2024 11:3 4 AM EST Narrative 05/14/2024 11:59 AM EST ? [facility] ?[address] ?[place] [address] ?XRay Report ? Signed ? Patient: Mercvijayat,Simran L ?MR#: [id number] ?? 98 ? : 1975 ?Acct:[id number] ? Age/Sex: 48 / F ?ADM Date: 05/14/24 ? Loc: HO.ED ? Attending Dr: ? Ordering Physician: Lakeisha Montes ?? Date of Service: 05/14/24 ?? Procedure(s): XR chest 2V ?? Accession Number(s): [id number] ? cc: Lakeisha Montes; Sunshine VelaP ? EXAMINATION: ?? XR CHEST ? CLINICAL [...] 11:56 AM EST RP ? Dictated By: ?Jennifer,Gigi S MD ? Signed By: ?<Electronically signed by Gigi Rodriguez MD in OV> ?05/14/24 1156 ? DD/ 1134 ? TD/TT: 05/14/24 1134 ? Blaster Helper: MSM ? Procedure Note Elliott Traore - 05/14/[address] [address] XRay Report Signed Patient: Simran Posada LMR#: [id number] 98 : 1975Acct:[id number] Age/Sex: 48 / FADM Date: 05/14/24 Loc: HO.ED Attending Dr: Ordering Physician: Lakeisha Montes Date of Service: 05/14/24 Procedure(s): XR chest 2V Accession Number(s): [id number] cc: Lakeisha Montes; [facility] EXAMINATION: XR CHEST CLINICAL INFORMATION: sob COMPARISON: [...] 05/14/24 1156 DD/ 1134 TD/TT: 05/14/24 1134 Blaster Helper: VIC [facility] External Provider IMG XR PROCEDURES Edited Result - Final * hCG, Total, Quantitative (05/14/2024 11:14 AM EST) HCG Quantitative <2 mIU/mL [facility] Comment:Weeks post LMP Appro ximate hCG(Last Menstrual Period) Range (mIU/ml)3 - 4 weeks 9 - 1304 - 5 weeks 75 - 2,6005 - 6 weeks 850 - 20,8006 - 7 weeks 4000 - 100,2007 - 12 weeks 11,500 - 289,65272 - 16 weeks 18,300 - 137,37300 - 29 weeks (2nd trimester) 1,400 - 53,28268 - 41 weeks (3rd trimester) 940 - 60,000The Byers B- hCG assay is used for the early detection ofpregnancy; it cannot be used to diagnose any conditionunrelated to . If a B-hCG level is not supportedby the clinical evidence, results should be confirmed by analternative method (qualitative urine hCG, for example). 05/14/2024 11:1 4 AM EST 05/14/2024 11:20 AM EST us Generic External Data Provider LAB BLOOD ORDERAB LES Final Result Performing Organization Address [facility] Co de Phone Number [facility] [address] [place] [phone] * (ABNORMAL) Magnesium (05/14/2024 11:14 AM EST) Magnesium 1.5(L) 1.6 - 2.6 mg/dL [facility] 05/14/2024 11:1 4 AM EST 05/14/2024 11:20 AM EST Generic External Data Provider LAB BLOOD ORDERAB LES Final Result Performing Organization Address [facility] Phone Number [facility] [address] [place] [phone] * (ABNORMAL) Comprehensive Metabolic Panel (05/14/2024 11:14 AM EST) Sodium 141 135 - 145 mmol/L [facility] Potassium 2.8(LL) 3.3 - 5.1 mmol/L [facility] Comment:Critical value for t est(s): K Results called to and readback by: JOSEFA Person calling: THEODORE Date: 05-14-24 Time:1206 Chloride 104 96 - 108 mmol/L [facility] Carbon Dioxide 25 22 - 29 mmol/L [facility] Anion Gap 15 12 - 20 [facility] Urea Nitrogen (BUN) 13 9 - 16 mg/dL [facility] Creatinine, Serum 0.95 0.5 - 1.4 mg/dL [facility] Creatinine Clr Calc Pharmacy 86.8 [facility] Comment:Provided height and weight: 167.64 cm,98.883 kg.eGFR (calculated from the MDRD study equation) and eCrCl(calculated from the Cockcroft-Gault equation) are based ondifferent parameters and may not yield comparable results.If eCrCl result is absurd, please check patient'sheight/weight. Estimated Glomerular Filt Rate >60 [facility] Comment:Chronic Kidney Disea se: Estimated GFR < 60 mL/min/1.20n1Deeqjr Kidney Disease: Estimated GFR < 15 mL/min/1.73m2 Glucose 131(H) 60 - 115 mg/dL [facility] Calcium 9.4 8.4 - 10.2 mg/dL [facility] Bilirubin, Total 0.3 0.0 - 1.0 mg/dL [facility] Aspartate Amino Transferase 21 5 - 31 U/L [facility] Alanine Aminotransferase 32(H) 0 - 31 U/L [facility] Total Protein 8.1(H) 6.5 - 8.0 g/dL [facility] Albumin Level 4.3 3.5 - 5.0 g/dL [facility] Alkaline Phosphatase 78 39 - 117 U/L [facility] 05/14/2024 11:1 4 AM EST 05/14/2024 11:20 AM EST us Generic External Data Provider LAB BLOOD ORDERAB LES Final Result [facility] [address] [place] [phone] * SARS-CoV-2 RNA, Influenza A/B, and RSV RNA, Ql NAAT (05/14/2024 11:14 AM EST) Influenza A PCR NEGATIVE Negative [facility] Influenza B PCR NEGATIVE Negative [facility] Resp Syncy Virus RNA Qual PCR NEGATIVE Negative [facility] SARS COV2 PCR NEGATIVE Negative [facility] Comment:All test results mus t [...] use by authorized laboratories.Testing performed on the Fuel ([email or web address]) GeneXpert utilizingreal-time RT-PCR.All SARS CoV2 and positive influenza A/B results arereported to [facility]. 05/14/2024 11:1 4 AM EST 05/14/2024 11:20 AM EST Generic External Data Provider LAB MICROBIOLOGY - GENERAL ORDERABLES Final Result Performing Organization Address [facility] de Phone Number [facility] [address] [place] [address] [phone] * High Sensitivity Troponin I (05/14/2024 11:14 AM EST) TROPONIN I HIGH SENSITIVITY <2.7 <3.5 - 17.0 ng/L [facility] Comment:The Byers high sens itivity Troponin-I results should beused in conjunction with other diagnostic information suchas ECG, clinical observations and information, and patientsymptoms to aid in the diagnosis of VT. 05/14/2024 11:1 4 AM EST 05/14/2024 11:20 AM EST [facility] External Data Provider LAB BLOOD ORDERAB LES Final Result Performing Organization Address [facility] Number [facility] [address] [place] [phone] * Prothrombin Time-INR (05/14/2024 11:14 AM EST) Prothrombin Time 12.2 10.9 - 12.4 SEC [facility] INTERNATIONAL NORM RATIO 1.0 0.9 - 1.1 [facility] Comment:INTERNATIONAL NORMAL IZED RATIO (INR) REFERENCE [...] 4 AM EST 05/14/2024 11:20 AM EST us Generic External Data Provider LAB BLOOD ORDERAB LES Final Result [facility] [address] [place] [phone] documented in this encounter Visit Diagnoses Not on filedocumented in this encounter Additional Health Concerns Assessment Noted Time PHQ-9 Depression Total Score: 9 06/15/19 24 1:18 PM EDT documented as of this encounter Care Teams Brazing Machine Operator Relationship Specialty Start Date End Date Sunshine Vela FNP [address] [place] [address] PCP - General Family Medicine 05/18/22 documented as of this encounter
--- OUTSIDE RECORDS SUMMARY | 2024-05-14 12:08 | XMS_ITS | Encounter Summary ---
Author Organization [employer] Address [address] [facility] 7t [place] [address] Care Team Providers Care Tinning Equipment Tender Name Role Phone Dane [facility] Primary Care Provider [phone] Reason for Visit * Reason Comments Med Refill Encounter Details Date Type Department Care Team (Late st Contact Info) Description 04/05/2022 Refill [facility] [address] [place] [address] [phone] Conrado Fong MD [address] [place], [place] [phone] Tobacco dependence; Influenza-like symptoms Social History Tobacco Use Types Packs/Day Years [...] Description 05/23/2024 9:15 AM EDT Office Visit [facility] [address] [place] [address] Sunshine VelaMCLAREN FLINT [address] [place] [address] documented as of this encounter Visit Diagnoses Diagnosis Tobacco dependence Tobacco use disorder Influenza-like symptoms Other general symptoms documented in this encounter Care Teams Tinning Equipment Tender Relationship Specialty Start Date End Date [place] TIEN Gonsalez [address] [place] [phone] PCP - General Family Medicine 05/18/22 documented as of this encounter
--- OUTSIDE RECORDS SUMMARY | 2024-05-14 12:08 | XMS_ITS | Encounter Summary ---
Author Organization [employer] Address [address] [facility] 7t [place] [address] Care Team Providers Care Allopathic Doctor Name Role Phone Sunshine Vela Primary Care Provider [phone] Encounter Details Date Type Department Care Team (Late st Contact Info) Description 04/07/2022 Orders Only [facility] MED & PEDS [address] [place], [place] [phone] Conrado Fong MD [address] [place] [address] Social History Tobacco Use Types Packs/Day Years [...] Description 05/23/2024 9:15 AM EDT Office Visit [facility] MEDICINE [address] [place] [address] Sunshine Vela FNP [address] [place] [address] documented as of this encounter Visit Diagnoses Not on filedocumented in this encounter Care Teams Allopathic Doctor Relationship Specialty Start Date End Date Sunshine Vela FNP [address] [place] [address] PCP - General Family Medicine 05/18/22 documented as of this encounter
--- OUTSIDE RECORDS SUMMARY | 2024-05-14 12:08 | XMS_ITS | Encounter Summary ---
Author Organization [employer] Address [address] [facility] 7t [place] [address] Care Team Providers Care Cone Treater Name Role Phone Dane, [facility] Primary Care Provider [phone] Reason for Visit * Reason Onset Date Comments Nurse Triage 04/11/2023 Encounter Details Date Type Department Care Team ([facility] st Contact Info) Description 04/11/2023 Telephone [facility] MED[facility] [address] [place] [address] [facility] [address] [place] [address] Nurse Triage Social History Tobacco Use Types Packs/Day Years Used Date Smoking Tobacco: Every Day Cigarettes Passive Smoke Exposure: Current Smokeless Tobacco: Never Alcohol Use Standard Drinks/Week Comments Never 0 (1 standard drink = 0.6 oz pur e alcohol) Depression Answer Date Recorded Patient Health Questionnaire-9 Score 0 05/18/2022 Housing Stability Answer Date Recorded What is your housing situation today? I have sue nair 12/25/[address] you li ve. Do you have problems with any of the following? None of the above 12/25/2022 Food Insecurity Answer Date Recorded Within the past 12 months, y ou worried that your food would run out before you got money to buy more: Never True 12/25/2022 Within the past 12 months,th e food you bought just didn't last and you didn't have enough money to get more: Never True Transportation Answer Date Recorded In the past 12 months, has l ack of transportation kept you from medical appts, meetings, work or from getting things needed for daily living? No 12/25/2022 Utilities Answer Date Recorded In the past 12 months, has t he electric, gas, oil or water [employer] threatened to shut off services in your home? No 12/25/2022 Depression Answer Date Recorded Patient Health Questionnaire-2 Score 0 05/18/2022 Comments Unknown Sex and Gender Information Value Date Recorded Sex Assigned at Female 01/09/2022 10:17 AM EDT Legal Sex Female 10:17 AM EDT Gender Identity Female 01/09/2022 10:17 AM EDT Sexual Orientation Straight 01/09/2022 10 :17 AM EDT documented as of this encounter Miscellaneous Notes * Telephone Encounter - Landy Resendiz - 04/11/2023 9:16 AM EST Symptom: Back Pain - Not From Injury Outcome: Schedule an appointment to be seen within 3 days Reason: Caller denied all higher acuity questions The caller accepted this outcome Pt states was seen at [facility] on 04/07/23 . No medication prescribed . documented in this encounter Plan of Treatment Upcoming Encounters Date Type Department Care Team (Late st Contact Info) Description 05/23/2024 9:15 AM EDT Office Visit [facility] MEDIC[facility] [address] [place] [address] Sunshine Vela FNP [address] [place] [address] documented as of this encounter Visit Diagnoses Not on filedocumented in this encounter Additional Health Concerns Assessment Noted Time PHQ-9 Depression Total Score: 0 05/19/19 9:44 AM EST documented as of this encounter Care Teams Cone Treater Relationship Specialty Start Date End Date Sunshine Vela FNP [address] [place] [address] PCP - General Family Medicine 05/18/22 documented as of this encounter
--- OUTSIDE RECORDS SUMMARY | 2024-05-14 12:08 | XMS_ITS | Encounter Summary ---
Author Organization [facility] Address [address] [place] [address] Care Team Providers Care Coldfusion Name Role Phone Shelly Hein PA-C Primary Care Provider [phone] Encounter Details Date Type Department Care Team ([facility] st Contact Info) Description 07/27/2015 Interim Notes [facility] [address] [place] [phone] Shilpa Meyers, CANDICE [address] [place] [address] Social History Tobacco Use Types Packs/Day Years Used Date Smoking Tobacco: Every Day Cigarettes 0.5 12 Alcohol Use Standard Drinks/Week Comments No 0 (1 standard drink = 0.6 oz pure alcohol) former abuse, now sober since [id number] Comments Unknown Sex and Gender Information Value [...] on filedocumented in this encounter Care Teams Coldfusion Relationship Specialty Start Date End Date Shelly Hein PA-C [address] [place] [address] PCP - General FAMILY MEDICINE, [place] 12/17/19 documented as of this encounter
--- OUTSIDE RECORDS SUMMARY | 2024-05-14 12:08 | XMS_ITS | Encounter Summary ---
Author Organization [employer] Address [address] [place] [address] 7t [place] [address] Care Team Providers Care Nurse Midwife/Clinical Instructor Name Role Phone Dane [facility] Primary Care Provider [phone] Encounter Details Date Type Department Care Team (Latest Contact Info) Description 04/21/2020 Abstract [facility] CON[facility] Dental, Provider, DDS Social History Tobacco Use Types Packs/Day Years [...] Description 05/23/2024 9:15 AM EDT Office Visit [facility] MEDIC[facility] [address] [place] [address] [facility] [address] [place] [address] documented as of this encounter Visit Diagnoses Not on filedocumented in this encounter Care Teams Nurse Midwife/Clinical Instructor Relationship Specialty Start Date End Date [place] [facility] [address] [place] [address] PCP - General Family Medicine 05/18/22 documented as of this encounter
--- OUTSIDE RECORDS SUMMARY | 2024-05-14 12:08 | XMS_ITS | Encounter Summary ---
Author Organization [employer] Address [address] [place] [address] 7t [place] [address] Care Team Providers Care Rent And Housing Investigator Name Role Phone [facility] Primary Care Provider [phone] Reason for Visit * Reason Comments Med Refill Encounter Details Date Type Department Care Team (Late st Contact Info) Description 03/19/2022 Refill [facility] [address] [place] [address] [phone] Conrado Fong MD [address] [place], [place] [phone] Influenza-like symptoms Social History Tobacco Use Types [...] suspected to have Coronavirus/COVID-19? No / Unsure 03/14/2022 1:11 PM EST documented as of this encounter Plan of Treatment Upcoming Encounters Date Type Department Care Team (Late st Contact Info) Description 05/23/2024 9:15 AM EDT Office Visit [facility] MED[facility] [address] [place] [phone] Dane, [address] [address] documented as of this encounter Visit Diagnoses Diagnosis Influenza-like symptoms Other general symptoms documented in this encounter Care Teams Rent And Housing Investigator Relationship Specialty Start Date End Date Dane TIEN Gonsalez [address] [place] [address] PCP - General Family Medicine 05/18/22 documented as of this encounter
[2024-05-14] MEDS: methylPREDNISolone Sod Succ 125 MG/2 ML VIAL IVPUSH (12:10)
[2024-05-14 12:11] LABS: Mean Platelet Volume 9.9 fL (9.4-12.3); Platelet Count 288 X10*3/uL (160-400); SLIDE REVIEW VERIFIED; White Blood Count 9.8 X10*3/uL (4.8-10.8)
[2024-05-14 12:37] LABS: D Dimer High Sensitivity 172 NG/ML
[2024-05-14] MEDS: Magnesium Sulfate/H2O 2 GM/50 ML PIGGYBACK IV (12:59)
[2024-05-14] MEDS: Potassium Chloride/H20 10 MEQ/100 ML PIGGYBACK 100 MEQ IV (13:00)
[2024-05-14] MEDS: Potassium Chloride Packet 20 MEQ PACKET 60 MEQ PO (13:00)
== END 2024-05-14 14:56 | disposition left against medical advice (07) ==
PROVIDERS: Physician Assistant Medical; Emergency Provider Emergency Medicine; PCP Registered Nurse
DX: J45.901 Unspecified asthma with (acute) exacerbation (principal); E87.6 Hypokalemia; E83.42 Hypomagnesemia; J44.9 Chronic obstructive pulmonary disease, unspecified; Z86.718 Personal history of other venous thrombosis and embolism; Z95.818 Presence of other cardiac implants and grafts
CPT/HCPCS: 0241U; 71046; 80053; 83735; 84484; 84702; 85025; 85379; 85610; 93005; 94640; 96365; 96366; 96375; 99284; J2919; J3475; J3480

== ENCOUNTER → 2024-05-14 10:26 | Outpatient (BNV) | payer MEDICAID, SELFPAY | PROVIDERS: Emergency Provider Emergency Medicine; PCP Registered Nurse; Visit Provider Radiology Diagnostic Radiology | DX: R06.02 Shortness of breath (principal) | CPT/HCPCS: 71046 ==

== ENCOUNTER → 2024-05-14 10:26 | Outpatient (BNV) | payer MEDICAID, SELFPAY | PROVIDERS: Emergency Provider Emergency Medicine; PCP Registered Nurse; Visit Provider Internal Medicine Cardiovascular Disease | DX: R00.0 Tachycardia, unspecified (principal) | CPT/HCPCS: 93010 ==

== ENCOUNTER 2024-05-14 16:54 | Outpatient (REF) | payer MEDICAID, SELFPAY ==
--- OUTSIDE RECORDS SUMMARY | 2024-05-14 19:25 | XMS_ITS | Encounter Summary ---
Author Organization [employer] Address [address] [facility] 7t [place] [address] Care Team Providers Care Vault Installer Name Role Phone [facility] Primary Care Provider [phone] Reason for Visit * Reason Onset Date Comments Med Refill 04/22/2024 Encounter Details Date Type Department Care Team ([facility] st Contact Info) Description 04/22/2024 Refill [facility]INE [address] [place] [address] [facility] [address] [place] [address] Severe persistent asthma with acute exacerbation Social [...] 0.083% nebulizer solution To be sent to: [facility]/pharmacy #[id number] [place], [place] - [address] [place] [address] documented in this encounter Plan of Treatment Upcoming Encounters Date Type Department Care Team (Late st Contact Info) Description 05/23/2024 9:15 AM EDT Office Visit [facility] MED[facility] [address] [place] [address] [facility], [facility] [address] [place], [place] [phone] documented as of this encounter Visit Diagnoses Diagnosis Severe persistent asthma with acute exacerbation documented in this encounter Additional Health Concerns Assessment Noted Time PHQ-9 Depression Total Score: 9 06/15/19 24 1:18 PM EDT documented as of this encounter Care Teams Vault Installer Relationship Specialty Start Date End Date Sunshine Vela FNP [address] [place] [phone] PCP - General Family Medicine 05/18/22 documented as of this encounter
--- OUTSIDE RECORDS SUMMARY | 2024-05-14 19:25 | XMS_ITS | Clinical Summary ---
Author Organization [facility] Address [address] [place] [address] Care Team Providers Care Dinkey Motor Operator Name Role Phone Shelly Hein PA-C [...] without aura and without status migrainosus, not intractable,Cvor Nurse man right-sided low back pain with right-sided sciatica [...] pure alcohol) former abuse, now sober since [id number] Social Connections Answer Date Recorded Connectedness 0 [...] 05/19/2023 05/18/2022, 10/10, 01/28/2020, Additional history exists [id number] ( season) 2023 03/31/2022, 06/26/2020, 05/28/2020 Imm-Influenza [...] AM EDT) CHOLESTEROL, TOTAL 241(H) <200 mg/dL [facility] HDL CHOLESTEROL 51 > OR = 50 mg/dL [facility] TRIGLYCERIDES 165(H) <150 mg/dL [facility] LDL-CHOLESTEROL 159(H) 99 mg/dL (calc) [facility] Comment: Reference range: <100 Desirable range <100 mg/dL for primary prevention; ?? <70 mg/dL for patients with CHD or diabetic patients with > or = 2 CHD risk factors. LDL-C is now calculated using the Yumiko calculation, which is a validated novel method providing better accuracy than the Friedewald equation in the estimation of LDL-C. Percy ESPINOZA et al. GERTRUDE. 2013;310(19): 8144-4571 (http://education.RealMatch/faq/JMA035) CHOL/HDLC RATIO 4.7 <5.0 (calc) [facility] NON-HDL CHOLESTEROL 190(H) <130 mg/dL (calc) [facility] Comment: For patients with diabetes plus 1 major ASCVD risk factor, treating to a non-HDL-C goal of <100 mg/dL (LDL-C of <70 mg/dL) is considered a therapeutic option. Blood Blood / Unknown 10/25/2021 9 :26 AM EDT 10/25/2021 9:27 AM EDT Narrative [facility] - 10/28/2021 12:56 AM EDT FASTING:YES us Shelly Hein PA-C LAB - BLOOD DRAW Final Resul t [facility] [address] [address], [facility] [address] [address] * (ABNORMAL) COMPREHENSIVE METABOLIC PANEL (10/25/2021 9:26 AM EDT) GLUCOSE 102(H) 65 - 99 mg/dL [facility] Comment: ?Fasting reference interval For someone without known diabetes, a glucose value between 100 and 125 mg/dL is consistent with prediabetes and should be confirmed with a follow-up test. UREA NITROGEN (BUN) 21 7 - 25 mg/dL [facility] CREATININE (blood) 0.91 0.50 - 0.99 mg/dL [facility] EGFR 79 > OR = 60 mL/min/1 .73m2 [facility] Comment: The eGFR is based on the CKD-EPI 2020 equation. To calculate the new eGFR from a previous Creatinine or Cystatin C result, go to https://www.kidney.org/professionals/ kdoqi/gfr%5Fcalculator BUN/CREATININE RATIO NOT APPLICABLE 6 - 22 [facility] SODIUM 139 135 - 146 mmol/L [facility] POTASSIUM 4.0 3.5 - 5.3 mmol/L [facility] CHLORIDE 106 98 - 110 mmol/L [facility] CARBON DIOXIDE 23 20 - 32 mmol/L [facility] CALCIUM 9.0 8.6 - 10.2 mg/dL [facility] PROTEIN, TOTAL 7.6 6.1 - 8.1 g/dL [facility] ALBUMIN 4.2 3.6 - 5.1 g/dL [facility] GLOBULIN 3.4 1.9 - 3.7 g/dL (calc) [facility] ALBUMIN/GLOBUL IN RATIO 1.2 1.0 - 2.5 (calc) [facility] BILIRUBIN, TOTAL 0.2 0.2 - 1.2 mg/dL [facility] ALKALINE PHOSPHATASE 91 31 - 125 U/L [facility] AST 13 10 - 35 U/L [facility] ALT 15 6 - 29 U/L [facility] Blood Blood / Unknown 10/25/2021 9 :26 AM EDT 10/25/2021 9:27 AM EDT Narrative [facility] - 10/28/2021 12:56 AM EDT FASTING:YES Shelly Hein PA-C LAB - BLOOD DRAW Edited Resu lt - Final [facility] [address] [address], [employer] [facility] [address] [address] * MAMMOGRAM BI-RADS, ABSTRACTED (04/05/2018 2:17 PM EST) BI-RADS ASSESSMENT 1 - Negative: means that there is no significant or noticeable abnormality to report. BI-RADS FOLLOW-UP 1 - Continue annual screening mammography (for women over age 40). Anatomical Region Laterality Modality Other Impressions 04/05/2018 2:17 PM EST As per [facility]. No mammographic evidence of malignancy. Provider Maryjo IMG MAMMO Final Result * PAP LIQ BASED, HPV W/ RFX HPV 16/18 (08/15/2016 1:32 PM EDT) Cytologic material (specimen) Cervix uteri structure / Unknown 08/15/2016 1:32 PM EDT Impressions [facility] - 08/15/2016 1:32 PM EDT ThinPrep Pap, Imaged: ATYPICAL SQUAMOUS CELLS OF UNDETERMINED SIGNIFICANCE (ASCUS) SOURCE: ThinPrep Pap HPV Any DX: Reflex 16 and 18, Cervical, Imaged: CLINICAL INFORMATION: HPV Any Diagnosis. LMP 08/10/16 Perri [facility] LAB - NO BLOOD DRAW Final Resu lt [facility] [address] [place] [address], * (ABNORMAL) HEPATITIS A,B,C PANEL (01/27/2015 9:45 AM EST) HEPATITIS B SURFACE ANTIGEN NEGATIVE NEGATIVE [facility] HEPATITIS C VIRUS DIAGNOSTIC NEGATIVE NEGATIVE [facility] HEPATITIS A ANTIBODY TOTAL POSITIVE(A) NEGATIVE [facility] HEPATITIS B CORE ANTIBODY NEGATIVE NEGATIVE [facility] HEPATITIS B SURFACE ANTIBODY POSITIVE(A) NEGATIVE [facility] Comment: Hepatitis B surface antibody testing performed at reference lab due to reagent backorder. Reference range: Negative: Inconsistent with immunity, less than 10 mIU/mL Positive: ? Consistent with immunity, greater than 9.9 mIU/mL Testing performed at: [facility] [address] [place] [id number] PHONE: Blood specimen (specimen) Blood / Unknown 01/27/2015 9:45 AM EST 01/27/2015 12:04 PM EST Narrative [facility] 01/27/2015 1:41 PM EST [facility] [address] [place] [address] PT ID [id number] ORD# [id number] Shilpa Meyers NP LAB - BLOOD DRAW Edited Result - Final Performing Organization Address [facility]/ZIP Co de Phone Number [facility] [address] [place] [address], * HIV-1 & HIV-2 ANTIBODIES (01/27/2015 9:45 AM EST) [facility] HIV 1 AND 2 ANTIBODY SCREEN NEGATIVE NEGATIVE [facility] Comment: Effective 11/17/14, [employer] has replaced the HIV screening test with [...] AM EST 01/27/2015 12:04 PM EST Narrative [facility] - 01/27/2015 2:10 PM EST [facility] [address] [place] [address] PT ID [id number] ORD# [id number] Shilpa Meyers NP LAB - BLOOD DRAW Edited Result - Final Performing Organization Address City/[facility]/ZIP Co de Phone Number [address] [address], from Last 3 Months or Most Recently Relevant to Health Maintenance Insurance [id number] Care Teams Dinkey Motor Operator Relationship Specialty Start Date End Date Shelly Hein PA-C [facility] [place] [address] PCP - General FAMILY MEDICINE [place] 12/17/19
--- OUTSIDE RECORDS SUMMARY | 2024-05-14 19:25 | XMS_ITS | Encounter Summary ---
Author Organization [facility] Address [address] [place] [address] Care Team Providers Care China Painter Name Role Phone Shelly Hein PA-C Primary Care Provider [phone] Encounter Details Date Type Department Care Team (Late st Contact Info) Description 01/13/2015 Interim Notes [facility] Main [address] [place] [address] Use, Do Not, [facility] [address] [place] [address] Social History Tobacco Use Types Packs/Day Years Used Date Smoking Tobacco: Every Day Cigarettes 0.5 12 Alcohol Use Standard Drinks/Week Comments No 0 (1 standard drink = 0.6 oz pure alcohol) former abuse, now sober since [id number] Comments Unknown Sex and Gender Information Value [...] on filedocumented in this encounter Care Teams China Painter Relationship Specialty Start Date End Date Shelly Hein PA-C [facility] [place] [address] PCP - General FAMILY MEDICINE, [place] 12/17/19 documented as of this encounter
--- OUTSIDE RECORDS SUMMARY | 2024-05-14 19:25 | XMS_ITS | Encounter Summary ---
Author Organization [employer] Address [address] [place] [address] [address] [place] [address] Care Team Providers Care Propulsion Engineer Name Role Phone [facility] Primary Care Provider [phone] Reason for Visit * Reason Comments Med Refill Encounter Details Date Type Department Care Team ([facility] Contact Info) Description 09/30/2022 Refill [facility] MEDICINE [address] [place] [phone] [phone] Pain Social History Tobacco Use Types Packs/Day [...] Upcoming Encounters Date Type Department Care Team ([facility] Contact Info) Description 05/23/2024 9:15 AM EDT Office Visit [facility] MEDICINE [address] [place] [address] Sunshine Vela FNP [address] [place] [address] documented as of this encounter Visit Diagnoses Diagnosis Pain Generalized pain documented in this encounter Additional Health Concerns Assessment Noted Time PHQ-9 Depression Total Score: 0 05/19/19 9:44 AM EST documented as of this encounter Care Teams Propulsion Engineer Relationship Specialty Start Date End Date Sunshine Vela FNP [address] [place] [address] PCP - General Family Medicine 05/18/22 documented as of this encounter
--- OUTSIDE RECORDS SUMMARY | 2024-05-14 19:25 | XMS_ITS | Clinical Summary ---
Author Organization [employer] Address [address] [place] [address] 7t [place] [address] Care Team Providers Care Court Manager Name Role Phone [facility] [phone] Allergies Active Allergy Reactions Criticality Noted Date [...] Other chest pain 07/03/2023 Overview (07/03/2023): Cardiology-saw [facility] cardiology re chest pain/SOB 10/2022--plan for echocardiogram and stress test. ASCVD-3% 05/22/22; Oral lesion 02/21/2023 Tobacco use disorder 10/10/2022 Overview (10/17/2022): ?? 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 States initially on [...] presence of IVC filter as recommended by [facility]. Pending KUB results will consider CT scan if indicated and likely referral to vascular. Numbness and tingling in both hands 10/09/2022 Lumbar radiculopathy 10/09/2022 Overview (10/17/2022): ?? Previously followed by [facility] pain mngmt ?? Spinal nerve stimulator in place Assessment & Plan (10/19/2022 12:52 PM EDT): ?? Referral placed back to [facility] pain mngmt for followup [...] Description 05/14/2024 8:40 AM EST Office Visit [facility] [address] [place] [address] Conrado Fong MD Influenza-like symptoms (Primary Dx); Severe persistent asthma with acute exacerbation; Acute URI 05/14/2024 Orders Only GENERIC EXTERNAL DATA DEPARTMENT Provider, Generic External Data 04/22/2024 Refill [facility] [address] [place] [address] [facility] Severe persistent asthma with acute exacerbation 03/25/2024 9:00 AM EST Office Visit [facility] [address] [place] [address] Conrado Fong MD Asthma with COPD with exacerbation ([facility]) (Primary Dx); Chronic foot pain, right; Tobacco dependence; Viral URI; Severe persistent asthma with acute exacerbation; Encounter for tobacco use cessation counseling 03/25/2024 Refill [facility] [address] [place] [address] Conrado Fong MD Severe persistent asthma with acute exacerbation; Encounter for tobacco use cessation counseling 03/24/2024 Telephone [facility] [address] [place] [address] [facility] Nurse Triage 03/06/2024 Telephone [facility] [address] [place] [address] [facility] Apr recalls from Last 3 Months Immunizations [...] Description 05/23/2024 9:15 AM EDT Office Visit [facility] [address] [place] [address] [facility] [address] [place] [address] Health Maintenance Due Date Last Done Comments [...] VIEWS Routine 05/14/2024 11:3 4 AM EST D DIMER HIGH SENSITIVITY Routine 05/14/2024 11:14 AM EST SLIDE REVIEW Routine 05/14/2024 11:14 AM EST HCG, TOTAL, [...] AM EST Asthma with COPD with exacerbation (CMS/HCC) POCT INFLUENZA A (ID NOW RAPID MOLECULAR) [...] EST Narrative 05/14/2024 11:59 AM EST ? [facility] ?[address] ?[place] [address] ?XRay Report ? Signed ? Patient: Merchant,Simran L ?MR#: [id number] ?? 98 ? : 1975 ?Acct:[id number] ? Age/Sex: 48 / F ?ADM Date: 05/14/24 ? Loc: HO.ED ? Attending Dr: ? Ordering Physician: Lakeisha Montes ?? Date of Service: 05/14/24 ?? Procedure(s): XR chest 2V ?? Accession Number(s): [id number] ? cc: Lakeisha Montes; Sunshine Vela ? EXAMINATION: ?? XR CHEST ? CLINICAL [...] ? DD/ 1134 ? TD/TT: 05/14/241133 ? Home Care Attendant: MSM ? Procedure Note Elliott Traore - 05/14/[address] [address] XRay Report Signed Patient: Simran Posada LMR#: [id number] 98 : 1975Acct:[id number] Age/Sex: 48 / FADM Date: 05/14/24 Loc: HO.ED Attending Dr: Ordering Physician: Lakeisha Montes Date of Service: 05/14/24 Procedure(s): XR chest 2V Accession Number(s): [id number] cc: Lakeisha Montes; [facility] LABORATORY ANALYST EXAMINATION: XR CHEST CLINICAL INFORMATION: sob COMPARISON: Chest 01/26/2024 TECHNIQUE: 2 views of the chest were obtained. FINDINGS: The lungs are hypoexpanded and clear acute process. The heart size is borderline normal. Pulmonary vascularity is normal. No gross bony abnormality seen. XR/XR chest 2V IMPRESSION: No acute cardiopulmonary process seen. No change from 01/26/2024 Electronically signed by: iGgi Rodriguez MD 05/14/2024 11:56 AM EST RP Dictated By: Gigi Rodriguez MD Signed By: <Electronically signed by Gigi Rodriguez MD in OV> 05/14/24 1156 DD/ 1134 TD/TT: 05/14/24 1134 Home Care Attendant: VIC [facility] External Provider IMG XR PROCEDURES Edited Result - Final * Slide Review (05/14/2024 11:14 AM EST) Slide Review VERIFIED [facility] 05/14/2024 11:1 4 AM EST 05/14/2024 11:20 AM EST Generic External Data Provider LAB BLOOD ORDERAB LES Final Result [facility] [address] [place] [phone] * D Dimer High Sensitivity (05/14/2024 11:14 AM EST) D Dimer High Sensitivity 172 NG/ML [facility] Comment:D-DIMER HS REFERENCE RANGENote: Our assay reports D-Dimer Units (D- DU).The cut-off value for venous thromboembolic (VTE) disease is230 ng/mL. This value has a very high negative predictivevalue when the patient has a low to moderate clinicalprobability of VTE.The upper limit of normal is 243 ng/mL. 05/14/2024 11:1 4 AM EST 05/14/2024 11:20 AM EST Generic External Data Provider LAB BLOOD ORDERAB LES Final Result Performing Organization Address [facility] Co de Phone Number [facility] [address] [place] [phone] * High Sensitivity Troponin I (05/14/2024 11:14 AM EST) Pathologist [facility] TROPONIN I HIGH SENSITIVITY <2.7 <3.5 - 17.0 ng/L [facility] Comment:The Byers high sens itivity Troponin-I results should beused in conjunction with other diagnostic information suchas ECG, clinical observations and information, and patientsymptoms to aid in the diagnosis of ND. 05/14/2024 11:1 4 AM EST 05/14/2024 11:20 AM EST Generic External Data Provider LAB BLOOD ORDERAB LES Final Result Performing Organization Address [facility] de Phone Number [facility] [address] [place] [phone] * SARS-CoV-2 RNA, Influenza A/B, and RSV RNA, Ql NAAT (05/14/2024 11:14 AM EST) [facility] Influenza A PCR NEGATIVE Negative [facility] Influenza B PCR NEGATIVE Negative [facility] Resp Syncy Virus RNA Qual PCR NEGATIVE Negative [facility] SARS COV2 PCR NEGATIVE Negative [facility] Comment:All test results mus t [...] use by authorized laboratories.Testing performed on the Log[employer] GeneXpert utilizingreal-time RT-PCR.All SARS CoV2 and positive influenza A/B results arereported to [facility]. 05/14/2024 11:1 4 AM EST 05/14/2024 11:20 AM EST us Generic External Data Provider LAB MICROBIOLOGY - GENERAL ORDERABLES Final Result [facility] [address] [place] [address] [phone] * (ABNORMAL) CBC auto differential (05/14/2024 11:14 AM EST) White Blood Count 9.8 4.8 - 10.8 X10*3/uL [facility] Red Blood Count 4.56 4.20 - 5.50 X10*6/uL [facility] Hemoglobin 14.0 12.0 - 16.0 g/dl [facility] Hematocrit 39.8 37.0 - 47.0 % [facility] Mean Corpuscular Volume 87.3 80.0 - 98.0 fL [facility] Mean Corpuscular Hemoglobin 30.7 27.0 - 33.0 pg [facility] Mean Corpuscular HGB Conc 35.2(H) 31.0 - 35.0 g/dl [facility] Red Cell Distribution Width 12.6 11.0 - 16.0 % [facility] Platelet Count 288 160 - 400 X10*3/uL [facility] Mean Platelet Volume 9.9 9.4 - 12.3 fL [facility] Neutrophils Percent Auto 56.0 45 - 73 % [facility] Imm Gran Pct Auto 0.2 0.0 - 0.4 % [facility] Lymphocytes Percent Auto 31.5 20 - 40 % [facility] Monocytes Percent Auto 9.2 2 - 11 % [facility] Eosinophils Percent Auto 2.7 0 - 4 % [facility] Basophils Percent Auto 0.4 0 - 2 % [facility] NRBC Pct Auto 0.0 0.0 - 0.2 /100WBC [facility] Neutrophils Absolute Auto 5.5 2.0 - 8.3 x10*3/uL [facility] Imm Gran Abs Auto 0.02 0.00 - 0.03 X10*3/uL [facility] Lymphocytes Absolute Auto 3.1 1.2 - 4.9 X10*3/uL [facility] Monocytes Absolute Auto 0.9 0.1 - 1.2 X10*3/uL [facility] Eosinophils Absolute Auto 0.3 0.0 - 0.4 X10*3/uL [facility] Basophils Absolute Auto 0.0 0.0 - 0.2 X10*3/uL [facility] NRBC Abs Auto 0.000 0.0 - 0.012 X10*3/uL [facility] 05/14/2024 11:1 4 AM EST 05/14/2024 11:20 AM EST Generic External Data Provider LAB BLOOD ORDERAB LES Edited Result - Final Performing Organization Address [facility] de Phone Number [facility] [address] [place] [phone] * Prothrombin Time-INR (05/14/2024 11:14 AM EST) Prothrombin Time 12.2 10.9 - 12.4 SEC [facility] INTERNATIONAL NORM RATIO 1.0 0.9 - 1.1 [facility] Comment:INTERNATIONAL NORMAL IZED RATIO (INR) [...] ORDERAB LES Final Result Performing Organization Address [facility] de Phone Number [facility] [address] [place] [phone] * hCG, Total, Quantitative (05/14/2024 11:14 AM EST) Pathologist [facility] HCG Quantitative <2 mIU/mL [facility] Comment:Weeks post LMP Appro ximate hCG(Last Menstrual Period) Range (mIU/ml)3 - 4 weeks 9 - 1304 - 5 weeks 75 - 2,6005 - 6 weeks 850 - 20,8006 - 7 weeks 4000 - 100,2007 - 12 weeks 11,500 - 289,85198 - 16 weeks 18,300 - 137,42738 - 29 weeks (2nd trimester) 1,400 - 53,54547 - 41 weeks (3rd trimester) 940 - [...] ORDERAB LES Final Result Performing Organization Address City/[facility]/ZIP Co de Phone Number [facility] [address] [place] [phone] * (ABNORMAL) Magnesium (05/14/2024 11:14 AM EST) [facility] Magnesium 1.5(L) 1.6 - 2.6 mg/dL [facility] 05/14/2024 11:1 4 AM EST 05/14/2024 11:20 AM EST us Generic External Data Provider LAB BLOOD ORDERAB LES Final Result Performing Organization Address [facility]/ZIP Co de Phone Number [facility] [address] [place] [address] [phone] * (ABNORMAL) Comprehensive Metabolic Panel (05/14/2024 11:14 AM EST) Sodium 141 135 - 145 mmol/L [facility] Potassium 2.8(LL) 3.3 - 5.1 mmol/L [facility] Comment:Critical value for t est(s): K Results called to and readback by: JOSEFA Person calling: THEODORE Date: 05-14-24 Time:1206 Chloride 104 96 - 108 mmol/L [facility] Carbon Dioxide 25 22 - 29 mmol/L [facility] Anion Gap 15 12 - 20 [facility] Urea Nitrogen (BUN) 13 9 - 16 mg/dL [facility] Creatinine, Serum 0.95 0.5 - 1.4 mg/dL [facility] Creatinine Clr Calc Pharmacy 86.8 [facility] Comment:Provided height and weight: 167.64 cm,98.883 kg.eGFR (calculated from the MDRD study equation) and eCrCl(calculated from the Cockcroft-Gault equation) are based ondifferent parameters and may not yield comparable results.If eCrCl result is absurd, please check patient'sheight/weight. Estimated Glomerular Filt Rate >60 [facility] Comment:Chronic Kidney Disea se: Estimated GFR < 60 mL/min/1.06n0Tszrjn Kidney Disease: Estimated GFR < 15 mL/min/1.73m2 Glucose 131(H) 60 - 115 mg/dL [facility] Calcium 9.4 8.4 - 10.2 mg/dL [facility] Bilirubin, Total 0.3 0.0 - 1.0 mg/dL [facility] Aspartate Amino Transferase 21 5 - 31 U/L [facility] Alanine Aminotransferase 32(H) 0 - 31 U/L [facility] Total Protein 8.1(H) 6.5 - 8.0 g/dL [facility] Albumin Level 4.3 3.5 - 5.0 g/dL [facility] Alkaline Phosphatase 78 39 - 117 U/L [facility] 05/14/2024 11:1 4 AM EST 05/14/2024 11:20 AM EST Generic External Data Provider LAB BLOOD ORDERAB LES Final Result Performing Organization Address [facility] Co de Phone Number [facility] [address] [place] [address] [phone] * Influenza B (ID NOW Rapid Molecular) (05/14/2024 9:11 AM EST) Only the most recent of2 resultswithin the time period is included. Influenza B Negative Negative, Indeterminate [facility] Swab 05/14/2024 9:11 AM EST Conrado Fong MD POINT OF CARE TEST ENTER/EDIT OR DERABLES Final Result Performing Organization Address [facility] Co de Phone Number [facility] [address] [place] [address] [phone] * Influenza A (ID NOW Rapid Molecular) (05/14/2024 9:11 AM EST) Only the most recent of2 resultswithin the time period is included. Influenza A Negative Negative, Indeterminate [facility] Swab 05/14/2024 9:11 AM EST Conrado Fong MD POINT OF CARE TEST ENTER/EDIT OR DERABLES Final Result Performing Organization Address [facility] Co de Phone Number [facility] [address] [place] [address] [phone] * POCT Rapid COVID Ag (05/14/2024 9:11 AM EST) Only the most recent of2 resultswithin the time period is included. Rapid COVID Ag Negative [facility] Swab 05/14/2024 9:11 AM EST Conrado Fong MD POINT OF CARE TEST ENTER/EDIT OR DERABLES Final Result Performing Organization Address [facility] Co de Phone Number [facility] [address] [place] [address] [place] [phone] * POCT rapid strep A manually resulted (05/14/2024 9:11 AM EST) [facility] Rapid Strep A Screen Negative Negative, None Detected [facility] Swab 05/14/2024 9:11 AM EST Conrado Fong MD POINT OF CARE TEST ENTER/EDIT OR DERABLES Final Result [facility] [address] [place] [address] [phone] * Respiratory Viral Panel PCR (03/25/2024 9:49 AM EST) [facility] Adenovirus PCR Not Detected Not Detect. [facility] Bordetella pertussis PCR Not Detected Not Detect. [facility] Comment:Interpret results wi th caution. If B. pertussis isspecifically suspected, additional testing using analternate method is recommended. Bordetella parapertussis PCR Not Detected Not Detect. [facility] Chlamydia pneumoniae PCR Not Detected Not Detect. [facility] Coronavirus 229E PCR Not Detected Not Detect. [facility] Coronavirus HKU1 PCR Not Detected Not Detect. [facility] Coronavirus NL63 PCR Not Detected Not Detect. [facility] Coronavirus OC43 PCR Not Detected Not Detect. [facility] SARS-CoV-2 PCR Not Detected Not Detect. [facility] Comment:SARS-CoV-2 not detec jory by real-time RT-PCR.Note: If clinical suspicion for Sars-CoV-2 is high, continueto maintain precautions and consider repeat testing.Test results should be interpreted in the context ofclinical findings and other laboratory data.Rare polymorphisms exist that could lead to false-negativeor false-positive results. If results do not match theclinical findings, additional testing should be considered.Results reported to [facility].This test has been authorized by the FDA under the EmergencyUse Authorization (EUA) for use by authorized laboratories. Influenza A PCR Not Detected Not Detect. [facility] Influenza B PCR Not Detected Not Detect. [facility] Human metapneumovirus PCR Not Detected Not Detect. [facility] Rhino/Enterovirus PCR Not Detected Not Detect. [facility] Mycoplasma pneumoniae PCR Not Detected Not Detect. [facility] Parainfluenza 1 PCR Not Detected Not Detect. [facility] Parainfluenza 2 PCR Not Detected Not Detect. [facility] Parainfluenza 3 PCR Not Detected Not Detect. [facility] Parainfluenza 4 PCR Not Detected Not Detect. [facility] RSV PCR Not Detected Not Detect. [facility] Resp Panel NA Note See Note H [facility] Comment:All results must be correlated [...] assay is performed by Multiplexed PCR, utilizing [employer] Array. 03/25/2024 9:49 AM EST 03/25/2024 1:13 PM EST us Conrado Fong MD LAB BLOOD ORDERABLES Final Resul t [facility] [address] [place] [phone] [phone] * Hepatitis C Antibody with Reflex to HCV, RNA, Quantitative, Real-Time PCR (05/23/2023 9:53 AM EDT) Hepatitis C Antibody Nonreactive Nonreactive [facility] Comment:Antibodies to HCV no t detected; does not exclude early acuteHCV infection. Blood Venous blood specimen / Unknown 05/23/2023 9:53 AM EDT 05/23/2023 11:14 AM EDT us Conrado Fong MD LAB BLOOD ORDERABLES Final Resul t Performing Organization Address [facility] Co de Phone Number [facility] [address] [place] [address] [phone] * HIV-1/2 Antigen and Antibodies, Fourth Generation, with Reflexes (05/23/2023 9:53 AM EDT) Pathologist [facility] HIV AB/AG Nonreactive Nonreactive [facility] Comment:HIV-1 p24 Ag and/or HIV-1/HIV-2 Ab not detected.A test result that is nonreactive does not exclude thepossibility of exposure to or infection with HIV-1 and/orHIV-2. Nonreactive results in this assay for individualswith prior exposure to HIV-1 and/or HIV-2 may be due toantigen and antibody levels that are below the limit ofdetection of this assay.The Flinqer HIV Ag/Ab Combo assay result andsupplemental assay results should be interpreted inconjunction with the patient's clinical presentation,history and other laboratory results. If the results areinconsistent with clinical evidence, additional testing issuggested to confirm the result. Blood Venous blood specimen / Unknown 05/23/2023 9:53 AM EDT 05/23/2023 11:14 AM EDT us Conrado Fong MD LAB BLOOD ORDERABLES Final Resul t Performing Organization Address City/[facility] Co de Phone Number [facility] [address] [place] [address] [phone] * (ABNORMAL) Lipid Panel, Standard (05/18/2022 10:40 AM EST) Pathologist [facility] Cholesterol, Total 180 <200 mg/dL [facility] HDL Cholesterol 55 > OR = 50 mg/dL [facility] Triglycerides 155(H) <150 mg/dL [facility] LDL Cholesterol 100(H) mg/dL (calc) [facility] Comment: Reference range: <100 Desirable range <100 mg/dL for primary prevention; ?? <70 mg/dL for patients with CHD or diabetic patients with > or = 2 CHD risk factors. LDL-C is now calculated using the Yumiko calculation, which is a validated novel method providing better accuracy than the Friedewald equation in the estimation of LDL-C. Percy SS et al. GERTRUDE. 2013;310(19): 4804-4220 (http://education.[facility]/faq/ZZD979) Chol/HDLC Ratio 3.3 <5.0 (calc) [facility] Non-HDL Cholesterol 125 <130 mg/dL (calc) [facility] Comment: For patients with diabetes plus 1 major ASCVD risk factor, treating to a non-HDL-C goal of <100 mg/dL (LDL-C of <70 mg/dL) is considered a therapeutic option. Blood Venous blood specimen / Unknown 05/18/2022 10:40 AM EST 05/18/2022 10:40 AM EST Narrative [facility] - 05/19/2022 1:04 PM EST FASTING:YES FASTING: YES [facility] LAB BLOOD ORDERABLES Final Re sult [facility] [address] [place] [phone] [facility] [address] [facility], (N[address]) [place] [address] from Last 3 Months or Most Recently Relevant to Health Maintenance [facility] Care Teams Court Manager Relationship Specialty Start Date End Date Sunshine Vela FNP [address] [place] [phone] PCP - General Family Medicine 05/18/22
--- OUTSIDE RECORDS SUMMARY | 2024-05-14 19:25 | XMS_ITS | Encounter Summary ---
Author Organization [employer] Address [address] [facility] [address]t [place] [address] Care Team Providers Care Press And Blow Machine Tender Name Role Phone Sunshine Vela Primary Care Provider [phone] Encounter Details Date Type Department Care Team (Late st Contact Info) Description 04/07/2022 Orders Only [facility] [address] [place], [place] [phone] Conrado Fong MD [address] [place] [address] Social History Tobacco Use Types Packs/Day Years [...] Description 05/23/2024 9:15 AM EDT Office Visit [facility] [address] [place] [address] Sunshine Vela FNP [address] [place] [address] documented as of this encounter Visit Diagnoses Not on filedocumented in this encounter Care Teams Press And Blow Machine Tender Relationship Specialty Start Date End Date Sunhsine Vela FNP [address] [place] [address] PCP - General Family Medicine 05/18/22 documented as of this encounter
--- OUTSIDE RECORDS SUMMARY | 2024-05-14 19:25 | XMS_ITS | Encounter Summary ---
Author Organization [employer] Address [address] [place] [address] [address] [place] [address] Care Team Providers Care Loss Prevention Lead Name Role Phone [facility] Primary Care Provider [phone] Encounter Details Date Type Department Care Team (Latest Contact Info) Description 04/21/2020 Abstract [facility] CONVERSIONS Dental, Provider, DDS Social History [...] Description 05/23/2024 9:15 AM EDT Office Visit [facility] [address] [place] [address] [facility] [address] [place] [address] documented as of this encounter Visit Diagnoses Not on filedocumented in this encounter Care Teams Loss Prevention Lead Relationship Specialty Start Date End Date [facility] [address] [place] [address] PCP - General Family Medicine 05/18/22 documented as of this encounter
--- OUTSIDE RECORDS SUMMARY | 2024-05-14 19:25 | XMS_ITS | Encounter Summary ---
Author Organization [facility] Address [address] [place] [address] Care Team Providers Care Die Repairer Stamping Name Role Phone Shelly Hein PA-C Primary Care Provider [phone] Encounter Details Date Type Department Care Team ([facility] st Contact Info) Description 07/27/2015 Interim Notes [facility] [address] [place] [phone] Shilpa Meyers, CANDICE [address] [place] [address] Social History Tobacco Use Types Packs/Day Years Used Date Smoking Tobacco: Every Day Cigarettes 0.5 12 Alcohol Use Standard Drinks/Week Comments No 0 (1 standard drink = 0.6 oz pure alcohol) former abuse, now sober since [id number] Comments Unknown Sex and Gender Information Value [...] on filedocumented in this encounter Care Teams Die Repairer Stamping Relationship Specialty Start Date End Date Shelly Hein PA-C [address] [place] [address] PCP - General FAMILY MEDICINE, [place] 12/17/19 documented as of this encounter
--- OUTSIDE RECORDS SUMMARY | 2024-05-14 19:25 | XMS_ITS | Encounter Summary ---
Author Organization [employer] Address [address] [place] [address] 7t [place] [address] Care Team Providers Care Test And Turn Up Technician Name Role Phone Sunshine Vela Primary Care Provider [phone] Reason for Visit * Reason Comments Med Refill Encounter Details Date Type Department Care Team ([facility] Contact Info) Description 04/05/2022 Refill [facility] [address] [place] [address] Millicent Mendoza FNP Social History Tobacco Use [...] Description 05/23/2024 9:15 AM EDT Office Visit [facility] [address] [place] [address] [phone] Sunshine Vela FNP [address] [place], [place] [phone] documented as of this encounter Visit Diagnoses Not on filedocumented in this encounter Care Teams Test And Turn Up Technician Relationship Specialty Start Date End Date Susnhine Vela FNP [address] [place] [address] PCP - General Family Medicine 05/18/22 documented as of this encounter
--- OUTSIDE RECORDS SUMMARY | 2024-05-14 19:25 | XMS_ITS | Encounter Summary ---
Author Organization [employer] Address [address] 7[address] [place] [address] Care Team Providers Care Trial Court Justice Name Role Phone Dane [facility] Primary Care Provider [phone] Encounter Details Date Type Department Care Team (Late st Contact Info) Description 05/14/2024 8:40 AM EST Office Visit [facility] [address] [place] [address] Conrado Aiken MD 230 [place] [address] Influenza-like symptoms (Primary Dx); Severe persistent asthma [...] Index - - documented in this encounter Progress Notes * Conrado Aiken MD - 05/14/2024 8:40 AM EST Subjective Patient ID: Simran Posada is a 48 y.o. female. HPI Simran came to [facility] today because 1 week ago she had onset of fever Of 101, and was concerned that she might have measles. She has had a productive cough, shortness ofbreath, chest tightness with no definite wheezing. She has become more short of breath over the past week. The day after fever started she had onset of rash on her face that spread to her trunk and extremities. The rash has been coming and going and is not present today. 3 days ago she noted some blistering of her lips and sore throat. States she has been using her albuterol 10-12 times per day. No n/v/d, eye redness or discharge. Denies any recent travel anywhere or contact with anyone who has been traveling. Lives with boyfriend and daughter. Works as a direct care residential counselor. LMP=now Smokes 4 cigarettes/day, using Chantix. Patient Active Problem List Diagnosis ??? Arthritis ??? Bipolar I disorder (CMS/HCC) ??? Hyperlipidemia ??? Migraine ??? Posttraumatic stress disorder ??? Severe persistent asthma with acute exacerbation ??? Depression ??? DVT (deep venous thrombosis) (CMS/HCC) ??? Numbness and tingling in both hands ??? Lumbar radiculopathy ??? Spondylolisthesis at L4-L5 level ??? Carpal tunnel syndrome, bilateral ??? Tobacco use disorder ??? Oral lesion ??? Other chest pain ??? Healthcare maintenance The following portions of the chart were reviewed this encounter and updated as appropriate: Review of Systems Constitutional: Positive for fever. HENT: Positive for sore throat. Respiratory: Positive for cough and shortness of breath. Negative for wheezing. Cardiovascular: Negative for chest pain. Gastrointestinal: Negative for abdominal pain. Skin: Positive for rash. Neurological: Negative for headaches. Objective Physical Exam Constitutional: Appearance: Normal appearance. HENT: Right Ear: Tympanic membrane, ear canal and external ear normal. Left Ear: Tympanic membrane, ear canal and external ear normal. Nose: Nose normal. Mouth/Throat: Mouth: Mucous membranes are moist. Pharynx: Oropharynx is clear. Comments: No mouth rash, no Koplik spots. Has several small excoriated areas on lips,, no definite vesicles. Eyes: Conjunctiva/sclera: Conjunctivae normal. Pupils: Pupils are equal, round, and reactive to light. Cardiovascular: Rate and Rhythm: Normal rate and regular rhythm. Heart sounds: No murmur heard. Pulmonary: Effort: Pulmonary effort is normal. Breath sounds: Normal breath sounds. Musculoskeletal: General: Normal range of motion. Cervical back: No tenderness. Skin: Findings: No rash. Neurological: Mental Status: She is alert. Gait: Gait is intact. Psychiatric: Mood and Affect: Mood normal. Behavior: Behavior normal. Procedures Assessment/Plan Diagnoses and all orders for this visit: Influenza-like symptoms Negative rapid Covid and Influenza tests. Rapid Strep test negative. Pharyngeal swab for measles sent, although measles seems extremely unlikely. Will notify pt with results. With fever, hypoxia, cough, shortness of breath, pneumonia is a possibility. Because of the hypoxia she is being transported to the emergency department now. Severe persistent asthma with acute exacerbation Acute URI - POCT Rapid COVID Ag - POCT rapid strep A manually resulted - Influenza A (ID NOW Rapid Molecular) - Influenza B (ID NOW Rapid Molecular) * Loren Yee RN - 05/14/2024 8:40 AM EST EMS called at 0933 per verbal order per Dr. Aiken. EMS arrived around 945 and given verbal report. Pt being transported to hospital TBD. documented in this encounter Miscellaneous Notes * Addendum Note - Conrado Aiken MD - 05/14/2024 8:40 AM ESTAddended by: CONRADO AIKEN on: 05/14/2024 03:24 PM Modules accepted: Orders documented in this encounter Plan of Treatment Upcoming Encounters Date Type Department Care Team (Late st Contact Info) Description 05/23/2024 9:15 AM EDT Office Visit [facility] [address] [place] [address] [facility] [address] [place] [address] Scheduled Orders Name Type Priority Associated Diagnoses Orde r Schedule Other Reference Test - [facility] [place] [place] Lab Routine Influenza-like symptoms Ordered: 05/14/2024 documented as of this encounter Procedures Procedure [...] NOW Rapid Molecular) (05/14/2024 9:11 AM EST) [facility] Influenza B Negative Negative, Indeterminate [facility] Swab 05/14/2024 9:11 AM EST us Conrado Aiken MD POINT OF CARE TEST ENTER/EDIT OR DERABLES Final Result Performing Organization Address [facility] Co in Phone Number [facility] [address] [place] [phone] * Influenza A (ID NOW Rapid Molecular) (05/14/2024 9:11 AM EST) [facility] Influenza A Negative Negative, Indeterminate [facility] Swab 05/14/2024 9:11 AM EST us Conrado Aiken MD POINT OF CARE TEST ENTER/EDIT OR DERABLES Final Result Performing Organization Address [facility] Phone Number [facility] [address] [place] [phone] * POCT rapid strep A manually resulted (05/14/2024 9:11 AM EST) [facility] Rapid Strep A Screen Negative Negative, None Detected [facility] Swab 05/14/2024 9:11 AM EST us Conrado Aiken MD POINT OF CARE TEST ENTER/EDIT OR DERABLES Final Result Performing Organization Address [facility] Phone Number [facility] [address] [place] [phone] * POCT Rapid COVID Ag (05/14/2024 9:11 AM EST) [facility] Rapid COVID Ag Negative [facility] Swab 05/14/2024 9:11 AM EST us Conrado Aiken MD POINT OF CARE TEST ENTER/EDIT OR DERABLES Final Result [facility] [address] [place] [phone] [phone] documented in this encounter Visit Diagnoses Diagnosis Influenza-like symptoms- Primary Other general symptoms Severe persistent asthma with acute exacerbation Acute URI Acute upper respiratory infections of unspecified site documented in this encounter Additional Health Concerns Assessment Noted Time PHQ-9 Depression Total Score: 9 06/15/19 24 1:18 PM EDT documented as of this encounter Care Teams Trial Court Justice Relationship Specialty Start Date End Date Sunshine Vela FNP [address] [place] [phone] PCP - General Family Medicine 05/18/22 documented as of this encounter
--- OUTSIDE RECORDS SUMMARY | 2024-05-14 19:25 | XMS_ITS | Encounter Summary ---
Author Organization [email or web address] Address [address] [facility] 7t [place] [address] Care Team Providers Care Increment Manager Name Role Phone Dane [facility] Primary Care Provider [phone] Reason for Visit * Reason Comments Med Refill Encounter Details Date Type Department Care Team (Late st Contact Info) Description 04/05/2022 Refill [facility] [address] [place] [address] [phone] Conrado Fong MD [address] [place], [place] [phone] Tobacco dependence; Influenza-like symptoms Social History Tobacco [...] Description 05/23/2024 9:15 AM EDT Office Visit [facility] [address] [place] [address] [facility] [address] [place] [address] documented as of this encounter Visit Diagnoses Diagnosis Tobacco dependence Tobacco use disorder Influenza-like symptoms Other general symptoms documented in this encounter Care Teams Increment Manager Relationship Specialty Start Date End Date [place] TIEN Gonsalez [address] [place] [address] PCP - General Family Medicine 05/18/22 documented as of this encounter
--- OUTSIDE RECORDS SUMMARY | 2024-05-14 19:25 | XMS_ITS | Encounter Summary ---
Author Organization [facility] Address [address] [place] [address] Care Team Providers Care Conflict Resolution Professional Name Role Phone Shelly Hein PA-C Primary Care Provider [phone] Encounter Details Date Type Department Care Team ([facility] st Contact Info) Description 01/27/2015 Interim Notes [facility] [address] [place] [address] Shilpa Meyers, CANDICE [address] [facility] [place] [address] Unprotected sex Social History Tobacco Use Types Packs/Day Years Used Date Smoking Tobacco: Every Day Cigarettes 0.5 12 Alcohol Use Standard Drinks/Week Comments No 0 (1 standard drink = 0.6 oz pure alcohol) former abuse, now sober since [id number] Comments Unknown Sex and Gender Information Value [...] EST) HEPATITIS A ANTIBODY IGM NEGATIVE NEGATIVE [facility] 01/27/2015 9:45 AM EST 01/27/2015 12:04 PM EST Narrative [facility] - 01/27/2015 9:38 PM EST [employer] [address] [place] [address] PT ID [id number] ORD# [id number] Shilpa Meyers NP LAB - BLOOD DRAW Edited Result - Final Performing Organization Address City/State/[facility] [place] [address], * (ABNORMAL) HEPATITIS A,B,C PANEL (01/27/2015 9:45 AM EST) HEPATITIS B SURFACE ANTIGEN NEGATIVE NEGATIVE [facility] HEPATITIS C VIRUS DIAGNOSTIC NEGATIVE NEGATIVE [facility] HEPATITIS A ANTIBODY TOTAL POSITIVE(A) NEGATIVE [facility] HEPATITIS B CORE ANTIBODY NEGATIVE NEGATIVE [facility] HEPATITIS B SURFACE ANTIBODY POSITIVE(A) NEGATIVE [facility] Comment: Hepatitis B surface antibody testing performed at reference lab due to reagent backorder. Reference range: Negative: Inconsistent with immunity, less than 10 mIU/mL Positive: ? Consistent with immunity, greater than 9.9 mIU/mL Testing performed at: [employer] [address] [place] [phone] PHONE: Blood specimen (specimen) Blood / Unknown 01/27/2015 9:45 AM EST 01/27/2015 12:04 PM EST Narrative [facility] - 01/27/2015 1:41 PM EST [employer] [address] [place] [address] PT ID [id number] ORD# [id number] us Shilpa Meyers NP LAB - BLOOD DRAW Edited Result - Final Performing Organization Address [facility]/ZIP Co de Phone Number [facility] [address] [place] [address], [place] [phone] * HIV-1 & HIV-2 ANTIBODIES (01/27/2015 9:45 AM EST) HIV 1 AND 2 ANTIBODY SCREEN NEGATIVE NEGATIVE [facility] Comment: Effective 11/17/14, [employer] has replaced the HIV screening test with [...] AM EST 01/27/2015 12:04 PM EST Narrative [facility] - 01/27/2015 2:10 PM EST [employer] [address] [place] [address] PT ID [id number] ORD# [id number] us Shilpa Meyers NP LAB - BLOOD DRAW Edited Result - Final [facility] [address] [place] [address], [place] [phone] * GC DNA PROBE, URINE (01/27/2015 9:45 AM EST) GC DNA URINE NEGATIVE NEGATIVE [facility] Urine specimen (specimen) Urine specimen / Unknown 01/27/2015 9:45 AM EST 01/27/2015 11:54 AM EST [facility] - 01/28/2015 11:19 AM EST [employer] [address] [place] [address] PT ID [id number] ORD# [id number] Shilpa Meyers NP LAB - NO BLOOD DRAW Final Result Performing Organization Address [facility] Co de Phone Number [address] [address], [place] [phone] * CHLAMYDIA DNA PROBE, URINE (01/27/2015 9:45 AM EST) CHLAMYDIA DNA URINE NEGATIVE NEGATIVE [facility] Urine specimen (specimen) Urine specimen / Unknown 01/27/2015 9:45 AM EST 01/27/2015 11:54 AM EST [facility] - 01/28/2015 11:19 AM EST [employer] [address] [place] [address] PT ID [id number] ORD# [id number] us Shilpa Meyers NP LAB - NO BLOOD DRAW Final Result Performing Organization Address [facility] [[email or web address]] de Phone Number [address] [address], [place] [phone] documented in this encounter Visit Diagnoses Diagnosis Unprotected sex Problems related to high-risk sexual behavior documented in this encounter Care Teams Conflict Resolution Professional Relationship Specialty Start Date End Date Shelly Hein PA-C [address] [place] [address] PCP - General FAMILY MEDICINE, [place] 12/17/19 documented as of this encounter
--- OUTSIDE RECORDS SUMMARY | 2024-05-14 19:25 | XMS_ITS | Encounter Summary ---
Author Organization [employer] Address [address] [facility] 7t [place] [address] Care Team Providers Care Interior Systems Carpenter Name Role Phone Dane, [facility] Primary Care Provider Reason for Visit * Reason Onset Date Comments Nurse Triage 04/11/2023 Encounter Details Date Type Department Care Team ([facility] st Contact Info) Description 04/11/2023 Telephone [facility] [address] [place] [address] [place] [facility] [address] [place] [address] Nurse Triage Social History Tobacco Use Types [...] t he electric, gas, oil or water [place] threatened to shut off services in your [...] this outcome Pt states was seen at [facility] [place] [place] on 04/07/23 . No medication prescribed . documented in this encounter Plan of Treatment Upcoming Encounters Date Type Department Care Team (Late st Contact Info) Description 05/23/2024 9:15 AM EDT Office Visit [facility] [address] [place] [address] Sunshine Vela FNP [address] [place] [address] documented as of this encounter Visit Diagnoses Not on filedocumented in this encounter Additional Health Concerns Assessment Noted Time PHQ-9 Depression Total Score: 0 05/19/19 9:44 AM EST documented as of this encounter Care Teams Interior Systems Carpenter Relationship Specialty Start Date End Date Sunshine Vela FNP [address] [place] [address] PCP - General Family Medicine 05/18/22 documented as of this encounter
--- OUTSIDE RECORDS SUMMARY | 2024-05-14 19:25 | XMS_ITS | Encounter Summary ---
Author Organization [employer] Address [address] [place] [address] 7t [place] [address] Care Team Providers Care Rubber Goods Tester Water Name Role Phone Sunshine Vela [facility] Primary Care Provider [phone] Encounter Details Date Type Department Care Team (Late Contact Info) Description 04/10/2022 Orders Only [facility] [address] [place] [address] [phone] Zo Yee LPN Social History Tobacco Use [...] Description 05/23/2024 9:15 AM EDT Office Visit [facility] [address] [place] [address] Sunshine Vela [facility] [address] [place] [address] documented as of this encounter Visit Diagnoses Not on filedocumented in this encounter Care Teams Rubber Goods Tester Water Relationship Specialty Start Date End Date Sunshine Vela FNP [address] [place] [address] PCP - General Family Medicine 05/18/22 documented as of this encounter
--- OUTSIDE RECORDS SUMMARY | 2024-05-14 19:25 | XMS_ITS | Encounter Summary ---
Author Organization [employer] Address [address] [place] [address] 7t [place] [address] Care Team Providers Care Aligner Typewriter Name Role Phone [facility] Primary Care Provider [phone] Reason for Visit * Reason Comments Med Refill Encounter Details Date Type Department Care Team (Late st Contact Info) Description 03/19/2022 Refill [facility] [address] [place] [address] [phone] Conrado Fong MD [address] [place], [place] [phone] Influenza-like symptoms Social History Tobacco Use Types [...] Office Visit [facility] [address] [place] [address] Dane, [address] [address] documented as of this encounter Visit Diagnoses Diagnosis Influenza-like symptoms Other general symptoms documented in this encounter Care Teams Aligner Typewriter Relationship Specialty Start Date End Date Dane TIEN Gonsalez [address] [place] [address] PCP - General Family Medicine 05/18/22 documented as of this encounter
--- OUTSIDE RECORDS SUMMARY | 2024-05-14 19:25 | XMS_ITS | Clinical Summary ---
Author Organization [facility] ity Address [address] [place] [address] Care Team Providers Care Surg Rn Name Role Phone Shelly Hein Primary Care Provider Social History Tobacco Use Types Packs/Day Years [...] RESULTING AGENCY - 10/08/2017 1:27 PM EDT [id number] THINPREP PAP, IMAGED: NEGATIVE FOR SQUAMOUS INTRAEPITHELIAL [...] POS //17 ASCUS, [place], Z12.4 Cuca Baer [facility] CYTOLOGY ORDERABLES Final Result HISTORICAL TESTING LAB RESULTING AGENCY from Last 3 Months or Most Recently Relevant to Health Maintenance Care Teams Surg Rn Relationship Specialty Start Date End Date Shelly Hein PA [address] [place] [address] PCP - General 10/27/21
--- OUTSIDE RECORDS SUMMARY | 2024-05-14 19:25 | XMS_ITS | Encounter Summary ---
Author Organization [employer] Address [address] [place] [address] 7t [place] [address] Care Team Providers Care Remelter Name Role Phone Sunshine Vela Primary Care Provider [phone] Reason for Visit * Reason Comments Med Refill Encounter Details Date Type Department Care Team (Late Contact Info) Description 04/09/2022 Refill [facility] [address] [place], [place] [phone] Millicent Mendoza FNP Moderate persistent asthma without [...] Description 05/23/2024 9:15 AM EDT Office Visit [facility] [address] [place], [place] [phone] Sunshine Vela FNP [address] [place] [address] documented as of this encounter Visit Diagnoses Diagnosis Moderate persistent asthma without complication- Primary documented in this encounter Care Teams Remelter Relationship Specialty Start Date End Date Sunshine Vela FNP [address] [place] [address] PCP - General Family Medicine 05/18/22 documented as of this encounter
--- OUTSIDE RECORDS SUMMARY | 2024-05-14 19:26 | XMS_ITS | Encounter Summary ---
Author Organization [employer] Address [address] [facility] [address] [place] [address] Care Team Providers Care Senior Tax Analyst Name Role Phone Dane [facility] Primary Care Provider [phone] Encounter Details Date Type Department Care Team [...] 05/23/2024 9:15 AM EDT Office Visit [facility] [address], [place] [phone] [facility] [address] [place], [place] [phone] documented as of this encounter Procedures Procedure Name Priority Date/Time Associated Diagnosis Comments XR CHEST 2 VIEWS Routine 05/14/2024 11:3 4 AM EST SLIDE REVIEW Routine 05/14/2024 11:14 AM EST D DIMER HIGH SENSITIVITY Routine 05/14/2024 11:14 AM EST HIGH SENSITIVITY [...] EST Narrative 05/14/2024 11:59 AM EST ? [facility] ?[address] ?[place] [address] ?XRay Report ? Signed ? Patient: ,Simran L ?MR#: [id number] ?? 98 ? : 1975 ?Acct:[id number] ? Age/Sex: 48 / F ?ADM Date: 05/14/24 ? Loc: HO.ED ? Attending Dr: ? Ordering Physician: Laekisha Montes ?? Date of Service: 05/14/24 ?? Procedure(s): XR chest 2V ?? Accession Number(s): [id number] ? cc: Lakeisha Montes; [facility] ? EXAMINATION: ?? XR CHEST ? CLINICAL [...] ? Signed By: ?<Electronically signed by Gigi S Jennifer, MD in OV> ?05/14/24 1156 ? DD/ 1134 ? TD/TT: 05/14/24 1134 ? Flight Agent: MSM ? Procedure Note Elliott Traore - 05/14/2024 [facility] [address] [place] [address] XRay Report Signed Patient: Simran Posada LMR#: [id number] 98 : 1975Acct:[id number] Age/Sex: 48 / FADM Date: 05/14/24 Loc: HO.ED Attending Dr: Ordering Physician: Lakeisha Montes Date of Service: 05/14/24 Procedure(s): XR chest 2V Accession Number(s): [id number] cc: Lakeisha Montes; [facility] ANESTHESIOLOGY PHYSICIAN EXAMINATION: XR CHEST CLINICAL INFORMATION: sob COMPARISON: [...] Gigi Rodriguez MD 05/14/2024 11:56 AM EST Dictated By: Gigi Rodriguez MD Signed By: <Electronically signed by Gigi Rodriguez MD in OV> 05/14/24 1156 DD/ 1134 TD/TT: 05/14/24 1134 Flight Agent: VIC [facility] External Provider IMG XR PROCEDURES Edited Result - Final * D Dimer High Sensitivity (05/14/2024 11:14 AM EST) D Dimer High Sensitivity 172 NG/ML [facility] Comment:D-DIMER HS REFERENCE RANGENote: Our [...] ORDERAB LES Final Result Performing Organization Address City/State/[facility] Co de Phone Number [facility] [address] [place] [address] [phone] * Slide Review (05/14/2024 11:14 AM EST) Slide Review VERIFIED [facility] 05/14/2024 11:1 4 AM EST 05/14/2024 11:20 AM EST Generic External Data Provider LAB BLOOD ORDERAB LES Final Result Performing Organization Address [facility] de Phone Number [facility] [address] [place] [address] [phone] * hCG, Total, Quantitative (05/14/2024 11:14 AM EST) HCG Quantitative <2 mIU/mL [facility] Comment:Weeks post LMP Appro ximate hCG(Last Menstrual Period) Range (mIU/ml)3 - 4 weeks 9 - 1304 - 5 weeks 75 - 2,6005 - 6 weeks 850 - 20,8006 - 7 weeks 4000 - 100,2007 - 12 weeks 11,500 - 289,60152 - 16 weeks 18,300 - 137,86155 - 29 weeks (2nd trimester) 1,400 - 53,48537 - 41 weeks (3rd trimester) 940 - [...] ORDERAB LES Final Result Performing Organization Address [facility] Co de Phone Number [facility] [address] [place] [address] [phone] * (ABNORMAL) Magnesium (05/14/2024 11:14 AM EST) Magnesium 1.5(L) 1.6 - 2.6 mg/dL [facility] 05/14/2024 11:1 4 AM EST 05/14/2024 11:20 AM EST us Generic External Data Provider LAB BLOOD ORDERAB LES Final Result [facility] [address] [place] [phone] * (ABNORMAL) Comprehensive Metabolic Panel (05/14/2024 11:14 AM EST) Sodium 141 135 - 145 mmol/L [facility] Potassium 2.8(LL) 3.3 - 5.1 mmol/L [facility] Comment:Critical value for t est(s): K Results called to and readback by: JOSEFA Person calling: THEODORE Date: 05-14-24 Time:1206 Chloride 104 96 - 108 mmol/L [facility] Carbon Dioxide 25 22 - 29 mmol/L [facility] Anion Gap 15 12 - 20 [facility] Urea Nitrogen (BUN) 13 9 - 16 mg/dL [facility] Creatinine, Serum 0.95 0.5 - 1.4 mg/dL [facility] Creatinine Clr Calc Pharmacy 86.8 [facility] Comment:Provided height and weight: 167.64 cm,98.883 kg.eGFR (calculated from the MDRD study equation) and eCrCl(calculated from the Cockcroft-Gault equation) are based ondifferent parameters and may not yield comparable results.If eCrCl result is absurd, please check patient'sheight/weight. Estimated Glomerular Filt Rate >60 [facility] Comment:Chronic Kidney Disea se: Estimated GFR < 60 mL/min/[id number] Kidney Disease: Estimated GFR < 15 mL/min/1.73m2 Glucose 131(H) 60 - 115 mg/dL [facility] Calcium 9.4 8.4 - 10.2 mg/dL [facility] Bilirubin, Total 0.3 0.0 - 1.0 mg/dL [facility] Aspartate Amino Transferase 21 5 - 31 U/L [facility] Alanine Aminotransferase 32(H) 0 - 31 U/L [facility] Total Protein 8.1(H) 6.5 - 8.0 g/dL [facility] Albumin Level 4.3 3.5 - 5.0 g/dL [facility] Alkaline Phosphatase 78 39 - 117 U/L [facility] 05/14/2024 11:1 4 AM EST 05/14/2024 11:20 AM EST us Generic External Data Provider LAB BLOOD ORDERAB LES Final Result [facility] [address] [place] [address] [phone] * SARS-CoV-2 RNA, Influenza A/B, and RSV RNA, Ql NAAT (05/14/2024 11:14 AM EST) Influenza A PCR NEGATIVE Negative [facility] Influenza B PCR NEGATIVE Negative [facility] Resp Syncy Virus RNA Qual PCR NEGATIVE Negative [facility] SARS COV2 PCR NEGATIVE Negative [facility] Comment:All test results mus t [...] use by authorized laboratories.Testing performed on the [employer] GeneXpert utilizingreal-time RT-PCR.All SARS CoV2 and positive influenza A/B results arereported to [facility]. 05/14/2024 11:1 4 AM EST 05/14/2024 11:20 AM EST Generic External Data Provider LAB MICROBIOLOGY - GENERAL ORDERABLES Final Result Performing Organization Address [facility] de Phone Number [facility] [address] [place] [phone] * High Sensitivity Troponin I (05/14/2024 11:14 AM EST) TROPONIN I HIGH SENSITIVITY <2.7 <3.5 - 17.0 ng/L [facility] Comment:The Byers high sens itivity Troponin-I results should beused in conjunction with other diagnostic information suchas ECG, clinical observations and information, and patientsymptoms to aid in the diagnosis of ND. 05/14/2024 11:1 4 AM EST 05/14/2024 11:20 AM EST Generic External Data Provider LAB BLOOD ORDERAB LES Final Result Performing Organization Address [facility] [address] [place] [phone] * Prothrombin Time-INR (05/14/2024 11:14 AM EST) Prothrombin Time 12.2 10.9 - 12.4 SEC [facility] INTERNATIONAL NORM RATIO 1.0 0.9 - 1.1 [facility] Comment:INTERNATIONAL NORMAL IZED RATIO (INR) [...] ORDERAB LES Final Result Performing Organization Address [facility] Co de Phone Number [facility] [address] [place] [address] [place] [phone] * (ABNORMAL) CBC auto differential (05/14/2024 11:14 AM EST) White Blood Count 9.8 4.8 - 10.8 X10*3/uL [facility] Red Blood Count 4.56 4.20 - 5.50 X10*6/uL [facility] Hemoglobin 14.0 12.0 - 16.0 g/dl [facility] Hematocrit 39.8 37.0 - 47.0 % [facility] Mean Corpuscular Volume 87.3 80.0 - 98.0 fL [facility] Mean Corpuscular Hemoglobin 30.7 27.0 - 33.0 pg [facility] Mean Corpuscular HGB Conc 35.2(H) 31.0 - 35.0 g/dl [facility] Red Cell Distribution Width 12.6 11.0 - 16.0 % [facility] Platelet Count 288 160 - 400 X10*3/uL [facility] Mean Platelet Volume 9.9 9.4 - 12.3 fL [facility] Neutrophils Percent Auto 56.0 45 - 73 % [facility] Imm Gran Pct Auto 0.2 0.0 - 0.4 % [facility] Lymphocytes Percent Auto 31.5 20 - 40 % [facility] Monocytes Percent Auto 9.2 2 - 11 % [facility] Eosinophils Percent Auto 2.7 0 - 4 % [facility] Basophils Percent Auto 0.4 0 - 2 % [facility] NRBC Pct Auto 0.0 0.0 - 0.2 /100WBC [facility] Neutrophils Absolute Auto 5.5 2.0 - 8.3 x10*3/uL [facility] Imm Gran Abs Auto 0.02 0.00 - 0.03 X10*3/uL [facility] Lymphocytes Absolute Auto 3.1 1.2 - 4.9 X10*3/uL [facility] Monocytes Absolute Auto 0.9 0.1 - 1.2 X10*3/uL [facility] Eosinophils Absolute Auto 0.3 0.0 - 0.4 X10*3/uL [facility] Basophils Absolute Auto 0.0 0.0 - 0.2 X10*3/uL [facility] NRBC Abs Auto 0.000 0.0 - 0.012 X10*3/uL [facility] 05/14/2024 11:1 4 AM EST 05/14/2024 11:20 AM EST us Generic External Data Provider LAB BLOOD ORDERAB LES Edited Result - Final [facility] [address] [place] [phone] [phone] documented in this encounter Visit Diagnoses Not on filedocumented in this encounter Additional Health Concerns Assessment Noted Time PHQ-9 Depression Total Score: 9 06/15/19 24 1:18 PM EDT documented as of this encounter Care Teams Senior Tax Analyst Relationship Specialty Start Date End Date Sunshine Vela FNP [address] [place] [phone] PCP - General Family Medicine 05/18/22 documented as of this encounter
== END 2024-05-14 16:55 | disposition home or self-care (01) ==
LOC: HO.HHCLNP 16:54
PROVIDERS: Visit Provider Emergency Medicine
DX: R68.89 Other general symptoms and signs (principal)
CPT/HCPCS: 87798

== ENCOUNTER 2024-05-15 08:30 | Emergency (ER) | payer MEDICAID, SELFPAY ==
--- NOTE | 2024-05-15 | ECG_ITS ---
Test Reason : SOB Blood Pressure : */* mmHG Vent. Rate : 109 BPM Atrial Rate : 109 BPM P-R Int : 144 ms QRS Dur : 96 ms QT Int : 326 ms P-R-T Axes : 55 14 33 degrees QTcB Int : 439 ms Sinus tachycardia Minimal voltage criteria for LVH, may be normal variant ( R in aVL ) Nonspecific T wave abnormality Abnormal ECG When compared with ECG of 14-May-2024 10:43, Nonspecific T wave abnormality now evident in Anterior leads Referred By: Generic ED Physician Electronically Signed By: FARHANA PERALTA MD
[2024-05-15 08:36] VITALS: BP 132/68; PULSE 116; RESP 24; TEMP 37.3; O2SAT 94; BMI 33.5
[2024-05-15 09:29] LABS: Basophils Percent Auto 0.1 % (0-2); Eosinophils Percent Auto 0.1 % (0-4); Hematocrit 35.5 % (37.0-47.0); Hemoglobin 12.4 g/dl (12.0-16.0); Imm Gran Abs Auto 0.06 X10*3/uL (0.00-0.03); Imm Gran Pct Auto 0.4 % (0.0-0.4); Lymphocytes Absolute Auto 2.1 X10*3/uL (1.2-4.9); Lymphocytes Percent Auto 12.9 % (20-40); MANUAL DIFF FLAG SCAN; Mean Corpuscular HGB Conc 34.9 g/dl (31.0-35.0); Mean Corpuscular Volume 88.8 fL (80.0-98.0); Mean Platelet Volume 9.8 fL (9.4-12.3); Monocytes Absolute Auto 1.7 X10*3/uL (0.1-1.2); Monocytes Percent Auto 10.3 % (2-11); Neutrophils Absolute Auto 12.7 x10*3/uL (2.0-8.3); Neutrophils Percent Auto 76.2 % (45-73); Platelet Count 304 X10*3/uL (160-400); Red Cell Distribution Width 12.9 % (11.0-16.0); SCAN SMEAR FLAG 1; White Blood Count 16.7 X10*3/uL (4.8-10.8)
[2024-05-15 09:41] LABS: Alanine Aminotransferase 29 U/L (0-31); Albumin Level 4.1 g/dL (3.5-5.0); Alkaline Phosphatase 68 U/L (39-117); Anion Gap 13 (12-20); Aspartate Amino Transferase 17 U/L (5-31); Bilirubin Total 0.2 mg/dL (0.0-1.0); Blood Urea Nitrogen 15 mg/dL (9-16); Calcium 9.6 mg/dL (8.4-10.2); Carbon Dioxide 23 mmol/L (22-29); Chloride 106 mmol/L (96-108); Creatinine Clr Calc Pharmacy 104.4; Estimated Glomerular Filt Rate > 60; Glucose Random 131 mg/dL (60-115); Potassium 3.6 mmol/L (3.3-5.1); Sodium 138 mmol/L (135-145); Total Protein 7.8 g/dL (6.5-8.0)
[2024-05-15 09:59] LABS: SLIDE REVIEW VERIFIED
[2024-05-15 10:10] LABS: Influenza A PCR NEGATIVE (Negative); Influenza B PCR NEGATIVE (Negative); Resp Syncy Virus RNA Qual PCR NEGATIVE (Negative); SARS COV2 PCR INHOUSE NEGATIVE (Negative)
[2024-05-15 10:36] VITALS: BP 131/82; PULSE 113; RESP 22; TEMP 37.2; O2SAT 97
[2024-05-15 10:55] LABS: Magnesium 1.7 mg/dL (1.6-2.6)
--- NOTE | 2024-05-15 11:49 | ED_ITS ---
HPI - General Adult General Chief complaint: Recheck/Abnormal Lab/Rx Stated complaint: Low potassium Related Data Home Medications ?Medication ?Instructions ?Recorded ?Confirmed albuterol sulfate 90 mcg/actuation 2 puff inhalation Q6H PRN wheezing 08/30/21 10/03/23 aerosol inhaler (ProAir HFA) buspirone 7.5 mg tablet 7.5 mg PO BEDTIME 08/30/21 10/03/23 cholecalciferol (vitamin D3) 25 25 mcg PO BEDTIME 08/30/21 10/03/23 mcg (1,000 unit) capsule (Vitamin D3) clonidine HCl 0.1 mg tablet 0.1 mg PO BEDTIME PRN Anxiety 08/30/21 10/03/23 diphenhydramine HCl 25 mg capsule 100 mg PO BEDTIME insomnia 08/30/21 10/03/23 (Banophen) gabapentin 600 mg tablet 600 mg PO BEDTIME 08/30/21 10/03/23 oxcarbazepine 300 mg tablet 300 mg PO DAILY 08/30/21 10/03/23 oxcarbazepine 600 mg tablet 1,800 mg PO BEDTIME 08/30/21 10/03/23 budesonide-formoterol HFA 160 2 puff inhalation QID 05/07/22 10/03/23 mcg-4.5 mcg/actuation aerosol inhaler (Symbicort) fluticasone propionate 110 1 puff inhalation BID 05/07/22 10/03/23 mcg/actuation HFA aerosol inhaler (Flovent HFA) atorvastatin 20 mg tablet 20 mg PO BEDTIME 11/22/22 10/03/23 dexmethylphenidate 20 mg 20 mg PO BEDTIME 11/22/22 10/03/23 capsule,extended release [id number] (Focalin XR) prazosin 2 mg capsule 2 mg PO BEDTIME 11/22/22 10/03/23 varenicline tartrate 1 mg tablet 1 mg PO BID 11/22/22 10/03/23 duloxetine 30 mg capsule,delayed 60 mg PO BEDTIME 10/03/23 10/03/23 release Previous Rx's ?Medication ?Instructions ?Recorded acetaminophen 500 mg tablet 1,000 mg (2 x 500 mg) PO QID PRN 10/12/20 (Tylenol Extra Strength) fever or pain #60 tabs ibuprofen 800 mg tablet 800 mg PO Q8H PRN pain #20 tabs 10/12/20 albuterol sulfate 2.5 mg/3 mL 2.5 mg (3 mL) inhalation Q4H PRN 09/14/21 (0.083 %) solution for nebulization shortness of breath or wheezing #90 mL nebulizer and compressor #1 ea 09/14/21 naproxen 500 mg tablet 500 mg PO BID 7 days #14 tabs 09/28/23 oxycodone-acetaminophen 5 mg-325 1 tab PO BID pain #14 tabs 10/03/23 mg tablet oxycodone-acetaminophen 5 mg-325 1 tab PO Q8H PRN pain #14 tabs 10/03/23 mg tablet albuterol sulfate 2.5 mg/3 mL 2.5 mg (3 mL) inhalation Q4-6H PRN 01/27/24 (0.083 %) solution for nebulization shortness of breath or wheezing #90 mL benzonatate 200 mg capsule 200 mg PO TID PRN cough #20 caps 01/27/24 cefuroxime axetil 500 mg tablet 500 mg PO BID 7 days #14 tabs 01/27/24 prednisone 20 mg tablet 40 mg (2 x 20 mg) PO DAILY #10 tabs 01/27/24 potassium chloride 10 mEq 10 meq PO DAILY #30 tabs 05/14/24 tablet,extended release prednisone 20 mg tablet 40 mg (2 x 20 mg) PO DAILY 5 days 05/14/24 #10 tabs levalbuterol HCl 0.31 mg/3 mL 0.31 mg (3 mL) inhalation Q4H PRN 05/16/24 solution for nebulization shortness of breath or wheezing #75 mL magnesium oxide 400 mg PO BID 2 days #4 tabs 05/16/24 Allergies Allergy/AdvReac Type Severity Reaction Status Date / Time vancomycin [VANCOMYCIN] Allergy Intermediate RASH, Verified 05/16/24 11:39 ITCHING, BREATHING PROBLEMS PMFSH Past Medical History Medical History Depression Elevated cholesterol COVID-19 Atypical chest pain Asthma exacerbation Fracture of distal phalanx of left middle finger Spondylolisthesis at L4-L5 level Pancreatitis DVT (deep vein thrombosis) in Numbness and tingling in both hands Lumbar radiculopathy Pars defect of lumbar spine Low back pain Carpal tunnel syndrome, bilateral Kidney laceration Tibia fracture Fibula fracture Back pain Surgical History History of surgery on lower extremity S/P IVC filter History of back surgery Status post surgical manipulation of ankle joint History of cholecystectomy Social History Social History Alcohol intake: never Patient Tobacco Use Status: Current everyday Tobacco user Tobacco use type: Cigarette Cigarette Packs Per Day: 1 Cigarettes Per Day: 5 Years Smoked: 33 Smoked in Last 30 Days: Yes Use of substances other than those prescribed or required for medical reasons: No Substance Use Type: Marijuana Advance Directives: No Advance Directives Information Provided: No Do you have a plan to hurt others: No Plan Patient : No service: No Current occupational status: employed Current occupation: disability Physical Exam ED Vital Signs: Vital Signs - 24 hr 05/15/24 10:36 Temperature 98.9 F Pulse Rate 113 H Respiratory Rate 22 H Blood Pressure 131/82 Pulse Oximetry 97 Oxygen Delivery Method Room Air BMI result Body Mass Index 33.5 Course Course Course Narrative: This is an RME: Additional HPI, ROS, PE not included below will be deferred to primary provider. RME assessment and note performed by: Roxanne Cunningham PA-C This is a 48-year-old female who presents emergency department after leaving against medical advice yesterday. She was seen yesterday for shortness for breath. She was supposed to stay for IV potassium at left without meds, had oral potassium and prednisone this morning. Patient reports continued shortness of breath. Will obtain repeat labs - further ER evaluation needed. Reevaluation(s) Reevaluation #1: 05/16/24 10:24 Called patient for follow up as she left from waiting room. States she is not feeling better, using inhalers with little relief, O2 94%. Discussed lab results with patient and she states she will return to the ED. Medical Decision Making Lab Data 05/15/24 09:00 05/15/24 09:00 Labs: Lab Results 05/15/24 Range/Units 09:00 WBC 16.7 H (4.8-10.8) X10*3/uL RBC 4.00 L (4.20-5.50) X10*6/uL Hgb 12.4 (12.0-16.0) g/dl Hct 35.5 L (37.0-47.0) % MCV 88.8 (80.0-98.0) fL MCH 31.0 (27.0-33.0) pg MCHC 34.9 (31.0-35.0) g/dl RDW 12.9 (11.0-16.0) % Plt Count 304 (160-400) X10*3/uL MPV 9.8 (9.4-12.3) fL Immature Gran % (Auto) 0.4 (0.0-0.4) % Neut % (Auto) 76.2 H (45-73) % Lymph % (Auto) 12.9 L (20-40) % [place] % (Auto) 10.3 (2-11) % Eos % (Auto) 0.1 (0-4) % Baso % (Auto) 0.1 (0-2) % Lymph # (Auto) 2.1 (1.2-4.9) X10*3/uL [place] # (Auto) 1.7 H (0.1-1.2) X10*3/uL Eos # (Auto) 0.0 (0.0-0.4) X10*3/uL Baso # (Auto) 0.0 (0.0-0.2) X10*3/uL Abs Immat Gran (auto) 0.06 H (0.00-0.03) X10*3/uL Absolute Neuts (auto) 12.7 H (2.0-8.3) x10*3/uL Absolute Nucleated RBC 0.000 (0.0-0.012) X10*3/uL Nucleated RBC % (auto) 0.0 (0.0-0.2) /100WBC Smear Tech's Comments VERIFIED Sodium 138 (135-145) mmol/L Potassium 3.6 D (3.3-5.1) mmol/L Chloride 106 (96-108) mmol/L Carbon Dioxide 23 (22-29) mmol/L Anion Gap 13 (12-20) BUN 15 (9-16) mg/dL Creatinine 0.77 (0.5-1.4) mg/dL Estim Creat Clear Calc 104.4 Estimated GFR > 60 Random Glucose 131 H (60-115) mg/dL Calcium 9.6 (8.4-10.2) mg/dL Magnesium 1.7 (1.6-2.6) mg/dL Total Bilirubin 0.2 (0.0-1.0) mg/dL AST 17 (5-31) U/L ALT 29 (0-31) U/L Alkaline Phosphatase 68 (39-117) U/L Total Protein 7.8 (6.5-8.0) g/dL Albumin 4.1 (3.5-5.0) g/dL Influenza Type A (PCR) NEGATIVE (Negative) Influenza Type B (PCR) NEGATIVE (Negative) RSV RNA Qual (PCR) NEGATIVE (Negative) SARS-CoV-2 RNA (RT-PCR) NEGATIVE (Negative) Discharge Plan Discharge Clinical Impression: Shortness of breath Patient Disposition: Left W/O Completing Treatment Prescriptions: No Action ibuprofen 800 mg tablet 800 mg PO Q8H PRN (Reason: pain) Qty: 20 0RF acetaminophen [Tylenol Extra Strength] 500 mg tablet 1,000 mg PO QID PRN (Reason: fever or pain) Qty: 60 5RF albuterol sulfate 2.5 mg /3 mL (0.083 %) solution for nebulization 2.5 mg inhalation Q4H PRN (Reason: shortness of breath or wheezing) Qty: 90 0RF (DME) nebulizer and compressor Device See Rx Instructions .Route Qty: 1 0RF Rx Instructions: As directed fluticasone propionate [Flovent HFA] 110 mcg/actuation HFA aerosol inhaler 1 puff inhalation BID budesonide-formoterol [Symbicort] 160-4.5 mcg/actuation HFA aerosol inhaler 2 puff inhalation QID atorvastatin 20 mg tablet 20 mg PO BEDTIME dexmethylphenidate [Focalin XR] 20 mg capsule,ER biphasic 50-50 20 mg PO BEDTIME prazosin 2 mg capsule 2 mg PO BEDTIME varenicline tartrate 1 mg tablet 1 mg PO BID Rx Instructions: take with full glass of water benzonatate 200 mg capsule 200 mg PO TID PRN (Reason: cough) Qty: 20 0RF prednisone 20 mg tablet 40 mg PO DAILY Qty: 10 0RF cefuroxime axetil 500 mg tablet 500 mg PO BID 7 Days Qty: 14 0RF albuterol sulfate 2.5 mg /3 mL (0.083 %) solution for nebulization 2.5 mg inhalation Q4-6H PRN (Reason: shortness of breath or wheezing) Qty: 90 0RF levalbuterol HCl 0.31 mg/3 mL solution for nebulization 0.31 mg inhalation Q4H PRN (Reason: shortness of breath or wheezing) Qty: 75 0RF Rx Instructions: J98.01 magnesium oxide 400 mg magnesium tablet 400 mg PO BID 2 Days Qty: 4 0RF naproxen 500 mg tablet 500 mg PO BID 7 Days Qty: 14 0RF duloxetine 30 mg capsule,delayed release(DR/EC) 60 mg PO BEDTIME oxycodone-acetaminophen 5-325 mg tablet 1 tab PO BID Qty: 14 0RF Rx Instructions: Partial Fill upon patient request. oxycodone-acetaminophen 5-325 mg tablet 1 tab PO Q8H PRN (Reason: pain) Qty: 14 0RF Rx Instructions: Partial Fill upon patient request. prednisone 20 mg tablet 40 mg PO DAILY 5 Days Qty: 10 0RF potassium chloride 10 mEq tablet extended release 10 meq PO DAILY Qty: 30 0RF cholecalciferol (vitamin D3) [Vitamin D3] 25 mcg (1,000 unit) capsule 25 mcg PO BEDTIME oxcarbazepine 600 mg tablet 1,800 mg PO BEDTIME oxcarbazepine 300 mg tablet 300 mg PO DAILY gabapentin 600 mg tablet 600 mg PO BEDTIME clonidine HCl 0.1 mg tablet 0.1 mg PO BEDTIME PRN (Reason: Anxiety) albuterol sulfate [ProAir HFA] 90 mcg/actuation HFA aerosol inhaler 2 puff inhalation Q6H PRN (Reason: wheezing) diphenhydramine HCl [Banophen] 25 mg capsule 100 mg PO BEDTIME buspirone 7.5 mg tablet 7.5 mg PO BEDTIME Discharge Date/Time: 05/15/24 12:30
--- OUTSIDE RECORDS SUMMARY | 2024-05-15 12:46 | XMS_ITS | Encounter Summary ---
Author Organization [employer] Address [address] [place] [address] [address] [place] [address] Care Team Providers Care Delivery Tech Name Role Phone Dane, [facility] Primary Care Provider [phone] Encounter Details Date Type Department Care Team (Latest Contact Info) Description 04/21/2020 Abstract [facility] CONVERSIONS Dental, Provider, DDS Social History [...] Description 05/23/2024 9:15 AM EDT Office Visit [facility] [address] [place] [address] [facility] [address] [place] [address] documented as of this encounter Visit Diagnoses Not on filedocumented in this encounter Care Teams Delivery Tech Relationship Specialty Start Date End Date [facility] [address] [place] [address] PCP - General Family Medicine 05/18/22 documented as of this encounter
--- OUTSIDE RECORDS SUMMARY | 2024-05-15 12:46 | XMS_ITS | Clinical Summary ---
Author Organization [employer] Address [address] [place] [address] 7[address] [place] [address] Care Team Providers Care Tube Dispatcher Name Role Phone [facility] Provider [phone] Allergies Active Allergy Reactions Criticality Noted Date [...] Other chest pain 07/03/2023 Overview (07/03/2023): Cardiology-saw [facility] cardiology re chest pain/SOB 10/2022--plan for echocardiogram and stress test. ASCVD-3% 05/22/22; Oral lesion 02/21/2023 Tobacco use disorder 10/10/2022 Overview (10/17/2022): ?? 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 States initially on coumadin which she self [...] presence of IVC filter as recommended by [facility]. Pending KUB results will consider CT scan if indicated and likely referral to vascular. Numbness and tingling in both hands 10/09/2022 Lumbar radiculopathy 10/09/2022 Overview (10/17/2022): ?? Previously followed by [facility] pain mngmt ?? Spinal nerve stimulator in place Assessment & Plan (10/19/2022 12:52 PM EDT): ?? Referral placed back to [facility] pain mngmt for followup Spondylolisthesis at L4-L5 [...] Description 05/14/2024 8:40 AM EST Office Visit [facility] [address] [place] [address] Conrado Fong MD Influenza-like symptoms (Primary Dx); Severe persistent asthma with acute exacerbation; Acute URI 05/14/2024 Orders Only GENERIC EXTERNAL DATA DEPARTMENT Provider, Generic External Data 04/22/2024 Refill [facility] [address] [place] [address] [facility] Severe persistent asthma with acute exacerbation 03/25/2024 9:00 AM EST Office Visit [facility] [address] [place] [address] Conrado Fong MD Asthma with COPD with exacerbation ([facility]) (Primary Dx); Chronic foot pain, right; Tobacco dependence; Viral URI; Severe persistent asthma with acute exacerbation; Encounter for tobacco use cessation counseling 03/25/2024 Refill [facility] [address] [place] [address] Conrado Fong MD Severe persistent asthma with acute exacerbation; Encounter for tobacco use cessation counseling 03/24/2024 Telephone [facility] [address] [place] [address] [facility] Nurse Triage 03/06/2024 Telephone [facility] [address] [place] [address] [facility] Apr recalls from Last 3 [...] 9:15 AM EDT Office Visit [facility] [address] [place] [address] [facility] [address] [place] [address] Health Maintenance Due Date Last Done Comments [...] EST Narrative 05/14/2024 11:59 AM EST ? [facility] ?[address] ?[place] [address] ?XRay Report ? Signed ? Patient: Merchant,Simran L ?MR#: [id number] ?? 98 ? : 1975 ?Acct:[id number] ? Age/Sex: 48 / F ?ADM Date: 05/14/24 ? Loc: HO.ED ? Attending Dr: ? Ordering Physician: Lakeisha Montes ?? Date of Service: 05/14/24 ?? Procedure(s): XR chest 2V ?? Accession Number(s): [id number] ? cc: Lakeisha Montes; Sunshine Vela ? [...] ? DD/ 1134 ? TD/TT: 05/14/241133 ? Frickertron Checker: MSM ? Procedure Note Elliott Traore - 05/14/[address] [address] XRay Report Signed Patient: Simran Posada LMR#: [id number] 98 : 1975Acct:[id number] Age/Sex: 48 / FADM Date: 05/14/24 Loc: HO.ED Attending Dr: Ordering Physician: Lakeisha Montes Date of Service: 05/14/24 Procedure(s): XR chest 2V Accession Number(s): [id number] cc: Lakeisha Montes; [facility] PRINCIPAL SECRETARY EXAMINATION: XR CHEST CLINICAL INFORMATION: sob COMPARISON: [...] 05/14/24 1156 DD/ 1134 TD/TT: 05/14/24 1134 Frickertron Checker: VIC [facility] External Provider IMG XR PROCEDURES Edited Result - Final * Slide Review (05/14/2024 11:14 AM EST) Slide Review VERIFIED [facility] 05/14/2024 11:1 4 AM EST 05/14/2024 11:20 AM EST Generic External Data Provider LAB BLOOD ORDERAB LES Final Result [facility] [address] [place] [phone] * D Dimer High Sensitivity (05/14/2024 11:14 AM EST) D Dimer High Sensitivity 172 NG/ML [facility] Comment:D-DIMER HS REFERENCE RANGENote: Our [...] ORDERAB LES Final Result Performing Organization Address [facility] Co de Phone Number [facility] [address] [place] [phone] * High Sensitivity Troponin I (05/14/2024 11:14 AM EST) Pathologist [facility] TROPONIN I HIGH SENSITIVITY <2.7 <3.5 - 17.0 ng/L [facility] Comment:The Byers high sens itivity Troponin-I results should beused in conjunction with other diagnostic information suchas ECG, clinical observations and information, and patientsymptoms to aid in the diagnosis of [place]. 05/14/2024 11:1 4 AM EST 05/14/2024 11:20 AM EST Generic External Data Provider LAB BLOOD ORDERAB LES Final Result Performing Organization Address [facility] de Phone Number [facility] [address] [place] [phone] * SARS-CoV-2 RNA, Influenza A/B, and RSV RNA, Ql NAAT (05/14/2024 11:14 AM EST) [facility] Influenza A PCR NEGATIVE Negative [facility] Influenza B PCR NEGATIVE Negative [facility] Resp Syncy Virus RNA Qual PCR NEGATIVE Negative [facility] SARS COV2 PCR NEGATIVE Negative [facility] Comment:All test results mus t be [...] use by authorized laboratories.Testing performed on the [employer] GeneXpert utilizingreal-time RT-PCR.All SARS CoV2 and positive influenza A/B results arereported to [facility]. 05/14/2024 11:1 4 AM EST 05/14/2024 11:20 AM EST us Generic External Data Provider LAB MICROBIOLOGY - GENERAL ORDERABLES Final Result [facility] [address] [place] [address] [phone] * (ABNORMAL) CBC auto differential (05/14/2024 11:14 AM EST) White Blood Count 9.8 4.8 - 10.8 X10*3/uL [facility] Red Blood Count 4.56 4.20 - 5.50 X10*6/uL [facility] Hemoglobin 14.0 12.0 - 16.0 g/dl [facility] Hematocrit 39.8 37.0 - 47.0 % [facility] Mean Corpuscular Volume 87.3 80.0 - 98.0 fL [facility] Mean Corpuscular Hemoglobin 30.7 27.0 - 33.0 pg [facility] Mean Corpuscular HGB Conc 35.2(H) 31.0 - 35.0 g/dl [facility] Red Cell Distribution Width 12.6 11.0 - 16.0 % [facility] Platelet Count 288 160 - 400 X10*3/uL [facility] Mean Platelet Volume 9.9 9.4 - 12.3 fL [facility] Neutrophils Percent Auto 56.0 45 - 73 % [facility] Imm Gran Pct Auto 0.2 0.0 - 0.4 % [facility] Lymphocytes Percent Auto 31.5 20 - 40 % [facility] Monocytes Percent Auto 9.2 2 - 11 % [facility] Eosinophils Percent Auto 2.7 0 - 4 % [facility] Basophils Percent Auto 0.4 0 - 2 % [facility] NRBC Pct Auto 0.0 0.0 - 0.2 /100WBC [facility] Neutrophils Absolute Auto 5.5 2.0 - 8.3 x10*3/uL [facility] Imm Gran Abs Auto 0.02 0.00 - 0.03 X10*3/uL [facility] Lymphocytes Absolute Auto 3.1 1.2 - 4.9 X10*3/uL [facility] Monocytes Absolute Auto 0.9 0.1 - 1.2 X10*3/uL [facility] Eosinophils Absolute Auto 0.3 0.0 - 0.4 X10*3/uL [facility] Basophils Absolute Auto 0.0 0.0 - 0.2 X10*3/uL [facility] NRBC Abs Auto 0.000 0.0 - 0.012 X10*3/uL [facility] 05/14/2024 11:1 4 AM EST 05/14/2024 11:20 AM EST Generic External Data Provider LAB BLOOD ORDERAB LES Edited Result - Final Performing Organization Address [facility] de Phone Number [facility] [address] [place] [phone] * Prothrombin Time-INR (05/14/2024 11:14 AM EST) Prothrombin Time 12.2 10.9 - 12.4 SEC [facility] INTERNATIONAL NORM RATIO 1.0 0.9 - 1.1 [facility] Comment:INTERNATIONAL NORMAL IZED RATIO (INR) [...] ORDERAB LES Final Result Performing Organization Address [facility] de Phone Number [facility] [address] [place] [phone] * hCG, Total, Quantitative (05/14/2024 11:14 AM EST) Pathologist [facility] HCG Quantitative <2 mIU/mL [facility] Comment:Weeks post LMP Appro ximate hCG(Last Menstrual Period) Range (mIU/ml)3 - 4 weeks 9 - 1304 - 5 weeks 75 - 2,6005 - 6 weeks 850 - 20,8006 - 7 weeks 4000 - 100,2007 - 12 weeks 11,500 - 289,75742 - 16 weeks 18,300 - 137,41737 - 29 weeks (2nd trimester) 1,400 - 53,11430 - 41 weeks (3rd trimester) 940 - [...] ORDERAB LES Final Result Performing Organization Address City/[facility]/ZIP Co de Phone Number [facility] [address] [place] [phone] * (ABNORMAL) Magnesium (05/14/2024 11:14 AM EST) [facility] Magnesium 1.5(L) 1.6 - 2.6 mg/dL [facility] 05/14/2024 11:1 4 AM EST 05/14/2024 11:20 AM EST us Generic External Data Provider LAB BLOOD ORDERAB LES Final Result Performing Organization Address [facility]/ZIP Co de Phone Number [facility] [address] [place] [phone] * (ABNORMAL) Comprehensive Metabolic Panel (05/14/2024 11:14 AM EST) Sodium 141 135 - 145 mmol/L [facility] Potassium 2.8(LL) 3.3 - 5.1 mmol/L [facility] Comment:Critical value for t est(s): K Results called to and readback by: JOSEFA Person calling: THEODORE Date: 05-14-24 Time:1206 Chloride 104 96 - 108 mmol/L [facility] Carbon Dioxide 25 22 - 29 mmol/L [facility] Anion Gap 15 12 - 20 [facility] Urea Nitrogen (BUN) 13 9 - 16 mg/dL [facility] Creatinine, Serum 0.95 0.5 - 1.4 mg/dL [facility] Creatinine Clr Calc Pharmacy 86.8 [facility] Comment:Provided height and weight: 167.64 cm,98.883 kg.eGFR (calculated from the MDRD study equation) and eCrCl(calculated from the Cockcroft-Gault equation) are based ondifferent parameters and may not yield comparable results.If eCrCl result is absurd, please check patient'sheight/weight. Estimated Glomerular Filt Rate >60 [facility] Comment:Chronic Kidney Disea se: Estimated GFR < 60 mL/min/1.80q1Xopjmd Kidney Disease: Estimated GFR < 15 mL/min/1.73m2 Glucose 131(H) 60 - 115 mg/dL [facility] Calcium 9.4 8.4 - 10.2 mg/dL [facility] Bilirubin, Total 0.3 0.0 - 1.0 mg/dL [facility] Aspartate Amino Transferase 21 5 - 31 U/L [facility] Alanine Aminotransferase 32(H) 0 - 31 U/L [facility] Total Protein 8.1(H) 6.5 - 8.0 g/dL [facility] Albumin Level 4.3 3.5 - 5.0 g/dL [facility] Alkaline Phosphatase 78 39 - 117 U/L [facility] 05/14/2024 11:1 4 AM EST 05/14/2024 11:20 AM EST Generic External Data Provider LAB BLOOD ORDERAB LES Final Result Performing Organization Address [facility] Co de Phone Number [facility] [address] [place] [phone] * Influenza B (ID NOW Rapid Molecular) (05/14/2024 9:11 AM EST) Only the most recent of2 resultswithin the time period is included. Influenza B Negative Negative, Indeterminate [facility] Swab 05/14/2024 9:11 AM EST Conrado Fong MD POINT OF CARE TEST ENTER/EDIT OR DERABLES Final Result Performing Organization Address [facility] Co de Phone Number [facility] [address] [place] [phone] * Influenza A (ID NOW Rapid Molecular) (05/14/2024 9:11 AM EST) Only the most recent of2 resultswithin the time period is included. Influenza A Negative Negative, Indeterminate [facility] Swab 05/14/2024 9:11 AM EST Conrado Fong MD POINT OF CARE TEST ENTER/EDIT OR DERABLES Final Result Performing Organization Address [facility] Co de Phone Number [facility] [address] [place] [phone] * POCT Rapid COVID Ag (05/14/2024 9:11 AM EST) Only the most recent of2 resultswithin the time period is included. Rapid COVID Ag Negative [facility] Swab 05/14/2024 9:11 AM EST Conrado Fong MD POINT OF CARE TEST ENTER/EDIT OR DERABLES Final Result Performing Organization Address [facility] Co de Phone Number [facility] [address] [place] [address] [place] [phone] * POCT rapid strep A manually resulted (05/14/2024 9:11 AM EST) [facility] Rapid Strep A Screen Negative Negative, None Detected [facility] Swab 05/14/2024 9:11 AM EST Conrado Fong MD POINT OF CARE TEST ENTER/EDIT OR DERABLES Final Result [facility] [address] [place] [address] [phone] * Respiratory Viral Panel PCR (03/25/2024 9:49 AM EST) [facility] Adenovirus PCR Not Detected Not Detect. [facility] Bordetella pertussis PCR Not Detected Not Detect. [facility] Comment:Interpret results wi th caution. If B. pertussis isspecifically suspected, additional testing using analternate method is recommended. Bordetella parapertussis PCR Not Detected Not Detect. [facility] Chlamydia pneumoniae PCR Not Detected Not Detect. [facility] Coronavirus 229E PCR Not Detected Not Detect. [facility] Coronavirus HKU1 PCR Not Detected Not Detect. [facility] Coronavirus NL63 PCR Not Detected Not Detect. [facility] Coronavirus OC43 PCR Not Detected Not Detect. [facility] SARS-CoV-2 PCR Not Detected Not Detect. [facility] Comment:SARS-CoV-2 not detec jory by real-time RT-PCR.Note: If clinical suspicion for Sars-CoV-2 is high, continueto maintain precautions and consider repeat testing.Test results should be interpreted in the context ofclinical findings and other laboratory data.Rare polymorphisms exist that could lead to false-negativeor false-positive results. If results do not match theclinical findings, additional testing should be considered.Results reported to [facility].This test has been authorized by the FDA under the EmergencyUse Authorization (EUA) for use by authorized laboratories. Influenza A PCR Not Detected Not Detect. [facility] Influenza B PCR Not Detected Not Detect. [facility] Human metapneumovirus PCR Not Detected Not Detect. [facility] Rhino/Enterovirus PCR Not Detected Not Detect. [facility] Mycoplasma pneumoniae PCR Not Detected Not Detect. [facility] Parainfluenza 1 PCR Not Detected Not Detect. [facility] Parainfluenza 2 PCR Not Detected Not Detect. [facility] Parainfluenza 3 PCR Not Detected Not Detect. [facility] Parainfluenza 4 PCR Not Detected Not Detect. [facility] RSV PCR Not Detected Not Detect. [facility] Resp Panel NA Note See Note H [facility] Comment:All results must be correlated [...] assay is performed by Multiplexed PCR, utilizing [employer]. 03/25/2024 9:49 AM EST 03/25/2024 1:13 PM EST us Conrado Fong MD LAB BLOOD ORDERABLES Final Resul t [facility] [address] [place] [phone] * Hepatitis C Antibody with Reflex to HCV, RNA, Quantitative, Real-Time PCR (05/23/2023 9:53 AM EDT) Hepatitis C Antibody Nonreactive Nonreactive [facility] Comment:Antibodies to HCV no t detected; does not exclude early acuteHCV infection. Blood Venous blood specimen / Unknown 05/23/2023 9:53 AM EDT 05/23/2023 11:14 AM EDT us Conrado Fong MD LAB BLOOD ORDERABLES Final Resul t Performing Organization Address [facility] Co de Phone Number [facility] [address] [place] [phone] * HIV-1/2 Antigen and Antibodies, Fourth Generation, with Reflexes (05/23/2023 9:53 AM EDT) Pathologist [facility] HIV AB/AG Nonreactive Nonreactive [facility] Comment:HIV-1 p24 Ag and/or HIV-1/HIV-2 Ab not detected.A test result that is nonreactive does not exclude thepossibility of exposure to or infection with HIV-1 and/orHIV-2. Nonreactive results in this assay for individualswith prior exposure to HIV-1 and/or HIV-2 may be due toantigen and antibody levels that are below the limit ofdetection of this assay.The ipadio HIV Ag/Ab Combo assay result andsupplemental assay results should be interpreted inconjunction with the patient's clinical presentation,history and other laboratory results. If the results areinconsistent with clinical evidence, additional testing issuggested to confirm the result. Blood Venous blood specimen / Unknown 05/23/2023 9:53 AM EDT 05/23/2023 11:14 AM EDT us Conrado Fong MD LAB BLOOD ORDERABLES Final Resul t Performing Organization Address City/[facility] Co de Phone Number [facility] [address] [place] [phone] * (ABNORMAL) Lipid Panel, Standard (05/18/2022 10:40 AM EST) Pathologist [facility] Cholesterol, Total 180 <200 mg/dL [facility] [place] [facility] [facility] HDL Cholesterol 55 > OR = 50 mg/dL [facility] Triglycerides 155(H) <150 mg/dL [facility] LDL Cholesterol 100(H) mg/dL (calc) [facility] Comment: Reference range: <100 Desirable range <100 mg/dL for primary prevention; ?? <70 mg/dL for patients with CHD or diabetic patients with > or = 2 CHD risk factors. LDL-C is now calculated using the Yumiko calculation, which is a validated novel method providing better accuracy than the Friedewald equation in the estimation of LDL-C. Percy SS et al. GERTRUDE. 2013;310(19): 7922-0356 (http://education.Zenter/faq/SFP503) Chol/HDLC Ratio 3.3 <5.0 (calc) [facility] Non-HDL Cholesterol 125 <130 mg/dL (calc) [facility] Comment: For patients with diabetes plus 1 major ASCVD risk factor, treating to a non-HDL-C goal of <100 mg/dL (LDL-C of <70 mg/dL) is considered a therapeutic option. Blood Venous blood specimen / Unknown 05/18/2022 10:40 AM EST 05/18/2022 10:40 AM EST Narrative [facility] - 05/19/2022 1:04 PM EST FASTING:YES FASTING: YES [facility] LAB BLOOD ORDERABLES Final Re sult [facility] [address], [place] [address] [facility] [address] [facility], (N[address]) [place] [phone] from Last 3 Months or Most Recently Relevant to Health Maintenance [facility] [employer] Care Teams Tube Dispatcher Relationship Specialty Start Date End Date Sunshine Vela FNP [address] [place] [phone] PCP - General Family Medicine 05/18/22
--- OUTSIDE RECORDS SUMMARY | 2024-05-15 12:46 | XMS_ITS | Encounter Summary ---
Author Organization [employer] Address [address] [facility] [address] [place] [address] Care Team Providers Care Line Construction Supervisor Name Role Phone Sunshine Vela Primary Care Provider [phone] Encounter Details Date Type Department Care Team (Late st Contact Info) Description 04/07/2022 Orders Only [facility] [address] [place], [place] [phone] Conrado Fong MD [address] [place] [address] Social History Tobacco Use Types Packs/Day Years [...] Description 05/23/2024 9:15 AM EDT Office Visit [facility] [address] [place] [address] Sunshine Vela FNP [address] [place] [address] documented as of this encounter Visit Diagnoses Not on filedocumented in this encounter Care Teams Line Construction Supervisor Relationship Specialty Start Date End Date Sunshine Vela FNP [address] [place] [address] PCP - General Family Medicine 05/18/22 documented as of this encounter
--- OUTSIDE RECORDS SUMMARY | 2024-05-15 12:46 | XMS_ITS | Encounter Summary ---
Author Organization [employer] Address [address] [place] [address] [address] [place] [address] Care Team Providers Care Packer Insulation Name Role Phone Sunshine Vela Primary Care Provider [phone] Reason for Visit * Reason Comments Med Refill Encounter Details Date Type Department Care Team ([facility] Contact Info) Description 04/05/2022 Refill [facility] [address] [place] [phone] Millicent Mendoza FNP Social History Tobacco Use [...] Description 05/23/2024 9:15 AM EDT Office Visit [facility] [address] [place] [address] [phone] Sunshine Vela FNP [address] [place], [place] [phone] documented as of this encounter Visit Diagnoses Not on filedocumented in this encounter Care Teams Packer Insulation Relationship Specialty Start Date End Date Sunshine Vela FNP [address] [place] [phone] PCP - General Family Medicine 05/18/22 documented as of this encounter
--- OUTSIDE RECORDS SUMMARY | 2024-05-15 12:46 | XMS_ITS | Encounter Summary ---
Author Organization [employer] Address [address] [place] [address] [address] [place] [address] Care Team Providers Care Change Number Operator Name Role Phone Sunshine Vela Primary Care Provider [phone] Reason for Visit * Reason Comments Med Refill Encounter Details Date Type Department Care Team (Late Contact Info) Description 04/09/2022 Refill [facility] [address] [place], [place] [phone] Millicent Mendoza FNP Moderate persistent asthma without [...] Description 05/23/2024 9:15 AM EDT Office Visit [facility] [address] [place], [place] [phone] Sunshine Vela FNP [address] [place] [address] documented as of this encounter Visit Diagnoses Diagnosis Moderate persistent asthma without complication- Primary documented in this encounter Care Teams Change Number Operator Relationship Specialty Start Date End Date Sunshine Vela FNP [address] [place] [address] PCP - General Family Medicine 05/18/22 documented as of this encounter
--- OUTSIDE RECORDS SUMMARY | 2024-05-15 12:46 | XMS_ITS | Encounter Summary ---
Author Organization [facility] Address [address] [place] [address] Care Team Providers Care Manager Concrete Name Role Phone Shelly Hein PA-C Primary Care Provider [phone] Encounter Details Date Type Department Care Team (Late st Contact Info) Description 01/13/2015 Interim Notes [facility] Main [address] [place] [address] Use, Do Not, [facility] [address] [place] [address] Social History Tobacco Use Types Packs/Day Years Used Date Smoking Tobacco: Every Day Cigarettes 0.5 12 Alcohol Use Standard Drinks/Week Comments No 0 (1 standard drink = 0.6 oz pure alcohol) former abuse, now sober since [id number] Comments Unknown Sex and Gender Information Value [...] on filedocumented in this encounter Care Teams Manager Concrete Relationship Specialty Start Date End Date Shelly Hein PA-C [facility] [place] [address] PCP - General FAMILY MEDICINE, PA 12/17/19 documented as of this encounter
--- OUTSIDE RECORDS SUMMARY | 2024-05-15 12:46 | XMS_ITS | Clinical Summary ---
Author Organization [facility] Address [address] [place] [address] Care Team Providers Care Slitting Machine Feeder Name Role Phone Shelly Hein PA-C Primary [...] without aura and without status migrainosus, not intractable,Base Cloth Inspector man right-sided low back pain with right-sided [...] pure alcohol) former abuse, now sober since [id number] Social Connections Answer Date Recorded Connectedness 0 [...] 05/19/2023 05/18/2022, 10/10, 01/28/2020, Additional history exists [id number] ( season) 2023 03/31/2022, 06/26/2020, 05/28/2020 Imm-Influenza [...] AM EDT) CHOLESTEROL, TOTAL 241(H) <200 mg/dL [facility] HDL CHOLESTEROL 51 > OR = 50 mg/dL [facility] TRIGLYCERIDES 165(H) <150 mg/dL [facility] LDL-CHOLESTEROL 159(H) 99 mg/dL (calc) [facility] Comment: Reference range: <100 Desirable range <100 mg/dL for primary prevention; ?? <70 mg/dL for patients with CHD or diabetic patients with > or = 2 CHD risk factors. LDL-C is now calculated using the Yumiko calculation, which is a validated novel method providing better accuracy than the Friedewald equation in the estimation of LDL-C. Percy ESPINOZA et al. GERTRUDE. 2013;310(19): 4432-2685 (http://education.[employer]/faq/RVZ343) CHOL/HDLC RATIO 4.7 <5.0 (calc) [facility] NON-HDL CHOLESTEROL 190(H) <130 mg/dL (calc) [facility] Comment: For patients with diabetes plus 1 major ASCVD risk factor, treating to a non-HDL-C goal of <100 mg/dL (LDL-C of <70 mg/dL) is considered a therapeutic option. Blood Blood / Unknown 10/25/2021 9 :26 AM EDT 10/25/2021 9:27 AM EDT Narrative [facility] - 10/28/2021 12:56 AM EDT FASTING:YES us Shelly Hein PA-C LAB - BLOOD DRAW Final Resul t [facility] [address] [address], [facility] [address] [address] * (ABNORMAL) COMPREHENSIVE METABOLIC PANEL (10/25/2021 9:26 AM EDT) GLUCOSE 102(H) 65 - 99 mg/dL [facility] Comment: ?Fasting reference interval For someone without known diabetes, a glucose value between 100 and 125 mg/dL is consistent with prediabetes and should be confirmed with a follow-up test. UREA NITROGEN (BUN) 21 7 - 25 mg/dL [facility] CREATININE (blood) 0.91 0.50 - 0.99 mg/dL [facility] EGFR 79 > OR = 60 mL/min/1 .73m2 [facility] Comment: The eGFR is based on the CKD-EPI 2020 equation. To calculate the new eGFR from a previous Creatinine or Cystatin C result, go to https://www.kidney.org/professionals/ kdoqi/gfr%5Fcalculator BUN/CREATININE RATIO NOT APPLICABLE 6 - 22 [facility] SODIUM 139 135 - 146 mmol/L [facility] POTASSIUM 4.0 3.5 - 5.3 mmol/L [facility] CHLORIDE 106 98 - 110 mmol/L [facility] CARBON DIOXIDE 23 20 - 32 mmol/L [facility] CALCIUM 9.0 8.6 - 10.2 mg/dL [facility] PROTEIN, TOTAL 7.6 6.1 - 8.1 g/dL [facility] ALBUMIN 4.2 3.6 - 5.1 g/dL [facility] GLOBULIN 3.4 1.9 - 3.7 g/dL (calc) [facility] ALBUMIN/GLOBUL IN RATIO 1.2 1.0 - 2.5 (calc) [facility] BILIRUBIN, TOTAL 0.2 0.2 - 1.2 mg/dL [facility] ALKALINE PHOSPHATASE 91 31 - 125 U/L [facility] AST 13 10 - 35 U/L [facility] ALT 15 6 - 29 U/L [facility] Blood Blood / Unknown 10/25/2021 9 :26 AM EDT 10/25/2021 9:27 AM EDT Narrative [facility] - 10/28/2021 12:56 AM EDT FASTING:YES Shelly Hein PA-C LAB - BLOOD DRAW Edited Resu lt - Final [facility] [address] [address], [employer] [facility] [address] [address] * MAMMOGRAM BI-RADS, ABSTRACTED (04/05/2018 2:17 PM EST) BI-RADS ASSESSMENT 1 - Negative: means that there is no significant or noticeable abnormality to report. BI-RADS FOLLOW-UP 1 - Continue annual screening mammography (for women over age 40). Anatomical Region Laterality Modality Other Impressions 04/05/2018 2:17 PM EST As per [facility]. No mammographic evidence of malignancy. Provider Maryjo IMG MAMMO Final Result * PAP LIQ BASED, HPV W/ RFX HPV 16/18 (08/15/2016 1:32 PM EDT) Cytologic material (specimen) Cervix uteri structure / Unknown 08/15/2016 1:32 PM EDT Impressions [facility] - 08/15/2016 1:32 PM EDT ThinPrep Pap, Imaged: ATYPICAL SQUAMOUS CELLS OF UNDETERMINED SIGNIFICANCE (ASCUS) SOURCE: ThinPrep Pap HPV Any DX: Reflex 16 and 18, Cervical, Imaged: CLINICAL INFORMATION: HPV Any Diagnosis. LMP 08/10/16 Per[facility] LAB - NO BLOOD DRAW Final Resu lt [facility] [address] [place] [address], * (ABNORMAL) HEPATITIS A,B,C PANEL (01/27/2015 9:45 AM EST) HEPATITIS B SURFACE ANTIGEN NEGATIVE NEGATIVE [facility] HEPATITIS C VIRUS DIAGNOSTIC NEGATIVE NEGATIVE [facility] HEPATITIS A ANTIBODY TOTAL POSITIVE(A) NEGATIVE [facility] HEPATITIS B CORE ANTIBODY NEGATIVE NEGATIVE [facility] HEPATITIS B SURFACE ANTIBODY POSITIVE(A) NEGATIVE [facility] Comment: Hepatitis B surface antibody testing performed at reference lab due to reagent backorder. Reference range: Negative: Inconsistent with immunity, less than 10 mIU/mL Positive: ? Consistent with immunity, greater than 9.9 mIU/mL Testing performed at: [facility] [address] [place] [phone] PHONE: Blood specimen (specimen) Blood / Unknown 01/27/2015 9:45 AM EST 01/27/2015 12:04 PM EST Narrative [facility] - 01/27/2015 1:41 PM EST [facility] [address] [place] [address] PT ID [id number] ORD# [id number] Shilpa Meyers NP LAB - BLOOD DRAW Edited Result - Final Performing Organization Address [facility]/ZIP Co de Phone Number [facility] [address] [place] [address], * HIV-1 & HIV-2 ANTIBODIES (01/27/2015 9:45 AM EST) [facility] HIV 1 AND 2 ANTIBODY SCREEN NEGATIVE NEGATIVE [facility] Comment: Effective 11/17/14, [facility] has replaced the HIV screening test with [...] AM EST 01/27/2015 12:04 PM EST Narrative [facility] - 01/27/2015 2:10 PM EST [facility] [address] [place] [address] PT ID [id number] ORD# [id number] Shilpa Meyers NP LAB - BLOOD DRAW Edited Result - Final Performing Organization Address City/[facility]/ZIP Co de Phone Number [address] [address], from Last 3 Months or Most Recently Relevant to Health Maintenance Insurance [id number] Care Teams Slitting Machine Feeder Relationship Specialty Start Date End Date Shelly Hein PA-C [facility] [place] [address] PCP - General FAMILY MEDICINE [place] 12/17/19
--- OUTSIDE RECORDS SUMMARY | 2024-05-15 12:46 | XMS_ITS | Encounter Summary ---
Author Organization [employer] Address [address] [place] [address] 7t [place] [address] Care Team Providers Care Supply Chain Planner Name Role Phone [facility] Primary Care Provider [phone] Reason for Visit * Reason Comments Med Refill Encounter Details Date Type Department Care Team (Late st Contact Info) Description 03/19/2022 Refill [facility] [address] [place] [address] [phone] Conrado Fong MD [address] [place], [place] [phone] Influenza-like symptoms Social History Tobacco Use Types [...] Description 05/23/2024 9:15 AM EDT Office Visit [facility] [address] [place] [address] [phone] Dane, [address] [address] documented as of this encounter Visit Diagnoses Diagnosis Influenza-like symptoms Other general symptoms documented in this encounter Care Teams Supply Chain Planner Relationship Specialty Start Date End Date Dane TIEN Gonsalez [address] [place] [address] PCP - General Family Medicine 05/18/22 documented as of this encounter
--- OUTSIDE RECORDS SUMMARY | 2024-05-15 12:46 | XMS_ITS | Encounter Summary ---
Author Organization [facility] Address [address] [place] [address] Care Team Providers Care Executive Team Leader Name Role Phone Shelly Hein PA-C Primary Care Provider [phone] Encounter Details Date Type Department Care Team ([facility] st Contact Info) Description 01/27/2015 Interim Notes [facility] [address] [place] [address] Shilpa Meyers, CANDICE [address] [place] [address] Unprotected sex Social History Tobacco Use Types Packs/Day Years Used Date Smoking Tobacco: Every Day Cigarettes 0.5 12 Alcohol Use Standard Drinks/Week Comments No 0 (1 standard drink = 0.6 oz pure alcohol) former abuse, now sober since [id number] Comments Unknown Sex and Gender Information Value [...] EST) HEPATITIS A ANTIBODY IGM NEGATIVE NEGATIVE [facility] 01/27/2015 9:45 AM EST 01/27/2015 12:04 PM EST Narrative [facility] - 01/27/2015 9:38 PM EST [facility] [address] [place] [address] PT ID [id number] ORD# [id number] Shilpa Meyers NP LAB - BLOOD DRAW Edited Result - Final Performing Organization Address City/State/[facility] [place] [address], * (ABNORMAL) HEPATITIS A,B,C PANEL (01/27/2015 9:45 AM EST) HEPATITIS B SURFACE ANTIGEN NEGATIVE NEGATIVE [facility] HEPATITIS C VIRUS DIAGNOSTIC NEGATIVE NEGATIVE [facility] HEPATITIS A ANTIBODY TOTAL POSITIVE(A) NEGATIVE [facility] HEPATITIS B CORE ANTIBODY NEGATIVE NEGATIVE [facility] HEPATITIS B SURFACE ANTIBODY POSITIVE(A) NEGATIVE [facility] Comment: Hepatitis B surface antibody testing performed at reference lab due to reagent backorder. Reference range: Negative: Inconsistent with immunity, less than 10 mIU/mL Positive: ? Consistent with immunity, greater than 9.9 mIU/mL Testing performed at: [facility] [address] [place] [address] PHONE: Blood specimen (specimen) Blood / Unknown 01/27/2015 9:45 AM EST 01/27/2015 12:04 PM EST Narrative [facility] - 01/27/2015 1:41 PM EST [facility] [address] [place] [address] PT ID [id number] ORD# [id number] us Shilpa Meyers NP LAB - BLOOD DRAW Edited Result - Final Performing Organization Address [facility]/ZIP Co de Phone Number [facility] [address] [place] [address], [place] [phone] * HIV-1 & HIV-2 ANTIBODIES (01/27/2015 9:45 AM EST) HIV 1 AND 2 ANTIBODY SCREEN NEGATIVE NEGATIVE [facility] Comment: Effective 11/17/14, [facility] has replaced the HIV screening test with [...] AM EST 01/27/2015 12:04 PM EST Narrative [facility] - 01/27/2015 2:10 PM EST [facility] [address] [place] [address] PT ID [id number] ORD# [id number] us Shilpa Meyers NP LAB - BLOOD DRAW Edited Result - Final [facility] [address] [place] [address], [place] [phone] * GC DNA PROBE, URINE (01/27/2015 9:45 AM EST) GC DNA URINE NEGATIVE NEGATIVE [facility] Urine specimen (specimen) Urine specimen / Unknown 01/27/2015 9:45 AM EST 01/27/2015 11:54 AM EST [facility] - 01/28/2015 11:19 AM EST [facility] [address] [place] [address] PT ID [id number] ORD# [id number] Shilpa Meyers NP LAB - NO BLOOD DRAW Final Result Performing Organization Address [facility] Co de Phone Number [address] [address], [place] [phone] * CHLAMYDIA DNA PROBE, URINE (01/27/2015 9:45 AM EST) CHLAMYDIA DNA URINE NEGATIVE NEGATIVE [facility] Urine specimen (specimen) Urine specimen / Unknown 01/27/2015 9:45 AM EST 01/27/2015 11:54 AM EST [facility] - 01/28/2015 11:19 AM EST [facility] [address] [place] [address] PT ID [id number] ORD# [id number] us Shilpa Meyers NP LAB - NO BLOOD DRAW Final Result Performing Organization Address [facility] de Phone Number [address] [address], [place] [phone] documented in this encounter Visit Diagnoses Diagnosis Unprotected sex Problems related to high-risk sexual behavior documented in this encounter Care Teams Executive Team Leader Relationship Specialty Start Date End Date Shelly Hein PA-C [address] [place] [address] PCP - General FAMILY MEDICINE, [place] 12/17/19 documented as of this encounter
--- OUTSIDE RECORDS SUMMARY | 2024-05-15 12:46 | XMS_ITS | Encounter Summary ---
Author Organization [employer] Address [address] [place] [address] 7t [place] [address] Care Team Providers Care Solid Fiber Paster Operator Name Role Phone [facility] Primary Care Provider [phone] Reason for Visit * Reason Comments Med Refill Encounter Details Date Type Department Care Team ([facility] Contact Info) Description 09/30/2022 Refill [facility] [address] [place] [phone] [phone] Pain Social History Tobacco Use Types Packs/Day [...] Upcoming Encounters Date Type Department Care Team ([facility] Contact Info) Description 05/23/2024 9:15 AM EDT Office Visit [facility] [address] [place] [address] Sunshine Vela FNP [address] [place] [address] documented as of this encounter Visit Diagnoses Diagnosis Pain Generalized pain documented in this encounter Additional Health Concerns Assessment Noted Time PHQ-9 Depression Total Score: 0 05/19/19 9:44 AM EST documented as of this encounter Care Teams Solid Fiber Paster Operator Relationship Specialty Start Date End Date Sunshine Vela FNP [address] [place] [address] PCP - General Family Medicine 05/18/22 documented as of this encounter
--- OUTSIDE RECORDS SUMMARY | 2024-05-15 12:46 | XMS_ITS | Encounter Summary ---
Author Organization [facility] Address [address] [place] [address] Care Team Providers Care Fryer Line Helper Name Role Phone Shelly Hein PA-C Primary Care Provider [phone] Encounter Details Date Type Department Care Team ([facility] st Contact Info) Description 07/27/2015 Interim Notes [facility] [address] [place] [id number] Shilpa Meyers, CANDICE [address] [place] [address] Social History Tobacco Use Types Packs/Day Years Used Date Smoking Tobacco: Every Day Cigarettes 0.5 12 Alcohol Use Standard Drinks/Week Comments No 0 (1 standard drink = 0.6 oz pure alcohol) former abuse, now sober since [id number] Comments Unknown Sex and Gender Information Value [...] on filedocumented in this encounter Care Teams Fryer Line Helper Relationship Specialty Start Date End Date Shelly Hein PA-C [address] [place] [address] PCP - General FAMILY MEDICINE, [place] 12/17/19 documented as of this encounter
--- OUTSIDE RECORDS SUMMARY | 2024-05-15 12:46 | XMS_ITS | Encounter Summary ---
Author Organization [employer] Address [address] [facility] 7t [place] [address] Care Team Providers Care Air Pollution Specialist Name Role Phone Dane [facility] Primary Care Provider [phone] Reason for Visit * Reason Comments Med Refill Encounter Details Date Type Department Care Team (Late st Contact Info) Description 04/05/2022 Refill [facility] [address] [place] [address] [phone] Conrado Fong MD [address] [place], [place] [phone] Tobacco dependence; Influenza-like symptoms Social History Tobacco [...] 9:15 AM EDT Office Visit [facility] [address] [place] [address] [facility] [address] [place] [address] documented as of this encounter Visit Diagnoses Diagnosis Tobacco dependence Tobacco use disorder Influenza-like symptoms Other general symptoms documented in this encounter Care Teams Air Pollution Specialist Relationship Specialty Start Date End Date Keller TIEN Gonsalez [address] [place] [address] PCP - General Family Medicine 05/18/22 documented as of this encounter
--- OUTSIDE RECORDS SUMMARY | 2024-05-15 12:46 | XMS_ITS | Encounter Summary ---
Author Organization [employer] Address [address] [facility] 7t [place] [address] Care Team Providers Care Armature Straightener Name Role Phone Dane, [facility] Primary Care Provider [phone] Reason for Visit * Reason Onset Date Comments Nurse Triage 04/11/2023 Encounter Details Date Type Department Care Team ([facility] st Contact Info) Description 04/11/2023 Telephone [facility] [address] [place] [address] [facility] [address] [place] [address] Nurse Triage Social History Tobacco Use Types [...] t he electric, gas, oil or water [employer] threatened to shut off services in your [...] this outcome Pt states was seen at [facility] on 04/07/23 . No medication prescribed . documented in this encounter Plan of Treatment Upcoming Encounters Date Type Department Care Team (Late st Contact Info) Description 05/23/2024 9:15 AM EDT Office Visit [facility] [address] [place] [address] Sunshine Vela FNP [address] [place] [address] documented as of this encounter Visit Diagnoses Not on filedocumented in this encounter Additional Health Concerns Assessment Noted Time PHQ-9 Depression Total Score: 0 05/19/19 9:44 AM EST documented as of this encounter Care Teams Armature Straightener Relationship Specialty Start Date End Date Sunshine Vela FNP [address] [place] [address] PCP - General Family Medicine 05/18/22 documented as of this encounter
--- OUTSIDE RECORDS SUMMARY | 2024-05-15 12:46 | XMS_ITS | Encounter Summary ---
Author Organization [employer] Address [address] [facility] 7t [place] [address] Care Team Providers Care Smalltalk Developer Name Role Phone [facility] Primary Care Provider [phone] Reason for Visit * Reason Onset Date Comments Med Refill 04/22/2024 Encounter Details Date Type Department Care Team ([facility] st Contact Info) Description 04/22/2024 Refill [facility] [address] [place] [address] [facility] [address] [place] [address] Severe persistent asthma with acute exacerbation Social [...] 0.083% nebulizer solution To be sent to: [facility]/pharmacy #[id number] [place], [place] - [address] [place] [address] documented in this encounter Plan of Treatment Upcoming Encounters Date Type Department Care Team (Late st Contact Info) Description 05/23/2024 9:15 AM EDT Office Visit [facility] [address] [place] [address] [facility] [address] [place], [place] [phone] documented as of this encounter Visit Diagnoses Diagnosis Severe persistent asthma with acute exacerbation documented in this encounter Additional Health Concerns Assessment Noted Time PHQ-9 Depression Total Score: 9 06/15/19 24 1:18 PM EDT documented as of this encounter Care Teams Smalltalk Developer Relationship Specialty Start Date End Date Sunshine Vela FNP [address] [place] [phone] PCP - General Family Medicine 05/18/22 documented as of this encounter
--- OUTSIDE RECORDS SUMMARY | 2024-05-15 12:46 | XMS_ITS | Encounter Summary ---
Author Organization [employer] Address [address] [place] [address] Care Team Providers Care Vp Cardiovascular Name Role Phone Dane [facility] Primary Care Provider [phone] Encounter Details Date Type Department Care Team (Late st Contact Info) Description 05/14/2024 8:40 AM EST Office Visit [facility] [address] [place] [address] Conrado Aiken MD [address] [place] [address] Influenza-like symptoms (Primary Dx); Severe persistent asthma [...] 48 y.o. female. HPI Simran came to [facility] today because 1 week ago she had [...] Description 05/23/2024 9:15 AM EDT Office Visit [facility] [address] [place] [address] [facility] [address] [place] [address] Scheduled Orders Name Type Priority Associated Diagnoses Orde r Schedule Other Reference Test - [facility] Lab Routine Influenza-like symptoms Ordered: 05/14/2024 documented [...] NOW Rapid Molecular) (05/14/2024 9:11 AM EST) [facility] Influenza B Negative Negative, Indeterminate [facility] Swab 05/14/2024 9:11 AM EST us Conrado Aiken MD POINT OF CARE TEST ENTER/EDIT OR DERABLES Final Result Performing Organization Address [facility] Co [place] Phone Number [facility] [address] [place] [phone] * Influenza A (ID NOW Rapid Molecular) (05/14/2024 9:11 AM EST) [facility] Influenza A Negative Negative, Indeterminate [facility] Swab 05/14/2024 9:11 AM EST us Conrado Aiken MD POINT OF CARE TEST ENTER/EDIT OR DERABLES Final Result Performing Organization Address [facility] Phone Number [facility] [address] [place] [phone] * POCT rapid strep A manually resulted (05/14/2024 9:11 AM EST) [facility] Rapid Strep A Screen Negative Negative, None Detected [facility] Swab 05/14/2024 9:11 AM EST us Conrado Aiken MD POINT OF CARE TEST ENTER/EDIT OR DERABLES Final Result Performing Organization Address [facility] Phone Number [facility] [address] [place] [phone] * POCT Rapid COVID Ag (05/14/2024 9:11 AM EST) [facility] Rapid COVID Ag Negative [facility] Swab 05/14/2024 9:11 AM EST us Conrado Aiken MD POINT OF CARE TEST ENTER/EDIT OR DERABLES Final Result [facility] [address] [place] [phone] [phone] documented in this encounter Visit Diagnoses Diagnosis Influenza-like symptoms- Primary Other general symptoms Severe persistent asthma with acute exacerbation Acute URI Acute upper respiratory infections of unspecified site documented in this encounter Additional Health Concerns Assessment Noted Time PHQ-9 Depression Total Score: 9 06/15/19 24 1:18 PM EDT documented as of this encounter Care Teams Vp Cardiovascular Relationship Specialty Start Date End Date Sunshine Vela FNP [address] [place] [phone] PCP - General Family Medicine 05/18/22 documented as of this encounter
--- OUTSIDE RECORDS SUMMARY | 2024-05-15 12:46 | XMS_ITS | Clinical Summary ---
Author Organization [facility] Address [address] [place] [address] Care Team Providers Care Editor Newspaper Name Role Phone Shelly Hein Primary Care Provider [phone] Social History Tobacco Use Types Packs/Day Years [...] RESULTING AGENCY - 10/08/2017 1:27 PM EDT [id number] THINPREP PAP, IMAGED: NEGATIVE FOR SQUAMOUS INTRAEPITHELIAL [...] POS //17 ASCUS, HORMONES, Z12.4 Cuca Baer [facility] CYTOLOGY ORDERABLES Final Result HISTORICAL TESTING LAB RESULTING AGENCY from Last 3 Months or Most Recently Relevant to Health Maintenance Care Teams Editor Newspaper Relationship Specialty Start Date End Date Shelly Hein PA [address] [place] [address] PCP - General 10/27/21
--- OUTSIDE RECORDS SUMMARY | 2024-05-15 12:46 | XMS_ITS | Encounter Summary ---
Author Organization [employer] Address [address] [place] [address] [address] [place] [address] Care Team Providers Care Process Control Board Operator Name Role Phone Sunshine Vela [facility] Primary Care Provider [phone] Encounter Details Date Type Department Care Team (Late Contact Info) Description 04/10/2022 Orders Only [facility] [address] [place] [address] [phone] Zo Yee LPN Social History Tobacco Use [...] Description 05/23/2024 9:15 AM EDT Office Visit [facility] [address] [place] [address] Sunshine Vela [facility] [address] [place] [address] documented as of this encounter Visit Diagnoses Not on filedocumented in this encounter Care Teams Process Control Board Operator Relationship Specialty Start Date End Date Sunshine Vela FNP [address] [place] [address] PCP - General Family Medicine 05/18/22 documented as of this encounter
--- OUTSIDE RECORDS SUMMARY | 2024-05-15 12:47 | XMS_ITS | Encounter Summary ---
Author Organization [employer] Address [address] [facility] [address] [place] [address] Care Team Providers Care Fire Apparatus Engineer Name Role Phone Dane [facility] Primary Care Provider [phone] Encounter Details Date Type Department Care Team [...] Description 05/23/2024 9:15 AM EDT Office Visit [facility] [address] [place], [place] [phone] [facility] [address] [place], [place] [phone] documented as of this encounter Procedures Procedure [...] EST Narrative 05/14/2024 11:59 AM EST ? [facility] ?[address] ?[place] [address] ?XRay Report ? Signed ? Patient: ,Simran L ?MR#: [id number] ?? 98 ? : 1975 ?Acct:[id number] ? Age/Sex: 48 / F ?ADM Date: 05/14/24 ? Loc: HO.ED ? Attending Dr: ? Ordering Physician: Lakeisha Montes ?? Date of Service: 05/14/24 ?? Procedure(s): XR chest 2V ?? Accession Number(s): [id number] ? cc: Lakeisha Montes; [facility] ? EXAMINATION: ?? XR CHEST ? CLINICAL [...] DD/ 1134 ? TD/TT: 05/14/24 1134 ? Spooling Machine Operator: MSM ? Procedure Note Elliott Traore - 05/14/2024 [facility] [address] [place] [address] XRay Report Signed Patient: Simran Posada LMR#: [id number] 98 : 1975Acct:[id number] Age/Sex: 48 / FADM Date: 05/14/24 Loc: HO.ED Attending Dr: Ordering Physician: Lakeisha Montes Date of Service: 05/14/24 Procedure(s): XR chest 2V Accession Number(s): [id number] cc: Lakeisha Montes; [facility] TABLEAU ARCHITECT EXAMINATION: XR CHEST CLINICAL INFORMATION: sob COMPARISON: [...] 05/14/24 1156 DD/ 1134 TD/TT: 05/14/24 1134 Spooling Machine Operator: VIC [facility] External Provider IMG XR PROCEDURES Edited Result - Final * D Dimer High Sensitivity (05/14/2024 11:14 AM EST) D Dimer High Sensitivity 172 NG/ML [facility] Comment:D-DIMER HS REFERENCE RANGENote: Our [...] ORDERAB LES Final Result Performing Organization Address City/State/[facility] Co de Phone Number [facility] [address] [place] [phone] * Slide Review (05/14/2024 11:14 AM EST) Slide Review VERIFIED [facility] 05/14/2024 11:1 4 AM EST 05/14/2024 11:20 AM EST Generic External Data Provider LAB BLOOD ORDERAB LES Final Result Performing Organization Address [facility] de Phone Number [facility] [address] [place] [address] [phone] * hCG, Total, Quantitative (05/14/2024 11:14 AM EST) HCG Quantitative <2 mIU/mL [facility] Comment:Weeks post LMP Appro ximate hCG(Last Menstrual Period) Range (mIU/ml)3 - 4 weeks 9 - 1304 - 5 weeks 75 - 2,6005 - 6 weeks 850 - 20,8006 - 7 weeks 4000 - 100,2007 - 12 weeks 11,500 - 289,06269 - 16 weeks 18,300 - 137,58469 - 29 weeks (2nd trimester) 1,400 - 53,45335 - 41 weeks (3rd trimester) 940 - [...] LES Final Result Performing Organization Address [facility] Co de Phone Number [facility] [address] [place] [phone] * (ABNORMAL) Magnesium (05/14/2024 11:14 AM EST) Magnesium 1.5(L) 1.6 - 2.6 mg/dL [facility] 05/14/2024 11:1 4 AM EST 05/14/2024 11:20 AM EST us Generic External Data Provider LAB BLOOD ORDERAB LES Final Result [facility] [address] [place] [phone] * (ABNORMAL) Comprehensive Metabolic Panel (05/14/2024 11:14 AM EST) Sodium 141 135 - 145 mmol/L [facility] Potassium 2.8(LL) 3.3 - 5.1 mmol/L [facility] Comment:Critical value for t est(s): K Results called to and readback by: JOSEFA Person calling: THEODORE Date: 05-14-24 Time:1206 Chloride 104 96 - 108 mmol/L [facility] Carbon Dioxide 25 22 - 29 mmol/L [facility] Anion Gap 15 12 - 20 [facility] Urea Nitrogen (BUN) 13 9 - 16 mg/dL [facility] Creatinine, Serum 0.95 0.5 - 1.4 mg/dL [facility] Creatinine Clr Calc Pharmacy 86.8 [facility] Comment:Provided height and weight: 167.64 cm,98.883 kg.eGFR (calculated from the MDRD study equation) and eCrCl(calculated from the Cockcroft-Gault equation) are based ondifferent parameters and may not yield comparable results.If eCrCl result is absurd, please check patient'sheight/weight. Estimated Glomerular Filt Rate >60 [facility] Comment:Chronic Kidney Disea se: Estimated GFR < 60 mL/min/1.13k1Lindig Kidney Disease: Estimated GFR < 15 mL/min/1.73m2 Glucose 131(H) 60 - 115 mg/dL [facility] Calcium 9.4 8.4 - 10.2 mg/dL [facility] Bilirubin, Total 0.3 0.0 - 1.0 mg/dL [facility] Aspartate Amino Transferase 21 5 - 31 U/L [facility] Alanine Aminotransferase 32(H) 0 - 31 U/L [facility] Total Protein 8.1(H) 6.5 - 8.0 g/dL [facility] Albumin Level 4.3 3.5 - 5.0 g/dL [facility] Alkaline Phosphatase 78 39 - 117 U/L [facility] 05/14/2024 11:1 4 AM EST 05/14/2024 11:20 AM EST us Generic External Data Provider LAB BLOOD ORDERAB LES Final Result [facility] [address] [place] [phone] * SARS-CoV-2 RNA, Influenza A/B, and RSV RNA, Ql NAAT (05/14/2024 11:14 AM EST) Influenza A PCR NEGATIVE Negative [facility] Influenza B PCR NEGATIVE Negative [facility] Resp Syncy Virus RNA Qual PCR NEGATIVE Negative [facility] SARS COV2 PCR NEGATIVE Negative [facility] Comment:All test results mus t be [...] use by authorized laboratories.Testing performed on the [employer] GeneXpert utilizingreal-time RT-PCR.All SARS CoV2 and positive influenza A/B results arereported to [facility]. 05/14/2024 11:1 4 AM EST 05/14/2024 11:20 AM EST Generic External Data Provider LAB MICROBIOLOGY - GENERAL ORDERABLES Final Result Performing Organization Address [facility] de Phone Number [facility] [address] [place] [phone] * High Sensitivity Troponin I (05/14/2024 11:14 AM EST) TROPONIN I HIGH SENSITIVITY <2.7 <3.5 - 17.0 ng/L [facility] Comment:The Byers high sens itivity Troponin-I results should beused in conjunction with other diagnostic information suchas ECG, clinical observations and information, and patientsymptoms to aid in the diagnosis of NC. 05/14/2024 11:1 4 AM EST 05/14/2024 11:20 AM EST Generic External Data Provider LAB BLOOD ORDERAB LES Final Result Performing Organization Address [facility] [address] [place] [phone] * Prothrombin Time-INR (05/14/2024 11:14 AM EST) Prothrombin Time 12.2 10.9 - 12.4 SEC [facility] INTERNATIONAL NORM RATIO 1.0 0.9 - 1.1 [facility] Comment:INTERNATIONAL NORMAL IZED RATIO (INR) [...] LES Final Result Performing Organization Address [facility] Co de Phone Number [facility] [address] [place] [address] [place] [phone] * (ABNORMAL) CBC auto differential (05/14/2024 11:14 AM EST) White Blood Count 9.8 4.8 - 10.8 X10*3/uL [facility] Red Blood Count 4.56 4.20 - 5.50 X10*6/uL [facility] Hemoglobin 14.0 12.0 - 16.0 g/dl [facility] Hematocrit 39.8 37.0 - 47.0 % [facility] Mean Corpuscular Volume 87.3 80.0 - 98.0 fL [facility] Mean Corpuscular Hemoglobin 30.7 27.0 - 33.0 pg [facility] Mean Corpuscular HGB Conc 35.2(H) 31.0 - 35.0 g/dl [facility] Red Cell Distribution Width 12.6 11.0 - 16.0 % [facility] Platelet Count 288 160 - 400 X10*3/uL [facility] Mean Platelet Volume 9.9 9.4 - 12.3 fL [facility] Neutrophils Percent Auto 56.0 45 - 73 % [facility] Imm Gran Pct Auto 0.2 0.0 - 0.4 % [facility] Lymphocytes Percent Auto 31.5 20 - 40 % [facility] Monocytes Percent Auto 9.2 2 - 11 % [facility] Eosinophils Percent Auto 2.7 0 - 4 % [facility] Basophils Percent Auto 0.4 0 - 2 % [facility] NRBC Pct Auto 0.0 0.0 - 0.2 /100WBC [facility] Neutrophils Absolute Auto 5.5 2.0 - 8.3 x10*3/uL [facility] Imm Gran Abs Auto 0.02 0.00 - 0.03 X10*3/uL [facility] Lymphocytes Absolute Auto 3.1 1.2 - 4.9 X10*3/uL [facility] Monocytes Absolute Auto 0.9 0.1 - 1.2 X10*3/uL [facility] Eosinophils Absolute Auto 0.3 0.0 - 0.4 X10*3/uL [facility] Basophils Absolute Auto 0.0 0.0 - 0.2 X10*3/uL [facility] NRBC Abs Auto 0.000 0.0 - 0.012 X10*3/uL [facility] 05/14/2024 11:1 4 AM EST 05/14/2024 11:20 AM EST us Generic External Data Provider LAB BLOOD ORDERAB LES Edited Result - Final [facility] [address] [place] [phone] documented in this encounter Visit Diagnoses Not on filedocumented in this encounter Additional Health Concerns Assessment Noted Time PHQ-9 Depression Total Score: 9 06/15/19 24 1:18 PM EDT documented as of this encounter Care Teams Fire Apparatus Engineer Relationship Specialty Start Date End Date Sunshine Vela FNP [address] [place] [phone] PCP - General Family Medicine 05/18/22 documented as of this encounter
== END 2024-05-15 12:30 | disposition left against medical advice (07) ==
PROVIDERS: Emergency Provider Emergency Medicine; PCP Registered Nurse
DX: E87.6 Hypokalemia (principal); R06.02 Shortness of breath; R00.0 Tachycardia, unspecified; F17.210 Nicotine dependence, cigarettes, uncomplicated; Z79.899 Other long term (current) drug therapy; Z03.818 Encounter for observation for suspected exposure to other biological agents ruled out
CPT/HCPCS: 0241U; 80053; 83735; 85025; 93005; 99283

== ENCOUNTER → 2024-05-15 09:04 | Outpatient (BNV) | payer MEDICAID, SELFPAY | PROVIDERS: Visit Provider Internal Medicine Cardiovascular Disease | DX: R00.0 Tachycardia, unspecified (principal) | CPT/HCPCS: 93010 ==

== ENCOUNTER 2024-05-16 11:10 | Emergency (ER) | payer MEDICAID, SELFPAY ==
--- NOTE | ~2024-05-16 | XR_ITS ---
EXAMINATION: XR CHEST 2 VIEWS HISTORY: cough COMPARISON: Comparison is made with the prior examination dated 05/14/2024. FINDINGS: PA and lateral views of the chest are submitted. There are low lung volumes. The lungs are clear. There is no pleural effusion, pneumothorax, or pulmonary vascular congestion. The heart is normal in size. The bones are intact. XR/XR chest 2V IMPRESSION: Low lung volumes. No acute cardiopulmonary abnormality. Electronically signed by: Rhett Haywood MD 05/16/2024 12:22 PM JULIA
[2024-05-16 11:20] VITALS: BP 150/75; PULSE 103; O2SAT 97
--- NOTE | 2024-05-16 11:25 | ED_ITS ---
HPI - General Adult General Chief complaint: Dyspnea Stated complaint: SOB/ABN LABS PER EMS Time Seen by Provider: 05/16/24 11:22 Source: patient Mode of arrival: EMS Limitations: no limitations History of Present Illness HPI narrative: This is a 48-year-old woman with a past medical history of chronic back pain, lumbar disc herniation, lumbar radiculopathy, CTS, DVT status post IVC filter, pancreatitis, asthma, COPD who presents for evaluation of abnormal lab test. She states that she was seen here a couple of days ago and treated for an asthma exacerbation. She states that they also found that her potassium and magnesium level was low. She states that she did ultimately leave against medical advice. She states that she was still feeling sick so she returned the following day due to concern for potentially persistent low potassium level. She states no that they rechecked her potassium level, which she states was normal. She states that she was prescribed prednisone, which she reports started to take yesterday morning. She states that she has not taken her morning dose yet this morning. She states that her last albuterol use was 5 or 6 hours prior to ambulance arrival to her home. She states that the ambulance did provide her with the nebulizer treatments en route. She states no dyspnea at this time. She states subjective fevers. However, she states that she was called today and told that she had an elevated white blood cell count and was recommended to return for re-evaluation. She states no GI or symptoms. She states no rash. She states no syncope or traumatic injury. Related Data Home Medications ?Medication ?Instructions ?Recorded ?Confirmed albuterol sulfate 90 mcg/actuation 2 puff inhalation Q6H PRN wheezing 08/30/21 10/03/23 aerosol inhaler (ProAir HFA) buspirone 7.5 mg tablet 7.5 mg PO BEDTIME 08/30/21 10/03/23 cholecalciferol (vitamin D3) 25 25 mcg PO BEDTIME 08/30/21 10/03/23 mcg (1,000 unit) capsule (Vitamin D3) clonidine HCl 0.1 mg tablet 0.1 mg PO BEDTIME PRN Anxiety 08/30/21 10/03/23 diphenhydramine HCl 25 mg capsule 100 mg PO BEDTIME insomnia 08/30/21 10/03/23 (Banophen) gabapentin 600 mg tablet 600 mg PO BEDTIME 08/30/21 10/03/23 oxcarbazepine 300 mg tablet 300 mg PO DAILY 08/30/21 10/03/23 oxcarbazepine 600 mg tablet 1,800 mg PO BEDTIME 08/30/21 10/03/23 budesonide-formoterol HFA 160 2 puff inhalation QID 05/07/22 10/03/23 mcg-4.5 mcg/actuation aerosol inhaler (Symbicort) fluticasone propionate 110 1 puff inhalation BID 05/07/22 10/03/23 mcg/actuation HFA aerosol inhaler (Flovent HFA) atorvastatin 20 mg tablet 20 mg PO BEDTIME 11/22/22 10/03/23 dexmethylphenidate 20 mg 20 mg PO BEDTIME 11/22/22 10/03/23 capsule,extended release [id number] (Focalin XR) prazosin 2 mg capsule 2 mg PO BEDTIME 11/22/22 10/03/23 varenicline tartrate 1 mg tablet 1 mg PO BID 11/22/22 10/03/23 duloxetine 30 mg capsule,delayed 60 mg PO BEDTIME 10/03/23 10/03/23 release Previous Rx's ?Medication ?Instructions ?Recorded acetaminophen 500 mg tablet 1,000 mg (2 x 500 mg) PO QID PRN 10/12/20 (Tylenol Extra Strength) fever or pain #60 tabs ibuprofen 800 mg tablet 800 mg PO Q8H PRN pain #20 tabs 10/12/20 albuterol sulfate 2.5 mg/3 mL 2.5 mg (3 mL) inhalation Q4H PRN 09/14/21 (0.083 %) solution for nebulization shortness of breath or wheezing #90 mL nebulizer and compressor #1 ea 09/14/21 naproxen 500 mg tablet 500 mg PO BID 7 days #14 tabs 09/28/23 oxycodone-acetaminophen 5 mg-325 1 tab PO BID pain #14 tabs 10/03/23 mg tablet oxycodone-acetaminophen 5 mg-325 1 tab PO Q8H PRN pain #14 tabs 10/03/23 mg tablet albuterol sulfate 2.5 mg/3 mL 2.5 mg (3 mL) inhalation Q4-6H PRN 01/27/24 (0.083 %) solution for nebulization shortness of breath or wheezing #90 mL benzonatate 200 mg capsule 200 mg PO TID PRN cough #20 caps 01/27/24 cefuroxime axetil 500 mg tablet 500 mg PO BID 7 days #14 tabs 01/27/24 prednisone 20 mg tablet 40 mg (2 x 20 mg) PO DAILY #10 tabs 01/27/24 potassium chloride 10 mEq 10 meq PO DAILY #30 tabs 05/14/24 tablet,extended release prednisone 20 mg tablet 40 mg (2 x 20 mg) PO DAILY 5 days 05/14/24 #10 tabs levalbuterol HCl 0.31 mg/3 mL 0.31 mg (3 mL) inhalation Q4H PRN 05/16/24 solution for nebulization shortness of breath or wheezing #75 mL magnesium oxide 400 mg PO BID 2 days #4 tabs 05/16/24 Allergies Allergy/AdvReac Type Severity Reaction Status Date / Time vancomycin [VANCOMYCIN] Allergy Intermediate RASH, Verified 05/16/24 11:39 ITCHING, BREATHING PROBLEMS PMFSH Past Medical History Medical History Depression Elevated cholesterol COVID-19 Atypical chest pain Asthma exacerbation Fracture of distal phalanx of left middle finger Spondylolisthesis at L4-L5 level Pancreatitis DVT (deep vein thrombosis) in Numbness and tingling in both hands Lumbar radiculopathy Pars defect of lumbar spine Low back pain Carpal tunnel syndrome, bilateral Kidney laceration Tibia fracture Fibula fracture Back pain Surgical History History of surgery on lower extremity S/P IVC filter History of back surgery Status post surgical manipulation of ankle joint History of cholecystectomy Social History Social History Alcohol intake: never Patient Tobacco Use Status: Current everyday Tobacco user Tobacco use type: Cigarette Cigarette Packs Per Day: 1 Cigarettes Per Day: 5 Years Smoked: 33 Smoked in Last 30 Days: Yes Use of substances other than those prescribed or required for medical reasons: No Substance Use Type: Marijuana Advance Directives: No Advance Directives Information Provided: No Do you have a plan to hurt others: No Plan Patient : No service: No Current occupational status: employed Current occupation: disability Physical Exam ED Vital Signs: Vital Signs - 24 hr 05/16/24 11:38 05/16/24 11:43 Temperature 98.5 F 98.5 F Pulse Rate 77 77 Respiratory Rate 16 16 Blood Pressure 132/87 132/87 Pulse Oximetry 100 100 Oxygen Delivery Method Room Air Room Air BMI result Body Mass Index 32.3 Gen: NAD, AOx3 HEENT: NCAT, EOMI, normal conjunctiva, oropharynx clear CV: RRR Pulm: scattered expiratory wheezes, excellent aeration, no conversational dyspnea, no increased work of breathing GI: Soft, NTND Neuro: Grossly non focal Medications Administered Discontinued Medications Generic Name Dose Route Start Last Admin Trade Name Freq PRN Reason Stop Dose Admin Prednisone 40 mg 05/16/24 11:35 05/16/24 12:04 Prednisone 20 Mg Tablet PO 05/16/24 11:36 40 mg ONCE ONE Administration Medical Decision Making Medical Decision Making [facility] Narrative: Differential diagnosis includes, but is not limited to asthma exacerbation, viral URI, pneumonia, medication effect. Patient is afebrile and hemodynamically stable on room air. Exam is benign and reassuring abeit with scattered expiratory wheezes. She does not appear to be an exacerbation at this time and is very comfortable from a respiratory standpoint. We will provide home dose of prednisone here in the ED given that she has not taken it yet. I suspect leukocytosis noted on labs 1 day prior to presentation is likely secondary to prednisone use. Regardless, given reported illness for 1 week with ongoing subjective fevers we will obtain the screen chest x-ray for evaluation of pneumonia. I reviewed blood work, viral testing and chest x-ray as below. Patient is provided oral magnesium repletion here. On re-examination, patient is well-appearing and in no acute distress. I have recommended that she continue her previous prednisone prescription.There is no indication for further emergent evaluation in this otherwise well-appearing patient as above. Patient is provided written and verbal instructions, prescription for 2 days of oral magnesium,educational materials, recommendations for outpatient follow-up, strict return precautions and teach back is performed. Patient states understanding and agreement with plan of care. Patient is discharged home in stable and improved condition. Lab Data [facility] Lab Attestation statement: I reviewed the patient's lab results. I reviewed labs from May 14, 2024, which was notable for hypokalemia of 2.8 and hypomagnesemia of 1.5. Beta HCG negative. I reviewed labs from May 15, 2024, which was notable for leukocytosis with white blood cell count of 16.7. labs obtained today demonstrates stable anemia with hemoglobin of 11.8 (previous range 11.9-14.0). Leukocytosis has resolved. Patient has negative for COVID- 19, influenza and RSV. 05/16/24 12:54 05/16/24 12:54 Labs: Lab Results 05/16/24 05/16/24 Range/Units 11:41 12:54 WBC 4.9 (4.8-10.8) X10*3/uL RBC 3.81 L (4.20-5.50) X10*6/uL Hgb 11.8 L (12.0-16.0) g/dl Hct 34.3 L (37.0-47.0) % MCV 90.0 (80.0-98.0) fL MCH 31.0 (27.0-33.0) pg MCHC 34.4 (31.0-35.0) g/dl RDW 13.0 (11.0-16.0) % Plt Count 239 (160-400) X10*3/uL MPV 9.5 (9.4-12.3) fL Immature Gran % (Auto) 0.2 (0.0-0.4) % Neut % (Auto) 39.3 L (45-73) % Lymph % (Auto) 48.9 H (20-40) % Cross % (Auto) 9.8 (2-11) % Eos % (Auto) 1.2 (0-4) % Baso % (Auto) 0.6 (0-2) % Lymph # (Auto) 2.4 (1.2-4.9) X10*3/uL Cross # (Auto) 0.5 (0.1-1.2) X10*3/uL Eos # (Auto) 0.1 (0.0-0.4) X10*3/uL Baso # (Auto) 0.0 (0.0-0.2) X10*3/uL Abs Immat Gran (auto) 0.01 (0.00-0.03) X10*3/uL Absolute Neuts (auto) 1.9 L (2.0-8.3) x10*3/uL Absolute Nucleated RBC 0.000 (0.0-0.012) X10*3/uL Nucleated RBC % (auto) 0.0 (0.0-0.2) /100WBC Sodium 141 (135-145) mmol/L Potassium 3.7 (3.3-5.1) mmol/L Chloride 109 H (96-108) mmol/L Carbon Dioxide 25 (22-29) mmol/L Anion Gap 11 L (12-20) BUN 12 (9-16) mg/dL Creatinine 0.72 (0.5-1.4) mg/dL Estim Creat Clear Calc 109.7 Estimated GFR > 60 Random Glucose 101 (60-115) mg/dL Calcium 8.9 D (8.4-10.2) mg/dL Magnesium 1.5 L (1.6-2.6) mg/dL Influenza Type A (PCR) NEGATIVE (Negative) Influenza Type B (PCR) NEGATIVE (Negative) RSV RNA Qual (PCR) NEGATIVE (Negative) SARS-CoV-2 RNA (RT-PCR) NEGATIVE (Negative) Independent Interpretation I performed an independent interpretation of an: Plain X-Ray Interpretation: I independently reviewed and interpreted the patient's chest x-ray, which demonstrates no pleural effusion, focal consolidation or pneumothorax Radiology Impression Discussion of test interpretation with radiology: I have reviewed the radiologist's reading. Radiologist Impression: XR/XR chest 2V IMPRESSION: Low lung volumes. No acute cardiopulmonary abnormality. Electronically signed by: Rhett Haywood MD 05/16/2024 12:22 PM [facility] Dictated By: Rhett Haywood MD Signed By: <Electronically signed by Rhett Haywood MD in OV> 05/16/24 1222 Discharge Plan Discharge Clinical Impression: Asthma Patient Disposition: Home, Self-Care Instructions: Asthma (ED) Additional Instructions: You were seen and evaluated in the emergency room. Your vital signs and chest x-ray reassuring. Your x-rays showed no evidence of pneumonia. You tested negative for COVID-19, influenza and RSV. Your blood work showed minimally decreased magnesium level for which you were provided magnesium repletion. You are given a prescription for magnesium. Your next dose should be taken tomorrow morning. Please continue taking your prednisone as previously prescribed. Please continue using 4 puffs of your albuterol inhaler every 4 hours or 1-2 vials nebulized albuterol every 4 hours as needed. You are given a refill for nebulized albuterol solution if you need it. Please follow-up with your primary care doctor in the next 5-7 days. Please return to the emergency room if you develop any worsening symptoms. Prescriptions: New levalbuterol HCl 0.31 mg/3 mL solution for nebulization 0.31 mg inhalation Q4H PRN (Reason: shortness of breath or wheezing) Qty: 75 0RF Rx Instructions: J98.01 magnesium oxide 400 mg magnesium tablet 400 mg PO BID 2 Days Qty: 4 0RF No Action ibuprofen 800 mg tablet 800 mg PO Q8H PRN (Reason: pain) Qty: 20 0RF acetaminophen [Tylenol Extra Strength] 500 mg tablet 1,000 mg PO QID PRN (Reason: fever or pain) Qty: 60 5RF albuterol sulfate 2.5 mg /3 mL (0.083 %) solution for nebulization 2.5 mg inhalation Q4H PRN (Reason: shortness of breath or wheezing) Qty: 90 0RF (DME) nebulizer and compressor Device See Rx Instructions .Route Qty: 1 0RF Rx Instructions: As directed fluticasone propionate [Flovent HFA] 110 mcg/actuation HFA aerosol inhaler 1 puff inhalation BID budesonide-formoterol [Symbicort] 160-4.5 mcg/actuation HFA aerosol inhaler 2 puff inhalation QID atorvastatin 20 mg tablet 20 mg PO BEDTIME dexmethylphenidate [Focalin XR] 20 mg capsule,ER biphasic 50-50 20 mg PO BEDTIME prazosin 2 mg capsule 2 mg PO BEDTIME varenicline tartrate 1 mg tablet 1 mg PO BID Rx Instructions: take with full glass of water benzonatate 200 mg capsule 200 mg PO TID PRN (Reason: cough) Qty: 20 0RF prednisone 20 mg tablet 40 mg PO DAILY Qty: 10 0RF cefuroxime axetil 500 mg tablet 500 mg PO BID 7 Days Qty: 14 0RF albuterol sulfate 2.5 mg /3 mL (0.083 %) solution for nebulization 2.5 mg inhalation Q4-6H PRN (Reason: shortness of breath or wheezing) Qty: 90 0RF naproxen 500 mg tablet 500 mg PO BID 7 Days Qty: 14 0RF duloxetine 30 mg capsule,delayed release(DR/EC) 60 mg PO BEDTIME oxycodone-acetaminophen 5-325 mg tablet 1 tab PO BID Qty: 14 0RF Rx Instructions: Partial Fill upon patient request. oxycodone-acetaminophen 5-325 mg tablet 1 tab PO Q8H PRN (Reason: pain) Qty: 14 0RF Rx Instructions: Partial Fill upon patient request. prednisone 20 mg tablet 40 mg PO DAILY 5 Days Qty: 10 0RF potassium chloride 10 mEq tablet extended release 10 meq PO DAILY Qty: 30 0RF cholecalciferol (vitamin D3) [Vitamin D3] 25 mcg (1,000 unit) capsule 25 mcg PO BEDTIME oxcarbazepine 600 mg tablet 1,800 mg PO BEDTIME oxcarbazepine 300 mg tablet 300 mg PO DAILY gabapentin 600 mg tablet 600 mg PO BEDTIME clonidine HCl 0.1 mg tablet 0.1 mg PO BEDTIME PRN (Reason: Anxiety) albuterol sulfate [ProAir HFA] 90 mcg/actuation HFA aerosol inhaler 2 puff inhalation Q6H PRN (Reason: wheezing) diphenhydramine HCl [Banophen] 25 mg capsule 100 mg PO BEDTIME buspirone 7.5 mg tablet 7.5 mg PO BEDTIME Print Language: Kiswahili
[2024-05-16 11:38] VITALS: BP 132/87; PULSE 77; RESP 16; TEMP 36.9; O2SAT 100; BMI 32.3
[2024-05-16 11:43] VITALS: BP 132/87; PULSE 77; RESP 16; TEMP 36.9; O2SAT 100
--- NOTE | 2024-05-16 11:49 | PC.NURSE ---
Pt. is requesting to have her labs re-drawn. Gloria Macias MD notified.
[2024-05-16] MEDS: predniSONE 20 MG TABLET 40 MG PO (12:04)
[2024-05-16 12:25] LABS: Influenza A PCR NEGATIVE (Negative); Influenza B PCR NEGATIVE (Negative); Resp Syncy Virus RNA Qual PCR NEGATIVE (Negative); SARS COV2 PCR INHOUSE NEGATIVE (Negative)
[2024-05-16 12:59] LABS: MANUAL DIFF FLAG NO
[2024-05-16 13:01] LABS: Basophils Percent Auto 0.6 % (0-2); Eosinophils Absolute Auto 0.1 X10*3/uL (0.0-0.4); Eosinophils Percent Auto 1.2 % (0-4); Hematocrit 34.3 % (37.0-47.0); Hemoglobin 11.8 g/dl (12.0-16.0); Imm Gran Abs Auto 0.01 X10*3/uL (0.00-0.03); Imm Gran Pct Auto 0.2 % (0.0-0.4); Lymphocytes Absolute Auto 2.4 X10*3/uL (1.2-4.9); Lymphocytes Percent Auto 48.9 % (20-40); Mean Corpuscular HGB Conc 34.4 g/dl (31.0-35.0); Mean Platelet Volume 9.5 fL (9.4-12.3); Monocytes Absolute Auto 0.5 X10*3/uL (0.1-1.2); Monocytes Percent Auto 9.8 % (2-11); Neutrophils Absolute Auto 1.9 x10*3/uL (2.0-8.3); Neutrophils Percent Auto 39.3 % (45-73); Platelet Count 239 X10*3/uL (160-400); Red Blood Count 3.81 X10*6/uL (4.20-5.50); White Blood Count 4.9 X10*3/uL (4.8-10.8)
[2024-05-16 13:18] LABS: Anion Gap 11 (12-20); Blood Urea Nitrogen 12 mg/dL (9-16); Calcium 8.9 mg/dL (8.4-10.2); Carbon Dioxide 25 mmol/L (22-29); Chloride 109 mmol/L (96-108); Creatinine Clr Calc Pharmacy 109.7; Estimated Glomerular Filt Rate > 60; Glucose Random 101 mg/dL (60-115); Magnesium 1.5 mg/dL (1.6-2.6); Potassium 3.7 mmol/L (3.3-5.1); Sodium 141 mmol/L (135-145)
[2024-05-16] MEDS: Magnesium Oxide 400 MG TABLET 800 MG PO (13:39)
[2024-05-16 13:42] VITALS: BP 123/79; PULSE 83; RESP 18; TEMP 36.7; O2SAT 97
--- OUTSIDE RECORDS SUMMARY | 2024-05-16 13:45 | XMS_ITS | Encounter Summary ---
Author Organization [employer] Address [address] [place] [address] Care Team Providers Care Weaving Professor Name Role Phone Dane [facility] Primary Care Provider [phone] Reason for Visit * Reason Comments Med Refill Encounter Details Date Type Department Care Team (Late st Contact Info) Description 04/05/2022 Refill [facility] [address] [place] [address] [phone] Conrado Fong MD [address] [place], [place] [phone] Tobacco dependence; Influenza-like symptoms Social History Tobacco [...] Description 05/23/2024 9:15 AM EDT Office Visit [facility] [address] [place] [address] [facility] [address] [place] [address] documented as of this encounter Visit Diagnoses Diagnosis Tobacco dependence Tobacco use disorder Influenza-like symptoms Other general symptoms documented in this encounter Care Teams Weaving Professor Relationship Specialty Start Date End Date [place] TIEN Gonsalez [address] [place] [id number] PCP - General Family Medicine 05/18/22 documented as of this encounter
--- OUTSIDE RECORDS SUMMARY | 2024-05-16 13:45 | XMS_ITS | Encounter Summary ---
Author Organization [employer] Address [address] [place] [address] [address] [place] [address] Care Team Providers Care Electric Relay Tester Name Role Phone [facility] Primary Care Provider [phone] Reason for Visit * Reason Comments Med Refill Encounter Details Date Type Department Care Team (Late st Contact Info) Description 03/19/2022 Refill [facility] [address] [place] [address] [phone] Conrado Fong MD [address] [place], [place] [phone] Influenza-like symptoms Social History Tobacco Use Types [...] Description 05/23/2024 9:15 AM EDT Office Visit [facility] [address] [place] [phone] Dane, [address] [address] documented as of this encounter Visit Diagnoses Diagnosis Influenza-like symptoms Other general symptoms documented in this encounter Care Teams Electric Relay Tester Relationship Specialty Start Date End Date Dane TIEN Gonsalez [address] [place] [address] PCP - General Family Medicine 05/18/22 documented as of this encounter
--- OUTSIDE RECORDS SUMMARY | 2024-05-16 13:45 | XMS_ITS | Clinical Summary ---
Author Organization [employer] Address [address] [facility] [address] [place] [address] Care Team Providers Care Administrative Director Name Role Phone [facility] Provider [phone] Allergies Active Allergy Reactions Criticality Noted Date [...] EVERY DAY IN THE MORNING 90 tablet Active acetaminophen (Tylenol) 500 MG tablet Take 2 tablets (1,000 mg) by mouth every 6 (six) hours if needed for moderate pain or fever. 40 tablet Active ibuprofen 400 MG tablet Take 1 tablet (400 mg) by mouth every 6 (six) hours if needed for moderate pain or fever for up to 30 doses. 30 tablet Active albuterol (2.5 MG/3ML) 0.083% nebulizer solution [...] Active Problems Problem Noted Date Diagnosed Date Acute hypokalemia 05/15/2024 Hypomagnesemia 05/15/2024 Carpal tunnel syndrome of right wrist 05/15/2024 Anxiety disorder 05/15/2024 Asthma with exacerbation 05/15/2024 S/P insertion of spinal cord stimulator 05/16/19 25 Overview (05/15/2024): [employer] device, inadequate coverage Status post surgical manipulation of ankle joint 05/15/2024 Overview (05/15/2024): Posttraumatic, plates and screws Healthcare maintenance 07/04/2023 Overview (07/04/2023): Mammo: Overdue. Will order today Pap: Reports hx of ASCUS s/p colpo (negative). Records not in c C-scope: BMD: HCV Screen: HIV Screen: Immunizations: Screening Labs: Other chest pain 07/03/2023 Overview (07/03/2023): [place]iology[place] [facility] [place] chest pain/SOB 10/2022--plan for echocardiogram and stress test. ASCVD-3% 05/22/22; Oral lesion 02/21/2023 Tobacco use disorder 10/10/2022 Overview (10/17/2022): ?? 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 States initially on coumadin which she self [...] presence of IVC filter as recommended by [facility]. Pending KUB results will consider CT scan if indicated and likely referral to vascular. Numbness and tingling in both hands 10/09/2022 Lumbar radiculopathy 10/09/2022 Overview (10/17/2022): ?? Previously followed [place] [facility] [place] [facility] ?? Spinal nerve stimulator in place Assessment & Plan (10/19/2022 12:52 PM EDT): ?? Referral placed back to [facility] for followup Spondylolisthesis at L4-L5 level 10/09/2022 Carpal tunnel syndrome, bilateral 10/09/2022 Severe persistent asthma with acute exacerbation 09/08/2022 Overview (10/17/2022): ?? Symbicort b.i.d, spiriva, albuterol ?? PFTS done 01/29/17 showed moderate ventilatory [...] Encounters Date Type Department Care Team Description 05/16/2024 Orders Only [facility] External Provider, [facility] 05/16/2024 Patient Outreach [facility] [address] [place] [address] DaneSunshine gipson FNP Pre-visit Planning ((Unable to reach for PVP screening, LVM)) 05/15/2024 Orders Only [facility] [address] [place], [place] [phone] Provider, MD Rickey 05/15/2024 Telephone [facility] [address] [place] [phone] Sunshine Vela FNP Plan of Care 05/14/2024 8:40 AM EST Office Visit [facility] [address] [place] [phone] Conrado Fong MD Influenza-like symptoms (Primary Dx); Severe persistent asthma with acute exacerbation; Acute URI 05/14/2024 Orders Only GENERIC EXTERNAL DATA DEPARTMENT Provider, Generic External Data 04/22/2024 Refill [facility] [address] [place] [phone] Sunshine Vela FNP Severe persistent asthma with acute exacerbation 03/25/2024 9:00 AM EST [facility] [address] [address] Conrado Fong MD Asthma with COPD with exacerbation ([facility]) (Primary Dx); Chronic foot pain, right; Tobacco dependence; Viral URI; Severe persistent asthma with acute exacerbation; Encounter for tobacco use cessation counseling 03/25/2024 Refill [facility] [address] [place] [phone] Conrado Fong MD Severe persistent asthma with acute exacerbation; Encounter for tobacco use cessation counseling 03/24/2024 Telephone [facility] [address] [place] [phone] Sunshine Vela FNP Nurse Triage 03/06/[address] [phone] Sunshine Vela FNP Apr recalls from Last 3 Months Immunizations [...] Description 05/23/2024 9:15 AM EDT Office Visit [facility] [address] [place] [address] BerwynSunshine, [employer] [employer] [address] [place], [place] [phone] Health Maintenance Due Date Last Done Comments [...] Procedure Name Priority Date/Time Associated Diagnosis Comments MAGNESIUM Routine 05/16/2024 12:54 PM EST BASIC METABOLIC PANEL Routine 05/16/2024 12:54 PM EST CBC WITH AUTO DIFFERENTIAL Routine 05/16/2024 12:54 PM EST XR CHEST 2 VIEWS Routine 05/16/2024 11:3 4 AM EST ECG 12-LEAD Routine 05/15/2024 3:46 PM EST ECG 12-LEAD Routine 05/14/2024 3:48 PM EST XR CHEST 2 VIEWS Routine 05/14/2024 11:3 [...] Recently Relevant to Health Maintenance Results * (ABNORMAL) CBC auto differential (05/16/2024 12:54 PM EST) Only the most recent of2 resultswithin the time period is included. White Blood Count 4.9 4.8 - 10.8 X10*3/uL [facility] Red Blood Count 3.81(L) 4.20 - 5.50 X10*6/uL [facility] Hemoglobin 11.8(L) 12.0 - 16.0 g/dl [facility] Hematocrit 34.3(L) 37.0 - 47.0 % [facility] Mean Corpuscular Volume 90.0 80.0 - 98.0 fL [facility] Mean Corpuscular Hemoglobin 31.0 27.0 - 33.0 pg [facility] Mean Corpuscular HGB Conc 34.4 31.0 - 35.0 g/dl [facility] Red Cell Distribution Width 13.0 11.0 - 16.0 % [facility] Platelet Count 239 160 - 400 X10*3/uL [facility] Mean Platelet Volume 9.5 9.4 - 12.3 fL [facility] Neutrophils Percent Auto 39.3(L) 45 - 73 % [facility] Imm Gran Pct Auto 0.2 0.0 - 0.4 % [facility] Lymphocytes Percent Auto 48.9(H) 20 - 40 % [facility] Monocytes Percent Auto 9.8 2 - 11 % [facility] Eosinophils Percent Auto 1.2 0 - 4 % [facility] Basophils Percent Auto 0.6 0 - 2 % [facility] NRBC Pct Auto 0.0 0.0 - 0.2 /100WBC [facility] Neutrophils Absolute Auto 1.9(L) 2.0 - 8.3 x10*3/uL [facility] Imm Gran Abs Auto 0.01 0.00 - 0.03 X10*3/uL [facility] Lymphocytes Absolute Auto 2.4 1.2 - 4.9 X10*3/uL [facility] Monocytes Absolute Auto 0.5 0.1 - 1.2 X10*3/uL [facility] Eosinophils Absolute Auto 0.1 0.0 - 0.4 X10*3/uL [facility] Basophils Absolute Auto 0.0 0.0 - 0.2 X10*3/uL [facility] NRBC Abs Auto 0.000 0.0 - 0.012 X10*3/uL [facility] 05/16/2024 12:5 4 PM EST 05/16/2024 12:58 PM EST us Generic External Data Provider LAB BLOOD ORDERAB LES Final Result [facility] [address] [place] [phone] * (ABNORMAL) Magnesium (05/16/2024 12:54 PM EST) Only the most recent of2 resultswithin the time period is included. Magnesium 1.5(L) 1.6 - 2.6 mg/dL [facility] 05/16/2024 12:5 4 PM EST 05/16/2024 12:58 PM EST us Generic External Data Provider LAB BLOOD ORDERAB LES Final Result [facility] [address] [place] [phone] * (ABNORMAL) Basic Metabolic Panel (05/16/2024 12:54 PM EST) Sodium 141 135 - 145 mmol/L [facility] Potassium 3.7 3.3 - 5.1 mmol/L [facility] Comment:Slight Hemolysis.Int erpret result with caution. Chloride 109(H) 96 - 108 mmol/L [facility] Carbon Dioxide 25 22 - 29 mmol/L [facility] Anion Gap 11(L) 12 - 20 [facility] Urea Nitrogen (BUN) 12 9 - 16 mg/dL [facility] Creatinine, Serum 0.72 0.5 - 1.4 mg/dL [facility] Creatinine Clr Calc Pharmacy 109.7 [facility] Comment:Provided height and weight: 167.64 cm,90.9 kg.eGFR (calculated from the MDRD study equation) and eCrCl(calculated from the Cockcroft-Gault equation) are based ondifferent parameters and may not yield comparable results.If eCrCl result is absurd, please check patient'sheight/weight. Estimated Glomerular Filt Rate >60 [facility] Comment:Chronic Kidney Disea se: Estimated GFR < 60 mL/min/1.73n9Thdcpl Kidney Disease: Estimated GFR < 15 mL/min/1.73m2 Glucose 101 60 - 115 mg/dL [facility] Calcium 8.9 8.4 - 10.2 mg/dL [facility] 05/16/2024 12:5 4 PM EST 05/16/2024 12:58 PM EST us Generic External Data Provider LAB BLOOD ORDERAB LES Final Result [facility] [address] [place] [phone] * XR Chest 2 Views (05/16/2024 11:34 AM EST) Only the most recent of2 resultswithin the time period is included. Anatomical Region Laterality Modality Chest Radiographic Rolanda ging 05/16/2024 11:3 4 AM EST Narrative 05/16/2024 12:25 PM EST ? [facility] ?[address] ?[place] [address] ?XRay Report ? Signed ? Patient: Simran Posada ?MR#: [id number] ?? 98 ? : 1975 ?Acct:[id number] ? Age/Sex: 48 / F ?ADM Date: 05/16/24 ? Loc: HO.ED ? Attending Dr: ? Ordering Physician: Stevie Macias MD ?? Date of Service: 05/16/24 ?? Procedure(s): XR chest 2V ?? Accession Number(s): [id number] ? cc: Stevie Macias MD; Sunshine Vela ? EXAMINATION: ??XR CHEST 2 VIEWS ? HISTORY: cough ? COMPARISON: Comparison is made with the prior examination dated ?? 05/14/2024. ? FINDINGS: ??PA and lateral views of the chest are submitted. There are ?? low lung volumes. The lungs are clear. ??There is no pleural effusion, ?? pneumothorax, or pulmonary vascular congestion. ??The heart is normal in ?? size. ??The bones are intact. ? XR/XR chest 2V ?? IMPRESSION: ?? Low lung volumes. No acute cardiopulmonary abnormality. ? Electronically signed by: ??Rhett Haywood MD ??05/16/2024 12:22 PM EST ?? RP ? Dictated By: ?Rhett Haywood MD ? Signed By: ?<Electronically signed by Rhett Haywood MD in OV> ?05/16/24 1222 ? DD/ 1134 ? TD/TT: 05/16/24 1209 ? Audio Tape Librarian: ? Procedure Note Donotyueinterpreter, Image - 05/16/[address] [address] XRay Report Signed Patient: Simran Posada LMR#: [id number] 98 : 1975Acct:[id number] Age/Sex: 48 / FADM Date: 05/16/24 Loc: HO.ED Attending Dr: Ordering Physician: Stevie Macias MD Date of Service: 05/16/24 Procedure(s): XR chest 2V Accession Number(s): [id number] cc: Stevie Macias MD; [facility] EXAMINATION: XR CHEST 2 VIEWS HISTORY: cough COMPARISON: Comparison is made with the prior examination dated 05/14/2024. FINDINGS: PA and lateral views of the chest are submitted. There are low lung volumes. The lungs are clear. There is no pleural effusion, pneumothorax, or pulmonary vascular congestion. The heart is normal in size. The bones are intact. XR/XR chest 2V IMPRESSION: Low lung volumes. No acute cardiopulmonary abnormality. Electronically signed by: Rhett Haywood MD 05/16/2024 12:22 PM EST Dictated By: Rhett Hyawood MD Signed By: <Electronically signed by Rhett Haywood MD in OV> 05/16/24 1222 DD/ 1134 TD/TT: 05/16/24 1209 Audio Tape Librarian: [facility] External Provider IMG XR PROCEDURES Final Result * ECG 12 lead (05/15/2024 3:46 PM EST) Only the most recent of2 resultswithin the time period is included. Historical Provider ECG ORDERABLES Final Res ult * Slide Review (05/14/2024 11:14 AM EST) Slide Review VERIFIED [facility] 05/14/2024 11:1 4 AM EST 05/14/2024 11:20 AM EST Generic External Data Provider LAB BLOOD ORDERAB LES Final Result Performing Organization Address [facility] de Phone Number [facility] [address] [place] [phone] * D Dimer High Sensitivity (05/14/2024 11:14 AM EST) Pathologist [facility] D Dimer High Sensitivity 172 NG/ML [facility] Comment:D-DIMER HS REFERENCE RANGENote: Our assay reports D-Dimer Units (D- DU).The cut-off value for venous thromboembolic (VTE) disease is230 ng/mL. This value has a very high negative predictivevalue when the patient has a low to moderate clinicalprobability of VTE.The upper limit of normal is 243 ng/mL. 05/14/2024 11:1 4 AM EST 05/14/2024 11:20 AM EST [employer] External Data Provider LAB BLOOD ORDERAB LES Final Result Performing Organization Address [facility] de Phone Number [facility] [address] [place] [phone] * High Sensitivity Troponin I (05/14/2024 11:14 AM EST) Pathologist [facility] TROPONIN I HIGH SENSITIVITY <2.7 <3.5 - 17.0 ng/L [facility] Comment:The [place] high sens itivity Troponin-I results should beused in conjunction with other diagnostic information suchas ECG, clinical observations and information, and patientsymptoms to aid in the diagnosis of ND. 05/14/2024 11:1 4 AM EST 05/14/2024 11:20 AM EST Generic External Data Provider LAB BLOOD ORDERAB LES Final Result Performing Organization Address [facility]/ZIP Co de Phone Number [facility] [address] [place] [phone] * SARS-CoV-2 RNA, Influenza A/B, and RSV RNA, Ql NAAT (05/14/2024 11:14 AM EST) Influenza A PCR NEGATIVE Negative [facility] Influenza B PCR NEGATIVE Negative [facility] Resp Syncy Virus RNA Qual PCR NEGATIVE Negative [facility] SARS COV2 PCR NEGATIVE Negative [facility] Comment:All test results mus t [...] use by authorized laboratories.Testing performed on the [employer] GeneXpert utilizingreal-time RT-PCR.All SARS CoV2 and positive influenza A/B results arereported to [facility]. 05/14/2024 11:1 4 AM EST 05/14/2024 11:20 AM EST Generic External Data Provider LAB MICROBIOLOGY - GENERAL ORDERABLES Final Result Performing Organization Address [facility] Co de Phone Number [facility] [address] [place] [phone] * Prothrombin Time-INR (05/14/2024 11:14 AM EST) Prothrombin Time 12.2 10.9 - 12.4 SEC [facility] INTERNATIONAL NORM RATIO 1.0 0.9 - 1.1 [facility] Comment:INTERNATIONAL NORMAL IZED RATIO (INR) [...] ORDERAB LES Final Result Performing Organization Address City/[facility] Co de Phone Number [facility] [address] [place] [phone] * hCG, Total, Quantitative (05/14/2024 11:14 AM EST) HCG Quantitative <2 mIU/mL [facility] Comment:Weeks post LMP Appro ximate hCG(Last Menstrual Period) Range (mIU/ml)3 - 4 weeks 9 - 1304 - 5 weeks 75 - 2,6005 - 6 weeks 850 - 20,8006 - 7 weeks 4000 - 100,2007 - 12 weeks 11,500 - 289,21510 - 16 weeks 18,300 - 137,87819 - 29 weeks (2nd trimester) 1,400 - 53,57005 - 41 weeks (3rd trimester) 940 - [...] ORDERAB LES Final Result Performing Organization Address [facility] Co de Phone Number [facility] [address] [place] [phone] * (ABNORMAL) Comprehensive Metabolic Panel (05/14/2024 11:14 AM EST) Sodium 141 135 - 145 mmol/L [facility] Potassium 2.8(LL) 3.3 - 5.1 mmol/L [facility] Comment:Critical value for t est(s): K Results called to and readback by: JOSEFA Person calling: THEODORE Date: 05-14-24 Time:1206 Chloride 104 96 - 108 mmol/L [facility] Carbon Dioxide 25 22 - 29 mmol/L [facility] Anion Gap 15 12 - 20 [facility] Urea Nitrogen (BUN) 13 9 - 16 mg/dL [facility] Creatinine, Serum 0.95 0.5 - 1.4 mg/dL [facility] Creatinine Clr Calc Pharmacy 86.8 [facility] Comment:Provided height and weight: 167.64 cm,98.883 kg.eGFR (calculated from the MDRD study equation) and eCrCl(calculated from the Cockcroft-Gault equation) are based ondifferent parameters and may not yield comparable results.If eCrCl result is absurd, please check patient'sheight/weight. Estimated Glomerular Filt Rate >60 [facility] Comment:Chronic Kidney Disea se: Estimated GFR < 60 mL/min/1.16e7Apfrvm Kidney Disease: Estimated GFR < 15 mL/min/1.73m2 Glucose 131(H) 60 - 115 mg/dL [facility] Calcium 9.4 8.4 - 10.2 mg/dL [facility] Bilirubin, Total 0.3 0.0 - 1.0 mg/dL [facility] Aspartate Amino Transferase 21 5 - 31 U/L [facility] Alanine Aminotransferase 32(H) 0 - 31 U/L [facility] Total Protein 8.1(H) 6.5 - 8.0 g/dL [facility] Albumin Level 4.3 3.5 - 5.0 g/dL [facility] Alkaline Phosphatase 78 39 - 117 U/L [facility] 05/14/2024 11:1 4 AM EST 05/14/2024 11:20 AM EST us Generic External Data Provider LAB BLOOD ORDERAB LES Final Result [facility] [address] [place] [phone] * Influenza B (ID NOW Rapid Molecular) (05/14/2024 9:11 AM EST) Only the most recent of2 resultswithin the time period is included. Influenza B Negative Negative, Indeterminate [facility] Swab 05/14/2024 9:11 AM EST us Conrado Fong MD POINT OF CARE TEST ENTER/EDIT OR DERABLES Final Result Performing Organization Address [facility] de Phone Number [facility] [address] [place] [phone] * Influenza A (ID NOW Rapid Molecular) (05/14/2024 9:11 AM EST) Only the most recent of2 resultswithin the time period is included. Influenza A Negative Negative, Indeterminate [facility] Swab 05/14/2024 9:11 AM EST us Conrado Fong MD POINT OF CARE TEST ENTER/EDIT OR DERABLES Final Result Performing Organization Address [facility] de Phone Number [facility] [address] [place] [phone] * POCT Rapid COVID Ag (05/14/2024 9:11 AM EST) Only the most recent of2 resultswithin the time period is included. Rapid COVID Ag Negative [facility] Swab 05/14/2024 9:11 AM EST us Conrado Fong MD POINT OF CARE TEST ENTER/EDIT OR DERABLES Final Result Performing Organization Address [facility] Co de Phone Number [facility] [address] [place] [address] [phone] * POCT rapid strep A manually resulted (05/14/2024 9:11 AM EST) Rapid Strep A Screen Negative Negative, None Detected [facility] Swab 05/14/2024 9:11 AM EST Conrado Fong MD POINT OF CARE TEST ENTER/EDIT OR DERABLES Final Result [facility] [address] [place] [phone] [phone] * Respiratory Viral Panel PCR (03/25/2024 9:49 AM EST) [facility] Adenovirus PCR Not Detected Not Detect. [facility] Bordetella pertussis PCR Not Detected Not Detect. [facility] Comment:Interpret results wi th caution. If B. pertussis isspecifically suspected, additional testing using analternate method is recommended. Bordetella parapertussis PCR Not Detected Not Detect. [facility] Chlamydia pneumoniae PCR Not Detected Not Detect. [facility] Coronavirus 229E PCR Not Detected Not Detect. [facility] Coronavirus HKU1 PCR Not Detected Not Detect. [facility] Coronavirus NL63 PCR Not Detected Not Detect. [facility] Coronavirus OC43 PCR Not Detected Not Detect. [facility] SARS-CoV-2 PCR Not Detected Not Detect. [facility] Comment:SARS-CoV-2 not detec jory by real-time RT-PCR.Note: If clinical suspicion for Sars-CoV-2 is high, continueto maintain precautions and consider repeat testing.Test results should be interpreted in the context ofclinical findings and other laboratory data.Rare polymorphisms exist that could lead to false-negativeor false-positive results. If results do not match theclinical findings, additional testing should be considered.Results reported to YARI Anne.This test has been authorized by the FDA under the EmergencyUse Authorization (EUA) for use by authorized laboratories. Influenza A PCR Not Detected Not Detect. [facility] Influenza B PCR Not Detected Not Detect. [facility] Human metapneumovirus PCR Not Detected Not Detect. [facility] Rhino/Enterovirus PCR Not Detected Not Detect. [facility] Mycoplasma pneumoniae PCR Not Detected Not Detect. [facility] Parainfluenza 1 PCR Not Detected Not Detect. [facility] Parainfluenza 2 PCR Not Detected Not Detect. [facility] Parainfluenza 3 PCR Not Detected Not Detect. [facility] Parainfluenza 4 PCR Not Detected Not Detect. [facility] RSV PCR Not Detected Not Detect. [facility] Resp Panel NA Note See Note [facility] Comment:All results must be correlated [...] assay is performed by Multiplexed PCR, utilizing [employer] Array. 03/25/2024 9:49 AM EST 03/25/2024 1:13 PM EST Conrado Fong MD LAB BLOOD ORDERABLES Final Resul t [facility] [address] [place] [phone] * Hepatitis C Antibody with Reflex to HCV, RNA, Quantitative, Real-Time PCR (05/23/2023 9:53 AM EDT) Hepatitis C Antibody Nonreactive Nonreactive [facility] Comment:Antibodies to HCV no t detected; does not exclude early acuteHCV infection. Blood Venous blood specimen / Unknown 05/23/2023 9:53 AM EDT 05/23/2023 11:14 AM EDT us Conrado Fong MD LAB BLOOD ORDERABLES Final Resul t Performing Organization Address [facility]/ZIP Co de Phone Number [facility] [address] [place] [address] [phone] * HIV-1/2 Antigen and Antibodies, Fourth Generation, with Reflexes (05/23/2023 9:53 AM EDT) HIV AB/AG Nonreactive Nonreactive [facility] Comment:HIV-1 p24 Ag and/or HIV-1/HIV-2 Ab not detected.A test result that is nonreactive does not exclude thepossibility of exposure to or infection with HIV-1 and/orHIV-2. Nonreactive results in this assay for individualswith prior exposure to HIV-1 and/or HIV-2 may be due toantigen and antibody levels that are below the limit ofdetection of this assay.The [employer] HIV Ag/Ab Combo assay result andsupplemental assay results should be interpreted inconjunction with the patient's clinical presentation,history and other laboratory results. If the results areinconsistent with clinical evidence, additional testing issuggested to confirm the result. Blood Venous blood specimen / Unknown 05/23/2023 9:53 AM EDT 05/23/2023 11:14 AM EDT us Conrado Fong MD LAB BLOOD ORDERABLES Final Resul t Performing Organization Address City/[facility]/ZIP Co de Phone Number [facility] [address] [place] [address] [phone] * (ABNORMAL) Lipid Panel, Standard (05/18/2022 10:40 AM EST) Cholesterol, Total 180 <200 mg/dL [facility] HDL Cholesterol 55 > OR = 50 mg/dL [facility] Triglycerides 155(H) <150 mg/dL [facility] LDL Cholesterol 100(H) mg/dL (calc) [facility] [facility] Comment: Reference range: <100 Desirable range <100 mg/dL for primary prevention; ?? <70 mg/dL for patients with CHD or diabetic patients with > or = 2 CHD risk factors. LDL-C is now calculated using the Yumiko calculation, which is a validated novel method providing better accuracy than the Friedewald equation in the estimation of LDL-C. Percy ESPINOZA et al. GERTRUDE. 2013;310(19): 4265-3961 (http://education.Level 5 Networks/faq/IBH415) Chol/HDLC Ratio 3.3 <5.0 (calc) [facility] Non-HDL Cholesterol 125 <130 mg/dL (calc) [facility] Comment: For patients with diabetes plus 1 major ASCVD risk factor, treating to a non-HDL-C goal of <100 mg/dL (LDL-C of <70 mg/dL) is considered a therapeutic option. Blood Venous blood specimen / Unknown 05/18/2022 10:40 AM EST 05/18/2022 10:40 AM EST Narrative [facility] - 05/19/2022 1:04 PM EST FASTING:YES FASTING: YES [facility] LAB BLOOD ORDERABLES Final Re sult [facility] [address], [place] [address] [employer] [place] [employer] [address] [facility], (Nl2) [place] [address] from Last 3 Months or Most Recently Relevant to Health Maintenance Insurance [facility] Care Teams Administrative Director Relationship Specialty Start Date End Date Sunshine Vela FNP [address] [place] [address] PCP - General Family Medicine 05/18/22
--- OUTSIDE RECORDS SUMMARY | 2024-05-16 13:45 | XMS_ITS | Encounter Summary ---
Author Organization [employer] Address [address] [facility] 7t [place] [address] Care Team Providers Care Bath Tester Name Role Phone [facility] Primary Care Provider [phone] Reason for Visit * Reason Comments Pre-visit Planning (Unable to reach for PVP screening, LVM) Encounter Details Date Type Department Care Team ([facility] Contact Info) Description 05/16/2024 Patient Outreach [facility] [address] [place] [address] [facility] [address] [place] [address] Pre-visit Planning ((Unable to reach for PVP screening, LVM)) Social History Tobacco Use Types Packs/Day Years [...] AM EDT documented as of this encounter Progress Notes * Angie Resendiz - 05/16/2024 8:19 AM EST MARK Adams. Placed outbound call to patient to complete pre-visit planning. No answer at this time. Patient name and were not confirmed. CC left voicemail requesting return call. Direct contact information provided. documented in this encounter Plan of Treatment Upcoming Encounters Date Type Department Care Team (Late st Contact Info) Description 05/23/2024 9:15 AM EDT Office Visit [facility] [address] [place] [address] Sunshine Vela FNP [address] [place] [address] documented as of this encounter Visit Diagnoses Not on filedocumented in this encounter Additional Health Concerns Assessment Noted Time PHQ-9 Depression Total Score: 9 06/15/19 24 1:18 PM EDT documented as of this encounter Care Teams Bath Tester Relationship Specialty Start Date End Date Sunshine Vela FNP [address] [place] [address] PCP - General Family Medicine 05/18/22 documented as of this encounter
--- OUTSIDE RECORDS SUMMARY | 2024-05-16 13:45 | XMS_ITS | Encounter Summary ---
Author Organization [employer] Address [address] [place] [address] 7t [place] [address] Care Team Providers Care Emergency Crew Supervisor Name Role Phone Sunshine Vela [facility] Primary Care Provider Encounter Details Date Type Department Care Team (Late Contact Info) Description 04/10/2022 Orders Only [facility] [address] [place] [phone] Zo Yee LPN Social History Tobacco Use [...] EDT Office Visit [facility] [address] [place] [address] [facility] [address] [place] [address] documented as of this encounter Visit Diagnoses Not on filedocumented in this encounter Care Teams Emergency Crew Supervisor Relationship Specialty Start Date End Date Sunshine Vela FNP [address] [place] [address] PCP - General Family Medicine 05/18/22 documented as of this encounter
--- OUTSIDE RECORDS SUMMARY | 2024-05-16 13:45 | XMS_ITS | Encounter Summary ---
Author Organization [employer] Address [address] [facility] [address] 7t [place] [address] Care Team Providers Care Area Supervisor Name Role Phone Dane [facility] Primary Care Provider [phone] Encounter Details Date Type Department Care Team (Late st Contact Info) Description 05/14/2024 8:40 AM EST Office Visit [facility] [address] [place] [address] Conrado Aiken MD [address] [place] [address] Influenza-like symptoms (Primary Dx); Severe persistent asthma [...] 48 y.o. female. HPI Simran came to [facility] today because 1 week ago [...] Description 05/23/2024 9:15 AM EDT Office Visit [facility] [address] [place] [address] [facility] [address] [place] [address] Scheduled Orders Name Type Priority Associated Diagnoses Orde r Schedule Other Reference Test - [facility] Lab Routine Influenza-like symptoms Ordered: 05/14/2024 documented [...] NOW Rapid Molecular) (05/14/2024 9:11 AM EST) [facility] Influenza B Negative Negative, Indeterminate [facility] Swab 05/14/2024 9:11 AM EST us Conrado Aiken MD POINT OF CARE TEST ENTER/EDIT OR DERABLES Final Result Performing Organization Address [facility] [place] Phone Number [facility] [address] [place] [phone] * Influenza A (ID NOW Rapid Molecular) (05/14/2024 9:11 AM EST) [facility] Influenza A Negative Negative, Indeterminate [facility] Swab 05/14/2024 9:11 AM EST us Conrado Aiken MD POINT OF CARE TEST ENTER/EDIT OR DERABLES Final Result Performing Organization Address [facility] Phone Number [facility] [address] [place] [phone] * POCT rapid strep A manually resulted (05/14/2024 9:11 AM EST) [facility] Rapid Strep A Screen Negative Negative, None Detected [facility] Swab 05/14/2024 9:11 AM EST us Conrado Aiken MD POINT OF CARE TEST ENTER/EDIT OR DERABLES Final Result Performing Organization Address [facility] Phone Number [facility] [address] [place] [phone] * POCT Rapid COVID Ag (05/14/2024 9:11 AM EST) [facility] Rapid COVID Ag Negative [facility] Swab 05/14/2024 9:11 AM EST us Conrado Aiken MD POINT OF CARE TEST ENTER/EDIT OR DERABLES Final Result [facility] [address] [place] [address] [phone] documented in this encounter Visit Diagnoses Diagnosis Influenza-like symptoms- Primary Other general symptoms Severe persistent asthma with acute exacerbation Acute URI Acute upper respiratory infections of unspecified site documented in this encounter Additional Health Concerns Assessment Noted Time PHQ-9 Depression Total Score: 9 06/15/19 24 1:18 PM EDT documented as of this encounter Care Teams Area Supervisor Relationship Specialty Start Date End Date Sunshine Vela FNP [address] [place] [address] PCP - General Family Medicine 05/18/22 documented as of this encounter
--- OUTSIDE RECORDS SUMMARY | 2024-05-16 13:45 | XMS_ITS | Encounter Summary ---
Author Organization [employer] Address [address] [facility] 7t [place] [address] Care Team Providers Care Health Concierge Name Role Phone Dane, [facility] Primary Care Provider [phone] Reason for Visit * Reason Onset Date Comments Nurse Triage 04/11/2023 Encounter Details Date Type Department Care Team ([facility] st Contact Info) Description 04/11/2023 Telephone [facility] [address] [place] [address] [facility] [address] [place] [address] Nurse Triage Social History Tobacco Use Types [...] t he electric, gas, oil or water [employer] threatened to shut off services in your [...] this outcome Pt states was seen at [facility] on 04/07/23 . No medication prescribed . documented in this encounter Plan of Treatment Upcoming Encounters Date Type Department Care Team (Late st Contact Info) Description 05/23/2024 9:15 AM EDT Office Visit [facility] [address] [place] [address] Sunshine Vela FNP [address] [place] [address] documented as of this encounter Visit Diagnoses Not on filedocumented in this encounter Additional Health Concerns Assessment Noted Time PHQ-9 Depression Total Score: 0 05/19/19 9:44 AM EST documented as of this encounter Care Teams Health Concierge Relationship Specialty Start Date End Date Sunshine Vela FNP [address] [place] [address] PCP - General Family Medicine 05/18/22 documented as of this encounter
--- OUTSIDE RECORDS SUMMARY | 2024-05-16 13:45 | XMS_ITS | Encounter Summary ---
Author Organization [employer] Address [address] [facility] 7t [place] [address] Care Team Providers Care Supervisor Lime Name Role Phone Dane [facility] Primary Care Provider [phone] Encounter Details Date Type Department Care Team (Late st Contact Info) Description 05/16/2024 Orders Only [facility] External Provider, [facility] Social History Tobacco Use Types Packs/Day Years [...] 9:15 AM EDT Office Visit [facility] 230 [place], [place] [phone] [place] Sunshine, [facility] [address] [place] [address] documented as of this encounter Procedures Procedure Name Priority Date/Time Associated Diagnosis Comments CBC WITH AUTO DIFFERENTIAL Routine 05/16/2024 12:54 PM EST MAGNESIUM Routine 05/16/2024 12:54 PM EST BASIC METABOLIC PANEL Routine 05/16/2024 12:54 PM EST XR CHEST 2 VIEWS Routine 05/16/2024 11:3 4 AM EST documented in this encounter Results * (ABNORMAL) Magnesium (05/16/2024 12:54 PM EST) Magnesium 1.5(L) 1.6 - 2.6 mg/dL [facility] 05/16/2024 12:5 4 PM EST 05/16/2024 12:58 PM EST us Generic External Data Provider LAB BLOOD ORDERAB LES Final Result [facility] [address] [place] [address] [phone] * (ABNORMAL) Basic Metabolic Panel (05/16/2024 12:54 PM EST) Sodium 141 135 - 145 mmol/L [facility] Potassium 3.7 3.3 - 5.1 mmol/L [facility] Comment:Slight Hemolysis.Int erpret result with caution. Chloride 109(H) 96 - 108 mmol/L [facility] Carbon Dioxide 25 22 - 29 mmol/L [facility] Anion Gap 11(L) 12 - 20 [facility] Urea Nitrogen (BUN) 12 9 - 16 mg/dL [facility] Creatinine, Serum 0.72 0.5 - 1.4 mg/dL [facility] Creatinine Clr Calc Pharmacy 109.7 [facility] Comment:Provided height and weight: 167.64 cm,90.9 kg.eGFR (calculated from the MDRD study equation) and eCrCl(calculated from the Cockcroft-Gault equation) are based ondifferent parameters and may not yield comparable results.If eCrCl result is absurd, please check patient'sheight/weight. Estimated Glomerular Filt Rate >60 [facility] Comment:Chronic Kidney Disea se: Estimated GFR < 60 mL/min/1.93o8Hfbuqf Kidney Disease: Estimated GFR < 15 mL/min/1.73m2 Glucose 101 60 - 115 mg/dL [facility] Calcium 8.9 8.4 - 10.2 mg/dL [facility] 05/16/2024 12:5 4 PM EST 05/16/2024 12:58 PM EST us Generic External Data Provider LAB BLOOD ORDERAB LES Final Result [facility] [address] [place], [place] [phone] * (ABNORMAL) CBC auto differential (05/16/2024 12:54 PM EST) White Blood Count 4.9 4.8 - 10.8 X10*3/uL [facility] Red Blood Count 3.81(L) 4.20 - 5.50 X10*6/uL [facility] Hemoglobin 11.8(L) 12.0 - 16.0 g/dl [facility] Hematocrit 34.3(L) 37.0 - 47.0 % [facility] Mean Corpuscular Volume 90.0 80.0 - 98.0 fL [facility] Mean Corpuscular Hemoglobin 31.0 27.0 - 33.0 pg [facility] Mean Corpuscular HGB Conc 34.4 31.0 - 35.0 g/dl [facility] Red Cell Distribution Width 13.0 11.0 - 16.0 % [facility] Platelet Count 239 160 - 400 X10*3/uL [facility] Mean Platelet Volume 9.5 9.4 - 12.3 fL [facility] Neutrophils Percent Auto 39.3(L) 45 - 73 % [facility] Imm Gran Pct Auto 0.2 0.0 - 0.4 % [facility] Lymphocytes Percent Auto 48.9(H) 20 - 40 % [facility] Monocytes Percent Auto 9.8 2 - 11 % [facility] Eosinophils Percent Auto 1.2 0 - 4 % [facility] Basophils Percent Auto 0.6 0 - 2 % [facility] NRBC Pct Auto 0.0 0.0 - 0.2 /100WBC [facility] Neutrophils Absolute Auto 1.9(L) 2.0 - 8.3 x10*3/uL [facility] Imm Gran Abs Auto 0.01 0.00 - 0.03 X10*3/uL [facility] Lymphocytes Absolute Auto 2.4 1.2 - 4.9 X10*3/uL [facility] Monocytes Absolute Auto 0.5 0.1 - 1.2 X10*3/uL [facility] Eosinophils Absolute Auto 0.1 0.0 - 0.4 X10*3/uL [facility] Basophils Absolute Auto 0.0 0.0 - 0.2 X10*3/uL [facility] NRBC Abs Auto 0.000 0.0 - 0.012 X10*3/uL [facility] 05/16/2024 12:5 4 PM EST 05/16/2024 12:58 PM EST us Generic External Data Provider LAB BLOOD ORDERAB LES Final Result [facility] [address] [facility] [place] [address] [phone] * XR Chest 2 Views (05/16/2024 11:34 AM EST) Anatomical Region Laterality Modality Chest Radiographic Rolanda ging 05/16/2024 11:3 4 AM EST Narrative 05/16/2024 12:25 PM EST ? [facility] ?[address] ?[place] [address] ?XRay Report ? Signed ? Patient: Merchant,Simran L ?MR#: [id number] ?? 98 ? : 1975 ?Acct:[id number] ? Age/Sex: 48 / F ?ADM Date: 05/16/24 ? Loc: HO.ED ? Attending Dr: ? Ordering Physician: Stevie Macias MD ?? Date of Service: 05/16/24 ?? Procedure(s): XR chest 2V ?? Accession Number(s): [id number] ? cc: Stevie Macias MD; Sunshine Vela [...] DD/ 1134 ? TD/TT: 05/16/24 1209 ? Shoe Puller: ? Procedure Note Donotdavinater, Elliott - 05/16/2024 [facility] [address] [place] [phone] XRay Report Signed Patient: Simran Posada LMR#: [id number] 98 : 1975Acct:[id number] Age/Sex: 48 / FADM Date: 05/16/24 Loc: HO.ED Attending Dr: Ordering Physician: Stevie Macias MD Date of Service: 05/16/24 Procedure(s): XR chest 2V Accession Number(s): [id number] cc: Stevie Macias MD; Sunshine VelaP EXAMINATION: XR CHEST 2 VIEWS HISTORY: cough [...] by: Rhett Haywood MD 05/16/2024 12:22 PM [facility] Dictated By: Rhett Haywood MD Signed By: <Electronically signed by Rhett Haywood MD in OV> 05/16/24 1222 DD/ 1134 TD/TT: 05/16/24 1209 Shoe Puller: [facility] External Provider IMG XR PROCEDURES Final Result documented in this encounter Visit Diagnoses Not on filedocumented in this encounter Additional Health Concerns Assessment Noted Time PHQ-9 Depression Total Score: 9 06/15/19 24 1:18 PM EDT documented as of this encounter Care Teams Supervisor Lime Relationship Specialty Start Date End Date Sunshine Vela FNP [address] [place] [address] PCP - General Family Medicine 05/18/22 documented as of this encounter
--- OUTSIDE RECORDS SUMMARY | 2024-05-16 13:45 | XMS_ITS | Clinical Summary ---
Author Organization [facility] ity Address [address] [place] [address] Care Team Providers Care Nurse Behavioral Health Care Name Role Phone Shelly Hein Primary Care Provider [phone] Social History Tobacco Use Types Packs/Day Years [...] RESULTING AGENCY - 10/08/2017 1:27 PM EDT [id number] THINPREP PAP, IMAGED: NEGATIVE FOR SQUAMOUS INTRAEPITHELIAL [...] POS //17 ASCUS, HORMONES, Z12.4 Cuca Baer [facility] LAB CYTOLOGY ORDERABLES Final Result HISTORICAL TESTING LAB RESULTING AGENCY from Last 3 Months or Most Recently Relevant to Health Maintenance Care Teams Nurse Behavioral Health Care Relationship Specialty Start Date End Date Shelly Hein PA [address] [place] [address] PCP - General 10/27/21
--- OUTSIDE RECORDS SUMMARY | 2024-05-16 13:45 | XMS_ITS | Encounter Summary ---
Author Organization [facility] Address [address] [place] [address] Care Team Providers Care Aircraft Skin Burnisher Name Role Phone Shelly Hein PA-C Primary Care Provider [phone] Encounter Details Date Type Department Care Team ([facility] st Contact Info) Description 01/27/[address] [facility] [address] [place] [address] Shilpa Meyers, CANDICE [address] [facility] [place] [address] Unprotected sex Social History Tobacco Use Types Packs/Day Years Used Date Smoking Tobacco: Every Day Cigarettes 0.5 12 Alcohol Use Standard Drinks/Week Comments No 0 (1 standard drink = 0.6 oz pure alcohol) former abuse, now sober since [id number] Comments Unknown Sex and Gender Information Value [...] EST) HEPATITIS A ANTIBODY IGM NEGATIVE NEGATIVE [facility] 01/27/2015 9:45 AM EST 01/27/2015 12:04 PM EST Narrative [facility] - 01/27/2015 9:38 PM EST [facility] [address] [place] [address] PT ID [id number] ORD# [id number] Shilpa Meyers NP LAB - BLOOD DRAW Edited Result - Final Performing Organization Address City/State/[facility] [place] [address], * (ABNORMAL) HEPATITIS A,B,C PANEL (01/27/2015 9:45 AM EST) HEPATITIS B SURFACE ANTIGEN NEGATIVE NEGATIVE [facility] HEPATITIS C VIRUS DIAGNOSTIC NEGATIVE NEGATIVE [facility] HEPATITIS A ANTIBODY TOTAL POSITIVE(A) NEGATIVE [facility] HEPATITIS B CORE ANTIBODY NEGATIVE NEGATIVE [facility] HEPATITIS B SURFACE ANTIBODY POSITIVE(A) NEGATIVE [facility] Comment: Hepatitis B surface antibody testing performed at reference lab due to reagent backorder. Reference range: Negative: Inconsistent with immunity, less than 10 mIU/mL Positive: ? Consistent with immunity, greater than 9.9 mIU/mL Testing performed at: [facility] [address] [place] [phone] PHONE: Blood specimen (specimen) Blood / Unknown 01/27/2015 9:45 AM EST 01/27/2015 12:04 PM EST Narrative [facility] - 01/27/2015 1:41 PM EST [facility] [address] [place] [address] PT ID [id number] ORD# [id number] us Shilpa Meyers NP LAB - BLOOD DRAW Edited Result - Final Performing Organization Address [facility]/ZIP Co de Phone Number [facility] [address] [place] [address], [place] [phone] * HIV-1 & HIV-2 ANTIBODIES (01/27/2015 9:45 AM EST) HIV 1 AND 2 ANTIBODY SCREEN NEGATIVE NEGATIVE [facility] Comment: Effective 11/17/14, [facility] has replaced the HIV screening test with [...] AM EST 01/27/2015 12:04 PM EST Narrative [facility] - 01/27/2015 2:10 PM EST [facility] [address] [place] [address] PT ID [id number] ORD# [id number] us Shilpa Meyers NP LAB - BLOOD DRAW Edited Result - Final [facility] [address] [place] [address], [place] [phone] * GC DNA PROBE, URINE (01/27/2015 9:45 AM EST) GC DNA URINE NEGATIVE NEGATIVE [facility] Urine specimen (specimen) Urine specimen / Unknown 01/27/2015 9:45 AM EST 01/27/2015 11:54 AM EST [email or web address] 01/28/2015 11:19 AM EST [facility] [address] [place] [address] PT ID [id number] ORD# [id number] Shilpa Meyers NP LAB - NO BLOOD DRAW Final Result Performing Organization Address [facility] Co de Phone Number [address] [address], [place] [phone] * CHLAMYDIA DNA PROBE, URINE (01/27/2015 9:45 AM EST) CHLAMYDIA DNA URINE NEGATIVE NEGATIVE [facility] Urine specimen (specimen) Urine specimen / Unknown 01/27/2015 9:45 AM EST 01/27/2015 11:54 AM EST [employer] [facility] - 01/28/2015 11:19 AM EST [facility] [address] [place] [address] PT ID [id number] ORD# [id number] us Shilpa Meyers NP LAB - NO BLOOD DRAW Final Result Performing Organization Address [facility] de Phone Number [address] [address], [place] [phone] documented in this encounter Visit Diagnoses Diagnosis Unprotected sex Problems related to high-risk sexual behavior documented in this encounter Care Teams Aircraft Skin Burnisher Relationship Specialty Start Date End Date Shelly Hein PA-C [address] [place] [address] PCP - General FAMILY MEDICINE, [place] 12/17/19 documented as of this encounter
--- OUTSIDE RECORDS SUMMARY | 2024-05-16 13:45 | XMS_ITS | Encounter Summary ---
Author Organization [employer] Address [address] [facility] 7t [place] [address] Care Team Providers Care Pulp Screen Operator Name Role Phone Dane, [facility] Primary Care Provider [phone] Reason for Visit * Reason Onset Date Comments Plan of Care 05/16/2024 Encounter Details Date Type Department Care Team ([facility] st Contact Info) Description 05/15/2024 Telephone [facility] MEDICINE [address] [place] [address] [facility] [address] [place] [address] Plan of Care Social History Tobacco Use Types Packs/Day Years [...] encounter Miscellaneous Notes * Telephone Encounter - Delaney Anna RN - 05/16/2024 10:11 AM EST Call placed to patient for status check/ lab question. Per patient (confirmed on [employer]), she went to [facility] ED on 05/14 and 05/15 and ultimately ended up leaving AMA both times as they had her wait around feeling short of breath. On 05/14, K was 2.8. Patient advised to stay for IV repletion, but left AMA per ED documentation. Started on PO potassium. She returned on 05/15 for lab recheck as well as ongoing shortness of breath. WBC noted to increase from 9.8 to 16.7. Patient unable to speak in full sentences, audibly wheezing on the phone. Patient reports she feels horrible, and as though she is getting worse. She is using her albuterol as needed with mild relief. Advised patient that she should return to the ED immediately and stay for complete work-up and plan. Patient initially reports I can't go wait again. Patient education/ reassurance provided at length. Patient eventually agreeable and reports she is going to arrange for someone to watch her children and then she will call an ambulance. Advised patient will also forward to PCP/ team nurses. Patient verbalizes understanding and agreement with plan of care at this time. * Telephone Encounter - Beata BENJAMIN Davila - 05/15/2024 4:18 PM EST Pt seen in [facility] 05/14/24, went to [facility] ED had labs done, K replacement PO, pt also given Rx for K replacement. Pt then left AMA, returned this AM to [facility] ED. She had repeat labs this AM: Labs: Lab Results 05/15/24 Range/Units 09:00 WBC 16.7 H (4.8-10.8) X10*3/uL RBC 4.00 L (4.20-5.50) X10*6/uL Hgb 12.4 (12.0-16.0) g/dl Hct 35.5 L (37.0-47.0) % MCV 88.8 (80.0-98.0) fL MCH 31.0 (27.0-33.0) pg MCHC 34.9 (31.0-35.0) g/dl RDW 12.9 (11.0-16.0) % Plt Count 304 (160-400) X10*3/uL MPV 9.8 (9.4-12.3) fL Immature Gran % (Auto) 0.4 (0.0-0.4) % Neut % (Auto) 76.2 H (45-73) % Lymph % (Auto) 12.9 L (20-40) % Poinsett % (Auto) 10.3 (2-11) % Eos % (Auto) 0.1 (0-4) % Baso % (Auto) 0.1 (0-2) % Lymph # (Auto) 2.1 (1.2-4.9) X10*3/uL Poinsett # (Auto) 1.7 H (0.1-1.2) X10*3/uL Eos # (Auto) 0.0 (0.0-0.4) X10*3/uL Baso # (Auto) 0.0 (0.0-0.2) X10*3/uL Abs Immat Gran (auto) 0.06 H (0.00-0.03) X10*3/uL Absolute Neuts (auto) 12.7 H (2.0-8.3) x10*3/uL Emergency Department [phone] [facility] 5 Patient name: Simran Posada Absolute Nucleated RBC 0.000 (0.0-0.012) X10*3/uL Nucleated RBC % (auto) 0.0 (0.0-0.2) /100WBC Smear Tech's Comments VERIFIED Sodium 138 (135-145) mmol/L Potassium 3.6 D (3.3-5.1) mmol/L Chloride 106 (96-108) mmol/L Carbon Dioxide 23 (22-29) mmol/L Anion Gap 13 (12-20) BUN 15 (9-16) mg/dL Creatinine 0.77 (0.5-1.4) mg/dL Estim Creat Clear Calc 104.4 Estimated GFR > 60 Random Glucose 131 H (60-115) mg/dL Calcium 9.6 (8.4-10.2) mg/dL Magnesium 1.7 (1.6-2.6) mg/dL Total Bilirubin 0.2 (0.0-1.0) mg/dL AST 17 (5-31) U/L ALT 29 (0-31) U/L Alkaline Phosphatase 68 (39-117) U/L Total Protein 7.8 (6.5-8.0) g/dL Albumin 4.1 (3.5-5.0) g/dL Influenza Type A (PCR) NEGATIVE (Negative) Influenza Type B (PCR) NEGATIVE (Negative) RSV RNA Qual (PCR) NEGATIVE (Negative) SARS-CoV-2 RNA (RT-PCR) NEGATIVE (Negative) Measles still pending. Pt requested call back in AM re: today's lab results TC to [facility] lab re: pending measles test, spoke with [employer] who stated this test is done by [employer] and takes approx 7 days to process. TC from pt requesting call back regarding Results. type of results: Lab test done yesterday Date when done: 05/14/24 Facility: [facility] Contact pt at [phone] Pt requested if she dosent answer to please call In the morning * Telephone Encounter - Rakesh Richard - 05/15/2024 1:47 PM EST TC from pt requesting call back regarding Results. Type of results: Lab test done yesterday Date when done: 05/14/24 Facility: [facility] Contact pt at [phone] Pt requested if she dosent answer to please call In the morning documented in this encounter Plan of Treatment Upcoming Encounters Date Type Department Care Team (Late st Contact Info) Description 05/23/2024 9:15 AM EDT Office Visit [facility] [address] [place] [address] Sunshine Vela FNP [address] [place] [address] documented as of this encounter Visit Diagnoses Not on filedocumented in this encounter Additional Health Concerns Assessment Noted Time PHQ-9 Depression Total Score: 9 06/15/19 24 1:18 PM EDT documented as of this encounter Care Teams Pulp Screen Operator Relationship Specialty Start Date End Date Sunshine Vela FNP [address] [place] [address] PCP - General Family Medicine 05/18/22 documented as of this encounter
--- OUTSIDE RECORDS SUMMARY | 2024-05-16 13:45 | XMS_ITS | Encounter Summary ---
Author Organization [employer] Address [address] [facility] [address] 7t [place] [address] Care Team Providers Care Vp Biology Name Role Phone Dane Ed [facility] Primary Care Provider [phone] Encounter Details Date Type Department Care Team (Late st Contact Info) Description 05/15/2024 Orders Only [facility] CH[facility] MED & PEDS [address] [place], [place] [phone] Provider, MD Rickey Social History Tobacco Use Types Packs/Day Years [...] 9:15 AM EDT Office Visit [facility] MEDIC[facility] [address] [facility] [place] [address] Sunshine Vela FNP [address] [facility] [place] [address] documented as of this encounter Procedures Procedure Name Priority Date/Time Associated Diagnosis Comments ECG 12-LEAD Routine 05/15/2024 3:46 PM EST ECG 12-LEAD Routine 05/14/2024 3:48 PM EST documented in this encounter Results * ECG 12 lead (05/15/2024 3:46 PM EST) us Historical Provider MD ECG ORDERABLES Final Res ult * ECG 12 lead (05/14/2024 3:48 PM EST) us Historical Provider MD ECG ORDERABLES Final Res ult documented in this encounter Visit Diagnoses Not on filedocumented in this encounter Additional Health Concerns Assessment Noted Time PHQ-9 Depression Total Score: 9 06/15/19 24 1:18 PM EDT documented as of this encounter Care Teams Vp Biology Relationship Specialty Start Date End Date Sunshine Vela FNP [address] [facility] [place] [address] PCP - General Family Medicine 05/18/22 documented as of this encounter
--- OUTSIDE RECORDS SUMMARY | 2024-05-16 13:45 | XMS_ITS | Encounter Summary ---
Author Organization [employer] Address [address] [place] [address] 7t [place] [address] Care Team Providers Care Hemming And Tacking Machine Operator Name Role Phone Sunshine Vela Primary Care Provider [phone] Reason for Visit * Reason Comments Med Refill Encounter Details Date Type Department Care Team (Late Contact Info) Description 04/09/2022 Refill [facility] MEDICINE [address] [place], [place] [phone] Millicent Mendoza FNP Moderate persistent asthma without [...] Description 05/23/2024 9:15 AM EDT Office Visit [facility] MEDICINE [address] [place], [place] [phone] Sunshine Vela FNP [address] [place] [address] documented as of this encounter Visit Diagnoses Diagnosis Moderate persistent asthma without complication- Primary documented in this encounter Care Teams Hemming And Tacking Machine Operator Relationship Specialty Start Date End Date Sunshine Vela FNP [address] [place] [address] PCP - General Family Medicine 05/18/22 documented as of this encounter
--- OUTSIDE RECORDS SUMMARY | 2024-05-16 13:45 | XMS_ITS | Encounter Summary ---
Author Organization [facility] Address [address] [place] [address] Care Team Providers Care Airport Ramp Agent Name Role Phone Shelly Hein PA-C Primary Care Provider [phone] Encounter Details Date Type Department Care Team (Late st Contact Info) Description 01/13/2015 Interim Notes [facility] Main [address] [place] [phone] Use, Do Not, [facility] [address] [place] [address] Social History Tobacco Use Types Packs/Day Years Used Date Smoking Tobacco: Every Day Cigarettes 0.5 12 Alcohol Use Standard Drinks/Week Comments No 0 (1 standard drink = 0.6 oz pure alcohol) former abuse, now sober since [id number] Comments Unknown Sex and Gender Information Value [...] on filedocumented in this encounter Care Teams Airport Ramp Agent Relationship Specialty Start Date End Date Shelly Hein PA-C [facility] [place] [address] PCP - General FAMILY MEDICINE, [place] 12/17/19 documented as of this encounter
--- OUTSIDE RECORDS SUMMARY | 2024-05-16 13:45 | XMS_ITS | Encounter Summary ---
Author Organization [facility] Address [address] [place] [address] Care Team Providers Care Lining Mechanic Name Role Phone Shelly Hein PA-C Primary Care Provider [phone] Encounter Details Date Type Department Care Team ([facility] st Contact Info) Description 07/27/2015 Interim Notes [facility] [address] [place] [phone] Shilpa Meyers, CANDICE [address] [place] [address] Social History Tobacco Use Types Packs/Day Years Used Date Smoking Tobacco: Every Day Cigarettes 0.5 12 Alcohol Use Standard Drinks/Week Comments No 0 (1 standard drink = 0.6 oz pure alcohol) former abuse, now sober since [id number] Comments Unknown Sex and Gender Information Value [...] on filedocumented in this encounter Care Teams Lining Mechanic Relationship Specialty Start Date End Date Shelly Hein PA-C [address] [place] [address] PCP - General FAMILY MEDICINE, [place] 12/17/19 documented as of this encounter
--- OUTSIDE RECORDS SUMMARY | 2024-05-16 13:45 | XMS_ITS | Encounter Summary ---
Author Organization [employer] Address [address] [place] [address] 7t [place] [address] Care Team Providers Care Nurse Extern Name Role Phone [facility] Primary Care Provider [phone] Reason for Visit * Reason Comments Med Refill Encounter Details Date Type Department Care Team ([facility] Contact Info) Description 09/30/2022 Refill [facility] MEDICINE [address] [place] [phone] [phone] Pain Social History Tobacco Use Types Packs/Day [...] Date Type Department Care Team ([facility] Contact Info) Description 05/23/2024 9:15 AM EDT Office Visit [facility] MEDICINE [address] [place] [address] Sunshine Vela FNP [address] [place] [address] documented as of this encounter Visit Diagnoses Diagnosis Pain Generalized pain documented in this encounter Additional Health Concerns Assessment Noted Time PHQ-9 Depression Total Score: 0 05/19/19 9:44 AM EST documented as of this encounter Care Teams Nurse Extern Relationship Specialty Start Date End Date Sunshine Vela FNP [address] [place] [address] PCP - General Family Medicine 05/18/22 documented as of this encounter
--- OUTSIDE RECORDS SUMMARY | 2024-05-16 13:45 | XMS_ITS | Clinical Summary ---
Author Organization [facility] Address [address] [place] [address] Care Team Providers Care Steamer Blocker Name Role Phone Shelly Hein PA-C Primary [...] without aura and without status migrainosus, not intractable,Custom Decorating Consultant man right-sided low back pain with right-sided [...] pure alcohol) former abuse, now sober since [id number] Social Connections Answer Date Recorded Connectedness 0 [...] 05/19/2023 05/18/2022, 10/10, 01/28/2020, Additional history exists [id number] ( season) 2023 03/31/2022, 06/26/2020, 05/28/2020 Imm-Influenza [...] AM EDT) CHOLESTEROL, TOTAL 241(H) <200 mg/dL [facility] HDL CHOLESTEROL 51 > OR = 50 mg/dL [facility] TRIGLYCERIDES 165(H) <150 mg/dL [facility] LDL-CHOLESTEROL 159(H) 99 mg/dL (calc) [facility] Comment: Reference range: <100 Desirable range <100 mg/dL for primary prevention; ?? <70 mg/dL for patients with CHD or diabetic patients with > or = 2 CHD risk factors. LDL-C is now calculated using the Yumiko calculation, which is a validated novel method providing better accuracy than the Friedewald equation in the estimation of LDL-C. Percy ESPINOZA et al. GERTRUDE. 2013;310(19): 9760-8759 (http://education.Neozone/faq/IZY873) CHOL/HDLC RATIO 4.7 <5.0 (calc) [facility] NON-HDL CHOLESTEROL 190(H) <130 mg/dL (calc) [facility] Comment: For patients with diabetes plus 1 major ASCVD risk factor, treating to a non-HDL-C goal of <100 mg/dL (LDL-C of <70 mg/dL) is considered a therapeutic option. Blood Blood / Unknown 10/25/2021 9 :26 AM EDT 10/25/2021 9:27 AM EDT Narrative [facility] - 10/28/2021 12:56 AM EDT FASTING:YES us Shelly Hein PA-C LAB - BLOOD DRAW Final Resul t [facility] [address] [address], [facility] [address] [address] * (ABNORMAL) COMPREHENSIVE METABOLIC PANEL (10/25/2021 9:26 AM EDT) GLUCOSE 102(H) 65 - 99 mg/dL [facility] Comment: ?Fasting reference interval For someone without known diabetes, a glucose value between 100 and 125 mg/dL is consistent with prediabetes and should be confirmed with a follow-up test. UREA NITROGEN (BUN) 21 7 - 25 mg/dL [facility] CREATININE (blood) 0.91 0.50 - 0.99 mg/dL [facility] EGFR 79 > OR = 60 mL/min/1 .73m2 [facility] Comment: The eGFR is based on the CKD-EPI 2020 equation. To calculate the new eGFR from a previous Creatinine or Cystatin C result, go to https://www.kidney.org/professionals/ kdoqi/gfr%5Fcalculator BUN/CREATININE RATIO NOT APPLICABLE 6 - 22 [facility] SODIUM 139 135 - 146 mmol/L [facility] POTASSIUM 4.0 3.5 - 5.3 mmol/L [facility] CHLORIDE 106 98 - 110 mmol/L [facility] CARBON DIOXIDE 23 20 - 32 mmol/L [facility] CALCIUM 9.0 8.6 - 10.2 mg/dL [facility] PROTEIN, TOTAL 7.6 6.1 - 8.1 g/dL [facility] ALBUMIN 4.2 3.6 - 5.1 g/dL [facility] GLOBULIN 3.4 1.9 - 3.7 g/dL (calc) [facility] ALBUMIN/GLOBUL IN RATIO 1.2 1.0 - 2.5 (calc) [facility] BILIRUBIN, TOTAL 0.2 0.2 - 1.2 mg/dL [facility] ALKALINE PHOSPHATASE 91 31 - 125 U/L [facility] AST 13 10 - 35 U/L [facility] ALT 15 6 - 29 U/L [facility] Blood Blood / Unknown 10/25/2021 9 :26 AM EDT 10/25/2021 9:27 AM EDT Narrative [facility] - 10/28/2021 12:56 AM EDT FASTING:YES Shelly Hein PA-C LAB - BLOOD DRAW Edited Resu lt - Final [facility] [address] [address], [address] [facility] [address] [address] * MAMMOGRAM BI-RADS, ABSTRACTED (04/05/2018 2:17 PM EST) BI-RADS ASSESSMENT 1 - Negative: means that there is no significant or noticeable abnormality to report. BI-RADS FOLLOW-UP 1 - Continue annual screening mammography (for women over age 40). Anatomical Region Laterality Modality Other Impressions 04/05/2018 2:17 PM EST As per [facility]. No mammographic evidence of malignancy. Provider Maryjo IMG MAMMO Final Result * PAP LIQ BASED, HPV W/ RFX HPV 16/18 (08/15/2016 1:32 PM EDT) Cytologic material (specimen) Cervix uteri structure / Unknown 08/15/2016 1:32 PM EDT Impressions [facility] - 08/15/2016 1:32 PM EDT ThinPrep Pap, Imaged: ATYPICAL SQUAMOUS CELLS OF UNDETERMINED SIGNIFICANCE (ASCUS) SOURCE: ThinPrep Pap HPV Any DX: Reflex 16 and 18, Cervical, Imaged: CLINICAL INFORMATION: HPV Any Diagnosis. LMP 08/10/16 Perri [facility] LAB - NO BLOOD DRAW Final Resu lt [facility] [address] [place] [address], * (ABNORMAL) HEPATITIS A,B,C PANEL (01/27/2015 9:45 AM EST) HEPATITIS B SURFACE ANTIGEN NEGATIVE NEGATIVE [facility] HEPATITIS C VIRUS DIAGNOSTIC NEGATIVE NEGATIVE [facility] HEPATITIS A ANTIBODY TOTAL POSITIVE(A) NEGATIVE [facility] HEPATITIS B CORE ANTIBODY NEGATIVE NEGATIVE [facility] HEPATITIS B SURFACE ANTIBODY POSITIVE(A) NEGATIVE [facility] Comment: Hepatitis B surface antibody testing performed at reference lab due to reagent backorder. Reference range: Negative: Inconsistent with immunity, less than 10 mIU/mL Positive: ? Consistent with immunity, greater than 9.9 mIU/mL Testing performed at: [facility] [address] [place] [address] PHONE: Blood specimen (specimen) Blood / Unknown 01/27/2015 9:45 AM EST 01/27/2015 12:04 PM EST Narrative [facility] - 01/27/2015 1:41 PM EST [facility] [address] [place] [address] PT ID [id number] ORD# [id number] Shilpa Meyers NP LAB - BLOOD DRAW Edited Result - Final Performing Organization Address [facility]/ZIP Co de Phone Number [facility] [address] [place] [address], * HIV-1 & HIV-2 ANTIBODIES (01/27/2015 9:45 AM EST) [facility] HIV 1 AND 2 ANTIBODY SCREEN NEGATIVE NEGATIVE [facility] Comment: Effective 11/17/14, [facility] has replaced the HIV screening test with [...] [facility] - 01/27/2015 2:10 PM EST [facility] [employer] [address] [place] [address] PT ID [id number] ORD# [id number] Shilpa Meyers NP LAB - BLOOD DRAW Edited Result - Final Performing Organization Address City/[facility]/ZIP Co de Phone Number [address] [address], from Last 3 Months or Most Recently Relevant to Health Maintenance Insurance [id number] Care Teams Steamer Blocker Relationship Specialty Start Date End Date Shelly Hein PA-C [facility] [place] [address] PCP - General FAMILY MEDICINE [place] 12/17/19
--- OUTSIDE RECORDS SUMMARY | 2024-05-16 13:45 | XMS_ITS | Encounter Summary ---
Author Organization [employer] Address [address] [place] [address] 7t [place] [address] Care Team Providers Care Hot Car Charger Name Role Phone Sunshine Vela Primary Care Provider [phone] Reason for Visit * Reason Comments Med Refill Encounter Details Date Type Department Care Team ([facility] Contact Info) Description 04/05/2022 Refill [facility] MEDICINE [address] [place] [phone] Millicent Mendoza FNP Social History Tobacco Use [...] Description 05/23/2024 9:15 AM EDT Office Visit [facility] MEDICINE [address] [place] [phone] Sunshine Vela FNP [address] [place], [place] [phone] documented as of this encounter Visit Diagnoses Not on filedocumented in this encounter Care Teams Hot Car Charger Relationship Specialty Start Date End Date Sunshine Vela FNP [address] [place] [address] PCP - General Family Medicine 05/18/22 documented as of this encounter
--- OUTSIDE RECORDS SUMMARY | 2024-05-16 13:45 | XMS_ITS | Encounter Summary ---
Author Organization [employer] Address [address] [facility] 7t [place] [address] Care Team Providers Care Route Vending Machine Servicer Name Role Phone Sunshine Vela Primary Care Provider [phone] Encounter Details Date Type Department Care Team (Late st Contact Info) Description 04/07/2022 Orders Only [facility] CH[facility] MED & PEDS [address] [place], [place] [phone] Conrado Fong MD [address] [place] [address] Social History Tobacco Use Types Packs/Day Years [...] Description 05/23/2024 9:15 AM EDT Office Visit [facility] MEDICINE [address] [place] [address] Sunshine Vela FNP [address] [place] [address] documented as of this encounter Visit Diagnoses Not on filedocumented in this encounter Care Teams Route Vending Machine Servicer Relationship Specialty Start Date End Date Sunshine Vela FNP [address] [place] [address] PCP - General Family Medicine 05/18/22 documented as of this encounter
--- OUTSIDE RECORDS SUMMARY | 2024-05-16 13:45 | XMS_ITS | Encounter Summary ---
Author Organization [employer] Address [address] [place] [address] 7t [place] [address] Care Team Providers Care Family Therapist Name Role Phone Dane, [facility] Primary Care Provider [phone] Encounter Details Date Type Department Care Team (Latest Contact Info) Description 04/21/2020 Abstract [facility] CONVERSIONS Dental, Provider, DDS Social History Tobacco [...] AM EDT Office Visit [facility] MEDICINE [address] [place] [address] [facility] [address] [place] [address] documented as of this encounter Visit Diagnoses Not on filedocumented in this encounter Care Teams Family Therapist Relationship Specialty Start Date End Date [place] [facility] [address] [place] [address] PCP - General Family Medicine 05/18/22 documented as of this encounter
--- OUTSIDE RECORDS SUMMARY | 2024-05-16 13:45 | XMS_ITS | Encounter Summary ---
Author Organization [employer] Address [address] [facility] 7t [place] [address] Care Team Providers Care Mannequin Sander And Finisher Name Role Phone Dane [facility] Primary Care Provider [phone] Encounter Details Date Type Department Care Team [...] Description 05/23/2024 9:15 AM EDT Office Visit [facility] [address] [place], [place] [phone] [facility] [address] [place], [place] [phone] documented as of this encounter Procedures Procedure [...] Narrative 05/14/2024 11:59 AM EST ? [facility] ?[address] ?[place] [address] ?XRay Report ? Signed ? Patient: ,Simran L ?MR#: [id number] ?? 98 ? : 1975 ?Acct:[id number] ? Age/Sex: 48 / F ?ADM Date: 05/14/24 ? Loc: HO.ED ? Attending Dr: ? Ordering Physician: Lakeisha Montes ?? Date of Service: 05/14/24 ?? Procedure(s): XR chest 2V ?? Accession Number(s): [id number] ? cc: Lakeisha Montes; [facility] ? EXAMINATION: ?? XR CHEST ? CLINICAL [...] DD/ 1134 ? TD/TT: 05/14/24 1134 ? Director Of Digital Technology: MSM ? Procedure Note Elliott Traore - 05/14/2024 [facility] [address] [place] [address] XRay Report Signed Patient: Simran Posada LMR#: [id number] 98 : 1975Acct:[id number] Age/Sex: 48 / FADM Date: 05/14/24 Loc: HO.ED Attending Dr: Ordering Physician: Lakeisha Montes Date of Service: 05/14/24 Procedure(s): XR chest 2V Accession Number(s): [id number] cc: Lakeisha Montes; [facility] FRESH FOODS CLERK EXAMINATION: XR CHEST CLINICAL INFORMATION: sob COMPARISON: [...] 05/14/24 1156 DD/ 1134 TD/TT: 05/14/24 1134 Director Of Digital Technology: VIC [facility] External Provider IMG XR PROCEDURES Edited Result - Final * D Dimer High Sensitivity (05/14/2024 11:14 AM EST) D Dimer High Sensitivity 172 NG/ML [facility] Comment:D-DIMER HS REFERENCE RANGENote: Our assay [...] ORDERAB LES Final Result Performing Organization Address City/State/[facility] Co de Phone Number [facility] [address] [place] [address] [phone] * Slide Review (05/14/2024 11:14 AM EST) Slide Review VERIFIED [facility] 05/14/2024 11:1 4 AM EST 05/14/2024 11:20 AM EST Generic External Data Provider LAB BLOOD ORDERAB LES Final Result Performing Organization Address [facility] de Phone Number [facility] [address] [place] [address] [phone] * hCG, Total, Quantitative (05/14/2024 11:14 AM EST) HCG Quantitative <2 mIU/mL [facility] Comment:Weeks post LMP Appro ximate hCG(Last Menstrual Period) Range (mIU/ml)3 - 4 weeks 9 - 1304 - 5 weeks 75 - 2,6005 - 6 weeks 850 - 20,8006 - 7 weeks 4000 - 100,2007 - 12 weeks 11,500 - 289,33649 - 16 weeks 18,300 - 137,81172 - 29 weeks (2nd trimester) 1,400 - 53,26735 - 41 weeks (3rd trimester) 940 - [...] ORDERAB LES Final Result Performing Organization Address [facility] Co de Phone Number [facility] [address] [place] [address] [phone] * (ABNORMAL) Magnesium (05/14/2024 11:14 AM EST) Magnesium 1.5(L) 1.6 - 2.6 mg/dL [facility] 05/14/2024 11:1 4 AM EST 05/14/2024 11:20 AM EST us Generic External Data Provider LAB BLOOD ORDERAB LES Final Result [facility] [address] [place] [phone] * (ABNORMAL) Comprehensive Metabolic Panel (05/14/2024 11:14 AM EST) Sodium 141 135 - 145 mmol/L [facility] Potassium 2.8(LL) 3.3 - 5.1 mmol/L [facility] Comment:Critical value for t est(s): K Results called to and readback by: JOSEFA Person calling: THEODORE Date: 05-14-24 Time:1206 Chloride 104 96 - 108 mmol/L [facility] Carbon Dioxide 25 22 - 29 mmol/L [facility] Anion Gap 15 12 - 20 [facility] Urea Nitrogen (BUN) 13 9 - 16 mg/dL [facility] Creatinine, Serum 0.95 0.5 - 1.4 mg/dL [facility] Creatinine Clr Calc Pharmacy 86.8 [facility] Comment:Provided height and weight: 167.64 cm,98.883 kg.eGFR (calculated from the MDRD study equation) and eCrCl(calculated from the Cockcroft-Gault equation) are based ondifferent parameters and may not yield comparable results.If eCrCl result is absurd, please check patient'sheight/weight. Estimated Glomerular Filt Rate >60 [facility] Comment:Chronic Kidney Disea se: Estimated GFR < 60 mL/min/1.45u3Udegmk Kidney Disease: Estimated GFR < 15 mL/min/1.73m2 Glucose 131(H) 60 - 115 mg/dL [facility] Calcium 9.4 8.4 - 10.2 mg/dL [facility] Bilirubin, Total 0.3 0.0 - 1.0 mg/dL [facility] Aspartate Amino Transferase 21 5 - 31 U/L [facility] Alanine Aminotransferase 32(H) 0 - 31 U/L [facility] Total Protein 8.1(H) 6.5 - 8.0 g/dL [facility] Albumin Level 4.3 3.5 - 5.0 g/dL [facility] Alkaline Phosphatase 78 39 - 117 U/L [facility] 05/14/2024 11:1 4 AM EST 05/14/2024 11:20 AM EST us Generic External Data Provider LAB BLOOD ORDERAB LES Final Result [facility] [address] [place] [address] [phone] * SARS-CoV-2 RNA, Influenza A/B, and RSV RNA, Ql NAAT (05/14/2024 11:14 AM EST) Influenza A PCR NEGATIVE Negative [facility] Influenza B PCR NEGATIVE Negative [facility] Resp Syncy Virus RNA Qual PCR NEGATIVE Negative [facility] SARS COV2 PCR NEGATIVE Negative [facility] Comment:All test results mus t [...] use by authorized laboratories.Testing performed on the [employer] GeneXpert utilizingreal-time RT-PCR.All SARS CoV2 and positive influenza A/B results arereported to [facility]. 05/14/2024 11:1 4 AM EST 05/14/2024 11:20 AM EST Generic External Data Provider LAB MICROBIOLOGY - GENERAL ORDERABLES Final Result Performing Organization Address [facility] de Phone Number [facility] [address] [place] [phone] * High Sensitivity Troponin I (05/14/2024 11:14 AM EST) TROPONIN I HIGH SENSITIVITY <2.7 <3.5 - 17.0 ng/L [facility] Comment:The Byers high sens itivity Troponin-I results should beused in conjunction with other diagnostic information suchas ECG, clinical observations and information, and patientsymptoms to aid in the diagnosis of NM. 05/14/2024 11:1 4 AM EST 05/14/2024 11:20 AM EST Generic External Data Provider LAB BLOOD ORDERAB LES Final Result Performing Organization Address [facility] [address] [place] [phone] * Prothrombin Time-INR (05/14/2024 11:14 AM EST) Prothrombin Time 12.2 10.9 - 12.4 SEC [facility] INTERNATIONAL NORM RATIO 1.0 0.9 - 1.1 [facility] Comment:INTERNATIONAL NORMAL IZED RATIO (INR) REFERENCE [...] ORDERAB LES Final Result Performing Organization Address [facility] Co de Phone Number [facility] [address] [place] [address] [place] [phone] [phone] * (ABNORMAL) CBC auto differential (05/14/2024 11:14 AM EST) White Blood Count 9.8 4.8 - 10.8 X10*3/uL [facility] Red Blood Count 4.56 4.20 - 5.50 X10*6/uL [facility] Hemoglobin 14.0 12.0 - 16.0 g/dl [facility] Hematocrit 39.8 37.0 - 47.0 % [facility] Mean Corpuscular Volume 87.3 80.0 - 98.0 fL [facility] Mean Corpuscular Hemoglobin 30.7 27.0 - 33.0 pg [facility] Mean Corpuscular HGB Conc 35.2(H) 31.0 - 35.0 g/dl [facility] Red Cell Distribution Width 12.6 11.0 - 16.0 % [facility] Platelet Count 288 160 - 400 X10*3/uL [facility] Mean Platelet Volume 9.9 9.4 - 12.3 fL [facility] Neutrophils Percent Auto 56.0 45 - 73 % [facility] Imm Gran Pct Auto 0.2 0.0 - 0.4 % [facility] Lymphocytes Percent Auto 31.5 20 - 40 % [facility] Monocytes Percent Auto 9.2 2 - 11 % [facility] Eosinophils Percent Auto 2.7 0 - 4 % [facility] Basophils Percent Auto 0.4 0 - 2 % [facility] NRBC Pct Auto 0.0 0.0 - 0.2 /100WBC [facility] Neutrophils Absolute Auto 5.5 2.0 - 8.3 x10*3/uL [facility] Imm Gran Abs Auto 0.02 0.00 - 0.03 X10*3/uL [facility] Lymphocytes Absolute Auto 3.1 1.2 - 4.9 X10*3/uL [facility] Monocytes Absolute Auto 0.9 0.1 - 1.2 X10*3/uL [facility] Eosinophils Absolute Auto 0.3 0.0 - 0.4 X10*3/uL [facility] Basophils Absolute Auto 0.0 0.0 - 0.2 X10*3/uL [facility] NRBC Abs Auto 0.000 0.0 - 0.012 X10*3/uL [facility] 05/14/2024 11:1 4 AM EST 05/14/2024 11:20 AM EST us Generic External Data Provider LAB BLOOD ORDERAB LES Edited Result - Final [facility] [address] [place] [phone] documented in this encounter Visit Diagnoses Not on filedocumented in this encounter Additional Health Concerns Assessment Noted Time PHQ-9 Depression Total Score: 9 06/15/19 24 1:18 PM EDT documented as of this encounter Care Teams Mannequin Sander And Finisher Relationship Specialty Start Date End Date Sunshine Vela FNP [address] [place] [phone] PCP - General Family Medicine 05/18/22 documented as of this encounter
--- OUTSIDE RECORDS SUMMARY | 2024-05-16 13:45 | XMS_ITS | Encounter Summary ---
Author Organization [employer] Address [address] [facility] 7t [place] [address] Care Team Providers Care National Sales Consultant Name Role Phone [facility] Primary Care Provider [phone] Reason for Visit * Reason Onset Date Comments Med Refill 04/22/2024 Encounter Details Date Type Department Care Team ([facility] st Contact Info) Description 04/22/[address] [facility] [address] [place] [address] [facility] [address] [place] [address] Severe persistent asthma with acute exacerbation Social [...] 0.083% nebulizer solution To be sent to: [facility]/pharmacy #[id number] [place], [place] - [address] [place] [address] documented in this encounter Plan of Treatment Upcoming Encounters Date Type Department Care Team (Late st Contact Info) Description 05/23/2024 9:15 AM EDT Office Visit [facility] [address] [place] [address] [facility], [facility] [address] [place], [place] [phone] documented as of this encounter Visit Diagnoses Diagnosis Severe persistent asthma with acute exacerbation documented in this encounter Additional Health Concerns Assessment Noted Time PHQ-9 Depression Total Score: 9 06/15/19 24 1:18 PM EDT documented as of this encounter Care Teams National Sales Consultant Relationship Specialty Start Date End Date Sunshine Vela FNP [address] [place] [phone] PCP - General Family Medicine 05/18/22 documented as of this encounter
== END 2024-05-16 13:43 | disposition home or self-care (01) ==
PROVIDERS: Emergency Provider Emergency Medicine; PCP Registered Nurse
DX: J45.909 Unspecified asthma, uncomplicated (principal); E83.42 Hypomagnesemia; R50.9 Fever, unspecified; Z86.718 Personal history of other venous thrombosis and embolism; Z95.818 Presence of other cardiac implants and grafts
CPT/HCPCS: 0241U; 36415; 71046; 80048; 83735; 85025; 99283; 99284

== ENCOUNTER → 2024-05-16 11:34 | Outpatient (BNV) | payer MEDICAID, SELFPAY | PROVIDERS: Emergency Provider Emergency Medicine; PCP Registered Nurse; Visit Provider Radiology Diagnostic Radiology | DX: J98.4 Other disorders of lung (principal) | CPT/HCPCS: 71046 ==

== ENCOUNTER 2024-05-23 09:54 | Outpatient (REF) | payer MEDICAID, SELFPAY ==
--- OUTSIDE RECORDS SUMMARY | 2024-05-23 11:06 | XMS_ITS | Clinical Summary ---
Author Organization [facility] ity Address [address] [place] [address] Care Team Providers Care Distribution Designer Name Role Phone Shelly Hein Primary Care Provider [phone] Social History Tobacco Use Types Packs/Day Years [...] RESULTING AGENCY - 10/08/2017 1:27 PM EDT [id number] THINPREP PAP, IMAGED: NEGATIVE FOR SQUAMOUS INTRAEPITHELIAL [...] POS //17 ASCUS, HORMONES, Z12.4 Cuca Baer [facility] LAB CYTOLOGY ORDERABLES Final Result HISTORICAL TESTING LAB RESULTING AGENCY from Last 3 Months or Most Recently Relevant to Health Maintenance Care Teams Distribution Designer Relationship Specialty Start Date End Date Shelly Hein PA [address] [place] [address] PCP - General 10/27/21
--- OUTSIDE RECORDS SUMMARY | 2024-05-23 11:06 | XMS_ITS | Clinical Summary ---
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 right-sided low back pain with right-sided [...] pure alcohol) former abuse, now sober since [id number] Social Connections Answer Date Recorded Connectedness 0 [...] 05/19/2023 05/18/2022, 10/10, 01/28/2020, Additional history exists [id number] ( season) 2023 03/31/2022, 06/26/2020, 05/28/2020 Imm-Influenza [...] Td or Tdap) 08/27/2032 08/27/2022, 01/28/2020, 05/20/2015 HIV Screening Completed 05/18/2022, 01/27/2015 Hepatitis C Screening Completed 05/18/2022, 015 Cervical Ablation/Cold-Knife Conization Discontinued Cervical Cryotherapy Discontinued [...] AM EDT) CHOLESTEROL, TOTAL 241(H) <200 mg/dL [facility] HDL CHOLESTEROL 51 > OR = 50 mg/dL [employer] [facility] TRIGLYCERIDES 165(H) <150 mg/dL [facility] LDL-CHOLESTEROL 159(H) 99 mg/dL (calc) [employer] [facility] Comment: Reference range: <100 Desirable range <100 mg/dL for primary prevention; ?? <70 mg/dL for patients with CHD or diabetic patients with > or = 2 CHD risk factors. LDL-C is now calculated using the [employer]umiko calculation, which is a validated novel method providing better accuracy than the Friedewald equation in the estimation of LDL-C. Percy ESPINOZA et al. GERTRUDE. 2013;310(19): 5792-7832 (http://education.Moovit/faq/WMN278) CHOL/HDLC RATIO 4.7 <5.0 (calc) [employer] NON-HDL CHOLESTEROL 190(H) <130 mg/dL (calc) [employer] Comment: For patients with diabetes plus 1 major ASCVD risk factor, treating to a non-HDL-C goal of <100 mg/dL (LDL-C of <70 mg/dL) is considered a therapeutic option. Blood Blood / Unknown 10/25/2021 9 :26 AM EDT 10/25/2021 9:27 AM EDT Narrative [employer] - 10/28/2021 12:56 AM EDT FASTING:YES us Shelly Hein PA-C LAB - BLOOD DRAW Final Resul t [employer] [address] [phone], [employer] [address] [address] * (ABNORMAL) COMPREHENSIVE METABOLIC PANEL (10/25/2021 9:26 AM EDT) GLUCOSE 102(H) 65 - 99 mg/dL [employer] Comment: ?Fasting reference interval For someone without known diabetes, a glucose value between 100 and 125 mg/dL is consistent with prediabetes and should be confirmed with a follow-up test. UREA NITROGEN (BUN) 21 7 - 25 mg/dL [employer] CREATININE (blood) 0.91 0.50 - 0.99 mg/dL [employer] EGFR 79 > OR = 60 mL/min/1 .73m2 [employer] Comment: The eGFR is based on the CKD-EPI 2020 equation. To calculate the new eGFR from a previous Creatinine or Cystatin C result, go to https://www.kidney.org/professionals/ kdoqi/gfr%5Fcalculator BUN/CREATININE RATIO NOT APPLICABLE 6 - 22 [facility] SODIUM 139 135 - 146 mmol/L [facility] [employer] [facility] POTASSIUM 4.0 3.5 - 5.3 mmol/L [facility] CHLORIDE 106 98 - 110 mmol/L [facility] CARBON DIOXIDE 23 20 - 32 mmol/L [facility] CALCIUM 9.0 8.6 - 10.2 mg/dL [facility] PROTEIN, TOTAL 7.6 6.1 - 8.1 g/dL [facility] ALBUMIN 4.2 3.6 - 5.1 g/dL [facility] GLOBULIN 3.4 1.9 - 3.7 g/dL (calc) [facility] ALBUMIN/GLOBUL IN RATIO 1.2 1.0 - 2.5 (calc) [facility] BILIRUBIN, TOTAL 0.2 0.2 - 1.2 mg/dL [facility] ALKALINE PHOSPHATASE 91 31 - 125 U/L [facility] AST 13 10 - 35 U/L [facility] ALT 15 6 - 29 U/L [facility] Blood Blood / Unknown 10/25/2021 9 :26 AM EDT 10/25/2021 9:27 AM EDT Narrative [employer] [facility] - 10/28/2021 12:56 AM EDT FASTING:YES Shelly Hein PA-C LAB - BLOOD DRAW Edited Resu lt - Final [facility] [address] [address], [employer] [address] [address] * MAMMOGRAM BI-RADS, ABSTRACTED (04/05/2018 2:17 PM EST) BI-RADS ASSESSMENT 1 - Negative: means that there is no significant or noticeable abnormality to report. BI-RADS FOLLOW-UP 1 - Continue annual screening mammography (for women over age 40). Anatomical Region Laterality Modality Other Impressions 04/05/2018 2:17 PM EST As per [facility]. No mammographic evidence of malignancy. Provider Maryjo IMG MAMMO Final Result * PAP LIQ BASED, HPV W/ RFX HPV 16/18 (08/15/2016 1:32 PM EDT) Cytologic material (specimen) Cervix uteri structure / Unknown 08/15/2016 1:32 PM EDT Impressions [facility] - 08/15/2016 1:32 PM EDT ThinPrep Pap, Imaged: ATYPICAL SQUAMOUS CELLS OF UNDETERMINED SIGNIFICANCE (ASCUS) SOURCE: ThinPrep Pap HPV Any DX: Reflex 16 and 18, Cervical, Imaged: CLINICAL INFORMATION: HPV Any Diagnosis. LMP 08/10/16 Perri Dacosta SUPPLY CHAIN TECHNICIAN LAB - NO BLOOD DRAW Final Resu lt [facility] [address] [place] [address], * (ABNORMAL) HEPATITIS A,B,C PANEL (01/27/2015 9:45 [...] greater than 9.9 mIU/mL Testing performed at: [employer] [address] [place] [address] PHONE: Blood specimen (specimen) Blood / Unknown 01/27/2015 9:45 AM EST 01/27/2015 12:04 PM EST Narrative [facility] - 01/27/2015 1:41 PM EST [employer] [address] [place] [address] PT ID [id number] ORD# [id number] Shilpa Meyers NP LAB - BLOOD DRAW Edited Result - Final Performing Organization Address [facility] de Phone Number [facility] [address] [place] [address], * HIV-1 & HIV-2 ANTIBODIES (01/27/2015 9:45 AM EST) [facility] Signature HIV 1 AND 2 ANTIBODY SCREEN NEGATIVE NEGATIVE [facility] Comment: Effective 11/17/14, [employer] has replaced the HIV screening test with [...] AM EST 01/27/2015 12:04 PM EST Narrative [facility] - 01/27/2015 2:10 PM EST [employer] [address] [place] [address] PT ID [id number] ORD# [id number] Shilpa Meyers NP LAB - BLOOD DRAW Edited Result - Final Performing Organization Address City/[facility] Co de Phone Number [facility] [address] [place] [address], [place] [phone] from Last 3 Months or Most Recently Relevant to Health Maintenance Insurance [id number] Care Teams Fashion Buying Internship Relationship Specialty Start Date End Date Shelly Hein PA-C [facility] [place] [address] PCP - General FAMILY MEDICINEKELSIE 12/17/19
--- OUTSIDE RECORDS SUMMARY | 2024-05-23 11:06 | XMS_ITS | Encounter Summary ---
Author Organization [facility] Address [address] [place] [address] Care Team Providers Care Manager Country Name Role Phone Shelly Hein PA-C Primary Care Provider [phone] Encounter Details Date Type Department Care Team ([facility] st Contact Info) Description 01/27/2015 Interim Notes [facility] [address] [place] [address] Shilpa Meyers, CANDICE [address] [facility] [place] [address] Unprotected sex Social History Tobacco Use Types Packs/Day Years Used Date Smoking Tobacco: Every Day Cigarettes 0.5 12 Alcohol Use Standard Drinks/Week Comments No 0 (1 standard drink = 0.6 oz pure alcohol) former abuse, now sober since [id number] Comments Unknown Sex and Gender Information Value [...] [facility] - 01/27/2015 9:38 PM EST [facility] [address] [place] [address] PT ID [id number] ORD# [id number] Shilpa Meyers NP LAB - BLOOD DRAW Edited Result - Final Performing Organization Address City/State/[facility] [place] [address], * (ABNORMAL) HEPATITIS A,B,C PANEL (01/27/2015 9:45 AM EST) HEPATITIS B SURFACE ANTIGEN NEGATIVE NEGATIVE [facility] HEPATITIS C VIRUS DIAGNOSTIC NEGATIVE NEGATIVE [facility] HEPATITIS A ANTIBODY TOTAL POSITIVE(A) NEGATIVE [facility] HEPATITIS B CORE ANTIBODY NEGATIVE NEGATIVE [facility] HEPATITIS B SURFACE ANTIBODY POSITIVE(A) NEGATIVE [facility] Comment: Hepatitis B surface antibody testing performed at reference lab due to reagent backorder. Reference range: Negative: Inconsistent with immunity, less than 10 mIU/mL Positive: ? Consistent with immunity, greater than 9.9 mIU/mL Testing performed at: [employer] [address] [place] [address] PHONE: Blood specimen (specimen) Blood / Unknown 01/27/2015 9:45 AM EST 01/27/2015 12:04 PM EST Narrative [facility] - 01/27/2015 1:41 PM EST [facility] [address] [place] [address] PT ID [id number] ORD# [id number] us Shilpa Meyers NP LAB - BLOOD DRAW Edited Result - Final Performing Organization Address [facility]/ZIP Co de Phone Number [facility] [address] [place] [address], [place] [phone] * HIV-1 & HIV-2 ANTIBODIES (01/27/2015 9:45 AM EST) HIV 1 AND 2 ANTIBODY SCREEN NEGATIVE NEGATIVE [facility] Comment: Effective 11/17/14, [facility] has replaced the HIV screening test with [...] [facility] HOS[facility] - 01/27/2015 2:10 PM EST [facility] [address] [place] [address] PT ID [id number] ORD# [id number] us Shilpa Meyers NP LAB - BLOOD DRAW Edited Result - Final [facility] [address] [place] [address], [place] [phone] * GC DNA PROBE, URINE (01/27/2015 9:45 AM EST) GC DNA URINE NEGATIVE NEGATIVE [facility] Urine specimen (specimen) Urine specimen / Unknown 01/27/2015 9:45 AM EST 01/27/2015 11:54 AM EST [facility] - 01/28/2015 11:19 AM EST [facility] [address] [place] [address] PT ID [id number] ORD# [id number] Shilpa Meyers NP LAB - NO BLOOD DRAW Final Result Performing Organization Address [facility] Co de Phone Number [address] [address], [place] [phone] * CHLAMYDIA DNA PROBE, URINE (01/27/2015 9:45 AM EST) CHLAMYDIA DNA URINE NEGATIVE NEGATIVE [facility] Urine specimen (specimen) Urine specimen / Unknown 01/27/2015 9:45 AM EST 01/27/2015 11:54 AM EST [facility] - 01/28/2015 11:19 AM EST [facility] [address] [place] [address] PT ID [id number] ORD# [id number] us Shilpa Meyers NP LAB - NO BLOOD DRAW Final Result Performing Organization Address [facility] de Phone Number [address] [address], [place] [phone] documented in this encounter Visit Diagnoses Diagnosis Unprotected sex Problems related to high-risk sexual behavior documented in this encounter Care Teams Manager Country Relationship Specialty Start Date End Date Shelly Hein PA-C [address] [place] [address] PCP - General FAMILY MEDICINE, [place] 12/17/19 documented as of this encounter
--- OUTSIDE RECORDS SUMMARY | 2024-05-23 11:06 | XMS_ITS | Encounter Summary ---
Author Organization [facility] Address [address] [place] [address] Care Team Providers Care Valve And Regulator Repairer Name Role Phone Shelly Hein PA-C Primary Care Provider [phone] Encounter Details Date Type Department Care Team (Late st Contact Info) Description 01/13/2015 Interim Notes Caring [facility] Main [address] [place] [address] Use, Do Not, [facility] [address] [place] [address] Social History Tobacco Use Types Packs/Day Years Used Date Smoking Tobacco: Every Day Cigarettes 0.5 12 Alcohol Use Standard Drinks/Week Comments No 0 (1 standard drink = 0.6 oz pure alcohol) former abuse, now sober since [id number] Comments Unknown Sex and Gender Information Value [...] on filedocumented in this encounter Care Teams Valve And Regulator Repairer Relationship Specialty Start Date End Date Shelly Hein PA-C [facility] [place] [address] PCP - General FAMILY MEDICINE, [place] 12/17/19 documented as of this encounter
--- OUTSIDE RECORDS SUMMARY | 2024-05-23 11:07 | XMS_ITS | Encounter Summary ---
Author Organization [facility] Address [address] [place] [address] Care Team Providers Care Strip Presser Name Role Phone Shelly Hein PA-C Primary Care Provider [phone] Encounter Details Date Type Department Care Team ([facility] st Contact Info) Description 07/27/[address] [facility] [address] [place] [id number] Shilpa Meyers, CANDICE [address] [place] [address] Social History Tobacco Use Types Packs/Day Years Used Date Smoking Tobacco: Every Day Cigarettes 0.5 12 Alcohol Use Standard Drinks/Week Comments No 0 (1 standard drink = 0.6 oz pure alcohol) former abuse, now sober since [id number] Comments Unknown Sex and Gender Information Value [...] on filedocumented in this encounter Care Teams Strip Presser Relationship Specialty Start Date End Date Shelly Hein PA-C [address] [place] [address] PCP - General FAMILY MEDICINE, PA 12/17/19 documented as of this encounter
[2024-05-23 11:57] LABS: Anion Gap 11 (12-20); Blood Urea Nitrogen 13 mg/dL (9-16); Calcium 9.5 mg/dL (8.4-10.2); Carbon Dioxide 27 mmol/L (22-29); Chloride 107 mmol/L (96-108); Estimated Glomerular Filt Rate > 60; Glucose Random 86 mg/dL (60-115); Potassium 4.2 mmol/L (3.3-5.1); Sodium 141 mmol/L (135-145)
[2024-05-23 12:14] LABS: Vitamin D 25-OH Total 49.5 ng/mL (>30)
== END 2024-05-23 09:55 | disposition home or self-care (01) ==
LOC: HO.HHCL 09:54
PROVIDERS: Visit Provider Registered Nurse
DX: M79.7 Fibromyalgia (principal)
CPT/HCPCS: 36415; 80048; 82306; 83735

== ENCOUNTER 2024-10-01 15:27 | Outpatient (REF) | payer MEDICAID, SELFPAY ==
--- OUTSIDE RECORDS SUMMARY | 2024-10-01 15:44 | XMS_ITS | Clinical Summary ---
Author Organization [facility] Address [address] [place] [address] Care Team Providers Care Spooling Machine Operator Name Role Phone Shelly Hein [...] (SINGULAIR) 10 mg tabletIndication s:Intermittent asthma, uncontrolled (HHS-HCC) TAKE 1 TABLET BY MOUTH DAILY AT [...] inhalerIndicatio ns:Mild intermittent asthma, unspecified whether complicated (HHS-HCC) Inhale 2 Puffs into the lungs 2 (two) times daily 10.2 Inhaler 3 0 Active albuterol sulfate (PROVENTIL) 2.5 mg /3 mL (0.083 %) nebulizer solutionIndicati ons:Mild intermittent asthma, unspecified whether complicated (HHS-HCC) Take 3 mL by nebulization every 6 (six) hours as needed for wheezing 125 mL 1 Active cholecalciferol, vitamin D3, 25 mcg (1,000 unit) capsuleIndicatio ns:Low serum vitamin D Take 1 Capsule by mouth once daily 30 Capsule 2 1 Active acetaminophen (TYLENOL) 500 mg tabletIndication s:Migraine without aura and without status migrainosus, not intractable,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 18 Each 2 4 Active fluticasone furoate (ARNUITY ELLIPTA) 100 mcg/actuation dsdvIndications: Moderate persistent asthma without complication (HHS-HCC) Inhale 1 Puff into the lungs once daily 30 Each 5 4 Active atorvastatin (LIPITOR) 20 mg tabletIndication s:Dyslipidemia TAKE 1 TABLET BY MOUTH EVERY DAY 90 Tablet 1 4 Active Active Problems Problem Noted Date Diagnosed Date Dyslipidemia 02/20/2017 H/O major orthopedic surgery 06/09/2014 Arthritis 06/09/2014 Intermittent asthma, uncontrolled (HHS-HCC) 05/12 Overview (02/20/2017): PFTS done 01/29/17 showed moderate ventilatory defect without obstruction, Vital capacity is reduced probably due to restrictive process and had significant response to bronchodilator. There was significant airway disease with PCO2 <.025 mg/ml methacholine consistent with asthma . Hx of pancreatitis 06/09/2014 History of kidney stones 06/09/2014 Immunizations Immunization Administration Dates Next Due Flu, Cell Culture based, Pre servative Free, 6m+, Flucelvax 12/23/2019 Flu, Preservative Free 12/04/2018 INFLUENZA, UNSPECIFIED 12/16/2009 Moderna COVID-19 Vaccine, re d cap blue label, 12+ Primary Series 06/26/2020,05/28/2020 PNEUMOCOCCAL POLYSACCHARIDE PPV23 (Pneumovax 23) 11/13/2016 PPD 08/09/2016 TDAP 01/28/2020 Td (adult), 5 Lf tetanus tox oid (Tenivac), preservative free 05/20/2015 Family History Medical History Relation Name [...] pure alcohol) former abuse, now sober since [id number] Social Connections Answer Date Recorded Connectedness 0 [...] 80 10/25/2021 8:59 AM EDT Temperature 37.2 C (98.9 F) 10/25/2021 8:59 AM EDT Respiratory Rate 20 10/25/2021 8:59 AM EDT [...] Fecal DNA 2021 Flexible Sigmoidoscopy 2021 Annual Wellness (Adult): Indicated (All Coverage) 10/25/2022 10/25/2021, 08/15/2016, 07/06/2015 Hypertension Screening (#1) 10/25/2022 Tobacco Cessation Counseling (#1) 10/25/20222 022 Tobacco Screening 10/25/2022 10/25/2021 Anxiety Screening 12/26/2022 12/26/2021 Relationship Safety Screening/Counseling 12/26/2022 12/26/2021, 10/25/2021, 06/14/2020 Lipid Screening 05/19/2023 05/18/2022, 10/10, 01/28/2020, Additional history exists [id number] ( season) 2023 03/31/2022, 06/26/2020, 05/28/2020 Alcohol and Drug Screen 03/12/2024 12/27/19 22, 10/25/2021, 06/14/2020, Additional history exists Depression Annual Screen 03/12/2024 022, 06/18/2018 (Managed by Outside Provider), 08/07/2017 (Managed by Outside Provider) Imm-Influenza (#1) 2024 12/01/2020, 1 , 12/04/2018, Additional history exists Diabetes Screening 05/18/2025 05/18/2022, 0 05/18/2022, 10/25/2021, Additional history exists Colonoscopy 05/15/2032 05/15/2022 Colorectal [...] AM EDT) CHOLESTEROL, TOTAL 241(H) <200 mg/dL [facility] HDL CHOLESTEROL 51 > OR = 50 mg/dL [facility] TRIGLYCERIDES 165(H) <150 mg/dL [facility] LDL-CHOLESTEROL 159(H) 99 mg/dL (calc) [facility] Comment: Reference range: <100 Desirable range <100 mg/dL for primary prevention; <70 mg/dL for patients with CHD or diabetic patients with > or = 2 CHD risk factors. LDL-C is now calculated using the Yumiko calculation, which is a validated novel method providing better accuracy than the Friedewald equation in the estimation of LDL-C. Percy ESPINOZA et al. GERTRUDE. 2013;310(19): 4672-3929 (http://education.Floor64/faq/ULU591) CHOL/HDLC RATIO 4.7 <5.0 (calc) [facility] NON-HDL CHOLESTEROL 190(H) <130 mg/dL (calc) [facility] Comment: For patients with diabetes plus 1 major ASCVD risk factor, treating to a non-HDL-C goal of <100 mg/dL (LDL-C of <70 mg/dL) is considered a therapeutic option. Blood Blood / Unknown 10/25/2021 9 :26 AM EDT 10/25/2021 9:27 AM EDT Narrative [facility] - 10/28/2021 12:56 AM EDT FASTING:YES us Shelly Hein PA-C LAB - BLOOD DRAW Final Resul t [facility] [address] [address], [facility] [address] [address] * (ABNORMAL) COMPREHENSIVE METABOLIC PANEL (10/25/2021 9:26 AM EDT) GLUCOSE 102(H) 65 - 99 mg/dL [facility] Comment: Fasting reference interval For someone without known diabetes, a glucose value between 100 and 125 mg/dL is consistent with prediabetes and should be confirmed with a follow-up test. UREA NITROGEN (BUN) 21 7 - 25 mg/dL [facility] CREATININE (blood) 0.91 0.50 - 0.99 mg/dL [facility] EGFR 79 > OR = 60 mL/min/1 .73m2 [facility] Comment: The eGFR is based on the CKD-EPI 2020 equation. To calculate the new eGFR from a previous Creatinine or Cystatin C result, go to https://www.kidney.org/professionals/ kdoqi/gfr%5Fcalculator BUN/CREATININE RATIO NOT APPLICABLE 6 - 22 [facility] SODIUM 139 135 - 146 mmol/L [facility] POTASSIUM 4.0 3.5 - 5.3 mmol/L [facility] CHLORIDE 106 98 - 110 mmol/L [facility] CARBON DIOXIDE 23 20 - 32 mmol/L [facility] CALCIUM 9.0 8.6 - 10.2 mg/dL [facility] PROTEIN, TOTAL 7.6 6.1 - 8.1 g/dL [facility] ALBUMIN 4.2 3.6 - 5.1 g/dL [facility] GLOBULIN 3.4 1.9 - 3.7 g/dL (calc) [facility] ALBUMIN/GLOBUL IN RATIO 1.2 1.0 - 2.5 (calc) [facility] BILIRUBIN, TOTAL 0.2 0.2 - 1.2 mg/dL [facility] ALKALINE PHOSPHATASE 91 31 - 125 U/L [facility] AST 13 10 - 35 U/L [facility] ALT 15 6 - 29 U/L [facility] Blood Blood / Unknown 10/25/2021 9 :26 AM EDT 10/25/2021 9:27 AM EDT Narrative [facility] - 10/28/2021 12:56 AM EDT FASTING:YES us Shelly Hein PA-C LAB - BLOOD DRAW Edited Resu lt - Final [facility] [address] [address], [facility] [address] [address] * MAMMOGRAM BI-RADS, ABSTRACTED (04/05/2018 2:17 PM EST) BI-RADS ASSESSMENT 1 - Negative: means that there is no significant or noticeable abnormality to report. BI-RADS FOLLOW-UP 1 - Continue annual screening mammography (for women over age 40). Anatomical Region Laterality Modality Other Impressions 04/05/2018 2:17 PM EST As per [facility]. No mammographic evidence of malignancy. Provider Maryjo FRANCISCO MAMMO Final Result * PAP LIQ BASED, HPV W/ RFX HPV 16/18 (08/15/2016 1:32 PM EDT) Cytologic material (specimen) Cervix uteri structure / Unknown 08/15/2016 1:32 PM EDT Impressions [facility] - 08/15/2016 1:32 PM EDT ThinPrep Pap, Imaged: ATYPICAL SQUAMOUS CELLS OF UNDETERMINED SIGNIFICANCE (ASCUS) SOURCE: ThinPrep Pap HPV Any DX: Reflex 16 and 18, Cervical, Imaged: CLINICAL INFORMATION: HPV Any Diagnosis. LMP 08/10/16 Perri CHAUHAN LAB - PATHOLOGY AND CYTOLOGY A MBULATORY Final Result [facility] [address] [place] [address], * (ABNORMAL) HEPATITIS A,B,C PANEL (01/27/2015 9:45 AM EST) HEPATITIS B SURFACE ANTIGEN NEGATIVE NEGATIVE [facility] HEPATITIS C VIRUS DIAGNOSTIC NEGATIVE NEGATIVE [facility] HEPATITIS A ANTIBODY TOTAL POSITIVE(A) NEGATIVE [facility] HEPATITIS B CORE ANTIBODY NEGATIVE NEGATIVE [facility] HEPATITIS B SURFACE ANTIBODY POSITIVE(A) NEGATIVE [facility] Comment: Hepatitis B surface antibody testing performed at reference lab due to reagent backorder. Reference range: Negative: Inconsistent with immunity, less than 10 mIU/mL Positive: Consistent with immunity, greater than 9.9 mIU/mL Testing performed at: [facility] [address] [place] [id number] PHONE: Blood specimen (specimen) Blood / Unknown 01/27/2015 9:45 AM EST 01/27/2015 12:04 PM EST Narrative [facility] - 01/27/2015 1:41 PM EST [facility] [address] [place] [address] PT ID [id number] ORD# [id number] us Shilpa Meyers NP LAB - BLOOD DRAW Edited Result - Final Performing Organization Address [facility] Co de Phone Number [facility] [address] [place] [address], * HIV-1 & HIV-2 ANTIBODIES (01/27/2015 9:45 AM EST) [facility] HIV 1 AND 2 ANTIBODY SCREEN NEGATIVE NEGATIVE [facility] Comment: Effective 11/17/14, [facility] has replaced the HIV screening test with a 4th generation HIV Ag/Ab Combo assay. This assay allows for the simultaneous qualitative detection of HIV p24 antigen and antibodies to HIV type 1 (including group O) and type 2. The assay is intended to be used as an aid in the diagnosis of HIV infection in pediatric and adult populations, including women. The 4th generation assay allows for earlier detection of HIV infection by detecting the presence of the HIV-1 p24 antigen as well as the traditional antibodies. Use of a 4th generation assay is the current CDC recommendation for HIV screening. Blood specimen (specimen) Blood / Unknown 01/27/2015 9:45 AM EST 01/27/2015 12:04 PM EST Narrative [facility] - 01/27/2015 2:10 PM EST [facility] [address] [place] [address] PT ID [id number] ORD# [id number] us Shilpa Meyers NP LAB - BLOOD DRAW Edited Result - Final Performing Organization Address City/[facility]/ZIP Co de Phone Number [address] [address], from Last 3 Months or Most Recently Relevant to Health Maintenance Insurance [id number] Care Teams Spooling Machine Operator Relationship Specialty Start Date End Date Shelly Hein PA-C [address] [place] [address] PCP - General FAMILY MEDICINEKELSIE 12/17/19
--- OUTSIDE RECORDS SUMMARY | 2024-10-01 15:44 | XMS_ITS | Clinical Summary ---
Author Organization [facility] ity Address [address] [place] [address] Care Team Providers Care Supervisor Cutting Department Name Role Phone Shelly Hein Primary Care Provider [phone] Social History Tobacco Use Types Packs/Day Years [...] 5 Years) and At-Risk Patients (6 to 49 Years) (1 of 2 - PCV) 10/23/1995 Cervical Cancer Screening: P ap Smear 09/26/2018 09/26/2017 Cholesterol Screening (Lipid Panel) 06/05/2022 Colorectal Cancer Screening: Colonoscopy 06/05/2022 HIV Screening 06/05/2022 Hepatitis C Screening 06/05/2022 Social Influencers of Health Screening 06/05/2022 COVID-19 Vaccine ( - 2023-2 5 season) 2023 Depression Screening 03/12/2024 Influenza Vaccine (#1) 2024 HIB Vaccines Aged Out No longer eligi [...] age to complete this topic Meningococcal B Vaccine Aged Out No l onger eligible based on patient's age to complete [...] RESULTING AGENCY - 10/08/2017 1:27 PM EDT [id number] THINPREP PAP, IMAGED: NEGATIVE FOR SQUAMOUS INTRAEPITHELIAL LESION AND MALIGNANCY . REACTIVE CELLULAR CHANGES. HYPERKERATOSIS IS PRESENT. RESULT OF APTIMA HIGH RISK HPV ASSAY: NEGATIVE (SEROTYPES 16,18,31,33,35,39,45,51,52,56,58,59,66,68) GISELL LOPEZ(ASCP) (CASE SCREENED 09 28 2017) BUDDY HERNANDEZ M.D., PATHOLOGIST (CASE ELECTRONICALLY SIGNED 10 05 2017) ADEQUACY: SATISFACTORY. ENDOCERVICAL/TRANSFORMATION ZONE COMPONENT PRESENT. SOURCE: THINPREP PAP HPV ANY DX: REFLEX 16 AND 18, CERVICAL, IMAGED: CLINICAL INFORMATION: HPV ANY DIAGNOSIS. LMP 18, POS 08/15/16 ASCUS, HORMONES, Z12.4 Cuca Baer [facility] CYTOLOGY ORDERABLES Final Result HISTOR[facility] TESTING LAB RESULTING AGENCY from Last 3 Months or Most Recently Relevant to Health Maintenance Care Teams Supervisor Cutting Department Relationship Specialty Start Date End Date Shelly Hein PA [address] [place] [address] PCP - General 10/27/21
== END 2024-10-01 15:28 | disposition home or self-care (01) ==
LOC: HO.MAMMO 15:27
PROVIDERS: PCP Registered Nurse; Visit Provider Registered Nurse
DX: Z13.89 Encounter for screening for other disorder (principal)

== ENCOUNTER 2024-12-29 11:07 | Outpatient (REF) | payer MEDICAID, SELFPAY ==
--- OUTSIDE RECORDS SUMMARY | 2024-12-29 10:30 | XMS_ITS | Encounter Summary ---
Author Organization [facility] Address [address] [facility] 7t [place] [address] Care Team Providers Care Marble Mason Name Role Phone Dane [facility] Primary Care Provider [phone] Encounter Details Date Type Department Care Team (Late st Contact Info) Description 12/29/2024 10:30 AM EDT Office Visit [facility] ADULT DENTAL [address] [place] [address] Lisa Henderson DDS [address] [place] [address] Fracture of complete denture (Primary Dx) Social History Tobacco Use Types [...] Date Recorded Patient Health Questionnaire-9 Score 9 05/23/2024 Patient Health Questionnaire-9 Score 9 05/23/2024 Last PHQ-9: Questionnaire Data Not on file 0 05/23/2024 Housing Stability Answer Date Recorded What is [...] Date Recorded Patient Health Questionnaire-2 Score 2 05/23/2024 Comments Unknown Sex and Gender Information Value Date Recorded Sex Assigned at Female 01/09/2022 10:17 AM EDT Legal Sex Female 10:17 AM EDT Gender Identity Female 01/09/2022 10:17 AM EDT Sexual Orientation Straight 01/09/2022 10 :17 AM EDT documented as of this encounter Progress Notes * Lisa Henderson DDS - 12/29/2024 10:30 AM EDT Dental procedures in this visit D9999.5 - NO CHARGE PROCEDURE (Completed) Service provider: Lisa Henderson DDS Billing provider: Lisa Henderson DDS Patient ID: Simran Posada is a 49 y.o. female. Time Out: No data recorded Location: [facility] Tooth: Maxilla CD Procedure: Fractured denture Verified the above with patient, grooming assistant, and provider. Confirmed via patient's chart, intraorally and by radiographs. Bridge Maintenance Worker: not applicable No chief complaint on file. Medical Hx: Vitals: There were no vitals taken for this visit. Medical History[1] Medications: Encounter Medications[2] Subjective: Pt in office because of fracture of upper CD. Clean fracture, CD sent to [facility] for repair. Diagnosis: fractured maxillary denture Pt tolerated procedure well, all questions answered. Dismissed in good condition. NV: Delivery repaired CD Delivery Helper: Leola Gutierrez Dentist: Lisa Henderson DDS [1] Past Medical History: Diagnosis Date Kidney laceration 10/09/2022 Kidney stones 10/09/2022 Status post surgical manipulation of ankle joint 10/09/2022 Tibia fracture 10/09/2022 [2] Outpatient Encounter Medications as of 12/29/2024 Medication Sig Dispense Refill acetaminophen (Tylenol) 500 MG tablet Take 2 tablets (1,000 mg) by mouth every 6 (six) hours if needed for moderate pain or fever. 40 tablet 0 albuterol (2.5 MG/3ML) 0.083% nebulizer solution Take 3 mL (2.5 mg) by nebulization every 6 (six) hours if needed for wheezing or shortness of breath. 75 mL 1 albuterol (2.5 MG/3ML) 0.083% nebulizer solution Take 3 mL (2.5 mg) by nebulization every 6 (six) hours if needed for wheezing or shortness of breath. 75 mL 2 albuterol (Ventolin HFA) 108 (90 Base) MCG/ACT inhaler INHALE 2 PUFFS BY MOUTH EVERY 4 HOURS NEEDED FOR WHEEZING OR SHORTNESS OF BREATH. 18 g 1 atorvastatin (Lipitor) 20 MG tablet Take 20 mg by mouth in the morning. busPIRone (Buspar) 2.5 MG split tablet 7.5 mg. busPIRone (Buspar) 7.5 MG tablet Take 7.5 mg by mouth at bedtime. cloNIDine (Catapres) 0.1 MG tablet Take 0.1 mg by mouth if needed each day. D3-1000 25 MCG (1000 UT) capsule TAKE 1 CAPSULE BY MOUTH EVERYDAY AT BEDTIME Diclofenac Sodium 1 % gel Apply to affected area once or twice daily as needed for pain and swelling 150 g 1 Ewdoozsijhr-Yjhleosma-Ipmwlt (Trelegy Ellipta) 100-62.5-25 MCG/ACT aerosol powder Inhale 1 Inhalation in the morning. 1 each 1 lidocaine-prilocaine (Emla) 2.5-2.5 % cream APPLY TO THE AFFECTED AREA(S) ONE OR TWO TIMES DAILY ASNEEDED FOR PAIN 30 g 1 loratadine (Claritin) 10 MG tablet TAKE 1 TABLET BY MOUTH EVERY DAY IN THE MORNING 90 tablet 0 nabumetone (Relafen) 500 MG tablet Take 1 tablet (500 mg) by mouth 2 times daily. 60 tablet 11 OXcarbazepine (Trileptal) 300 MG tablet TAKE 1 TABLET BY MOUTH EVERY MORNING IN ADDITION TO 1800MG AT BEDTIME OXcarbazepine (Trileptal) 600 MG tablet TAKE 3 TABLETS BY MOUTH AT BEDTIME DIRECTED prazosin (Minipress) 2 MG capsule TAKE 1 CAPSULE BY MOUTH EVERYDAY AT BEDTIME pregabalin (Lyrica) 100 MG capsule Take 1 capsule (100 mg) by mouth 2 times daily. 60 capsule 5 Symbicort 160-4.5 MCG/ACT inhaler INHALE 2 PUFF BY INHALATION ROUTE 4 TIMES EVERY DAY FOR ONE WEEK,THEN 2 TIMES EVERY DAY 10.2 each 1 tiotropium (Spiriva HandiHaler) [address] 1 capsule (18 mcg) into inhaler andinhale in the morning. 30 capsule 11 traZODone (Desyrel) 50 MG tablet TAKE 4-5 TABLET BY MOUTH AT BEDTIME triamcinolone (Nasacort) 55 MCG/ACT nasal inhaler SPRAY 2 SPRAYS INTO EACH NOSTRIL IN THE MORNING 50.7 mL 0 varenicline (Chantix) 1 MG tablet TAKE 1 TABLET BY MOUTH TWICE DAILY WITH A FULL GLASS OF WATER 180tablet 0 No facility-administered encounter medications on file as of 12/29/2024. documented in this encounter Plan of Treatment Upcoming Encounters Date Type Department Care Team (Late st Contact Info) Description 12/31/2024 2:00 PM EDT Office Visit [facility] ADULT DENTAL [address] [place] [address] Lisa Henderson DDS [address] [place] [address] 01/07/2025 3:00 PM EDT Office Visit [facility] MEDICINE [address] [place] [address] [facility] [address] [place] [address] Scheduled Orders Name Type Priority Associated Diagnoses Orde r Schedule DENTAL LAB DENTURES AND PARTIALS Dental Routine Ordered: 025 documented as of this encounter Procedures Procedure Name Priority Date/Time Associated Diagnosis Comments NO CHARGE PROCEDURE Routine 12/29/2024 10:30 AM E DT Fracture of complete denture documented in this encounter Visit Diagnoses Diagnosis Fracture of complete denture- Primary documented in this encounter Additional Health Concerns Assessment Noted Time PHQ-9 Depression Total Score: 9 05/24/19 25 9:06 AM EDT documented as of this encounter Care Teams Marble Mason Relationship Specialty Start Date End Date Sunshine Vela FNP [address] [place] [address] PCP - General Family Medicine 05/18/22 documented as of this encounter
[2024-12-29 13:16] LABS: MANUAL DIFF FLAG NO
--- OUTSIDE RECORDS SUMMARY | 2024-12-29 13:34 | XMS_ITS | Encounter Summary ---
Author Organization [employer] Address [address] [facility] 7t [place] [address] Care Team Providers Care Fiction And Nonfiction Writer Prose Name Role Phone Dane [facility] Primary Care Provider Reason for Visit * Reason Comments Med Refill Encounter Details Date Type Department Care Team (Late st Contact Info) Description 09/30/2022 Refill [facility] MEDICINE [address] [place] [address] [facility] [address] [place] [address] Pain Social History Tobacco Use Types Packs/Day [...] Department Care Team (Late Contact Info) Description 12/31/2024 2:00 PM EDT Office Visit [facility] ADULT DENTAL [address] [place] [address] Lisa Henderson, DDS [address] [place] [address] 01/07/2025 3:00 PM EDT Office Visit [facility] MEDICINE [address] [place] [address] Sunshine Vela FNP [address] [place] [address] documented as of this encounter Visit Diagnoses Diagnosis Pain Generalized pain documented in this encounter Additional Health Concerns Assessment Noted Time PHQ-9 Depression Total Score: 0 05/19/19 9:44 AM EST documented as of this encounter Care Teams Fiction And Nonfiction Writer Prose Relationship Specialty Start Date End Date Sunshine Vela FNP [address] [place] [address] PCP - General Family Medicine 05/18/22 documented as of this encounter
--- OUTSIDE RECORDS SUMMARY | 2024-12-29 13:34 | XMS_ITS | Clinical Summary ---
Author Organization [employer] Address [address] [facility] 7[address] [place] [address] Care Team Providers Care Nuclear Officer Name Role Phone [facility] Primary Care Provider [phone] Allergies Active Allergy Reactions Criticality Noted Date Comments Quetiapine 06/09/2014 Trazodone 06/09/2014 Vancomycin Rash High 06/09/2014 Other reaction(s): RASH, ITCHING, BREATHING PROBLEMS Other Reaction(s): RASH, ITCHING, BREATHING PROBLEMS Medications atorvastatin (Lipitor) 20 MG tablet Take 20 mg by mouth in the morning. 03/16/19 23 Active cloNIDine (Catapres) 0.1 MG tablet Take 0.1 mg by mouth if needed each day. 04/05/19 23 Active OXcarbazepine (Trileptal) 600 MG tablet TAKE 3 TABLETS BY MOUTH AT BEDTIME DIRECTED 04/05/19 23 Active prazosin (Minipress) 2 MG capsule TAKE 1 CAPSULE BY MOUTH EVERYDAY AT BEDTIME 02/23/20 22 Active traZODone (Desyrel) 50 MG tablet TAKE 4-5 TABLET BY MOUTH AT BEDTIME 04/05/19 23 Active D3-1000 25 MCG (1000 UT) capsule TAKE 1 CAPSULE BY MOUTH EVERYDAY AT BEDTIME 03/13/19 23 Active Symbicort 160-4.5 MCG/ACT inhalerIndications :Moderate persistent asthma without complication INHALE 2 PUFF BY INHALATION ROUTE 4 TIMES EVERY DAY FOR ONE WEEK, THEN 2 TIMES EVERY DAY 10.2 each 1 06/17/19 23 Active busPIRone (Buspar) 7.5 MG tablet Take 7.5 mg by mouth at bedtime. 06/15/19 23 Active OXcarbazepine (Trileptal) 300 MG tablet TAKE 1 TABLET BY MOUTH EVERY MORNING IN ADDITION TO 1800MG AT BEDTIME 06/05/19 23 Active albuterol (2.5 MG/3ML) 0.083% nebulizer solutionIndication s:Mild persistent asthma without complication Take 3 mL (2.5 mg) by nebulization every 6 (six) hours if needed for wheezing or shortness of breath. 75 mL 1 09/03/19 23 Active triamcinolone (Nasacort) 55 MCG/ACT nasal inhaler SPRAY 2 SPRAYS INTO EACH NOSTRIL IN THE MORNING 50.7 mL 10/25/19 23 Active Diclofenac Sodium 1 % gelIndications:Spr ain of right ankle, unspecified ligament, initial encounter Apply to affected area once or twice daily as needed for pain and swelling 150 g 1 11/09/19 23 Active lidocaine-prilocai ne (Emla) 2.5-2.5 % cream APPLY TO THE AFFECTED AREA(S) ONE OR TWO TIMES DAILY NEEDED FOR PAIN 30 g 1 11/09/19 23 Active Fluticasone-Umecli din-Vilant (Trelegy Ellipta) 100-62.5-25 MCG/ACT aerosol powderIndications: Severe persistent asthma with acute exacerbation (HCC) Inhale 1 Inhalation in the morning. 1 each 1 06/19/19 24 Active tiotropium (Spiriva HandiHaler) 18 MCG inhalation capsuleIndications :Chronic obstructive pulmonary disease, unspecified COPD type (CMS/HCC) (HCC) Place 1 capsule (18 mcg) into inhaler and inhale in the morning. 30 capsule 11 08/02/19 24 Active loratadine (Claritin) 10 MG tablet TAKE 1 TABLET BY MOUTH EVERY DAY IN THE MORNING 90 tablet 09/14/19 24 Active acetaminophen (Tylenol) 500 MG tablet Take 2 tablets (1,000 mg) by mouth every 6 (six) hours if needed for moderate pain or fever. 40 tablet 03/25/19 25 Active albuterol (2.5 MG/3ML) 0.083% nebulizer solution Take 3 mL (2.5 mg) by nebulization every 6 (six) hours if needed for wheezing or shortness of breath. 75 mL 2 03/25/19 25 026 Active varenicline (Chantix) 1 MG tabletIndications: Severe persistent asthma with acute exacerbation (HCC),Encounter for tobacco use cessation counseling TAKE 1 TABLET BY MOUTH TWICE DAILY WITH A FULL GLASS OF WATER 180 tablet 03/26/19 25 Active busPIRone (Buspar) 2.5 MG split tablet 7.5 mg. 08/31/19 22 Active nabumetone (Relafen) 500 MG tabletIndications: Osteoarthritis, unspecified osteoarthritis type, unspecified site Take 1 tablet (500 mg) by mouth 2 times daily. 60 tablet 11 05/24/19 25 026 Active pregabalin (Lyrica) 100 MG capsuleIndications :Fibromyalgia Take 1 capsule (100 mg) by mouth 2 times daily. 60 capsule 5 05/26/19 25 026 Active albuterol (Ventolin HFA) 108 (90 Base) MCG/ACT inhalerIndications :Severe persistent asthma with acute exacerbation (HCC) INHALE 2 PUFFS BY MOUTH EVERY 4 HOURS NEEDED FOR WHEEZING OR SHORTNESS OF BREATH. 18 g 1 10/31/19 Active Active Problems Problem Noted Date Diagnosed Date Acute hypokalemia 05/15/2024 Hypomagnesemia 05/15/2024 Carpal tunnel syndrome of right wrist 05/15/2024 Anxiety disorder 05/15/2024 Asthma with exacerbation 05/15/2024 S/P insertion of spinal cord stimulator 05/16/19 Overview (05/15/2024): Medtr[employer] device, inadequate coverage Status post surgical manipulation of ankle joint 05/15/2024 Overview (05/15/2024): Posttraumatic, plates and screws Healthcare maintenance 07/04/2023 Overview (07/04/2023): Mammo: Overdue. Will order today Pap: Reports hx of ASCUS s/p colpo (negative). Records not in c C-scope: BMD: HCV Screen: HIV Screen: Immunizations: Screening Labs: Other chest pain 07/03/2023 Overview (07/03/2023): Cardiology-saw [facility] cardiology re chest pain/SOB 10/2022--plan for echocardiogram and stress test. ASCVD-3% 05/22/22; Oral lesion 02/21/2023 Tobacco use disorder 10/10/2022 Overview (10/17/2022): Chantix helping Depression 10/09/2022 DVT (deep venous thrombosis) 10/09/2022 Overview (10/17/2022): pt reports remote hx of DVT with IVC filer in place after prolonged immobility with surgery in ?1997 at [facility]. States initially on coumadin which she self discontinued approx 20 years ago when substance use was active and has not had follow up since. No other episodes of DVT. Pt is confident that filter was never removed. No documentation in prior records. Assessment & Plan (10/19/2022 12:51 PM EDT): Hx unclear Will order d-dimer to r/o active thromboembolism Will order KUB to evaluate for presence of IVC filter as recommended by [facility]. Pending KUB results will consider CT scan if indicated and likely referral to vascular. Numbness and tingling in both hands 10/09/2022 Lumbar radiculopathy 10/09/2022 Overview (10/17/2022): Previously followed by [facility] pain mngmt Spinal nerve stimulator in place Assessment & Plan (10/19/2022 12:52 PM EDT): Referral placed back to [facility] pain mngmt for followup Spondylolisthesis at L4-L5 level 10/09/2022 Carpal tunnel syndrome, bilateral 10/09/2022 Severe persistent asthma with acute exacerbation 09/08/2022 Overview (10/17/2022): Symbicort b.i.d, spiriva, albuterol PFTS done 01/29/17 showed moderate ventilatory defect without obstruction, Vital capacity is reduced probably due to restrictive process and had significant response to bronchodilator. There was significant airway disease with PCO2 <.025 mg/ml methacholine consistent with asthma . Referred to pulmonology 08/2022 Assessment & Plan (10/17/2022 6:03 PM EDT): Continue current regimen Follow up with pulmonology as scheduled Patient may be good candidate for trelegy ellipta Assessment & Plan (09/08/2022 5:09 PM EDT): ACT = 7, asthma not well controlled. Referral to pulmonology sent, extended patients prednisone and added taper. Added azithromycin for possible infection. Guaifenesin patient request. Bipolar I disorder ([facility]) 01/27/2022 Overview (10/10/2022): trileptal 600mg, hydroxyzine PRN, fluoxetine 30mg, trazodone 50mg, prazosin 2mg, clonidine 0.1mg. Focalin XR 20mg. Followed by psychiatry and therapy Hyperlipidemia 01/27/2022 Overview (10/10/2022): Atorvastatin 20mg ASCVD 3.3% 08/2022 Migraine 01/27/2022 Overview (10/10/2022): Topiramate Sumatriptan PRN Posttraumatic stress disorder 01/27/2022 Arthritis [...] Encounters Date Type Department Care Team Description 12/29/2024 10:30 AM EDT Office Visit [facility] ADULT DENTAL [address] [place] [address] Lisa Henderson, ISMAEL Fracture of complete denture (Primary Dx) 12/29/2024 Orders Only GENERIC EXTERNAL DATA DEPARTMENT Provider, Generic External Data 12/29/2024 Travel 12/01/2024 Refill [facility] [address] [place] [address] Sunshine Vela FNP Fibromyalgia 12/01/[address] [address] Sunshine Vela FNP Med Refill 11/25/[address] [address] Sunshine Vela FNP Chart Prep 11/18/2024 Patient Outreach [facility] [address] [place] [address] Sunshine Vela FNP Pre-visit Planning ((Unable to reach for PVP screening, LVM) to be completed in office ) 10/29/2024 Refill [facility] [place] [address] Sunshine Vela FNP Severe persistent asthma with acute exacerbation 10/07/2024 Telephone [facility] [address] [place] [address] Nakia Mars CNM chart prep 10/07/[address] [address] Nakia Mars CNM CHART PREP 10/01/[address] [address] Sunshine Vela, [facility] Call Back Request from Last 3 Months Immunizations Immunization Administration Dates Next Due Influenza Injectable Quadriv [...] Sign Reading Time Taken Comments Blood Pressure 124/70 07/30/2024 3:19 PM EDT Pulse 104 07/28/2024 3:35 PM EDT Temperature 36.7 C (98 F) 05/23/2024 9:01 AM EDT Respiratory Rate 20 05/23/2024 9:01 AM EDT Oxygen Saturation 92% 05/14/2024 9:00 AM EST Inhaled Oxygen Concentration - - Weight 97 kg (213 lb 12.8 oz) 05/23/2024 9:01 AM EDT Height 170.2 cm (5' 7 ) 05/23/2024 9:01 AM EDT Body Mass Index 33.49 05/23/2024 9:01 AM EDT Plan of Treatment Upcoming Encounters Date Type Department Care Team (Late st Contact Info) Description 12/31/2024 2:00 PM EDT Office Visit [facility] ADULT DENTAL [address] [place] [address] Angeles-Blackman, Lisa, DDS [address] [place] [address] 01/07/2025 3:00 PM EDT Office Visit [facility] MEDICINE [address] [place] [address] [facility], [facility] [address] [place] [address] Health Maintenance Due Date Last Done Comments CT Colonography 1976 Colonoscopy 1976 Colorectal Cancer Screening 1976 FIT DNA/Cologuard 1976 FIT 1976 FOBT 1976 Sigmoidoscopy 1976 Alcohol/Substance Use Screening 1988 Family Planning (PISQ) 10/23/1991 Hepatitis B Vaccines (1 of 3 - 19+ 3-dose series) 10/23/1995 Pap Smear 1997 Cervical Cancer Screening 2006 HPV/Cotest 2006 Dental X-Ray: Bitewings 07/08/2016 07/08/2015 Mammogram 2016 Dental Prophylaxis 10/20/2020 04/21/2020, 11/05/2015 Dental Oral Exam 07/11/2023 01/08/2023, 12/2020, 07/08/2015 SDOH Screening 06/14/2024 06/15/2023 COVID-19 Vaccine ( season) 2024 03/31/2022, 06/26/2020, 05/28/2020 Influenza Vaccine (#1) 2024 , 12/23/2019, 12/04/2018, Additional history exists Depression Monitoring 11/23/2024 05/23/2024, 025 Disability Screening 05/22/2025 05/22/2024 Tobacco Screening 07/30/2025 07/30/2024 Dental X-Ray: Full Mouth 01/09/2026 023, 03/26/2020, 10/07/2015, Additional history exists Zoster Vaccines (1 of 2) 2026 Lipid Panel 05/19/2027 05/18/2022 DTaP/Tdap/Td Vaccines (3 - Td or Tdap) 08/27/2032 08/27/2022, 01/28/2020, 05/20/2015 RSV Patients and Patients Aged 60 years or older (1 - 1-dose 75+ series) 10/23/2051 HIV Screening Completed 05/23/2023, 11/2022, 01/27/2015 Hepatitis C Screening Completed 05/23/2023, 023 Pneumococcal Vaccine: Pediatrics (0 to 5 Years) and At-Risk Patients (6 to 49) Years Completed 06/15/2023, 11/13/2016 HIB Vaccines Aged Out [...] Procedure Name Priority Date/Time Associated Diagnosis Comments HOLD LAVENDER - POSSIBLE HEMATOLOGY Routine 12/29/2024 11:23 AM EDT NO CHARGE PROCEDURE Routine 12/29/2024 1 0:30 AM EDT Fracture of complete denture AMB REFERRAL TO PULMONOLOGY Routine 12/08/2024 Severe persistent asthma without complication (HCC) HEPATITIS C AB W/REFL TO HCV RNA, [...] Recently Relevant to Health Maintenance Results * Hold Lavender - Possible Hematology (12/29/2024 11:23 AM EDT) Hold Lavender - Possible Hematololgy SEE NOTE [facility] Comment:Specimen will be hel d untested for 8 hours. Call Hematologyif testing is desired. 12/29/2024 11:2 3 AM EDT 12/29/2024 1:22 PM EDT Generic External Data Provider HISTORICAL/NON OR DERABLE LABS Final Result Performing Organization Address City/[facility]/ZIP Co de Phone Number [facility] [address] [place] [address] [phone] * Referral to Pulmonology (12/08/2024) [facility] OUTPATIENT REFERRAL ORDERABLE S Final Result * Hepatitis C Antibody with Reflex to HCV, RNA, Quantitative, Real-Time PCR (05/23/2023 9:53 AM EDT) Hepatitis C Antibody Nonreactive Nonreactive [facility] Comment:Antibodies to HCV no t detected; does not exclude early acuteHCV infection. Blood Venous blood specimen / Unknown 05/23/2023 9:53 AM EDT 05/23/2023 11:14 AM EDT Conrado Fong MD LAB BLOOD ORDERABLES Final Resul t Performing Organization Address City/[facility]/ZIP Co de Phone Number [facility] [address] [place] [address] [phone] * HIV-1/2 Antigen and Antibodies, Fourth Generation, with Reflexes (05/23/2023 9:53 AM EDT) HIV AB/AG Nonreactive Nonreactive [facility] Comment:HIV-1 p24 Ag and/or HIV-1/HIV-2 Ab not detected.A test result that is nonreactive does not exclude thepossibility of exposure to or infection with HIV-1 and/orHIV-2. Nonreactive results in this assay for individualswith prior exposure to HIV-1 and/or HIV-2 may be due toantigen and antibody levels that are below the limit ofdetection of this assay.The [employer] HIV Ag/Ab Combo assay result andsupplemental assay results should be interpreted inconjunction with the patient's clinical presentation,history and other laboratory results. If the results areinconsistent with clinical evidence, additional testing issuggested to confirm the result. Blood Venous blood specimen / Unknown 05/23/2023 9:53 AM EDT 05/23/2023 11:14 AM EDT us Conrado Fong MD LAB BLOOD ORDERABLES Final Resul t [facility] [address] [place] [address] [phone] * (ABNORMAL) Lipid Panel, Standard (05/18/2022 10:40 AM EST) Pathologist [facility] Cholesterol, Total 180 <200 mg/dL [facility] HDL Cholesterol 55 > OR = 50 mg/dL [facility] Triglycerides 155(H) <150 mg/dL [facility] LDL Cholesterol 100(H) mg/dL (calc) [facility] Comment: Reference range: <100 Desirable range <100 mg/dL for primary prevention; <70 mg/dL for patients with CHD or diabetic patients with > or = 2 CHD risk factors. LDL-C is now calculated using the Percy-Petty calculation, which is a validated novel method providing better accuracy than the Friedewald equation in the estimation of LDL-C. Percy SS et al. GERTRUDE. 2013;310(19): 5349-8217 (http://education.[employer]/faq/JCC605) Chol/HDLC Ratio 3.3 <5.0 (calc) [facility] Non-HDL Cholesterol 125 <130 mg/dL (calc) [facility] Comment: For patients with diabetes plus 1 major ASCVD risk factor, treating to a non-HDL-C goal of <100 mg/dL (LDL-C of <70 mg/dL) is considered a therapeutic option. Blood Venous blood specimen / Unknown 05/18/2022 10:40 AM EST 05/18/2022 10:40 AM EST Narrative [facility] - 05/19/2022 1:04 PM EST FASTING:YES FASTING: YES [facility] ANESTHESIA ATTENDING LAB BLOOD ORDERABLES Final Re sult [facility] [address], [address] [place] [address] [facility] [address], ([address]) [place] [address] from Last 3 Months or Most Recently Relevant to Health Maintenance Insurance [facility] C[facility] ST[facility] ADULT Care Teams Nuclear Officer Relationship Specialty Start Date End Date Sunshine VelaTIEN [address] [place] [address] PCP - General Family Medicine 05/18/22
--- OUTSIDE RECORDS SUMMARY | 2024-12-29 13:34 | XMS_ITS | Clinical Summary ---
Author Organization [employer] Address [address] [place] [address] Care Team Providers Care Dental Technician Metal Name Role Phone Shelly Hein Primary Care Provider [phone] Social History Tobacco Use Types Packs/Day Years Used Date Smoking Tobacco: Never Assessed Comments Unknown Sex and Gender Information Value Date Recorded Sex Assigned at Not on file Legal Sex Female 12:24 AM EST Gender Identity Not on file Sexual Orientation Not on file Plan of Treatment Health Maintenance Due Date Last Done Comments Breast Cancer Screening 1976 Colorectal Cancer Screening: Colonoscopy 1976 DTaP,Tdap,and Td Vaccines (1 - Tdap) 10/23/1995 Hepatitis B Vaccines (1 of 3 - 19+ 3-dose series) 10/23/1995 Pneumococcal Vaccine: Pediat rics (0 to 5 Years) and At-Risk Patients (6 to 49 Years) (1 of 2 - PCV) 10/23/1995 Cervical Cancer Screening: P ap Smear 09/26/2018 09/26/2017 Cholesterol Screening (Lipid Panel) 06/05/2022 HIV Screening 06/05/2022 Hepatitis C Screening 06/05/2022 Social Influencers of Health Screening 06/05/2022 Depression Screening 03/12/2024 COVID-19 Vaccine ( - 2023-2 5 season) 2024 Influenza Vaccine (#1) 2024 RSV Immunization Adult Patie nts (1 - 1-dose 75+ series) 10/23/2051 HIB Vaccines Aged Out No longer eligi [...] RESULTING AGENCY - 10/08/2017 1:27 PM EDT [id number] THINPREP PAP, IMAGED: NEGATIVE FOR SQUAMOUS INTRAEPITHELIAL [...] IMAGED: CLINICAL INFORMATION: HPV ANY DIAGNOSIS. LMP 7//18, POS /17 ASCUS, HORMONES, Z12.4 Cuca Baer [facility] LAB CYTOLOGY ORDERABLES Final Result HISTORICAL TESTING LAB RESULTING AGENCY from Last 3 Months or Most Recently Relevant to Health Maintenance Care Teams Dental Technician Metal Relationship Specialty Start Date End Date Shelly Hein PA [address] [place] [address] PCP - General 10/27/21
[2024-12-29 13:35] LABS: Hematocrit 40.2 % (37.0-47.0); Hemoglobin 13.2 g/dl (12.0-16.0); Imm Gran Abs Auto 0.01 X10*3/uL (0.00-0.03); Imm Gran Pct Auto 0.1 % (0.0-0.4); Lymphocytes Absolute Auto 2.0 X10*3/uL (1.2-4.9); Mean Corpuscular HGB Conc 32.8 g/dl (31.0-35.0); Mean Corpuscular Hemoglobin 29.6 pg (27.0-33.0); Mean Corpuscular Volume 90.1 fL (80.0-98.0); NRBC Abs Auto 0.000 X10*3/uL (0.0-0.012); NRBC Pct Auto 0.0 /100WBC (0.0-0.2); Platelet Count 273 X10*3/uL (160-400); Red Blood Count 4.46 X10*6/uL (4.20-5.50); White Blood Count 6.9 X10*3/uL (4.8-10.8)
--- OUTSIDE RECORDS SUMMARY | 2024-12-29 13:35 | XMS_ITS | Encounter Summary ---
Author Organization [employer] Address [address] [facility] 7t [place] [address] Care Team Providers Care Concrete Carpenter Name Role Phone Sunshine Vela [facility] Primary Care Provider [phone] Reason for Visit * Reason Comments Med Refill Encounter Details Date Type Department Care Team (Late st Contact Info) Description 03/19/2022 Refill [facility] [address] [place] [phone] Conrado Fong MD [address] [place] [address] Influenza-like symptoms Social History Tobacco Use Types [...] Description 12/31/2024 2:00 PM EDT Office Visit [facility] ADULT DENTAL [address] [place] [phone] Lisa Henderson, DDS [address] [place] [address] 01/07/2025 3:00 PM EDT Office Visit [facility] MEDICINE [address] [place] [address] Sunshine Vela FNP [address] [place] [address] documented as of this encounter Visit Diagnoses Diagnosis Influenza-like symptoms Other general symptoms documented in this encounter Care Teams Concrete Carpenter Relationship Specialty Start Date End Date Sunshine Vela FNP [address] [place] [address] PCP - General Family Medicine 05/18/22 documented as of this encounter
--- OUTSIDE RECORDS SUMMARY | 2024-12-29 13:35 | XMS_ITS | Encounter Summary ---
Author Organization [employer] Address [address] [facility] 7t [place] [address] Care Team Providers Care Insurance Verify Rep Name Role Phone Sunshine Vela [facility] Primary Care Provider [phone] Reason for Visit * Reason Comments Med Refill Encounter Details Date Type Department Care Team ([facility] st Contact Info) Description 12/01/2024 Refill [facility] MEDICINE [address] [place], [place] [phone] [facility] [address] [place] [address] Fibromyalgia Social History Tobacco Use Types Packs/Day Years [...] Description 12/31/2024 2:00 PM EDT Office Visit [facility] ADULT DENTAL [address] [place] [address] Angeles-Blackman, Lisa, DDS [address] [place] [address] 01/07/2025 3:00 PM EDT Office Visit [facility] MEDICINE [address] [place] [address] Sunshine Vela FNP [address] [place] [address] documented as of this encounter Visit Diagnoses Diagnosis Fibromyalgia Unspecified myalgia and myositis documented in this encounter Additional Health Concerns Assessment Noted Time PHQ-9 Depression Total Score: 9 05/24/19 25 9:06 AM EDT documented as of this encounter Care Teams Insurance Verify Rep Relationship Specialty Start Date End Date Sunshine Vela FNP [address] [place] [address] PCP - General Family Medicine 05/18/22 documented as of this encounter
--- OUTSIDE RECORDS SUMMARY | 2024-12-29 13:35 | XMS_ITS | Encounter Summary ---
Author Organization [facility] Address [address] [place] [address] Care Team Providers Care Wearing Apparel Presser Name Role Phone Shelly Hein PA-C Primary Care Provider [phone] Encounter Details Date Type Department Care Team ([facility] st Contact Info) Description 07/27/2015 Interim Notes [facility] [address] [place] [id number] Shilpa Meyers, CANDICE [address] [place] [address] Social History Tobacco Use Types Packs/Day Years Used Date Smoking Tobacco: Every Day Cigarettes 0.5 12 Alcohol Use Standard Drinks/Week Comments No 0 (1 standard drink = 0.6 oz pure alcohol) former abuse, now sober since [id number] Comments Unknown Sex and Gender Information Value [...] on filedocumented in this encounter Care Teams Wearing Apparel Presser Relationship Specialty Start Date End Date Shelly Hein PA-C [address] [place] [address] PCP - General FAMILY MEDICINE, [place] 12/17/19 documented as of this encounter
--- OUTSIDE RECORDS SUMMARY | 2024-12-29 13:35 | XMS_ITS | Encounter Summary ---
Author Organization [employer] Address [address] [facility] 7t [place] [address] Care Team Providers Care Photoresist Contact Printer Name Role Phone Sunshine Vela [facility] Primary Care Provider [phone] Reason for Visit * Reason Onset Date Comments Nurse Triage 04/11/2023 Encounter Details Date Type Department Care Team ([facility] st Contact Info) Description 04/11/2023 Telephone [facility] MEDICINE [address] [place], [place] [phone] [facility] [address] [place] [address] Nurse Triage Social History Tobacco Use Types [...] this outcome Pt states was seen at [facility] on 04/07/23 . No medication prescribed . documented in this encounter Plan of Treatment Upcoming Encounters Date Type Department Care Team (Late st Contact Info) Description 12/31/2024 2:00 PM EDT Office Visit [facility] ADULT DENTAL [address] [place] [address] Angeles-Blcakman, Lisa, DDS [address] [place] [address] 01/07/2025 3:00 PM EDT Office Visit [facility] MEDICINE [address] [place] [address] Sunshine Vela FNP [address] [place] [address] documented as of this encounter Visit Diagnoses Not on filedocumented in this encounter Additional Health Concerns Assessment Noted Time PHQ-9 Depression Total Score: 0 05/19/19 9:44 AM EST documented as of this encounter Care Teams Photoresist Contact Printer Relationship Specialty Start Date End Date Sunshine Vela FNP [address] [place] [address] PCP - General Family Medicine 05/18/22 documented as of this encounter
--- OUTSIDE RECORDS SUMMARY | 2024-12-29 13:35 | XMS_ITS | Clinical Summary ---
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 low back pain with right-sided [...] pure alcohol) former abuse, now sober since [id number] Social Connections Answer Date Recorded Connectedness 0 [...] Due Date Last Done Comments HPV Screening (self-collect) 1975 HPV Screening 1975 Imm-Hepatitis B (1 of [...] (#1) 10/25/2022 022 Tobacco Screening 10/25/2022 10/25/2021 Anxiety Screening 12/26/2022 12/26/2021 Relationship Safety Screening/Counseling 12/26/2022 12/26/2021, 10/25/2021, 06/14/2020 Lipid Screening 05/19/2023 05/18/2022, 10/10, 01/28/2020, Additional history exists Alcohol and Drug Screen 03/12/2024 12/27/19 22, 10/25/2021, 06/14/2020, Additional history exists Depression Annual Screen 03/12/2024 022, 06/18/2018 (Managed by Outside Provider), 08/07/2017 (Managed by Outside Provider) [id number] ( season) 2024 03/31/2022, 06/26/2020, 05/28/2020 Imm-Influenza (#1) 2024 12/01/2020, 1 , 12/04/2018, Additional history exists Diabetes Screening 05/18/2025 05/18/2022, 0 05/18/2022, 10/25/2021, Additional history exists Colonoscopy 05/15/2032 05/15/2022 Colorectal Cancer Screening 05/15/2032 Imm-DTaP/Tdap/Td (3 - Td or Tdap) 08/27/2032 08/27/2022, 01/28/2020, 05/20/2015 HIV Screening Completed 05/18/2022, 01/27/2015 Hepatitis C Screening Completed 05/18/2022, 015 Cervical Ablation/Cold-Knife Conization Discontinued Cervical Cryotherapy Discontinued Colposcopy Discontinued Excision/Leep Discontinued HPV Genotyping Discontinued Vaginal [...] AM EDT) CHOLESTEROL, TOTAL 241(H) <200 mg/dL [facility] HDL CHOLESTEROL 51 > OR = 50 mg/dL [facility] TRIGLYCERIDES 165(H) <150 mg/dL [facility] LDL-CHOLESTEROL 159(H) 99 mg/dL (calc) [facility] Comment: Reference range: <100 Desirable range <100 mg/dL for primary prevention; <70 mg/dL for patients with CHD or diabetic patients with > or = 2 CHD risk factors. LDL-C is now calculated using the Yumiko calculation, which is a validated novel method providing better accuracy than the Friedewald equation in the estimation of LDL-C. Percy SS et al. GERTRUDE. 2013;310(19): 3869-8233 (http://education.HackerHAND/faq/WDL885) CHOL/HDLC RATIO 4.7 <5.0 (calc) [facility] NON-HDL CHOLESTEROL 190(H) <130 mg/dL (calc) [facility] Comment: For patients with diabetes plus 1 major ASCVD risk factor, treating to a non-HDL-C goal of <100 mg/dL (LDL-C of <70 mg/dL) is considered a therapeutic option. Blood Blood / Unknown 10/25/2021 9 :26 AM EDT 10/25/2021 9:27 AM EDT Narrative [facility] - 10/28/2021 12:56 AM EDT FASTING:YES us Shelly Hein PA-C LAB - BLOOD DRAW Final Resul t [facility] [address] [address], [facility] [address] [address] * (ABNORMAL) COMPREHENSIVE METABOLIC PANEL (10/25/2021 9:26 AM EDT) GLUCOSE 102(H) 65 - 99 mg/dL [facility] Comment: Fasting reference interval For someone without known diabetes, a glucose value between 100 and 125 mg/dL is consistent with prediabetes and should be confirmed with a follow-up test. UREA NITROGEN (BUN) 21 7 - 25 mg/dL [facility] CREATININE (blood) 0.91 0.50 - 0.99 mg/dL [facility] EGFR 79 > OR = 60 mL/min/1 .73m2 [facility] Comment: The eGFR is based on the CKD-EPI 2020 equation. To calculate the new eGFR from a previous Creatinine or Cystatin C result, go to https://www.kidney.org/professionals/ kdoqi/gfr%5Fcalculator BUN/CREATININE RATIO NOT APPLICABLE 6 - 22 [facility] SODIUM 139 135 - 146 mmol/L [facility] POTASSIUM 4.0 3.5 - 5.3 mmol/L [facility] CHLORIDE 106 98 - 110 mmol/L [facility] CARBON DIOXIDE 23 20 - 32 mmol/L [facility] CALCIUM 9.0 8.6 - 10.2 mg/dL [facility] PROTEIN, TOTAL 7.6 6.1 - 8.1 g/dL [facility] ALBUMIN 4.2 3.6 - 5.1 g/dL [facility] GLOBULIN 3.4 1.9 - 3.7 g/dL (calc) [facility] ALBUMIN/GLOBUL IN RATIO 1.2 1.0 - 2.5 (calc) [facility] BILIRUBIN, TOTAL 0.2 0.2 - 1.2 mg/dL [facility] ALKALINE PHOSPHATASE 91 31 - 125 U/L [facility] AST 13 10 - 35 U/L [facility] ALT 15 6 - 29 U/L [facility] Blood Blood / Unknown 10/25/2021 9 :26 AM EDT 10/25/2021 9:27 AM EDT Narrative [facility] - 10/28/2021 12:56 AM EDT FASTING:YES Shelly Hein PA-C LAB - BLOOD DRAW Edited Resu lt - Final [facility]Fire [facility] [address] [address], [facility] [address] [address] * MAMMOGRAM BI-RADS, ABSTRACTED (04/05/2018 2:17 PM EST) BI-RADS ASSESSMENT 1 - Negative: means that there is no significant or noticeable abnormality to report. BI-RADS FOLLOW-UP 1 - Continue annual screening mammography (for women over age 40). Anatomical Region Laterality Modality Other Impressions 04/05/2018 2:17 PM EST As per [facility]. No mammographic evidence of malignancy. Provider Maryjo FRANCISCO MAMMO Final Result * PAP LIQ BASED, HPV W/ RFX HPV 16/18 (08/15/2016 1:32 PM EDT) Cytologic material (specimen) Cervix uteri structure / Unknown 08/15/2016 1:32 PM EDT Impressions [facility] - 08/15/2016 1:32 PM EDT ThinPrep Pap, Imaged: ATYPICAL SQUAMOUS CELLS OF UNDETERMINED SIGNIFICANCE (ASCUS) SOURCE: ThinPrep Pap HPV Any DX: Reflex 16 and 18, Cervical, Imaged: CLINICAL INFORMATION: HPV Any Diagnosis. LMP 08/10/16 Per[facility] - PATHOLOGY AND CYTOLOGY A MBULATORY Final Result Performing Organization Address City/State/[facility] Co de Phone Number [facility] [address] [place] [address], * (ABNORMAL) HEPATITIS A,B,C PANEL (01/27/2015 9:45 AM EST) HEPATITIS B SURFACE ANTIGEN NEGATIVE NEGATIVE [facility] HEPATITIS C VIRUS DIAGNOSTIC NEGATIVE NEGATIVE [facility] HEPATITIS A ANTIBODY TOTAL POSITIVE(A) NEGATIVE [facility] HEPATITIS B CORE ANTIBODY NEGATIVE NEGATIVE [facility] HEPATITIS B SURFACE ANTIBODY POSITIVE(A) NEGATIVE [facility] Comment: Hepatitis B surface antibody testing performed at reference lab due to reagent backorder. Reference range: Negative: Inconsistent with immunity, less than 10 mIU/mL Positive: Consistent with immunity, greater than 9.9 mIU/mL Testing performed at: [facility] [address] [place] [address] PHONE: Blood specimen (specimen) Blood / Unknown 01/27/2015 9:45 AM EST 01/27/2015 12:04 PM EST Narrative [facility] - 01/27/2015 1:41 PM EST [facility] [address] [place] [address] PT ID [id number] ORD# [id number] us Shilpa Meyers NP LAB - BLOOD DRAW Edited Result - Final Performing Organization Address [facility] Co de Phone Number [facility] [address] [place] [address], [place] [phone] * HIV-1 & HIV-2 ANTIBODIES (01/27/2015 9:45 AM EST) [facility] Signature HIV 1 AND 2 ANTIBODY SCREEN NEGATIVE NEGATIVE [facility] Comment: Effective 11/17/14, [employer] has replaced the HIV screening test with [...] AM EST 01/27/2015 12:04 PM EST Narrative [facility] - 01/27/2015 2:10 PM EST [facility] [address] [place] [address] PT ID [id number] ORD# [id number] us Shilpa Meyers NP LAB - BLOOD DRAW Edited Result - Final Performing Organization Address [facility] Co de Phone Number [facility] [address] [place] [address], [place] [phone] from Last 3 Months or Most Recently Relevant to Health Maintenance Insurance [id number] Care Teams Range Technician Relationship Specialty Start Date End Date Shelly Hein PA-C [address] [place] [address] PCP - General FAMILY MEDICINEKELSIE 12/17/19
--- OUTSIDE RECORDS SUMMARY | 2024-12-29 13:35 | XMS_ITS | Encounter Summary ---
Author Organization [employer] Address [address] [facility] 7t [place] [address] Care Team Providers Care Steam Fitter Name Role Phone [facility] Primary Care Provider [phone] Encounter Details Date Type Department Care Team (Late st Contact Info) Description 04/10/2022 Orders Only [facility] MEDICINE [address] [place] [address] Zo Yee LPN Social History Tobacco Use [...] Description 12/31/2024 2:00 PM EDT Office Visit [facility] ADULT DENTAL [address] [place] [address] Angeles-Blackman, Lisa, DDS [address] [place] [address] 01/07/2025 3:00 PM EDT Office Visit [facility] MEDICINE [address] [place] [address] [facility] [address] [place] [address] documented as of this encounter Visit Diagnoses Not on filedocumented in this encounter Care Teams Steam Fitter Relationship Specialty Start Date End Date Sunshine Vela FNP [address] [place] [address] PCP - General Family Medicine 05/18/22 documented as of this encounter
--- OUTSIDE RECORDS SUMMARY | 2024-12-29 13:35 | XMS_ITS | Encounter Summary ---
Author Organization [employer] Address [address] [facility] 7t [place] [address] Care Team Providers Care Automobile Service Station Attendant Name Role Phone Dane [facility] Primary Care Provider [phone] Encounter Details Date Type Department Care Team (Latest Contact Info) Description 12/29/2024 Travel Social History Tobacco Use Types Packs/Day Years [...] Description 12/31/2024 2:00 PM EDT Office Visit [facility] ADULT DENTAL [address] [place] [address] Angeles-BlackmanAshleyLisa, DDS [address] [place] [address] 01/07/2025 3:00 PM EDT Office Visit [facility] MEDICINE [address] [place] [address] Sunshine Vela FNP [address] [place] [address] documented as of this encounter Visit Diagnoses Not on filedocumented in this encounter Additional Health Concerns Assessment Noted Time PHQ-9 Depression Total Score: 9 05/24/19 25 9:06 AM EDT documented as of this encounter Care Teams Automobile Service Station Attendant Relationship Specialty Start Date End Date Sunshine Vela FNP [address] [place] [address] PCP - General Family Medicine 05/18/22 documented as of this encounter
--- OUTSIDE RECORDS SUMMARY | 2024-12-29 13:35 | XMS_ITS | Encounter Summary ---
Author Organization [employer] Address [address] [facility] 7t [place] [address] Care Team Providers Care Cash Processor Name Role Phone Dane [facility] Primary Care Provider [phone] Reason for Visit * Reason Comments Med Refill Encounter Details Date Type Department Care Team (Late st Contact Info) Description 04/09/2022 Refill [facility] MEDICINE [address] [place] [address] Millicent Mendoza FNP Moderate persistent asthma without [...] Description 12/31/2024 2:00 PM EDT Office Visit [facility] ADULT DENTAL [address] [place] [address] [place] DDS [address] [place] [address] 01/07/2025 3:00 PM EDT Office Visit [facility] MEDICINE [address] [place], [place] [phone] Sunshine Vela FNP 230 [place] [address] documented as of this encounter Visit Diagnoses Diagnosis Moderate persistent asthma without complication- Primary documented in this encounter Care Teams Cash Processor Relationship Specialty Start Date End Date Sunshine Vela FNP [address] [place] [address] PCP - General Family Medicine 05/18/22 documented as of this encounter
--- OUTSIDE RECORDS SUMMARY | 2024-12-29 13:35 | XMS_ITS | Encounter Summary ---
Author Organization [employer] Address [address] [facility] 7t [place] [address] Care Team Providers Care Restaurant And Bar Manager Name Role Phone Dane [facility] Primary Care Provider [phone] Encounter Details Date Type Department Care Team (Late st Contact Info) Description 12/29/2024 Orders Only GENERIC EXTERNAL DATA DEPARTMENT [...] t he electric, gas, oil or water [employer] threatened to shut off services in your [...] Description 12/31/2024 2:00 PM EDT Office Visit [facility] ADULT DENTAL [address] [place] [address] Angeles-BlackmanLisa eisenberg, DDS [address] [place] [address] 01/07/2025 3:00 PM EDT Office Visit [facility] MEDICINE [address] [place] [address] Dane, Sunshine, PLASTER DIE MAKER [address] [place] [address] documented as of this encounter Procedures Procedure Name Priority Date/Time Associated Diagnosis Comments HOLD LAVENDER - POSSIBLE HEMATOLOGY Routine 12/29/2024 11:23 AM EDT documented in this encounter Results * Hold Lavender - Possible Hematology (12/29/2024 11:23 AM EDT) Hold Lavender - Possible Hematololgy SEE NOTE [facility] Comment:Specimen will be hel d untested for 8 hours. Call Hematologyif testing is desired. 12/29/2024 11:2 3 AM EDT 12/29/2024 1:22 PM EDT us Generic External Data Provider HISTORICAL/NON OR DERABLE LABS Final Result [facility] [address] [place] [address] [phone] documented in this encounter Visit Diagnoses Not on filedocumented in this encounter Additional Health Concerns Assessment Noted Time PHQ-9 Depression Total Score: 9 05/24/19 25 9:06 AM EDT documented as of this encounter Care Teams Restaurant And Bar Manager Relationship Specialty Start Date End Date Sunshine Vela FNP [address] [place] [address] PCP - General Family Medicine 05/18/22 documented as of this encounter
--- OUTSIDE RECORDS SUMMARY | 2024-12-29 13:35 | XMS_ITS | Encounter Summary ---
Author Organization [facility] Address [address] [place] [address] Care Team Providers Care Binder Stripper Machine Name Role Phone Shelly Hein PA-C Primary Care Provider [phone] Encounter Details Date Type Department Care Team (Late st Contact Info) Description 01/13/2015 Interim Notes [facility] Main [address] [place] [address] Use, Do Not, [facility] [address] [place] [address] Social History Tobacco Use Types Packs/Day Years Used Date Smoking Tobacco: Every Day Cigarettes 0.5 12 Alcohol Use Standard Drinks/Week Comments No 0 (1 standard drink = 0.6 oz pure alcohol) former abuse, now sober since [id number] Comments Unknown Sex and Gender Information Value [...] on filedocumented in this encounter Care Teams Binder Stripper Machine Relationship Specialty Start Date End Date Shelly Hein PA-C [facility] [place] [address] PCP - General FAMILY MEDICINE, [place] 12/17/19 documented as of this encounter
--- OUTSIDE RECORDS SUMMARY | 2024-12-29 13:35 | XMS_ITS | Encounter Summary ---
Author Organization [facility] Address [address] [place] [address] Care Team Providers Care Collar Setter Overlock Name Role Phone Shelly Hein PA-C Primary Care Provider [phone] Encounter Details Date Type Department Care Team ([facility] st Contact Info) Description 01/27/2015 Interim Notes [facility] [address] [place] [address] Shilpa Meyers, CANDICE [address] [facility] [place], [place] [phone] Social History Tobacco Use Types Packs/Day Years Used Date Smoking Tobacco: Every Day Cigarettes 0.5 12 Alcohol Use Standard Drinks/Week Comments No 0 (1 standard drink = 0.6 oz pure alcohol) former abuse, now sober since [id number] Comments Unknown Sex and Gender Information Value [...] 9:45 AM EST 01/27/2015 12:04 PM EST [facility] - 01/27/2015 9:38 PM EST [facility] [address] [place] [address] PT ID [id number] ORD# [id number] Shilpa Meyers NP LAB - BLOOD DRAW Edited Result - Final [address] [address], * (ABNORMAL) HEPATITIS A,B,C PANEL (01/27/2015 9:45 AM EST) HEPATITIS B SURFACE ANTIGEN NEGATIVE NEGATIVE [facility] HEPATITIS C VIRUS DIAGNOSTIC NEGATIVE NEGATIVE [facility] HEPATITIS A ANTIBODY TOTAL POSITIVE(A) NEGATIVE [facility] HEPATITIS B CORE ANTIBODY NEGATIVE NEGATIVE [facility] HEPATITIS B SURFACE ANTIBODY POSITIVE(A) NEGATIVE [facility] Comment: Hepatitis B surface antibody testing performed at reference lab due to reagent backorder. Reference range: Negative: Inconsistent with immunity, less than 10 mIU/mL Positive: Consistent with immunity, greater than 9.9 mIU/mL Testing performed at: [facility] [address] [place] [address] PHONE: Blood specimen (specimen) Blood / Unknown 01/27/2015 9:45 AM EST 01/27/2015 12:04 PM EST [facility] - 01/27/2015 1:41 PM EST [facility] [address] [place] [address] PT ID [id number] ORD# [id number] us Shilpa Meyers NP LAB - BLOOD DRAW Edited Result - Final Performing Organization Address [facility] Co de Phone Number [address] [address], [place] [phone] * HIV-1 & HIV-2 ANTIBODIES (01/27/2015 9:45 AM EST) HIV 1 AND 2 ANTIBODY SCREEN NEGATIVE NEGATIVE [facility] Comment: Effective 11/17/14, [facility] has replaced the HIV screening test with [...] AM EST 01/27/2015 12:04 PM EST Narrative [facility] - 01/27/2015 2:10 PM EST [facility] [address] [place] [address] PT ID [id number] ORD# [id number] us Shilpa Meyers NP LAB - BLOOD DRAW Edited Result - Final Performing Organization Address [facility]/ZIP Co de Phone Number [address] [address], [place] [phone] * GC DNA PROBE, URINE ([facility]oS[facility]) (01/27/2015 9:45 AM EST) Pathologist [facility] GC DNA URINE NEGATIVE NEGATIVE [facility] Urine specimen (specimen) Urine specimen / Unknown 01/27/2015 9:45 AM EST 01/27/2015 11:54 AM EST Narrative [facility] - 01/28/2015 11:19 AM EST [facility] [address] [place] [address] PT ID [id number] ORD# [id number] us Shilpa Meyers NP LAB - MICROBIOLOGY AMBULATORY Fi nal Result Performing Organization Address [facility]/ZIP Co de Phone Number [address] [address], * CHLAMYDIA DNA PROBE, URINE (GeoSentric) (01/27/2015 9:45 AM EST) CHLAMYDIA DNA URINE NEGATIVE NEGATIVE [facility] Urine specimen (specimen) Urine specimen / Unknown 01/27/2015 9:45 AM EST 01/27/2015 11:54 AM EST [facility] - 01/28/2015 11:19 AM EST [facility] [address] [place] [address] PT ID [id number] ORD# [id number] us Shilpa Meyers NP LAB - MICROBIOLOGY AMBULATORY Fi nal Result Performing Organization Address City/[facility] Co de Phone Number [address] [address], documented in this encounter Visit Diagnoses Diagnosis Unprotected sex Problems related to high-risk sexual behavior documented in this encounter Care Teams Collar Setter Overlock Relationship Specialty Start Date End Date Shelly Hein PA-C [facility] [place] [address] PCP - General FAMILY MEDICINE, [place] 12/17/19 documented as of this encounter
--- OUTSIDE RECORDS SUMMARY | 2024-12-29 13:35 | XMS_ITS | Encounter Summary ---
Author Organization [employer] Address [address] [facility] [address] [place] [address] Care Team Providers Care Buffing Machine Operator Name Role Phone Sunshine Vela [facility] Primary Care Provider [phone] Encounter Details Date Type Department Care Team (Latest Contact Info) Description 04/21/2020 Abstract [facility] CONVERSIONS Dental, Provider, DDS Social History [...] Description 12/31/2024 2:00 PM EDT Office Visit [facility] ADULT DENTAL [address] [place] [address] Angeles-Blackman, Lisa, DDS [address] [place] [address] 01/07/2025 3:00 PM EDT Office Visit [facility] MEDICINE [address] [place] [address] [facility] [address] [place] [address] documented as of this encounter Visit Diagnoses Not on filedocumented in this encounter Care Teams Buffing Machine Operator Relationship Specialty Start Date End Date Sunshine Vela FILM DRYING MACHINE OPERATOR [address] [place] [address] PCP - General Family Medicine 3/9/23 documented as of this encounter
--- OUTSIDE RECORDS SUMMARY | 2024-12-29 13:35 | XMS_ITS | Encounter Summary ---
Author Organization [employer] Address [address] [facility] 7t [place] [address] Care Team Providers Care Senior Network Architect Name Role Phone [place] [facility] Primary Care Provider [phone] Reason for Visit * Reason Comments Med Refill Encounter Details Date Type Department Care Team ([facility] Contact Info) Description 04/05/2022 Refill [facility] MEDICINE [address] [place] [address] Millicent Mendoza FNP Social History Tobacco Use [...] Upcoming Encounters Date Type Department Care Team ([facility] Contact Info) Description 12/31/2024 2:00 PM EDT Office Visit [facility] ADULT DENTAL [address] [place] [address] Angeles-Lisa Blackman, DDS [address] [place] [address] 01/07/2025 3:00 PM EDT Office Visit [facility] MEDICINE [address] [place] [address] Sunshine Vela FNP [address] [place] [address] documented as of this encounter Visit Diagnoses Not on filedocumented in this encounter Care Teams Senior Network Architect Relationship Specialty Start Date End Date Sunshine Vela FNP [address] [place] [address] PCP - General Family Medicine 05/18/22 documented as of this encounter
--- OUTSIDE RECORDS SUMMARY | 2024-12-29 13:36 | XMS_ITS | Encounter Summary ---
Author Organization [employer] Address [address] [facility] 7t [place] [address] Care Team Providers Care Traveling Representative Name Role Phone Sunshine Vela CONTROLS OPERATOR [employer] Primary Care Provider [phone] Reason for Visit * Reason Comments Med Refill Encounter Details Date Type Department Care Team (Late st Contact Info) Description 04/05/2022 Refill [facility] [address] [place] [phone] Conrado Fong MD [address] [place] [address] Tobacco dependence; Influenza-like symptoms Social History Tobacco [...] Description 12/31/2024 2:00 PM EDT Office Visit [facility] ADULT DENTAL [address] [place] [address] [place], DDS [address] [place] [address] 01/07/2025 3:00 PM EDT Office Visit [facility] MEDICINE [address] [place] [address] Sunshine Vela FNP [address] [place] [address] documented as of this encounter Visit Diagnoses Diagnosis Tobacco dependence Tobacco use disorder Influenza-like symptoms Other general symptoms documented in this encounter Care Teams Traveling Representative Relationship Specialty Start Date End Date Sunshine Vela FNP [address] [place] [address] PCP - General Family Medicine 05/18/22 documented as of this encounter
--- OUTSIDE RECORDS SUMMARY | 2024-12-29 13:36 | XMS_ITS | Encounter Summary ---
Author Organization [employer] Address 75 [facility] 7t [place] [address] Care Team Providers Care Infrastructure Project Manager Name Role Phone Dane [facility] Primary Care Provider [phone] Encounter Details Date Type Department Care Team (Late st Contact Info) Description 05/15/2024 Orders Only [facility] CHC MED & PEDS [address] [place], [place] [phone] ProviderRickey MD Social History Tobacco Use Types Packs/Day Years [...] Visit [facility] ADULT DENTAL [address] [place] [address] Bridgette-Lisa Blackman, DDS [address] [place] [address] 01/07/2025 3:00 PM EDT Office Visit [facility] MEDICINE [address] [place] [address] Sunshine Vela FNP [address] [place] [address] documented as of this encounter Procedures Procedure Name Priority Date/Time Associated Diagnosis Comments ECG 12-LEAD Routine 05/15/2024 3:46 PM EST ECG 12-LEAD Routine 05/14/2024 3:48 PM EST documented in this encounter Results * ECG 12 lead (05/15/2024 3:46 PM EST) us Historical Provider ECG ORDERABLES Final Res ult * ECG 12 lead (05/14/2024 3:48 PM EST) us Historical Provider ECG ORDERABLES Final Res ult documented in this encounter Visit Diagnoses Not on filedocumented in this encounter Additional Health Concerns Assessment Noted Time PHQ-9 Depression Total Score: 9 06/15/19 24 1:18 PM EDT documented as of this encounter Care Teams Infrastructure Project Manager Relationship Specialty Start Date End Date Sunshine Vela JAVA SOFTWARE ARCHITECT [address] [place] [address] PCP - General Family Medicine 05/18/22 documented as of this encounter
--- OUTSIDE RECORDS SUMMARY | 2024-12-29 13:36 | XMS_ITS | Encounter Summary ---
Author Organization [employer] Address [address] [facility] 7t [place] [address] Care Team Providers Care Superintendent Maintenance Airports Name Role Phone Dane [facility] Primary Care Provider [phone] Encounter Details Date Type Department Care Team (Late st Contact Info) Description 04/07/2022 Orders Only [facility] CHC MED & PEDS [address] [place] [address] Conrado Fong MD [address] [place] [address] Social History Tobacco Use Types Packs/Day Years [...] Description 12/31/2024 2:00 PM EDT Office Visit [facility] ADULT DENTAL [address] [place] [address] Lisa Henderson DDS [address] [place] [address] 01/07/2025 3:00 PM EDT Office Visit [facility] MEDICINE [address] [place] [address] Sunshine Vela FNP [address] [place] [address] documented as of this encounter Visit Diagnoses Not on filedocumented in this encounter Care Teams Superintendent Maintenance Airports Relationship Specialty Start Date End Date Sunshine Vela FNP [address] [place] [address] PCP - General Family Medicine 05/18/22 documented as of this encounter
[2024-12-29 14:02] LABS: Alanine Aminotransferase 21 U/L (0-31); Albumin Level 4.6 g/dL (3.5-5.0); Alkaline Phosphatase 85 U/L (39-117); Anion Gap 12 (12-20); Aspartate Amino Transferase 28 U/L (5-31); Blood Urea Nitrogen 16 mg/dL (9-16); Calcium 9.4 mg/dL (8.4-10.2); Carbon Dioxide 25 mmol/L (22-29); Chloride 104 mmol/L (96-108); Cholesterol 188 mg/dL (<200); Estimated Glomerular Filt Rate > 60; HDL Cholesterol 55 mg/dL (>40); Potassium 4.3 mmol/L (3.3-5.1); Sodium 137 mmol/L (135-145); Total Protein 8.1 g/dL (6.5-8.0); Triglycerides 86 mg/dL (<150)
== END 2024-12-29 11:08 | disposition home or self-care (01) ==
LOC: HO.HHCL 11:07
PROVIDERS: PCP Registered Nurse; Visit Provider Registered Nurse Psychiatric/Mental Health
DX: Z79.899 Other long term (current) drug therapy (principal)
CPT/HCPCS: 36415; 80053; 80061; 82248; 84443; 85025

== ENCOUNTER 2025-02-15 01:26 | Emergency (ER) | payer MEDICAID, SELFPAY ==
--- NOTE | ~2025-02-15 | XR_ITS ---
CLINICAL HISTORY: difficulty swallowing 2 views soft tissue neck Comparison: None provided Findings No acute fractures or dislocation. Epiglottis unremarkable. Prevertebral soft tissues within normal limits. No radiopaque foreign body. Degenerative disc disease greatest at C5/6 and C6/7. Bulky anterior osteophyte at C6/7. IMPRESSION: No acute findings If clinically indicated, fluoroscopic swallow study may be performed to evaluate upper esophageal motility or potential mass effect from anterior osteophyte This document has been electronically signed by: Enrike Neville III, MD PHD on 02/15/2025 03:42:32
--- NOTE | ~2025-02-15 | XR_ITS ---
CLINICAL HISTORY: dyspnea 2 view chest x-ray Comparison: 05/16/2024 Findings: Lung inflation is normal. Cardiac and mediastinal silhouettes are normal. Pulmonary arterial vasculature is normal. There is no pneumothorax or pleural effusion. No consolidative opacities. Osseous structures are normal. No radiodense foreign object IMPRESSION: 1. No acute cardiopulmonary process. This document has been electronically signed by: Enrike Neville III, MD PHD on 02/15/2025 03:43:20
[2025-02-15 01:42] VITALS: BP 123/74; BP 132/62; PULSE 107; PULSE 112; RESP 18; TEMP 36.6; O2SAT 97; O2SAT 98; BMI 28.2
--- NOTE | 2025-02-15 02:01 | PC.NURSE ---
Pt ambulated to restroom and back into bed w/ steady gait. Plan of care ongoing.
--- NOTE | 2025-02-15 02:04 | PC.NURSE ---
Provider notified and aware, unable to obtain an IV on pt Provider to attempt an US guided line Plan of care ongoing..
[2025-02-15 02:42] LABS: IDNOW Serial# 6674DD1D; Strep A Nucleic Acid Negative (Negative)
--- NOTE | 2025-02-15 03:02 | PC.NURSE ---
US guided line attempted by kendal squires, unable to obtain. Provider Star notified and aware. Plan of care ongoing.
[2025-02-15 03:13] LABS: Resp Syncy Virus RNA Qual PCR NEGATIVE (Negative); SARS COV2 PCR INHOUSE NEGATIVE (Negative)
--- NOTE | 2025-02-15 03:26 | PC.NURSE ---
This RN spoke and mid-level spoke with MD again regarding IV access and meds Per provider will hold on IV access until scans come back Plan of care ongoing.
--- OUTSIDE RECORDS SUMMARY | 2025-02-15 03:57 | XMS_ITS | Encounter Summary ---
Author Organization [employer] Address 75 [facility] 7t [place] [address] Care Team Providers Care Supervisor Core Shop Name Role Phone Dane [facility] Primary Care Provider [phone] Encounter Details Date Type Department Care Team (Late st Contact Info) Description 05/15/2024 Orders Only [facility] CHC MED & PEDS [address] [place], [place] [phone] ProviderRickey MD Social History Tobacco Use Types [...] as of this encounter Care Teams Supervisor Core Shop Relationship Specialty Start Date End Date Sunshine Vela FNP [address] [place] [address] PCP - General Family Medicine 05/18/22 documented as of this encounter
--- OUTSIDE RECORDS SUMMARY | 2025-02-15 03:57 | XMS_ITS | Encounter Summary ---
Author Organization [employer] Address 75 [facility] 7t [place] [address] Care Team Providers Care Car Runner Name Role Phone Sunshine Vela [facility] Primary Care Provider [phone] Reason for Visit * Reason Comments Med Refill Encounter Details Date Type Department Care Team (Late st Contact Info) Description 04/09/2022 Refill [facility] MEDICINE [address] [place] [address] Millicent Mendoza FNP Moderate persistent asthma without [...] documented in this encounter Plan of Treatment Not on file documented as of this encounter Visit Diagnoses Diagnosis Moderate persistent asthma without complication- Primary documented in this encounter Care Teams Car Runner Relationship Specialty Start Date End Date Sunshine Vela FNP [address] [place] [address] PCP - General Family Medicine 05/18/22 documented as of this encounter
--- OUTSIDE RECORDS SUMMARY | 2025-02-15 03:57 | XMS_ITS | Encounter Summary ---
Author Organization [employer] Address 75 [facility] 7t [place] [address] Care Team Providers Care Sporting Goods Sales Manager Name Role Phone DaneSunshine [facility] Primary Care Provider [phone] Reason for Visit * Reason Comments Med Refill Encounter Details Date Type Department Care Team (Late st Contact Info) Description 03/19/2022 Refill [facility] WALK-IN CENTER [address] [place], [place] [phone] Conrado Fong MD [address] [place] [address] Influenza-like symptoms Social History Tobacco Use Types [...] symptoms documented in this encounter Care Teams Sporting Goods Sales Manager Relationship Specialty Start Date End Date Sunshine Vela FNP [address] [place] [address] PCP - General Family Medicine 05/18/22 documented as of this encounter
--- OUTSIDE RECORDS SUMMARY | 2025-02-15 03:57 | XMS_ITS | Encounter Summary ---
Author Organization [employer] Address 75 [facility] 7t [place] [address] Care Team Providers Care Operations Tech Name Role Phone Sunshine Vela [facility] Primary Care Provider [phone] Reason for Visit * Reason Comments Med Refill Encounter Details Date Type Department Care Team (Late st Contact Info) Description 04/05/2022 Refill [facility] WALK-IN CENTER [address] [place], [place] [phone] Conrado Fong MD [address] [place] [address] Tobacco dependence; Influenza-like symptoms Social History Tobacco [...] symptoms documented in this encounter Care Teams Operations Tech Relationship Specialty Start Date End Date Sunshine Vela FNP [address] [place] [address] PCP - General Family Medicine 05/18/22 documented as of this encounter
--- OUTSIDE RECORDS SUMMARY | 2025-02-15 03:57 | XMS_ITS | Encounter Summary ---
Author Organization [employer] Address [address] [facility] 7t [place] [address] Care Team Providers Care Boring Machine Operator Helper Name Role Phone Dane [facility] Primary Care Provider [phone] Reason for Visit * Reason Onset Date Comments rs denture appt double book 12/31/2024 Encounter Details Date Type Department Care Team ([facility] st Contact Info) Description 12/31/2024 Telephone [facility] ADULT DENTAL [address] [place] [address] Lisa Henderson DDS [address] [place] [address] rs denture appt double book Social History Tobacco Use Types Packs/Day Years [...] housing situation today? I have sue nair 12/31/[address] you li ve. Do you have problems with any of the following? None of the above 12/31/2024 Food Insecurity Answer Date Recorded Within the past 12 months, y ou worried that your food would run out before you got money to buy more: Often true 12/31/2024 Within the past 12 months,th e food you bought just didn't last and you didn't have enough money to get more: Often true Transportation Answer Date Recorded In the past 12 months, has l ack of transportation kept you from medical appts, meetings, work or from getting things needed for daily living? No 12/31/2024 Utilities Answer Date Recorded In the past 12 months, has t he electric, gas, oil or water company threatened to shut off services in your home? No 12/31/2024 Depression Answer Date Recorded Patient Health Questionnaire-2 Score 2 05/23/2024 Internet Access Answer Date Recorded Internet Access Q1 Yes 12/31/2024 Internet Access Q2 Not on file 12/31/2024 Comments Unknown Sex and Gender Information Value Date Recorded Sex Assigned at Female 01/09/2022 10:17 AM EDT Legal Sex Female 10:17 AM EDT Gender Identity Female 01/09/2022 10:17 AM EDT Sexual Orientation Straight 01/09/2022 10 :17 AM EDT documented as of this encounter Miscellaneous Notes * Telephone Encounter - Dede Holcomb - 12/31/2024 1:18 PM EDT Patient called in stating they were unable to make it due to pulled muscle. [facility] hotel front desk clerk stated the patient may be double booked however they must confirm with provider what time would be a good time to schedule for tomorrow. They will reach out to patient with time to come in tomorrow DR documented in this encounter Plan of Treatment Not on file documented as of this encounter Visit Diagnoses Not on filedocumented in this encounter Additional Health Concerns Assessment Noted Time PHQ-9 Depression Total Score: 9 05/24/19 25 9:06 AM EDT documented as of this encounter Care Teams Boring Machine Operator Helper Relationship Specialty Start Date End Date Sunshine Vela FNP [address] [place] [address] PCP - General Family Medicine 05/18/22 documented as of this encounter
--- OUTSIDE RECORDS SUMMARY | 2025-02-15 03:57 | XMS_ITS | Encounter Summary ---
Author Organization [employer] Address 75 [facility] 7t [place] [address] Care Team Providers Care Trommel Tender Name Role Phone Sunshine Vela [facility] Primary Care Provider [phone] Encounter Details Date Type Department Care Team (Late st Contact Info) Description 04/07/2022 Orders Only [facility] CHC MED & PEDS [address] [place], [place] [phone] Conrado Fong MD [address] [place] [address] Social History Tobacco Use Types Packs/Day Years [...] on filedocumented in this encounter Care Teams Trommel Tender Relationship Specialty Start Date End Date Dane TIEN Gonsalez [address] [place] [address] PCP - General Family Medicine 05/18/22 documented as of this encounter
--- OUTSIDE RECORDS SUMMARY | 2025-02-15 03:57 | XMS_ITS | Encounter Summary ---
Author Organization [employer] Address [address] [facility] 7t [place] [address] Care Team Providers Care Bull Gang Worker Name Role Phone Sunshine Vela [facility] Primary Care Provider [phone] Reason for Visit * Reason Comments Med Refill Encounter Details Date Type Department Care Team ([facility] st Contact Info) Description 12/01/2024 Refill [facility] MEDICINE [address] [place], [place] [phone] [facility] [address] [place] [address] Fibromyalgia Social History Tobacco Use Types Packs/Day [...] documented as of this encounter Care Teams Bull Gang Worker Relationship Specialty Start Date End Date Sunshine Vela FNP [address] [place] [address] PCP - General Family Medicine 05/18/22 documented as of this encounter
--- OUTSIDE RECORDS SUMMARY | 2025-02-15 03:57 | XMS_ITS | Clinical Summary ---
Author Organization [employer] Address 75 [facility] 7t [place] [address] Care Team Providers Care Business Control Specialist Name Role Phone Dane [facility] Primary Care Provider [phone] Allergies Active Allergy Reactions Criticality Noted Date [...] chest pain 07/03/2023 Overview (07/03/2023): Cardiology-saw [facility] cardiology re chest pain/SOB 10/2022--plan for echocardiogram and stress test. 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 States initially on coumadin which she self [...] presence of IVC filter as recommended by [facility]. Pending KUB results will consider CT scan if indicated and likely referral to vascular. Numbness and tingling in both hands 10/09/2022 Lumbar radiculopathy 10/09/2022 Overview (10/17/2022): Previously followed by [facility] pain mngmt Spinal nerve stimulator in place Assessment & Plan (10/19/2022 12:52 PM EDT): Referral placed back to [facility] pain mngmt for followup Spondylolisthesis at L4-L5 [...] infection. Guaifenesin patient request. Bipolar I disorder ([facility]) 01/27/2022 Overview (10/10/2022): trileptal 600mg, hydroxyzine PRN, [...] Encounters Date Type Department Care Team Description 01/05/2025 10:00 AM EDT Office Visit [facility] [place] [address] [place]-Blackman, Lisa, DDS Fracture of complete denture (Primary Dx) 12/31/2024 Patient Outreach [facility] [place] [address] Sunshine Vela FNP Care Coordination (CHW outreach for SDOH housing search-referral completed ) 12/31/2024 Telephone [facility] [place] [address] Angeles-Blackamn, Lisa, DDS rs denture appt double book 12/31/2024 Patient Outreach [facility] [place] [address] Sunshine Vela FNP Pre-visit Planning (SDOH Screening positive and Tobacco screening positive) 12/29/2024 10:30 AM EDT Office Visit [facility] [place] [address] Angeles-Blackman, Lisa, DDS Fracture of complete denture (Primary Dx) 12/29/2024 Orders Only GENERIC EXTERNAL DATA DEPARTMENT Provider, Generic External Data 12/29/2024 Travel 12/01/2024 Refill [facility] [place] [address] Sunshine Vela FNP Fibromyalgia 12/01/2024 Telephone [facility] Cristin [facility] [place] [address] Sunshine Vela FNP Med Refill 11/25/2024 Telephone [facility] Cristin [facility] [place] [address] Sunshine Vela FNP Chart Prep 11/18/2024 Patient Outreach [facility] MEDICINE [address] [place], [place] [phone] Sunshine Vela FNP Pre-visit Planning ((Unable to reach for PVP screening, LVM) to be completed in office ) from Last 3 Months Immunizations Immunization Administration [...] 05/23/2024 9:01 AM EDT Plan of Treatment Health Maintenance Due Date Last Done Comments CT Colonography 1976 FIT DNA/Cologuard 1976 FIT 1976 FOBT 1976 Sigmoidoscopy 1976 Alcohol/Substance Use Screening 1988 Family Planning (PISQ) 10/23/1991 Hepatitis B Vaccines (1 of 3 - 19+ 3-dose series) 10/23/1995 Pap Smear 1997 Cervical Cancer Screening 2006 HPV/Cotest 2006 Dental X-Ray: Bitewings 07/08/2016 07/08/2015 Mammogram 2016 Dental Prophylaxis 10/20/2020 04/21/2020, 11/05/2015 Dental Oral Exam 07/11/2023 01/08/2023, 12/2020, 07/08/2015 COVID-19 Vaccine ( season) 2024 03/31/2022, 06/26/2020, 05/28/2020 Influenza Vaccine (#1) 2024 , 12/23/2019, 12/04/2018, Additional history exists Depression Monitoring 11/23/2024 05/23/2024, 025 Disability Screening 05/22/2025 05/22/2024 SDOH Screening 12/31/2025 12/31/2024 Tobacco Screening 01/05/2026 01/05/2025 Dental X-Ray: Full Mouth 01/09/2026 023, 03/26/2020, 10/07/2015, Additional history exists Zoster Vaccines (1 of 2) 2026 Lipid Panel 05/19/2027 05/18/2022 Colonoscopy 05/15/2032 05/15/2022 Colorectal Cancer Screening 05/15/2032 DTaP/Tdap/Td Vaccines (3 - Td or Tdap) 08/27/2032 08/27/2022, 01/28/2020, 05/20/2015 RSV Patients and Patients Aged 60 years or older (1 - 1-dose 75+ series) 10/23/2051 HIV Screening Completed 05/23/2023, 03/0 11/2022, 01/27/2015 Hepatitis C Screening Completed 05/23/2023, [...] Procedure Name Priority Date/Time Associated Diagnosis Comments CASE PRESENTATION, DETAILED AND EXTENSIVE TREATMENT PLANNING Routine 01/05/2025 10:00 AM EDT Fracture of complete denture REPAIR BROKEN COMPLETE DENTURE BASE, MAX Routine 01/05/2025 10:00 AM EDT Fracture of complete denture HOLD LAVENDER - POSSIBLE HEMATOLOGY Routine 12/29/2024 [...] Hold Lavender - Possible Hematololgy SEE NOTE [facility] Comment:Specimen will be hel d untested for 8 hours. Call Hematologyif testing is desired. 12/29/2024 11:2 3 AM EDT 12/29/2024 1:22 PM EDT Generic External Data Provider HISTORICAL/NON OR DERABLE LABS Final Result Performing Organization Address [facility]/ZIP Co de Phone Number [facility] [address] [place] [address] [phone] * Referral to Pulmonology (12/08/2024) [facility] FINANCIAL QUANTITATIVE ANALYST OUTPATIENT REFERRAL ORDERABLE S Final Result * Hepatitis C Antibody with Reflex to HCV, RNA, Quantitative, Real-Time PCR (05/23/2023 9:53 AM EDT) Pathologist [facility] [place] Hepatitis C Antibody Nonreactive Nonreactive [facility] Comment:Antibodies to HCV no t detected; does not exclude early acuteHCV infection. Blood Venous blood specimen / Unknown 05/23/2023 9:53 AM EDT 05/23/2023 11:14 AM EDT Conrado Fong MD LAB BLOOD ORDERABLES Final Resul t Performing Organization Address [facility]/ZIP Co de Phone Number [facility] [address] [place] [address] [phone] * HIV-1/2 Antigen and Antibodies, Fourth Generation, with Reflexes (05/23/2023 9:53 AM EDT) HIV AB/AG Nonreactive Nonreactive [facility] Comment:HIV-1 p24 Ag and/or HIV-1/HIV-2 Ab not detected.A test result that is nonreactive does not exclude thepossibility of exposure to or infection with HIV-1 and/orHIV-2. Nonreactive results in this assay for individualswith prior exposure to HIV-1 and/or HIV-2 may be due toantigen and antibody levels that are below the limit ofdetection of this assay.The [employer] HIV Ag/Ab Combo assay result andsupplemental assay results should be interpreted inconjunction with the patient's clinical presentation,history and other laboratory results. If the results areinconsistent with clinical evidence, additional testing issuggested to confirm the result. Blood Venous blood specimen / Unknown 05/23/2023 9:53 AM EDT 05/23/2023 11:14 AM EDT us Conrado Fong MD LAB BLOOD ORDERABLES Final Resul t [facility] [address] [place] [phone] * (ABNORMAL) Lipid Panel, Standard (05/18/2022 10:40 AM EST) Pathologist [facility] [place] Cholesterol, Total 180 <200 mg/dL [facility] HDL Cholesterol 55 > OR = 50 mg/dL [facility] Triglycerides 155(H) <150 mg/dL [facility] LDL Cholesterol 100(H) mg/dL (calc) [facility] Comment: Reference range: <100 Desirable range <100 mg/dL for primary prevention; <70 mg/dL for patients with CHD or diabetic patients with > or = 2 CHD risk factors. LDL-C is now calculated using the Percy-Petty calculation, which is a validated novel method providing better accuracy than the Friedewald equation in the estimation of LDL-C. Percy ESPINOZA et al. GERTRUDE. 2013;310(19): 5033-2984 (http://education.Stumpedia/faq/OYJ000) Chol/HDLC Ratio 3.3 <5.0 (calc) [facility] Non-HDL Cholesterol 125 <130 mg/dL (calc) [facility] Comment: For patients with diabetes plus 1 major ASCVD risk factor, treating to a non-HDL-C goal of <100 mg/dL (LDL-C of <70 mg/dL) is considered a therapeutic option. Blood Venous blood specimen / Unknown 05/18/2022 10:40 AM EST 05/18/2022 10:40 AM EST Narrative [facility] - 05/19/2022 1:04 PM EST FASTING:YES FASTING: YES [facility] FINANCIAL QUANTITATIVE ANALYST LAB BLOOD ORDERABLES Final Re sult [facility] [address] [facility] [place] [address] [facility] [address] [facility], ([address]) [place] [address] from Last 3 Months or Most Recently Relevant to Health Maintenance Insurance [facility] C3 Care Teams Business Control Specialist Relationship Specialty Start Date End Date Sunshine Vela FNP [address] [place] [phone] PCP - General Family Medicine 05/18/22
--- OUTSIDE RECORDS SUMMARY | 2025-02-15 03:57 | XMS_ITS | Encounter Summary ---
Author Organization [employer] Address 75 [facility] [address]t [place] [address] Care Team Providers Care Scientific Recruiter Name Role Phone Sunshine Vela [facility] Primary Care Provider [phone] Reason for Visit * Reason Onset Date Comments Nurse Triage 04/11/2023 Encounter Details Date Type Department Care Team ([facility] st Contact Info) Description 04/11/2023 Telephone [facility] MEDICINE [address] [place], [place] [phone] [facility] [address] [place] [address] Nurse Triage Social History Tobacco Use Types [...] this outcome Pt states was seen [place] [facility] [place] . No medication prescribed . documented in this encounter Plan of Treatment Not on file documented as of this encounter Visit Diagnoses Not on filedocumented in this encounter Additional Health Concerns Assessment Noted Time PHQ-9 Depression Total Score: 0 05/19/19 9:44 AM EST documented as of this encounter Care Teams Scientific Recruiter Relationship Specialty Start Date End Date Sunshine Vela FNP [address] [place] [address] PCP - General Family Medicine 05/18/22 documented as of this encounter
--- OUTSIDE RECORDS SUMMARY | 2025-02-15 03:57 | XMS_ITS | Encounter Summary ---
Author Organization [employer] Address 75 [facility] 7t [place] [address] Care Team Providers Care Credit Support Specialist Name Role Phone Sunshine Vela [facility] Primary Care Provider [phone] Encounter Details Date Type Department Care Team (Latest Contact Info) Description 04/21/2020 Abstract [facility] Dental, Provider, DDS Social History Tobacco [...] on filedocumented in this encounter Care Teams Credit Support Specialist Relationship Specialty Start Date End Date Sunshine Veal FNP [address] [place] [phone] PCP - General Family Medicine 05/18/22 documented as of this encounter
--- OUTSIDE RECORDS SUMMARY | 2025-02-15 03:57 | XMS_ITS | Encounter Summary ---
Author Organization [employer] Address [address] [facility] [address] [place] [address] Care Team Providers Care [place] Representative Name Role Phone Sunshine Vela [facility] Primary Care Provider [phone] Reason for Visit * Reason Comments Med Refill Encounter Details Date Type Department Care Team (Late st Contact Info) Description 04/05/2022 Refill [facility] [address] [place], [place] [id number] Millicent Mendoza FNP Social History Tobacco Use [...] on filedocumented in this encounter Care Teams [place]. Representative Relationship Specialty Start Date End Date Sunshine Vela FNP [address] [place] [address] PCP - General Family Medicine 05/18/22 documented as of this encounter
--- OUTSIDE RECORDS SUMMARY | 2025-02-15 03:57 | XMS_ITS | Encounter Summary ---
Author Organization [employer] Address [address] [facility] [address] [place] [address] Care Team Providers Care Ingot Caster Name Role Phone Sunshine Vela Primary Care Provider [phone] Reason for Visit * Reason Comments Med Refill Encounter Details Date Type Department Care Team (Late st Contact Info) Description 09/30/2022 Refill [facility] [address] [place] [address] Sunshine Vela FNP [address] [place] [address] Pain Social History Tobacco Use Types Packs/Day [...] Time PHQ-9 Depression Total Score: 0 05/19/19 23 9:44 AM EST documented as of this encounter Care Teams Ingot Caster Relationship Specialty Start Date End Date Sunshine Vela FNP [address] [place] [id number] PCP - General Family Medicine 05/18/22 documented as of this encounter
--- OUTSIDE RECORDS SUMMARY | 2025-02-15 03:57 | XMS_ITS | Encounter Summary ---
Author Organization [employer] Address [address] [facility] [address] [place] [address] Care Team Providers Care Parts Counter Specialist Name Role Phone Sunshine Vela [facility] Primary Care Provider [phone] Encounter Details Date Type Department Care Team (Late st Contact Info) Description 04/10/2022 Orders Only [facility] [address] [place], [place] [phone] Zo Yee LPN Social History Tobacco Use [...] on filedocumented in this encounter Care Teams Parts Counter Specialist Relationship Specialty Start Date End Date Sunshine Vela FNP [address] [place] [address] PCP - General Family Medicine 05/18/22 documented as of this encounter
[2025-02-15 05:53] VITALS: BP 107/62; PULSE 81; RESP 20; TEMP 36.8; O2SAT 95
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
[2025-02-15 06:59] VITALS: BP 107/62; PULSE 81; RESP 20; TEMP 36.8; O2SAT 95
== END 2025-02-15 07:01 | disposition home or self-care (01) ==
PROVIDERS: Emergency Provider Emergency Medicine; PCP Registered Nurse
DX: R13.10 Dysphagia, unspecified (principal); F41.0 Panic disorder [episodic paroxysmal anxiety]; R00.0 Tachycardia, unspecified; Z03.818 Encounter for observation for suspected exposure to other biological agents ruled out; J45.909 Unspecified asthma, uncomplicated; E78.00 Pure hypercholesterolemia, unspecified; Z79.02 Long term (current) use of antithrombotics/antiplatelets; Z79.899 Other long term (current) drug therapy
CPT/HCPCS: 70360; 71046; 87637; 87651; 99284

== ENCOUNTER → 2025-02-15 01:43 | Outpatient (BNV) | payer MEDICAID, SELFPAY | PROVIDERS: Emergency Provider Emergency Medicine; PCP Registered Nurse; Visit Provider Radiology Diagnostic Radiology | DX: R06.00 Dyspnea, unspecified (principal); R13.10 Dysphagia, unspecified | CPT/HCPCS: 70360; 71046 ==